=== PATIENT | female | born 1960 | race Caucasian/White ===

== ENCOUNTER 2020-07-12 08:39 | Outpatient (REF) | payer OTHER, SELFPAY | END 2020-07-12 08:40 | disposition home or self-care (01) | LOC: HO.LAB 08:39 | PROVIDERS: Visit Provider Internal Medicine | DX: Z20.828 Contact with and (suspected) exposure to other viral communicable diseases (principal) | CPT/HCPCS: 36415; C9803; U0003 ==

== ENCOUNTER 2020-08-04 13:52 | Outpatient (REF) | payer OTHER, SELFPAY ==
[2020-08-04 14:42] LABS: Creatinine Urine 87.91 mg/dL; Microalbum/Creatinine Ratio Ur 5.6 ug/mg cr
== END 2020-08-04 13:53 | disposition home or self-care (01) ==
LOC: HO.LNP 13:52
PROVIDERS: Visit Provider Family Medicine
DX: E11.9 Type 2 diabetes mellitus without complications (principal)
CPT/HCPCS: 82043

== ENCOUNTER → 2021-03-30 10:28 | Outpatient (BNVA) | payer OTHER, SELFPAY | PROVIDERS: PCP Family Medicine; Referring Provider Family Medicine; Visit Provider Internal Medicine Cardiovascular Disease | DX: I25.10 Atherosclerotic heart disease of native coronary artery without angina pectoris (principal); R07.9 Chest pain, unspecified; E11.9 Type 2 diabetes mellitus without complications | CPT/HCPCS: 93005; 99212 ==

== ENCOUNTER 2021-05-11 09:22 | Outpatient (REF) | payer OTHER, SELFPAY ==
--- NOTE | ~2021-05-11 | US_ITS ---
EXAMINATION: ANKLE-BRACHIAL INDICES. CLINICAL INFORMATION: This is a 60-year-old female with peripheral vascular disease. Type 2 diabetes without complications. COMPARISON: None. TECHNIQUE: Ankle-brachial indices were obtained. The study was performed pre-exercise. FINDINGS: RIGHT SIDE: The right ankle-brachial index is 0.98 rest. The segmental pressures demonstrate no evidence of peripheral arterial disease. LEFT SIDE: The left ankle-brachial index is 1.09 at rest. The segmental pressures demonstrate no evidence of significant peripheral arterial disease. US/US JAREK complete IMPRESSION: Unremarkable examination. INTERPRETATION CRITERIA FOR PERIPHERAL ARTERIAL DISEASE: > 0.97-1.25 = normal - no significant peripheral arterial disease. (0.95 - 0.91 may be abnormal-consider PVRs and Doppler waveforms). 0.75 - 0.96 = MILD peripheral arterial disease. 0.50 -0.74 = MODERATE peripheral arterial disease. < 0.50 = SEVERE peripheral arterial disease. < 0.30 = CRITICAL peripheral arterial disease.
== END 2021-05-11 09:23 | disposition home or self-care (01) ==
LOC: HO.US 09:22
PROVIDERS: PCP Family Medicine; Visit Provider Internal Medicine Cardiovascular Disease
DX: E11.9 Type 2 diabetes mellitus without complications (principal)
CPT/HCPCS: 93923

== ENCOUNTER → 2021-05-18 10:44 | Outpatient (REF) | payer OTHER, SELFPAY ==
--- NOTE | 2021-05-18 10:48 | CA_ITS ---
Acquisition Time: 2021-05-18 11:15:28 Total Exercise Time: 00:06:25 Test Indications: Chest Pain Medications: ASA ATORVASTATIN GLYBURIDE METFORMIN METOPROLOL Protocol: BASSAM Max HR: 179 BPM 110% of Pred: 162 BPM Max BP: 186/098 mmHG Max Work Load: 7.6 METS Exercise stress test with exercise 6 min 25 sec of Bassam protocol, without anginal symptoms, with isolated PACs and short runs of asymptomatic atrial tachycardia lasting 2-8 sec at a time ( afib not entirely ruled out), with normotensive response to exercise, with artifact at peak exercise, without EKG changes meeting criteria for ischemia at 32 sec of recovery, with downsloping STs with borderline depression inferolateral leads with slow gradual improvement in recovery. Echo images obtained by tech at rest and immediately post peak exercise. Definity contrast used. Test reviewed with Dr Swift. Will order Holter monitor for further eval of arrythmia. Referred By: Ty Farooq Overread By: SETH FLORES
== END ==
LOC: HO.CARD 10:44
PROVIDERS: Visit Provider Internal Medicine Cardiovascular Disease
DX: R07.9 Chest pain, unspecified (principal)
CPT/HCPCS: 93350; Q9957

== ENCOUNTER 2021-06-03 09:17 | Outpatient (REF) | payer OTHER, SELFPAY ==
[2021-06-03 11:12] LABS: Estimated Average Glucose 200 mg/dL; Hemoglobin A1c % 8.6 %
== END 2021-06-03 09:18 | disposition home or self-care (01) ==
LOC: HO.WFDLDS 09:17
PROVIDERS: Visit Provider Family Medicine
DX: R73.01 Impaired fasting glucose (principal)
CPT/HCPCS: 36415; 83036

== ENCOUNTER → 2021-06-11 15:28 | Outpatient (BNVA) | payer OTHER, SELFPAY | PROVIDERS: PCP Family Medicine; Referring Provider Family Medicine; Visit Provider Internal Medicine Cardiovascular Disease | DX: I25.10 Atherosclerotic heart disease of native coronary artery without angina pectoris (principal); R07.9 Chest pain, unspecified | CPT/HCPCS: 99212 ==

== ENCOUNTER → 2021-06-29 07:14 | Outpatient (REF) | payer OTHER, SELFPAY ==
--- NOTE | 2021-06-29 07:18 | HM_ITS ---
Total monitoring time 3 days 3 hours. Underlying rhythm is sinus. Minimum heart rate 46/Min. Maximum 122/Min. Average 66/Min. No atrial fibrillation or flutter or pauses or AV blocks. Rare supraventricular ectopy with minimal burden. 4 episodes, longest 5 beats. Rare ventricular ectopy with minimal burden. No clear patient symptoms documented. MTDD
== END ==
LOC: HO.CARD 07:14
PROVIDERS: Visit Provider Nurse Practitioner Family
DX: I47.1 Supraventricular tachycardia (principal); I49.1 Atrial premature depolarization
CPT/HCPCS: 93242

== ENCOUNTER → 2021-09-30 13:57 | Outpatient (BNVA) | payer OTHER, SELFPAY | PROVIDERS: PCP Family Medicine; Referring Provider Family Medicine; Visit Provider Internal Medicine Cardiovascular Disease | DX: I25.119 Atherosclerotic heart disease of native coronary artery with unspecified angina pectoris (principal) | CPT/HCPCS: 99212 ==

== ENCOUNTER 2022-03-03 08:00 | Outpatient (RCR) | payer OTHER, SELFPAY ==
[2021-11-18 13:16] VITALS: BP 120/70; BP 132/70; BMI 26.4
--- NOTE | 2021-11-18 15:20 | MHC.CR.ITI ---
[address] [phone] F: [phone] Please see additional notes from [facility] Initial Assessment/ITP Cardiac Rehab Initial Assessment/ITP Start: 11/18/21 06:55 Freq: Status: Active Protocol: Activity Type Activity Date Activity User E-Sign Co-Sign Detail Recorded Client Recorded Date Recorded By Document 11/18/21 13:16 [email or web address] [id number] 11/18/21 14:02 SARAH 11/18/21 13:16 Cardiac Rehab ITP Initial [Excercise] -Meat Processor Required No -Preferred Language Turkish -Number of sessions approved 36 -Diagnosis Current Stable Angina I20.9 -Other Diagnosis type 2 diabetes , high cholesterol, high bp [Functional Assessment] -6 Min Walk (distance in ft) 1,100 -METS Achieved 2.59 -Resting HR 80 -Resting BP 132/70 -Resting SpO2 99 -Exercise HR 60 -Exercise BP 120/70 -Exercise SpO2 99 -RPE 8 -Dyspnea No -ECG Summary NSR [Pre Rehab] -Pre Rehab Home Exercise Yes -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 Discussed RPE, stretching exercises taught to pt today and self- pulse taught. 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 pt states doesnt workout. [Nutrition] [Hyperlipidemia] -Hyperlipidemia Yes -Are lab results available No [Diabetes] -Diabetes Yes -Diabetes Type 2 -Are lab results available No -Monitors Glucose Yes -Frequency daily [Weight Management] -Height 5 ft 5 in -Weight 72.2 kg -BMI 26.4 -Recommended Diet DASH -Comments pt states she reads labels [Drug/Alchohol Use] -Drug/Alcohol Use No [Nutritional Screen (Rate Your Plate)] -Score 54 -Interpretation of Score THERE ARE SOME WAYS SHE CAN BE HEALTHIER [Nutrition Plan] [Nutrition Education] -Nutrition Education Diabetes and excercise, Hydration, Reading food labels,Signs and symptoms of Hypo/Hyper- glycemia -Date Completed 11/18/21 -Initials LICHA [Nutrition Goals] -Goals BMI < 25 -Weight goal 145 [Psycho/Social] -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 [Psycho/Social Plan] [Intervention] -Referral(s) No consult needed [Psycho/Social Education] -Psycho/Social Education Positive support system, Relaxation Techniques -Date Completed 11/18/21 -Initials LICHA -Education Summary Pts is disabled. He had a nervous breakdown 11 years ago. Per pt he is very supportive of her even with all of his emotional problems. Pt. has 8 chickens- helps keep her busy and helps her relax. [Psycho/Social Goals] -Goals Not Applicable -Comments Pt not depressed. PHQ9 score of 0. [Other Core Comp] [Risk Factors] -Risk Factors Diabetes, Dyslipidemia, Hypertension, Physical Inactivity [Hypertension] -Hypertention Yes -Resting BP: 132/70 [Tobacco Use] -Patient Tobacco Use Status Never used Tobacco -Patient Interested in Nicotine No Replacement -Exposure to secondhand smoke No [Heart Failure] -Heart Failure No -Dyspnea at Rest No -Dyspnea with Exercise No [Other Core Comp Plan] [Intervention] -Referral(s) Not Applicable [Other Core Comp Education] -Other Core Comp Education Understanding hypertension -Date Completed 11/18/21 -Initials LICHA [Other Core Comp Goals] -Goals Resting BP < 130/80 [Medication Plan] [Intervention] -Medications ASA 81 MG PO DAILY GLYBURIDE 5 MG 2 TABS METFORMIN 1OOOMG ONE TAB 2X DAILY ATORVASTATIN 80MG ONE TAB PO DAILY METOPROLOL 25 MG PO 2X DAILY -Compliance Patient reports compliance w/ prescribed meds [Medication Education] -Education Importance of medication compliance -Date Completed 11/18/21 -Initials LICHA [Medication Goals] -Goals Adherence to medication compliance [Treatment Times] -Rehab Services with ECG Monitor -Time 1300 -End Time 1500 -Visit Duration 120
[2021-12-15 07:48] VITALS: BP 112/60; BMI 26.4
--- NOTE | 2021-12-15 08:30 | MHC.CR.ITR ---
[address] [phone] F: [phone] Please see additional notes from [facility] Reassessment/ITP Cardiac Rehab Reassessment/ITP Start: 11/18/21 06:55 Freq: Status: Active Protocol: Activity Type Activity Date Activity User E-sign Co-sign Detail Recorded Client Recorded Date Recorded By Document 12/15/21 07:48 EMANUEL [id number] 12/15/21 08:29 EMANUEL 12/15/21 07:48 Cardiac Rehab Reassessment/ITP [Exercise] -Administrative Nursing Supervisor Required No -Preferred Language Nepali -Progress Note Type 30-Day Note -Total Sessions Attended 4 -Comments Collette is only able to attend CR once weekly due to work schedule but has started walking daily [Functional Assessment] -ECG Summary SR with no ectopy noted -Home-Based Rehab Pt approved for home-based exercise -Comments states walking 30+ minutes daily -Fall Risk No [Exercise Plan] [Intervention] -Exercise Prescription NuStep, Recumbent Bike, Treadmill,UBE -Duration Intensity 36 Sessions -Exercise Minutes/Day 30 -Exercise Days/Week 6 -Angina with Exercise No -Peak METs 3 [Home Exercise] -Mode walking -Frequency no rehab days -Intensity moderate [Exercise Education] -Exercise Education Exercise orientation, Exercise safety ,Home exercise, RPE,Self pulse checking,Signs and symptoms, Warmup/cooldown -Date Completed 11/18/21 -Initials licha -Education Summary Pt was here 3 years ago and was familiar with some machines. Discussed RPE, stretching exercises taught to pt today and self- pulse taught. 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 pt states doesnt workout but has started walking daily as she can only attend CR x 1 weekly [Nutrition] [Hyperlipidemia] -Are lab results available No -Hyperlipidemia Yes -Medication Changes No [Diabetes] -Diabetes Yes -Diabetes Type 2 -HbA1C 6.40 -Date 12/09/21 -Comments stated POC FBS 180 [Weight Management] -Weight 72.1 kg -BMI 26.4 -Comments pt states she reads labels weight unchanged [Drug/Alchohol Use] -Drug/Alcohol Use No -Change in Use No [Nutrition Plan] [Intervention] -Attended Not Applicable [Nutrition Education] -Nutrition Education Diabetes and excercise, Hydration, Nutrition, Reading food labels,Signs and symptoms of Hypo/Hyper- glycemia -Date Completed 11/18/21 -Initials LICHA -Education Summary given DASH diet handout. denies questions/ concerns re: nutrition [Nutrition Goals] -Goals BMI < 25, Fasting BG 80- 120 mg/dL,HDL > 40,LDL < 70, Total CHOL < 200 -Weight goal 145 [Psycho/Social] -Occupation Currently working -PHQ9 Score 1 -Interpretation of Score LOW RISK FOR DEPRESSION -Plan of Action/Follow-up will monitor -Patient Self-Reports Depression No [Psycho/Social Plan] [Intervention] -Attended No consult needed [Psycho/Social Education] -Psycho/Social Education Positive support system, Relaxation Techniques -Date Completed 11/18/21 -Initials LICHA -Education Summary is very supportive and pt has hobbies to help her relax [Psycho/Social Goals] -Goals Not Applicable -Comments Pt not depressed. PHQ9 score of 0. [Other Core Comp] [Hypertension] -Hypertention Yes -Resting BP: 112/60 -Medication Changes No [Tobacco Use] -Change in Use No -Comments does not smoke [Heart Failure] -Heart Failure No -Dyspnea at Rest No -Dyspnea with Exercise No [Other Core Comp Plan] [Intervention] -Attended Not Applicable [Other Core Comp Education] -Other Core Comp Education Medication compliance,Risk factor modifications, RPD Scale/SOB management, Understanding hypertension -Date Completed 11/18/21 -Initials LICHA -Education Summary denies sob and understands RPD scale/SOB management. states maintains medication regimen. [Other Core Comp Goals] -Goals Medication compliance, Resting BP < 130/80 -Comments remains compliant with medication regimen. [Medication Plan] [Intervention] -Medications ASA 81 MG PO DAILY GLYBURIDE 5 MG 2 TABS METFORMIN 1OOOMG ONE TAB 2X DAILY ATORVASTATIN 80MG ONE TAB PO DAILY METOPROLOL 25 MG PO 2X DAILY -Compliance Patient reports compliance w/ prescribed meds [Medication Education] -Education Importance of medication compliance -Date Completed 11/18/21 -Initials LICHA -Education Summary remains compliant with medication regimen [Medication Goals] -Goals Adherence to medication compliance
[2022-01-12 07:41] VITALS: BP 124/60; BMI 25.6
--- NOTE | 2022-01-12 07:45 | MHC.CR.ITR ---
[address] [phone] F: [phone] Please see additional notes from [facility] Reassessment/ITP Cardiac Rehab Reassessment/ITP Start: 11/18/21 06:55 Freq: Status: Active Protocol: Activity Type Activity Date Activity User E-sign Co-sign Detail Recorded Client Recorded Date Recorded By Document 01/12/22 07:41 EMANUEL [id number] 01/12/22 07:45 EMANUEL 01/12/22 07:41 Cardiac Rehab Reassessment/ITP [Exercise] -Cager Operator Required No -Preferred Language Irish -Progress Note Type 60-Day Note -Total Sessions Attended 7 -Comments Collette is only able to attend CR once weekly due to work schedule but has started walking daily [Functional Assessment] -ECG Summary SR with no ectopy noted -Home-Based Rehab Pt approved for home-based exercise -Comments states walking 30+ minutes daily -Fall Risk No [Exercise Plan] [Intervention] -Exercise Prescription NuStep, Recumbent Bike, Treadmill,UBE -Duration Intensity 36 Sessions -Exercise Minutes/Day 30 -Exercise Days/Week 6 -Angina with Exercise No -Peak METs 3 [Home Exercise] -Mode walking -Frequency no rehab days -Intensity moderate [Exercise Education] -Exercise Education Exercise orientation, Exercise safety ,Home exercise, RPE,Self pulse checking,Signs and symptoms, Warmup/cooldown -Date Completed 11/18/21 -Initials licha -Education Summary Pt was here 3 years ago and was familiar with some machines. Discussed RPE, stretching exercises taught to pt today and self- pulse taught. 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 pt states doesnt workout but has started walking daily as she can only attend CR x 1 weekly [Nutrition] [Hyperlipidemia] -Are lab results available No -Hyperlipidemia Yes -Medication Changes No [Diabetes] -Diabetes Yes -Diabetes Type 2 -HbA1C 6.40 -Date 12/09/21 -Comments stated POC FBS 180 [Weight Management] -Weight 70 kg -BMI 25.6 -Comments pt states she reads labels weight not significantly unchanged [Drug/Alchohol Use] -Drug/Alcohol Use No -Change in Use No [Nutrition Plan] [Intervention] -Attended Not Applicable [Nutrition Education] -Nutrition Education Diabetes and excercise, Hydration, Nutrition, Reading food labels,Signs and symptoms of Hypo/Hyper- glycemia -Date Completed 11/18/21 -Initials LICHA -Education Summary given DASH diet handout. denies questions/ concerns re: nutrition [Nutrition Goals] -Goals BMI < 25, Fasting BG 80- 120 mg/dL,HDL > 40,LDL < 70, Total CHOL < 200 -Weight goal 145 [Psycho/Social] -Occupation Currently working -PHQ9 Score 1 -Interpretation of Score LOW RISK FOR DEPRESSION -Plan of Action/Follow-up will monitor -Patient Self-Reports Depression No [Psycho/Social Plan] [Intervention] -Attended No consult needed [Psycho/Social Education] -Psycho/Social Education Positive support system, Relaxation Techniques -Date Completed 11/18/21 -Initials LICHA -Education Summary is very supportive and pt has hobbies to help her relax [Psycho/Social Goals] -Goals Not Applicable -Comments Pt not depressed. PHQ9 score of 0. [Other Core Comp] [Hypertension] -Hypertention Yes -Resting BP: 124/60 -Medication Changes No [Tobacco Use] -Change in Use No -Comments does not smoke [Heart Failure] -Heart Failure No -Dyspnea at Rest No -Dyspnea with Exercise No [Other Core Comp Plan] [Intervention] -Attended Not Applicable [Other Core Comp Education] -Other Core Comp Education Medication compliance,Risk factor modifications, RPD Scale/SOB management, Understanding hypertension -Date Completed 11/18/21 -Initials LICHA -Education Summary denies sob and understands RPD scale/SOB management. states maintains medication regimen. [Other Core Comp Goals] -Goals Medication compliance, Resting BP < 130/80 -Comments remains compliant with medication regimen. [Medication Plan] [Intervention] -Medications ASA 81 MG PO DAILY GLYBURIDE 5 MG 2 TABS METFORMIN 1OOOMG ONE TAB 2X DAILY ATORVASTATIN 80MG ONE TAB PO DAILY METOPROLOL 25 MG PO 2X DAILY -Compliance Patient reports compliance w/ prescribed meds [Medication Education] -Education Importance of medication compliance -Date Completed 11/18/21 -Initials LICHA -Education Summary remains compliant with medication regimen [Medication Goals] -Goals Adherence to medication compliance
[2022-02-09 12:31] VITALS: BP 118/70; BMI 25.6
--- NOTE | 2022-02-09 12:36 | MHC.CR.ITR ---
[address] [phone] F: [phone] Please see additional notes from [facility] Card[facility] Reassessment/ITP Cardiac Rehab Reassessment/ITP Start: 11/18/21 06:55 Freq: Status: Active Protocol: Activity Type Activity Date Activity User E-sign Co-sign Detail Recorded Client Recorded Date Recorded By Document 02/09/22 12:31 EMANUEL [id number] 02/09/22 12:36 EMANUEL 02/09/22 12:31 Cardiac Rehab Reassessment/ITP [Exercise] -Casino Supervisor Required No -Preferred Language Azeri -Progress Note Type 90-Day Note -Total Sessions Attended 11 -Comments Collette is only able to attend CR once weekly due to work schedule but has started walking daily [Functional Assessment] -ECG Summary SR with no ectopy noted -Home-Based Rehab Pt approved for home-based exercise -Comments states walking 30+ minutes daily -Fall Risk No [Exercise Plan] [Intervention] -Exercise Prescription NuStep, Recumbent Bike, Treadmill,UBE -Duration Intensity 36 Sessions -Exercise Minutes/Day 30 -Exercise Days/Week 6 -Angina with Exercise No -Peak METs 3 [Home Exercise] -Mode walking -Frequency no rehab days -Intensity moderate [Exercise Education] -Exercise Education Exercise orientation, Exercise safety ,Home exercise, RPE,Self pulse checking,Signs and symptoms, Warmup/cooldown -Date Completed 11/18/21 -Initials licha -Education Summary familiar with some machines and exercise safety. understands RPE , appropriate stretching exercises verified and accurately demonstrates self-pulse. 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 pt states doesnt workout but has started walking daily as she can only attend CR x 1 weekly [Nutrition] [Hyperlipidemia] -Are lab results available No -Hyperlipidemia Yes -Medication Changes No [Diabetes] -Diabetes Yes -Diabetes Type 2 -HbA1C 6.40 -Date 12/09/21 -Comments stated POC FBS 180 [Weight Management] -Weight 70 kg -BMI 25.6 -Comments pt states she reads labels weight not significantly unchanged [Drug/Alchohol Use] -Drug/Alcohol Use No -Change in Use No [Nutrition Plan] [Intervention] -Attended Not Applicable [Nutrition Education] -Nutrition Education Diabetes and excercise, Hydration, Nutrition, Reading food labels,Signs and symptoms of Hypo/Hyper- glycemia -Date Completed 11/18/21 -Initials LICHA -Education Summary given DASH diet handout. denies questions/ concerns re: nutrition [Nutrition Goals] -Goals BMI < 25, Fasting BG 80- 120 mg/dL,HDL > 40,LDL < 70, Total CHOL < 200 -Weight goal 145 [Psycho/Social] -Occupation Currently working -PHQ9 Score 1 -Interpretation of Score LOW RISK FOR DEPRESSION -Plan of Action/Follow-up will monitor -Patient Self-Reports Depression No [Psycho/Social Plan] [Intervention] -Attended No consult needed [Psycho/Social Education] -Psycho/Social Education Positive support system, Relaxation Techniques -Date Completed 11/18/21 -Initials LICHA -Education Summary is very supportive and pt has hobbies to help her relax [Psycho/Social Goals] -Goals Not Applicable -Comments Pt not depressed. PHQ9 score of 0. [Other Core Comp] [Hypertension] -Hypertention Yes -Resting BP: 118/70 -Medication Changes No [Tobacco Use] -Change in Use No -Comments does not smoke and is not exposed to second hand smoke [Heart Failure] -Heart Failure No -Dyspnea at Rest No -Dyspnea with Exercise No [Other Core Comp Plan] [Intervention] -Attended Not Applicable [Other Core Comp Education] -Other Core Comp Education Medication compliance,Risk factor modifications, RPD Scale/SOB management, Understanding hypertension -Date Completed 11/18/21 -Initials LICHA -Education Summary denies sob and understands RPD scale/SOB management. states maintains medication regimen. [Other Core Comp Goals] -Goals Medication compliance, Resting BP < 130/80 -Comments remains compliant with medication regimen. [Medication Plan] [Intervention] -Medications ASA 81 MG PO DAILY GLYBURIDE 5 MG 2 TABS METFORMIN 1OOOMG ONE TAB 2X DAILY ATORVASTATIN 80MG ONE TAB PO DAILY METOPROLOL 25 MG PO 2X DAILY -Compliance Patient reports compliance w/ prescribed meds [Medication Education] -Education Importance of medication compliance -Date Completed 11/18/21 -Initials LICHA -Education Summary remains compliant with medication regimen [Medication Goals] -Goals Adherence to medication compliance
[2022-03-09 07:41] VITALS: BP 132/80; BMI 25.2
--- NOTE | 2022-03-09 07:50 | MHC.CR.ITR ---
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 -Preferred Language Polish -Progress Note Type 120-Day Note -Total Sessions Attended 14 -Comments Collette is only able to attend CR once weekly due to work schedule but has started walking daily [Functional Assessment] -ECG Summary SR with no ectopy noted -Home-Based Rehab Pt approved for home-based exercise -Comments states walking 30+ minutes daily -Fall Risk No [Exercise Plan] [Intervention] -Exercise Prescription NuStep, Recumbent Bike, Treadmill,UBE -Duration Intensity 36 Sessions -Exercise Minutes/Day 30 -Exercise Days/Week 6 -Angina with Exercise No -Peak METs 3 [Home Exercise] -Mode walking -Frequency no rehab days -Intensity moderate [Exercise Education] -Exercise Education Exercise orientation, Exercise safety ,Home exercise, RPE,Self pulse checking,Signs and symptoms, Warmup/cooldown -Date Completed 11/18/21 -Initials licha -Education Summary familiar with some machines and exercise safety. understands RPE , appropriate stretching exercises verified and accurately demonstrates self-pulse. 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 pt states doesnt workout but has started walking daily as she can only attend CR x 1 weekly [Nutrition] [Hyperlipidemia] -Are lab results available No -Hyperlipidemia Yes -Medication Changes No [Diabetes] -Diabetes Yes -Diabetes Type 2 -HbA1C 6.40 -Date 12/09/21 -Comments stated POC FBS 180 glyburide DC'd started jardiance 10 mg daily [Weight Management] -Weight 68.9 kg -BMI 25.2 [Drug/Alchohol Use] -Drug/Alcohol Use No -Change in Use No [Nutrition Plan] [Intervention] -Attended Not Applicable [Nutrition Education] -Nutrition Education Diabetes and excercise, Hydration, Nutrition, Reading food labels,Signs and symptoms of Hypo/Hyper- glycemia -Date Completed 11/18/21 -Initials LICHA -Education Summary given DASH diet handout. denies questions/ concerns re: nutrition [Nutrition Goals] -Goals BMI < 25, Fasting BG 80- 120 mg/dL,HDL > 40,LDL < 70, Total CHOL < 200 -Weight goal 145 [Psycho/Social] -Occupation Currently working -PHQ9 Score 1 -Interpretation of Score LOW RISK FOR DEPRESSION -Plan of Action/Follow-up will monitor -Patient Self-Reports Depression No [Psycho/Social Plan] [Intervention] -Attended No consult needed [Psycho/Social Education] -Psycho/Social Education Positive support system, Relaxation Techniques -Date Completed 11/18/21 -Initials LICHA -Education Summary is very supportive and pt has hobbies to help her relax [Psycho/Social Goals] -Goals Not Applicable -Comments Pt not depressed. PHQ9 score of 0. [Other Core Comp] [Hypertension] -Hypertention Yes -Resting BP: 132/80 -Medication Changes No [Tobacco Use] -Change in Use No -Comments does not smoke and is not exposed to second hand smoke [Heart Failure] -Heart Failure No -Dyspnea at Rest No -Dyspnea with Exercise No [Other Core Comp Plan] [Intervention] -Attended Not Applicable [Other Core Comp Education] -Other Core Comp Education Medication compliance,Risk factor modifications, RPD Scale/SOB management, Understanding hypertension -Date Completed 11/18/21 -Initials LICHA -Education Summary denies sob and understands RPD scale/SOB management. states maintains medication regimen. [Other Core Comp Goals] -Goals Medication compliance, Resting BP < 130/80 -Comments remains compliant with medication regimen. [Medication Plan] [Intervention] -Medications ASA 81 MG PO DAILY METFORMIN 1OOOMG ONE TAB 2X DAILY ATORVASTATIN 80MG ONE TAB PO DAILY METOPROLOL 25 MG PO 2X DAILY jardiance 10 mg daily -Compliance Patient reports compliance w/ prescribed meds [Medication Education] -Education Importance of medication compliance -Date Completed 11/18/21 -Initials LICHA -Education Summary remains compliant with medication regimen [Medication Goals] -Goals Adherence to medication compliance
[2022-03-24 11:34] VITALS: BP 128/72; BP 136/74; BMI 24.7
--- NOTE | 2022-03-24 11:35 | MHC.CR.ITD ---
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 RESUMING CR IMMEDIATELY STARTING . [Functional Assessment] -6 Min Walk (distance in ft) 1,350 -Stress Test (Mode) walk -METS Achieved 2.96 -Resting HR 56 -Resting BP 128/72 -Resting SpO2 99 -Exercise HR 72 -Exercise BP 136/74 -RPE 9 -ECG Summary SR with no ectopy noted -Fall Risk No [Exercise Plan] [Intervention] -Exercise Prescription NuStep, Recumbent Bike, Recumbent Elliptical, Rower,Treadmill ,UBE,Upright Bike,Weights -Duration Intensity 36 Sessions -Exercise Minutes/Day 30 -Exercise Days/Week 6 -Angina with Exercise No -Peak METs 3 [Home Exercise] -Mode walking -Frequency no rehab days -Intensity moderate [Exercise Education] -Exercise Education Exercise orientation, Exercise safety ,Home exercise, RPE,Self pulse checking,Signs and symptoms, Warmup/cooldown -Date Completed 11/18/21 -Initials licha -Education Summary this is Llinda' second time through CR so is familiar with machines and exercise safety. understands RPE , appropriate stretching exercises verified and accurately demonstrates self-pulse. [Exercise Goals] -Exercise Most Days of the Week No -Exercise 30-45 mins/day No -Target HR Range +20 - +30 beats above resting -Target RPE range 11-13 -Increase METS next 30 days 0.5-1.0 METS Every two weeks -METs goal by Discharge 5 METS -Comments has started walking daily as she can only attend CR x 1 weekly [Nutrition] [Hyperlipidemia] -Are lab results available No -Hyperlipidemia Yes [Diabetes] -Diabetes Yes -Diabetes Type 2 -HbA1C 6.40 -Date 12/09/21 -Comments stated POC FBS 180 glyburide DC'd started jardiance 10 mg daily [Weight Management] -Weight 68.9 kg -BMI 24.7 [Drug/Alchohol Use] -Drug/Alcohol Use No -Change in Use No [Nutrition Plan] [Intervention] -Attended Nutrition Brochures [Nutrition Education] -Nutrition Education Diabetes and excercise, Hydration, Nutrition, Reading food labels,Signs and symptoms of Hypo/Hyper- glycemia -Date Completed 03/24/22 -Initials ja -Education Summary given DASH diet handout. denies questions/ concerns re: nutrition [Nutrition Goals] -Goals BMI < 25, Fasting BG 80- 120 mg/dL,HDL > 40,LDL < 70, Total CHOL < 200 -Weight goal 145 [Psycho/Social] -Occupation Currently working -PHQ9 Score 1 -Interpretation of Score LOW RISK FOR DEPRESSION -Plan of Action/Follow-up will monitor -Patient Self-Reports Depression No [Psycho/Social Plan] [Intervention] -Attended No consult needed [Psycho/Social Education] -Psycho/Social Education Advanced directives, Coping techniques, Depression and CAD,Positive support system, Relaxation Techniques, Reviewed PHQ9 Score w/pt, Signs and symptoms of CAD ,Stress management -Date Completed 03/24/22 -Initials ja -Education Summary uses hobbies to help her relax [Psycho/Social Goals] -Goals Not Applicable -Comments DENIES DEPRESSION [Other Core Comp] [Hypertension] -Hypertention Yes -Resting BP: 128/72 -Medication Changes No [Tobacco Use] -Change in Use No -Comments does not smoke and is not exposed to second hand smoke [Heart Failure] -Dyspnea at Rest No -Dyspnea with Exercise No [Other Core Comp Plan] [Intervention] -Attended Not Applicable [Other Core Comp Education] -Other Core Comp Education Medication compliance,Risk factor modifications, RPD Scale/SOB management, Understanding hypertension -Date Completed 03/24/22 -Initials ja -Education Summary denies sob and understands RPD scale/SOB management. states maintains medication regimen. [Other Core Comp Goals] -Goals Medication compliance, Resting BP < 130/80 -Comments remains compliant with medication regimen. [Medication Plan] [Intervention] -Medications ASA 81 MG PO DAILY METFORMIN 1OOOMG ONE TAB 2X DAILY ATORVASTATIN 80MG ONE TAB PO DAILY METOPROLOL 25 MG PO 2X DAILY jardiance 10 mg daily -Compliance Patient reports compliance w/ prescribed meds [Medication Education] -Education Importance of medication compliance -Date Completed 11/18/21 -Initials LICHA -Education Summary remains compliant with medication regimen [Medication Goals] -Goals Adherence to medication compliance
== END 2022-09-10 13:34 | disposition home or self-care (01) ==
LOC: HO.CR 08:00
PROVIDERS: Visit Provider Internal Medicine Cardiovascular Disease
DX: I20.8 Other forms of angina pectoris (principal); Z98.61 Coronary angioplasty status
CPT/HCPCS: 93798

== ENCOUNTER 2022-03-24 08:21 | Outpatient (RCR) | payer OTHER, SELFPAY ==
[2021-11-18 13:16] VITALS: BP 120/70; BP 132/70
--- NOTE | 2022-03-24 11:22 | MHC.CR.ITI ---
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 She is only able to attend CR once weekly due to work schedule but has started walking daily [Functional Assessment] -6 Min Walk (distance in ft) 1,350 -Stress Test (Mode) walk -METS Achieved 2.96 -Resting HR 56 -Resting BP 128/72 -Resting SpO2 99 -Exercise HR 72 -Exercise BP 136/74 -Exercise SpO2 99 -RPE 9 -Dyspnea No -ECG Summary SR -Comments denies sob, discomfort. gait even and steady [Pre Rehab] -Pre Rehab Home Exercise Yes -Mode walking -Exercise Minutes/Day 30 -Exercise Days/Week 5 -Intensity light -Risk Stratification: Intermediate Functional Risk Participants capacity < 5-6 METs -Fall Risk No -Assistive Devices None [Exercise Plan] [Intervention] -Exercise Prescription NuStep, Recumbent Bike, Recumbent Elliptical, Rower,Treadmill ,UBE,Upright Bike,Weights -Duration Intensity 36 Sessions -Frequency 2-3x/week -Angina with Exercise No [Exercise Education] -Exercise Education Exercise orientation, Exercise safety ,Home exercise, RPE,Self pulse checking,Signs and symptoms, Warmup/cooldown -Date Completed 11/18/21 -Initials joshua -Education Summary this is Gissell' second time through CR so is familiar with machines and exercise safety. understands RPE , appropriate stretching exercises verified and accurately demonstrates self-pulse. [Exercise Goals] -Exercise Most Days of the Week No -Exercise 30-45 mins/day No -Target HR Range +20 - +30 beats above resting -Target RPE range 11-13 -Increase METS next 30 days 0.5-1.0 METS Every two weeks -METs goal by Discharge 5 METS -Comments has started walking daily as she can only attend CR x 1 weekly [Nutrition] [Hyperlipidemia] -Hyperlipidemia Yes -Are lab results available No [Diabetes] -Diabetes Yes -Diabetes Type 2 -HbA1C 6.40 -Date 12/09/21 -Monitors Glucose Yes -Frequency daily [Weight Management] -Height 5 ft 5 in -Weight 67.6 kg -BMI 24.7 -Recommended Diet DASH [Drug/Alchohol Use] -Drug/Alcohol Use No [Nutritional Screen (Rate Your Plate)] -Score 50 -Interpretation of Score THERE ARE SOME WAYS SHE CAN BE HEALTHIER [Nutrition Plan] [Intervention] -Referral(s) Nutrition Brochures [Nutrition Education] -Nutrition Education Diabetes and excercise, Hydration, Nutrition, Reading food labels,Signs and symptoms of Hypo/Hyper- glycemia -Date Completed 03/24/22 -Initials ja -Education Summary given DASH diet handout. 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 -PHQ9 Score 1 -Interpretation of Score LOW RISK FOR DEPRESSION -Plan of Action/Follow-up will monitor -Patient Self-Reports Depression No -Family Support Lives with spouse/others [Psycho/Social Plan] [Intervention] -Referral(s) No consult needed [Psycho/Social Education] -Psycho/Social Education Advanced directives, Coping techniques, Depression and CAD,Positive support system, Relaxation Techniques, Reviewed PHQ9 Score w/pt, Signs and symptoms of CAD ,Stress management -Date Completed 03/24/22 -Initials ja -Education Summary uses hobbies to help her relax [Psycho/Social Goals] -Goals Not Applicable -Comments Pt not depressed. PHQ9 score of 0. [Other Core Comp] [Risk Factors] -Risk Factors Diabetes, Dyslipidemia, Hypertension, Physical Inactivity [Hypertension] -Hypertention Yes -Resting BP: 128/72 [Tobacco Use] -Patient Tobacco Use Status Never used Tobacco [Heart Failure] -Heart Failure No -Dyspnea at Rest No -Dyspnea with Exercise No [Other Core Comp Plan] [Intervention] -Referral(s) Not Applicable [Other Core Comp Education] -Other Core Comp Education Medication compliance,Risk factor modifications, RPD Scale/SOB management, Understanding hypertension -Date Completed 03/24/22 -Initials ja -Education Summary denies sob and understands RPD scale/SOB management. states maintains medication regimen. [Other Core Comp Goals] -Goals Medication compliance, Resting BP < 130/80 -Comments remains compliant with medication regimen. [Medication Plan] [Intervention] -Compliance Patient reports compliance w/ prescribed meds [Medication Education] -Education Importance of medication compliance, Medication purpose, Medication schedule, Medication side effects -Date Completed 03/24/22 -Initials ja -Education Summary ASA 81 MG PO DAILY Jardiance 10 mg DAILY METFORMIN 1OOOMG ONE TAB 2X DAILY ATORVASTATIN 80MG ONE TAB PO DAILY METOPROLOL 25 MG PO 2X DAILY VIT D3 DAILY VIT C DAILY [Medication Goals] -Goals Adherence to medication compliance [Treatment Times] -Rehab Services with ECG Monitor -Time 0800 -End Time 0930 -Visit Duration 90
[2022-03-24 11:24] VITALS: BP 128/72; BP 136/74; BMI 24.7
--- NOTE | 2022-03-24 11:27 | MHC.CR.ITI ---
[address] [phone] F: [phone] Please see additional notes from [facility] Card[facility] Re[facility] Initial Assessment/ITP Cardiac Rehab Initial Assessment/ITP Start: 03/23/22 07:12 Freq: Status: Active Protocol: Activity Type Activity Date Activity User E-sign Co-sign Detail Recorded Client Recorded Date Recorded By Document 03/24/22 11:24 EMANUEL [id number] 03/24/22 11:25 EMANUEL 03/24/22 11:24 Cardiac Rehab ITP Initial [Excercise] -Hvac Service Tech Required No -Preferred Language Cape Verdean -Number of sessions approved 36 -Diagnosis CHF EF < or = 35% I50.9, Coronary Stenting (PCI) Z98.61 -Comments This is Collette's second time through CR. She is only able to attend CR once weekly due to work schedule but has started walking daily [Functional Assessment] -6 Min Walk (distance in ft) 1,350 -Stress Test (Mode) walk -METS Achieved 2.96 -Resting HR 56 -Resting BP 128/72 -Resting SpO2 99 -Exercise HR 72 -Exercise BP 136/74 -Exercise SpO2 99 -RPE 9 -Dyspnea No -ECG Summary SR -Comments denies sob, discomfort. gait even and steady [Pre Rehab] -Pre Rehab Home Exercise Yes -Mode walking -Exercise Minutes/Day 30 -Exercise Days/Week 5 -Intensity light -Risk Stratification: Intermediate Functional Risk Participants capacity < 5-6 METs -Fall Risk No -Assistive Devices None [Exercise Plan] [Intervention] -Exercise Prescription NuStep, Recumbent Bike, Recumbent Elliptical, Rower,Treadmill ,UBE,Upright Bike,Weights -Duration Intensity 36 Sessions -Frequency 2-3x/week -Angina with Exercise No [Exercise Education] -Exercise Education Exercise orientation, Exercise safety ,Home exercise, RPE,Self pulse checking,Signs and symptoms, Warmup/cooldown -Date Completed 11/18/21 -Initials joshua -Education Summary this is Gissell' second time through CR so is familiar with machines and exercise safety. understands RPE , appropriate stretching exercises verified and accurately demonstrates self-pulse. [Exercise Goals] -Exercise Most Days of the Week No -Exercise 30-45 mins/day No -Target HR Range +20 - +30 beats above resting -Target RPE range 11-13 -Increase METS next 30 days 0.5-1.0 METS Every two weeks -METs goal by Discharge 5 METS -Comments has started walking daily as she can only attend CR x 1 weekly [Nutrition] [Hyperlipidemia] -Hyperlipidemia Yes -Are lab results available No [Diabetes] -Diabetes Yes -Diabetes Type 2 -HbA1C 6.40 -Date 12/09/21 -Monitors Glucose Yes -Frequency daily [Weight Management] -Height 5 ft 5 in -Weight 67.6 kg -BMI 24.7 -Recommended Diet DASH [Drug/Alchohol Use] -Drug/Alcohol Use No [Nutritional Screen (Rate Your Plate)] -Score 50 -Interpretation of Score THERE ARE SOME WAYS SHE CAN BE HEALTHIER [Nutrition Plan] [Intervention] -Referral(s) Nutrition Brochures [Nutrition Education] -Nutrition Education Diabetes and excercise, Hydration, Nutrition, Reading food labels,Signs and symptoms of Hypo/Hyper- glycemia -Date Completed 03/24/22 -Initials ja -Education Summary given DASH diet handout. 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 -PHQ9 Score 1 -Interpretation of Score LOW RISK FOR DEPRESSION -Plan of Action/Follow-up will monitor -Patient Self-Reports Depression No -Family Support Lives with spouse/others [Psycho/Social Plan] [Intervention] -Referral(s) No consult needed [Psycho/Social Education] -Psycho/Social Education Advanced directives, Coping techniques, Depression and CAD,Positive support system, Relaxation Techniques, Reviewed PHQ9 Score w/pt, Signs and symptoms of CAD ,Stress management -Date Completed 03/24/22 -Initials ja -Education Summary uses hobbies to help her relax [Psycho/Social Goals] -Goals Not Applicable -Comments DENIES DEPRESSION [Other Core Comp] [Risk Factors] -Risk Factors Diabetes, Dyslipidemia, Hypertension, Physical Inactivity [Hypertension] -Hypertention Yes -Resting BP: 128/72 [Tobacco Use] -Patient Tobacco Use Status Never used Tobacco [Heart Failure] -Heart Failure No -Dyspnea at Rest No -Dyspnea with Exercise No [Other Core Comp Plan] [Intervention] -Referral(s) Not Applicable [Other Core Comp Education] -Other Core Comp Education Medication compliance,Risk factor modifications, RPD Scale/SOB management, Understanding hypertension -Date Completed 03/24/22 -Initials ja -Education Summary denies sob and understands RPD scale/SOB management. states maintains medication regimen. [Other Core Comp Goals] -Goals Medication compliance, Resting BP < 130/80 -Comments remains compliant with medication regimen. [Medication Plan] [Intervention] -Compliance Patient reports compliance w/ prescribed meds [Medication Education] -Education Importance of medication compliance, Medication purpose, Medication schedule, Medication side effects -Date Completed 03/24/22 -Initials ja -Education Summary ASA 81 MG PO DAILY Jardiance 10 mg DAILY METFORMIN 1OOOMG ONE TAB 2X DAILY ATORVASTATIN 80MG ONE TAB PO DAILY METOPROLOL 25 MG PO 2X DAILY VIT D3 DAILY VIT C DAILY [Medication Goals] -Goals Adherence to medication compliance [Treatment Times] -Rehab Services with ECG Monitor -Time 0800 -End Time 0930 -Visit Duration 90
[2022-04-21 07:44] VITALS: BP 130/69; BMI 25.2
--- NOTE | 2022-04-21 07:52 | MHC.CR.ITR ---
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 RESUMING CR IMMEDIATELY STARTING . [Functional Assessment] -ECG Summary SR with no ectopy noted -Home-Based Rehab Pt approved for home-based exercise -Fall Risk No [Exercise Plan] [Intervention] -Exercise Prescription NuStep, Recumbent Bike, Recumbent Elliptical, Rower,Treadmill ,UBE,Upright Bike,Weights -Duration Intensity 36 Sessions -Exercise Minutes/Day 30 -Exercise Days/Week 6 -Angina with Exercise No -Peak METs 3 [Home Exercise] -Mode walking -Frequency no rehab days -Intensity moderate [Exercise Education] -Exercise Education Exercise orientation, Exercise safety ,Home exercise, RPE,Self pulse checking,Signs and symptoms, Warmup/cooldown -Date Completed 03/23/22 -Initials JA -Education Summary continuing CR/ is familiar with machines and exercise safety. understands RPE , appropriate stretching exercises verified and accurately demonstrates self-pulse. [Exercise Goals] -Exercise Most Days of the Week No -Exercise 30-45 mins/day No -Target HR Range +20 - +30 beats above resting -Target RPE range 11-13 -Increase METS next 30 days 0.5-1.0 METS Every two weeks -METs goal by Discharge 5 METS -Comments walking daily as she can only attend CR x 1 weekly [Nutrition] [Hyperlipidemia] -Are lab results available No -Hyperlipidemia Yes -Medication Changes No [Diabetes] -Diabetes Yes -Diabetes Type 2 -HbA1C 6.40 -Date 12/09/21 -Comments stated POC FBS 180 glyburide DC'd started jardiance 10 mg daily [Weight Management] -Weight 68.7 kg -BMI 25.2 [Drug/Alchohol Use] -Drug/Alcohol Use No -Change in Use No [Nutrition Plan] [Intervention] -Attended Nutrition Brochures [Nutrition Education] -Nutrition Education Diabetes and excercise, Hydration, Nutrition, Reading food labels,Signs and symptoms of Hypo/Hyper- glycemia -Date Completed 03/24/22 -Initials ja -Education Summary given DASH diet handout. denies questions/ concerns re: nutrition [Nutrition Goals] -Goals BMI < 25, Fasting BG 80- 120 mg/dL,HDL > 40,LDL < 70, Total CHOL < 200 -Weight goal 145 [Psycho/Social] -Occupation Currently working -PHQ9 Score 1 -Interpretation of Score LOW RISK FOR DEPRESSION -Plan of Action/Follow-up will monitor -Patient Self-Reports Depression No [Psycho/Social Plan] [Intervention] -Attended No consult needed [Psycho/Social Education] -Psycho/Social Education Advanced directives, Coping techniques, Depression and CAD,Positive support system, Relaxation Techniques, Reviewed PHQ9 Score w/pt, Signs and symptoms of CAD ,Stress management -Date Completed 03/24/22 -Initials ja -Education Summary uses hobbies to help her relax . denies depression and states has a good support system. denies concerns [Psycho/Social Goals] -Goals Not Applicable -Comments DENIES DEPRESSION [Other Core Comp] [Hypertension] -Hypertention Yes -Resting BP: 130/69 -Medication Changes No [Tobacco Use] -Change in Use No [Heart Failure] -Heart Failure No -Dyspnea at Rest No -Dyspnea with Exercise No [Other Core Comp Plan] [Intervention] -Attended Not Applicable [Other Core Comp Education] -Other Core Comp Education Medication compliance,Risk factor modifications, RPD Scale/SOB management, Understanding hypertension -Date Completed 03/24/22 -Initials ja -Education Summary denies sob and understands RPD scale/SOB management. states maintains medication regimen. [Other Core Comp Goals] -Goals Medication compliance, Resting BP < 130/80 -Comments remains compliant with medication regimen. [Medication Plan] [Intervention] -Medications ASA 81 MG PO DAILY Jardiance 10 mg DAILY METFORMIN 1OOOMG ONE TAB 2X DAILY ATORVASTATIN 80MG ONE TAB PO DAILY METOPROLOL 25 MG PO 2X DAILY VIT D3 DAILY VIT C DAILY -Compliance Patient reports compliance w/ prescribed meds [Medication Education] -Education Importance of medication compliance, Medication purpose, Medication schedule, Medication side effects -Date Completed 03/24/22 -Initials ja -Education Summary ASA 81 MG PO DAILY Jardiance 10 mg DAILY METFORMIN 1OOOMG ONE TAB 2X DAILY ATORVASTATIN 80MG ONE TAB PO DAILY METOPROLOL 25 MG PO 2X DAILY VIT D3 DAILY VIT C DAILY [Medication Goals] -Goals Adherence to medication compliance
[2022-05-20 08:10] VITALS: BP 118/64; BMI 24.5
--- NOTE | 2022-05-20 08:17 | MHC.CR.ITR ---
[address] [phone] F: [phone] Please see additional notes from [facility] Reassessment/ITP Cardiac Rehab Reassessment/ITP Start: 03/23/22 07:12 Freq: Status: Active Protocol: Activity Type Activity Date Activity User E-sign Co-sign Detail Recorded Client Recorded Date Recorded By Document 05/20/22 08:10 EMANUEL [id number] 05/20/22 08:16 EMANUEL 05/20/22 08:10 Cardiac Rehab Reassessment/ITP [Exercise] -Curtain Cutter Required No -Preferred Language Serbian -Progress Note Type 60-Day Note -Total Sessions Attended 5 -Comments Collette only able to attend CR 1 day week due to work schedule. On on -rehab days walks x 30 mins . Has increased duration and intensity of workout with supervision and guidance. [Functional Assessment] -ECG Summary SR with no ectopy noted -Home-Based Rehab Pt approved for home-based exercise -Fall Risk No [Exercise Plan] [Intervention] -Exercise Prescription NuStep, Recumbent Bike, Recumbent Elliptical, Rower,Treadmill ,UBE,Upright Bike,Weights -Duration Intensity 36 Sessions -Exercise Minutes/Day 30 -Exercise Days/Week 6 -Angina with Exercise No -Peak METs 3 [Home Exercise] -Mode walking -Frequency no rehab days -Intensity moderate [Exercise Education] -Exercise Education Exercise orientation, Exercise safety ,Home exercise, RPE,Self pulse checking,Signs and symptoms, Warmup/cooldown -Date Completed 03/23/22 -Initials JA -Education Summary continuing CR/ is familiar with machines and exercise safety. understands RPE , appropriate stretching exercises verified and accurately demonstrates self-pulse. [Exercise Goals] -Exercise Most Days of the Week No -Exercise 30-45 mins/day No -Target HR Range +20 - +30 beats above resting -Target RPE range 11-13 -Increase METS next 30 days 0.5-1.0 METS Every two weeks -METs goal by Discharge 5 METS -Comments walking daily as she can only attend CR x 1 weekly [Nutrition] [Hyperlipidemia] -Are lab results available No -Hyperlipidemia Yes -Medication Changes No [Diabetes] -Diabetes Yes -Diabetes Type 2 -HbA1C 6.40 -Date 12/09/21 -Comments stated POC FBS 180 glyburide DC'd started jardiance 10 mg daily [Weight Management] -Weight 67 kg -BMI 24.5 [Drug/Alchohol Use] -Drug/Alcohol Use No -Change in Use No [Nutrition Plan] [Intervention] -Attended Nutrition Brochures [Nutrition Education] -Nutrition Education Diabetes and excercise, Hydration, Nutrition, Reading food labels,Signs and symptoms of Hypo/Hyper- glycemia -Date Completed 03/24/22 -Initials ja -Education Summary given DASH diet handout. denies questions/ concerns re: nutrition [Nutrition Goals] -Goals BMI < 25, Fasting BG 80- 120 mg/dL,HDL > 40,LDL < 70, Total CHOL < 200 -Weight goal 145 [Psycho/Social] -Occupation Currently working -PHQ9 Score 1 -Interpretation of Score LOW RISK FOR DEPRESSION -Plan of Action/Follow-up will monitor -Patient Self-Reports Depression No -Comments recently hospitalized increasing her stress level. states stress lessened now that he has been discharged . [Psycho/Social Plan] [Intervention] -Attended No consult needed [Psycho/Social Education] -Psycho/Social Education Advanced directives, Coping techniques, Depression and CAD,Positive support system, Relaxation Techniques, Reviewed PHQ9 Score w/pt, Signs and symptoms of CAD ,Stress management -Date Completed 03/24/22 -Initials ja -Education Summary uses hobbies to help her relax . denies depression and states has a good support system. denies concerns [Psycho/Social Goals] -Goals Not Applicable -Comments DENIES DEPRESSION [Other Core Comp] [Hypertension] -Hypertention Yes -Resting BP: 118/64 -Medication Changes No [Tobacco Use] -Change in Use No [Heart Failure] -Heart Failure No -Dyspnea at Rest No -Dyspnea with Exercise No [Other Core Comp Plan] [Intervention] -Attended Not Applicable [Other Core Comp Education] -Other Core Comp Education Medication compliance,Risk factor modifications, RPD Scale/SOB management, Understanding hypertension -Date Completed 03/24/22 -Initials ja -Education Summary denies sob and understands RPD scale/SOB management. states maintains medication regimen. [Other Core Comp Goals] -Goals Medication compliance, Resting BP < 130/80 -Comments remains compliant with medication regimen. [Medication Plan] [Intervention] -Medications ASA 81 MG PO DAILY Jardiance 10 mg DAILY METFORMIN 1OOOMG ONE TAB 2X DAILY ATORVASTATIN 80MG ONE TAB PO DAILY METOPROLOL 25 MG PO 2X DAILY VIT D3 DAILY VIT C DAILY -Compliance Patient reports compliance w/ prescribed meds [Medication Education] -Education Importance of medication compliance, Medication purpose, Medication schedule, Medication side effects -Date Completed 03/24/22 -Initials ja -Education Summary ASA 81 MG PO DAILY Jardiance 10 mg DAILY METFORMIN 1OOOMG ONE TAB 2X DAILY ATORVASTATIN 80MG ONE TAB PO DAILY METOPROLOL 25 MG PO 2X DAILY VIT D3 DAILY VIT C DAILY [Medication Goals] -Goals Adherence to medication compliance -Comments states faithfully maintains medication regimen
[2022-06-15 08:28] VITALS: BP 122/80; BMI 24.5
--- NOTE | 2022-06-15 08:30 | MHC.CR.ITR ---
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 On on -rehab days walks x 30 mins . Has increased duration and intensity of workout with supervision and guidance. [Functional Assessment] -ECG Summary SR with no ectopy noted -Home-Based Rehab Pt approved for home-based exercise -Fall Risk No [Exercise Plan] [Intervention] -Exercise Prescription NuStep, Recumbent Bike, Recumbent Elliptical, Rower,Treadmill ,UBE,Upright Bike,Weights -Duration Intensity 36 Sessions -Exercise Minutes/Day 30 -Exercise Days/Week 6 -Angina with Exercise No -Peak METs 3 [Home Exercise] -Mode walking -Frequency no rehab days -Intensity moderate [Exercise Education] -Exercise Education Exercise orientation, Exercise safety ,Home exercise, RPE,Self pulse checking,Signs and symptoms, Warmup/cooldown -Date Completed 03/23/22 -Initials JA -Education Summary continuing CR/ is familiar with machines and exercise safety. understands RPE , appropriate stretching exercises verified and accurately demonstrates self-pulse. [Exercise Goals] -Exercise Most Days of the Week No -Exercise 30-45 mins/day No -Target HR Range +20 - +30 beats above resting -Target RPE range 11-13 -Increase METS next 30 days 0.5-1.0 METS Every two weeks -METs goal by Discharge 5 METS -Comments walking daily as she can only attend CR x 1 weekly [Nutrition] [Hyperlipidemia] -Are lab results available No -Hyperlipidemia Yes -Medication Changes No [Diabetes] -Diabetes Yes -Diabetes Type 2 -HbA1C 6.40 -Date 12/09/21 -Comments stated POC FBS 180 glyburide DC'd started jardiance 10 mg daily [Weight Management] -Weight 67 kg -BMI 24.5 -Comments unchanged [Drug/Alchohol Use] -Drug/Alcohol Use No -Change in Use No [Nutrition Plan] [Intervention] -Attended Nutrition Brochures [Nutrition Education] -Nutrition Education Diabetes and excercise, Hydration, Nutrition, Reading food labels,Signs and symptoms of Hypo/Hyper- glycemia -Date Completed 03/24/22 -Initials ja -Education Summary given DASH diet handout. denies questions/ concerns re: nutrition [Nutrition Goals] -Goals BMI < 25, Fasting BG 80- 120 mg/dL,HDL > 40,LDL < 70, Total CHOL < 200 -Weight goal 145 [Psycho/Social] -Occupation Currently working -PHQ9 Score 1 -Interpretation of Score LOW RISK FOR DEPRESSION -Plan of Action/Follow-up will monitor -Patient Self-Reports Depression No -Comments recently hospitalized increasing her stress level. states stress lessened now that he has been discharged . [Psycho/Social Plan] [Intervention] -Attended No consult needed [Psycho/Social Education] -Psycho/Social Education Advanced directives, Coping techniques, Depression and CAD,Positive support system, Relaxation Techniques, Reviewed PHQ9 Score w/pt, Signs and symptoms of CAD ,Stress management -Date Completed 03/24/22 -Initials ja -Education Summary uses hobbies to help her relax . denies depression and states has a good support system. denies concerns [Psycho/Social Goals] -Goals Not Applicable -Comments DENIES DEPRESSION [Other Core Comp] [Hypertension] -Hypertention Yes -Resting BP: 122/80 -Medication Changes No [Tobacco Use] -Change in Use No [Heart Failure] -Heart Failure No -Dyspnea at Rest No -Dyspnea with Exercise No [Other Core Comp Plan] [Intervention] -Attended Not Applicable [Other Core Comp Education] -Other Core Comp Education Medication compliance,Risk factor modifications, RPD Scale/SOB management, Understanding hypertension -Date Completed 03/24/22 -Initials ja -Education Summary denies sob and understands RPD scale/SOB management. states maintains medication regimen. [Other Core Comp Goals] -Goals Medication compliance, Resting BP < 130/80 -Comments remains compliant with medication regimen. [Medication Plan] [Intervention] -Medications ASA 81 MG PO DAILY Jardiance 10 mg DAILY METFORMIN 1OOOMG ONE TAB 2X DAILY ATORVASTATIN 80MG ONE TAB PO DAILY METOPROLOL 25 MG PO 2X DAILY VIT D3 DAILY VIT C DAILY -Compliance Patient reports compliance w/ prescribed meds [Medication Education] -Education Importance of medication compliance, Medication purpose, Medication schedule, Medication side effects -Date Completed 03/24/22 -Initials ja -Education Summary ASA 81 MG PO DAILY Jardiance 10 mg DAILY METFORMIN 1OOOMG ONE TAB 2X DAILY ATORVASTATIN 80MG ONE TAB PO DAILY METOPROLOL 25 MG PO 2X DAILY VIT D3 DAILY VIT C DAILY [Medication Goals] -Goals Adherence to medication compliance -Comments states faithfully maintains medication regimen
[2022-07-22 07:11] VITALS: BP 126/82; BMI 24.4
--- NOTE | 2022-07-22 07:21 | MHC.CR.ITR ---
[address] [phone] F: [phone] Please see additional notes from [facility] Card[facility] Rehab Reassessment/ITP Cardiac Rehab Reassessment/ITP Start: 03/23/22 07:12 Freq: Status: Active Protocol: Activity Type Activity Date Activity User E-sign Co-sign Detail Recorded Client Recorded Date Recorded By Document 07/22/22 07:11 EMANUEL [id number] 07/22/22 07:20 EMANUEL 07/22/22 07:11 Cardiac Rehab Reassessment/ITP [Exercise] -Dredge Or Barge Shore Hand Required No -Preferred Language Icelandic -Progress Note Type 120-Day Note -Total Sessions Attended 11 -Comments Collette only able to attend CR 1 day week due to work schedule. On on -rehab days walks x 30 mins . Has increased duration and intensity of workout with supervision and guidance. [facility] has had some elevated POC FBS since glyburide DC'd. Most recent states POC FBS 166 (states historically has been less than 120.) [Functional Assessment] -ECG Summary SR with no ectopy noted -Home-Based Rehab Pt approved for home-based exercise -Comments walks 30 + minutes daily weather permitting. -Fall Risk No [Exercise Plan] [Intervention] -Exercise Prescription NuStep, Recumbent Bike, Recumbent Elliptical, Rower,Treadmill ,UBE,Upright Bike,Weights -Duration Intensity 36 Sessions -Exercise Minutes/Day 30 -Exercise Days/Week 6 -Angina with Exercise No -Peak METs 3 [Home Exercise] -Mode walking -Frequency no rehab days -Intensity moderate [Exercise Education] -Exercise Education Exercise orientation, Exercise safety ,Home exercise, RPE,Self pulse checking,Signs and symptoms, Warmup/cooldown -Date Completed 03/23/22 -Initials JA -Education Summary continuing CR/ is familiar with machines and exercise safety. understands RPE , appropriate stretching exercises verified and accurately demonstrates self-pulse. [Exercise Goals] -Exercise Most Days of the Week No -Exercise 30-45 mins/day No -Target HR Range +20 - +30 beats above resting -Target RPE range 11-13 -Increase METS next 30 days 0.5-1.0 METS Every two weeks -METs goal by Discharge 5 METS -Comments walking daily as she can only attend CR x 1 weekly [Nutrition] [Hyperlipidemia] -Are lab results available No -Hyperlipidemia Yes: stated -Medication Changes No [Diabetes] -Diabetes Yes -Diabetes Type 2 -HbA1C 6.40 -Date 12/09/21 -Comments stated POC FBS 166 glyburide DC'd started jardiance 10 mg daily [Weight Management] -Weight 66.6 kg -BMI 24.43 -Comments not significantly changed [Drug/Alchohol Use] -Drug/Alcohol Use No -Change in Use No [Nutrition Plan] [Intervention] -Attended Nutrition Brochures [Nutrition Education] -Nutrition Education Diabetes and excercise, Hydration, Nutrition, Reading food labels,Signs and symptoms of Hypo/Hyper- glycemia -Date Completed 03/24/22 -Initials ja -Education Summary given DASH diet handout. denies questions/ concerns re: nutrition [Nutrition Goals] -Goals BMI < 25, Fasting BG 80- 120 mg/dL,HDL > 40,LDL < 70, Total CHOL < 200 -Weight goal 145 [Psycho/Social] -Occupation Currently working -PHQ9 Score 1 -Interpretation of Score LOW RISK FOR DEPRESSION -Plan of Action/Follow-up will monitor -Patient Self-Reports Depression No -Comments denies s/s depression. [Psycho/Social Plan] [Intervention] -Attended No consult needed [Psycho/Social Education] -Psycho/Social Education Advanced directives, Coping techniques, Depression and CAD,Positive support system, Relaxation Techniques, Reviewed PHQ9 Score w/pt, Signs and symptoms of CAD ,Stress management -Date Completed 03/24/22 -Initials ja -Education Summary uses hobbies to help her relax . denies depression and states has a good support system. denies concerns [Psycho/Social Goals] -Goals Not Applicable -Comments DENIES DEPRESSION [Other Core Comp] [Hypertension] -Hypertention Yes -Resting BP: 126/82 -Medication Changes No [Tobacco Use] -Change in Use No [Heart Failure] -Heart Failure No -Dyspnea at Rest No -Dyspnea with Exercise No [Other Core Comp Plan] [Intervention] -Attended Not Applicable [Other Core Comp Education] -Other Core Comp Education Medication compliance,Risk factor modifications, RPD Scale/SOB management, Understanding hypertension -Date Completed 03/24/22 -Initials ja -Education Summary denies SOB and understands RPD scale/SOB management. states maintains medication regimen. [Other Core Comp Goals] -Goals Manage risk factors, Medication compliance, Resting BP < 130/80 -Comments remains compliant with medication regimen. [Medication Plan] [Intervention] -Medications ASA 81 MG PO DAILY Jardiance 10 mg DAILY METFORMIN 1OOOMG ONE TAB 2X DAILY ATORVASTATIN 80MG ONE TAB PO DAILY METOPROLOL 25 MG PO 2X DAILY VIT D3 DAILY VIT C DAILY -Compliance Patient reports compliance w/ prescribed meds [Medication Education] -Education Importance of medication compliance, Medication purpose, Medication schedule, Medication side effects -Date Completed 03/24/22 -Initials ja -Education Summary ASA 81 MG PO DAILY Jardiance 10 mg DAILY METFORMIN 1OOOMG ONE TAB 2X DAILY ATORVASTATIN 80MG ONE TAB PO DAILY METOPROLOL 25 MG PO 2X DAILY VIT D3 DAILY VIT C DAILY [Medication Goals] -Goals Adherence to medication compliance -Comments states faithfully maintains medication regimen Denies questions or concerns re: medications/ monitoring
[2022-08-17 10:57] VITALS: BP 116/66; BMI 24.6
--- NOTE | 2022-08-17 11:03 | MHC.CR.ITR ---
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 On on -rehab days walks x 30 mins . Has increased duration and intensity of workout with supervision and guidance. [facility] has had some elevated POC FBS since glyburide DC'd. Most recent states POC FBS 166 (states historically has been less than 120.) [Functional Assessment] -ECG Summary SR with no ectopy noted -Home-Based Rehab Pt approved for home-based exercise -Comments walks 30 + minutes daily weather permitting. -Fall Risk No [Exercise Plan] [Intervention] -Exercise Prescription NuStep, Recumbent Bike, Recumbent Elliptical, Rower,Treadmill ,UBE,Upright Bike,Weights -Duration Intensity 36 Sessions -Exercise Minutes/Day 30 -Exercise Days/Week 6 -Angina with Exercise No -Peak METs 3 [Home Exercise] -Mode walking -Frequency no rehab days -Intensity moderate [Exercise Education] -Exercise Education Exercise orientation, Exercise safety ,Home exercise, RPE,Self pulse checking,Signs and symptoms, Warmup/cooldown -Date Completed 03/23/22 -Initials JA -Education Summary continuing CR/ is familiar with machines and exercise safety. understands RPE , appropriate stretching exercises verified and accurately demonstrates self-pulse. [Exercise Goals] -Exercise Most Days of the Week No -Exercise 30-45 mins/day No -Target HR Range +20 - +30 beats above resting -Target RPE range 11-13 -Increase METS next 30 days 0.5-1.0 METS Every two weeks -METs goal by Discharge 5 METS -Comments walking daily as she can only attend CR x 1 weekly [Nutrition] [Hyperlipidemia] -Are lab results available No -Hyperlipidemia Yes: stated -Medication Changes No [Diabetes] -Diabetes Yes -Diabetes Type 2 -HbA1C 6.40 -Date 12/09/21 -Comments stated POC FBS 166 glyburide DC'd started jardiance 10 mg daily [Weight Management] -Weight 67.8 kg -BMI 24.58 -Comments not significantly changed [Drug/Alchohol Use] -Drug/Alcohol Use No -Change in Use No [Nutrition Plan] [Intervention] -Attended Nutrition Brochures [Nutrition Education] -Nutrition Education Diabetes and excercise, Hydration, Nutrition, Reading food labels,Signs and symptoms of Hypo/Hyper- glycemia -Date Completed 03/24/22 -Initials ja -Education Summary given DASH diet handout. denies questions/ concerns re: nutrition [Nutrition Goals] -Goals BMI < 25, Fasting BG 80- 120 mg/dL,HDL > 40,LDL < 70, Total CHOL < 200 -Weight goal 145 [Psycho/Social] -Occupation Currently working -PHQ9 Score 1 -Interpretation of Score LOW RISK FOR DEPRESSION -Plan of Action/Follow-up will monitor -Patient Self-Reports Depression No -Comments denies s/s depression. [Psycho/Social Plan] [Intervention] -Attended No consult needed [Psycho/Social Education] -Psycho/Social Education Advanced directives, Coping techniques, Depression and CAD,Positive support system, Relaxation Techniques, Reviewed PHQ9 Score w/pt, Signs and symptoms of CAD ,Stress management -Date Completed 03/24/22 -Initials ja -Education Summary uses hobbies to help her relax . denies depression and states has a good support system. denies concerns [Psycho/Social Goals] -Goals Not Applicable -Comments DENIES DEPRESSION [Other Core Comp] [Hypertension] -Hypertention Yes -Resting BP: 116/66 -Medication Changes No [Tobacco Use] -Change in Use No [Heart Failure] -Heart Failure No -Dyspnea at Rest No -Dyspnea with Exercise No [Other Core Comp Plan] [Intervention] -Attended Not Applicable [Other Core Comp Education] -Other Core Comp Education Medication compliance,Risk factor modifications, RPD Scale/SOB management, Understanding hypertension -Date Completed 03/24/22 -Initials ja -Education Summary denies SOB and understands RPD scale/SOB management. states maintains medication regimen. [Other Core Comp Goals] -Goals Manage risk factors, Medication compliance, Resting BP < 130/80 -Comments remains compliant with medication regimen. [Medication Plan] [Intervention] -Medications ASA 81 MG PO DAILY Jardiance 10 mg DAILY METFORMIN 1OOOMG ONE TAB 2X DAILY ATORVASTATIN 80MG ONE TAB PO DAILY METOPROLOL 25 MG PO 2X DAILY VIT D3 DAILY VIT C DAILY -Compliance Patient reports compliance w/ prescribed meds [Medication Education] -Education Importance of medication compliance, Medication purpose, Medication schedule, Medication side effects -Date Completed 03/24/22 -Initials ja -Education Summary ASA 81 MG PO DAILY Jardiance 10 mg DAILY METFORMIN 1OOOMG ONE TAB 2X DAILY ATORVASTATIN 80MG ONE TAB PO DAILY METOPROLOL 25 MG PO 2X DAILY VIT D3 DAILY VIT C DAILY [Medication Goals] -Goals Adherence to medication compliance -Comments states faithfully maintains medication regimen Denies questions or concerns re: medications/ monitoring
[2022-09-09 08:26] VITALS: BP 112/70; BP 126/76; BMI 24.6
--- NOTE | 2022-09-09 08:32 | MHC.CR.ITD ---
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 On on -rehab days walks x 30 mins . Has increased duration and intensity of workout with supervision and guidance. [facility] has had some elevated POC FBS since glyburide DC'd. Most recent states POC FBS 166 (states historically has been less than 120.) [Functional Assessment] -6 Min Walk (distance in ft) 1,325 -Stress Test (Mode) walk -METS Achieved 2.92 -Resting HR 56 -Resting BP 112/70 -Resting SpO2 99 -Exercise HR 61 -Exercise BP 126/76 -Exercise SpO2 98 -RPE 10 -Dyspnea NO -ECG Summary SR with no ectopy noted -Fall Risk No [Exercise Plan] [Intervention] -Exercise Prescription NuStep, Recumbent Bike, Recumbent Elliptical, Rower,Treadmill ,UBE,Upright Bike,Weights -Duration Intensity 36 Sessions -Exercise Minutes/Day 30 -Exercise Days/Week 6 -Angina with Exercise No -Peak METs 3 [Home Exercise] -Mode walking -Frequency no rehab days -Intensity moderate [Exercise Education] -Exercise Education Exercise orientation, Exercise safety ,Home exercise, RPE,Self pulse checking,Signs and symptoms, Warmup/cooldown -Date Completed 03/23/22 -Initials JA -Education Summary continuing CR/ is familiar with machines and exercise safety. understands RPE , appropriate stretching exercises verified and accurately demonstrates self-pulse. [Exercise Goals] -Exercise Most Days of the Week No -Exercise 30-45 mins/day No -Target HR Range +20 - +30 beats above resting -Target RPE range 11-13 -Increase METS next 30 days 0.5-1.0 METS Every two weeks -METs goal by Discharge 5 METS -Comments walking daily as she can only attend CR x 1 weekly [Nutrition] [Hyperlipidemia] -Are lab results available No -Hyperlipidemia Yes: stated [Diabetes] -Diabetes Yes -Diabetes Type 2 -HbA1C 6.40 -Date 12/09/21 -Comments stated POC FBS 166 glyburide DC'd started jardiance 10 mg daily [Weight Management] -Weight 66.3 kg -BMI 24.58 -Comments not significantly changed [Drug/Alchohol Use] -Drug/Alcohol Use No -Change in Use No [Nutrition Plan] [Intervention] -Attended Nutrition Brochures [Nutrition Education] -Nutrition Education Diabetes and excercise, Hydration, Nutrition, Reading food labels,Signs and symptoms of Hypo/Hyper- glycemia -Date Completed 03/24/22 -Initials ja -Education Summary given DASH diet handout. denies questions/ concerns re: nutrition [Nutrition Goals] -Goals BMI < 25, Fasting BG 80- 120 mg/dL,HDL > 40,LDL < 70, Total CHOL < 200 -Weight goal 145 [Psycho/Social] -Occupation Currently working -PHQ9 Score 0 -Interpretation of Score LOW RISK FOR DEPRESSION -Plan of Action/Follow-up will monitor -Patient Self-Reports Depression No -Comments denies s/s depression. [Psycho/Social Plan] [Intervention] -Attended No consult needed [Psycho/Social Education] -Psycho/Social Education Advanced directives, Coping techniques, Depression and CAD,Positive support system, Relaxation Techniques, Reviewed PHQ9 Score w/pt, Signs and symptoms of CAD ,Stress management -Date Completed 03/24/22 -Initials ja -Education Summary uses hobbies to help her relax . denies depression and states has a good support system. denies concerns [Psycho/Social Goals] -Goals Not Applicable -Comments DENIES DEPRESSION [Other Core Comp] [Hypertension] -Hypertention Yes -Resting BP: 112/70 -Medication Changes No [Tobacco Use] -Change in Use No [Heart Failure] -Dyspnea at Rest No -Dyspnea with Exercise No [Other Core Comp Plan] [Intervention] -Attended Not Applicable [Other Core Comp Education] -Other Core Comp Education Medication compliance,Risk factor modifications, RPD Scale/SOB management, Understanding hypertension -Date Completed 03/24/22 -Initials ja -Education Summary denies SOB and understands RPD scale/SOB management. states maintains medication regimen. [Other Core Comp Goals] -Goals Manage risk factors, Medication compliance, Resting BP < 130/80 -Comments remains compliant with medication regimen. [Medication Plan] [Intervention] -Medications ASA 81 MG PO DAILY Jardiance 10 mg DAILY METFORMIN 1OOOMG ONE TAB 2X DAILY ATORVASTATIN 80MG ONE TAB PO DAILY METOPROLOL 25 MG PO 2X DAILY VIT D3 DAILY VIT C DAILY -Compliance Patient reports compliance w/ prescribed meds [Medication Education] -Education Importance of medication compliance, Medication purpose, Medication schedule, Medication side effects -Date Completed 03/24/22 -Initials ja -Education Summary ASA 81 MG PO DAILY Jardiance 10 mg DAILY METFORMIN 1OOOMG ONE TAB 2X DAILY ATORVASTATIN 80MG ONE TAB PO DAILY METOPROLOL 25 MG PO 2X DAILY VIT D3 DAILY VIT C DAILY [Medication Goals] -Goals Adherence to medication compliance -Comments states faithfully maintains medication regimen Denies questions or concerns re: medications/ monitoring
== END 2022-09-09 08:34 | disposition home or self-care (01) ==
LOC: HO.CR 08:21
PROVIDERS: Visit Provider Internal Medicine Cardiovascular Disease
DX: I20.8 Other forms of angina pectoris (principal); Z98.61 Coronary angioplasty status
CPT/HCPCS: 93798

== ENCOUNTER → 2022-06-09 15:35 | Outpatient (BNVA) | payer OTHER, SELFPAY ==
[2022-03-24 11:34] VITALS: BP 128/72; BP 136/74
[2022-05-20 08:10] VITALS: BP 118/64; BMI 24.5
== END ==
PROVIDERS: PCP Family Medicine; Referring Provider Family Medicine; Visit Provider Internal Medicine Cardiovascular Disease
DX: I25.118 Atherosclerotic heart disease of native coronary artery with other forms of angina pectoris (principal)
CPT/HCPCS: 93005; 99212

== ENCOUNTER 2022-08-25 07:50 | Outpatient (REF) | payer OTHER, SELFPAY ==
[2022-03-24 11:34] VITALS: BP 128/72; BP 136/74
[2022-08-25 12:04] LABS: Alanine Aminotransferase 27 U/L (0-31); Alkaline Phosphatase 76 U/L (39-117); Anion Gap 11 (12-20); Aspartate Amino Transferase 24 U/L (5-31); Bilirubin Total 0.8 mg/dL (0.0-1.0); Blood Urea Nitrogen 19 mg/dL (9-16); Calcium 10.6 mg/dL (8.4-10.2); Carbon Dioxide 27 mmol/L (22-29); Chloride 108 mmol/L (96-108); Cholesterol 123 mg/dL; Estimated Glomerular Filt Rate > 60; Glucose Fasting 168 mg/dL (60-99); HDL Cholesterol 35 mg/dL; LDL Cholesterol Calculated 65 mg/dl; Potassium 4.5 mmol/L (3.3-5.1); Sodium 141 mmol/L (135-145); TSH reflex Free T4 0.97 uIU/mL (0.32-4.0); Total Protein 6.1 g/dL (6.5-8.0); Triglycerides 117 mg/dL
[2022-08-25 12:40] LABS: Creatinine Urine 64.99 mg/dL; Microalbumin Urine < 5.0 mg/L
== END 2022-08-25 07:51 | disposition home or self-care (01) ==
LOC: HO.WFDLDS 07:50
PROVIDERS: Visit Provider Family Medicine
DX: Z00.00 Encounter for general adult medical examination without abnormal findings (principal); I10 Essential (primary) hypertension
CPT/HCPCS: 36415; 80053; 80061; 82043; 84443

== ENCOUNTER 2022-09-22 13:06 | Outpatient (REF) | payer OTHER, SELFPAY ==
[2022-03-24 11:34] VITALS: BP 128/72; BP 136/74
--- NOTE | ~2022-09-22 | MM_ITS ---
EXAMINATION: MM SCREENING DIGITAL BREAST TOMOSYNTHESIS, BILATERAL CLINICAL INFORMATION: Screening. Asymptomatic. History breast cancer, mother. The lifetime risk of breast cancer based on the Tyrer-Cuzick Model is 11%. COMPARISON: Mammography: 12/09/2017, 12/01/2016, 08/04/2015 TECHNIQUE: Digital breast tomosynthesis is performed in both the craniocaudal and mediolateral oblique views along with computer-aided detection (CAD). Synthesized 2D images are generated from the tomosynthesis. FINDINGS: There are scattered areas of fibroglandular density (ACR BI-RADS breast composition Category b). There are no significant masses, abnormal calcifications, or other abnormalities. No architectural abnormality or developing density or significant change from prior studies. The axilla and skin contours are unremarkable. MM/MM tomosynthesis screening BI IMPRESSION: No mammographic evidence of malignancy. ASSESSMENT: BI-RADS 1: Negative RECOMMENDATION: Routine annual mammography screening. This patient's information was entered into a reminder system with a target due date for their next mammogram.
== END 2022-09-22 13:07 | disposition home or self-care (01) ==
LOC: HO.MAMMO 13:06
PROVIDERS: PCP Family Medicine; Visit Provider Family Medicine
DX: Z12.31 Encounter for screening mammogram for malignant neoplasm of breast (principal)
CPT/HCPCS: 77063; 77067

== ENCOUNTER 2022-10-19 10:52 | Outpatient (REF) | payer OTHER, SELFPAY ==
[2022-10-20 11:01] LABS: Appearance Urine Clear; Color Urine Yellow; Glucose Urine UA >=1000 mg/dL (Negative); Leukocyte Esterase Urine Moderate (2+) (Negative); Nitrite Urine Negative (Negative); PH 5.5 (5.0-9.0); UMIC TRIGGER UA YES; Urine Blood Trace (Negative); Urine Ketones Negative (Negative); Urine Protein Negative (Neg-Trace)
[2022-10-20 11:03] LABS: Bacteria Urine None Seen (None Seen); Hyaline Casts Urine 0-2 /LPF (0-2); RBC Urine 0-2 /HPF (0-2); Squamous Epithelial Cell Urine 0-2 /HPF (0-2); WBC Urine 21-50 /HPF (0-5)
== END 2022-10-19 10:53 | disposition home or self-care (01) ==
LOC: HO.LNP 10:52
PROVIDERS: Visit Provider Family Medicine
DX: R30.0 Dysuria (principal)
CPT/HCPCS: 81001; 87086; 87147

== ENCOUNTER 2022-10-19 16:38 | Outpatient (REF) | payer OTHER, SELFPAY | END 2022-10-19 16:39 | disposition home or self-care (01) | LOC: HO.LAB 16:38 | PROVIDERS: Visit Provider Family Medicine | DX: Z13.89 Encounter for screening for other disorder (principal) ==

== ENCOUNTER 2022-10-27 11:38 | Outpatient (REF) | payer OTHER, SELFPAY | END 2022-10-27 11:39 | disposition home or self-care (01) | LOC: HO.LNP 11:38 | PROVIDERS: Visit Provider Hospitalist | DX: B37.9 Candidiasis, unspecified (principal) | CPT/HCPCS: 87086 ==

== ENCOUNTER 2022-11-03 16:29 | Outpatient (REF) | payer OTHER, SELFPAY | END 2022-11-03 16:30 | disposition home or self-care (01) | LOC: HO.LAB 16:29 | PROVIDERS: Visit Provider Nurse Practitioner Family | DX: Z13.89 Encounter for screening for other disorder (principal) ==

== ENCOUNTER 2022-11-10 11:21 | Outpatient (REF) | payer OTHER, SELFPAY ==
[2022-11-11 10:11] LABS: BV Int Neg Control Negative (Negative); BV Int Pos Control Positive (Positive)
== END 2022-11-10 11:22 | disposition home or self-care (01) ==
LOC: HO.LAB 11:21
PROVIDERS: PCP Family Medicine; Visit Provider Advanced Practice Midwife
DX: N89.8 Other specified noninflammatory disorders of vagina (principal)
CPT/HCPCS: 87480; 87510; 87660

== ENCOUNTER 2022-11-10 12:24 | Outpatient (REF) | payer OTHER, SELFPAY ==
[2022-11-13 05:53] LABS: HPV mRNA E6/E7 rflx Not Detected (Not Detected)
== END 2022-11-10 12:25 | disposition home or self-care (01) ==
LOC: HO.LNP 12:24
PROVIDERS: Visit Provider Advanced Practice Midwife
DX: Z01.419 Encounter for gynecological examination (general) (routine) without abnormal findings (principal); Z11.51 Encounter for screening for human papillomavirus (HPV)
CPT/HCPCS: 87624; 88142

== ENCOUNTER → 2022-12-16 14:43 | Outpatient (BNVA) | payer OTHER, SELFPAY | PROVIDERS: PCP Family Medicine; Referring Provider Family Medicine; Visit Provider Nurse Practitioner Family | DX: I25.10 Atherosclerotic heart disease of native coronary artery without angina pectoris (principal); Z95.5 Presence of coronary angioplasty implant and graft | CPT/HCPCS: 99212 ==

== ENCOUNTER 2023-04-28 15:31 | Outpatient (AMB) | payer OTHER, SELFPAY ==
--- NOTE | 2023-04-28 15:34 | A.OFFPC_ITS ---
Vital Signs 04/28/23 15:35 Height 5 ft 5 in Weight 153 lb BMI 25.5 BP 130/80 Blood Pressure Location Lt brachial Position Sitting Pulse 71 Pulse Source Pulse Oximeter Pulse Oximetry (%) 98 Oxygen Delivery Method Room Air Intake Visit Reasons: f/u hypercalcemia and chronic conditions Intake Note: Patient is following up on hypercalcemia and chronic conditions today. Patient would like to talk about yeast infections symptoms today including whitish discarge and blood. [employer]: Present Allergies clavulanic acid [Augmentin] Allergy (Unknown, Verified 04/28/23 15:37) hives penicillin V Allergy (Unknown, Verified 04/28/23 15:37) hives Tobacco use date assessed: 04/28/23 Dental Screening Dental Screen Date: 04/28/23 Did you have a dental visit in the last 12 months?: No Did you have a dental problem in the last 6 months where you did not have access to dental care?: No Was dental information given to patient?: No HPI f/u hypercalcemia and chronic conditions HPI Details 62 y/o female presents to f/u hypercalce marilee and chronic conditions. A1c today 04/28/23 7.1%. She is on metformin 1000mg b.i.d. and Jardiance 25mg daily. [facility] Medical History (Updated 04/28/23 @ 16:27 by Huseyin Hong) T2DM (type 2 diabetes mellitus) Surgical History (Updated 12/16/22 @ 17:02 by Lynne Almonte NP-C) History of coronary artery stent placement History of hemorrhoids History of tubal ligation History of section Family History Father No problems noted. Mother Breast cancer CVD (cardiovascular disease) Diabetes mellitus Maternal Grandmother Melanoma Sister No problems noted. Son No problems noted. Son No problems noted. Son No problems noted. Son Sleep apnea Daughter No problems noted. Daughter No problems noted. 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 Wei Smyth, Stephanie Jose, Vitaliy Cabello and colleagues, with an educational bharath from [employer]. Physical exam (Primary Care) Vital Signs: Last Vital Signs Pulse 71 04/28/23 15:35 BP 130/80 04/28/23 15:35 Pulse Ox 98 04/28/23 15:35 Oxygen Delivery Method Room Air 04/28/23 15:35 BMI result Body Mass Index 25.5 Tobacco/Smoking Status: Tobacco use Status Tobacco use date assessed 04/28/23 04/28/23 15:40 Patient Tobacco Use Status Never used Tobacco 04/28/23 15:40 e-Cigarette/Vaping Use Never Used 04/28/23 15:40 Thrive Assessment: Date of Thrive Assessment Date Thrive assessed 08/23/22 04/28/23 15:40 Results AMB Hemoglobin A1c AMB Hemoglobin A1c 7.1 % Last Edit by Mirian Rollins CMA on 04/28/23 16:01 Results Reviewed Results Reviewed: Laboratory Last Values Hgb A1c (Clinic) 7.1 % (4.0-6.0) H 04/28/23 15:56 Assessment and Plan Assessment & Plan (1) T2DM (type 2 diabetes mellitus): Code(s): E11.9 - Type 2 diabetes mellitus without complications Plan: A1c?is?down?to?7.1%.??Improving?control?and?nearly?at?goal?of?less?than?7.0% Followed?by? at?[facility]?endocrinology Will?forward?results Follow-up?with?[facility]?endocrinology?as?recommended (2) Hypercalcemia: Code(s): E83.52 - Hypercalcemia Plan: Her?wafer cutter?had?recommended?decreasing?her?vitamin-D?level?which?she?has ?done Calcium?and?parathyroid?hormone?levels?only?slightly?improved and?he?had?suspected?that?she?likely?has?a?primary?hyperparathyroidism Will?recheck?calcium?and?parathyroid?hormone?levels. Follow-up?with? (3) Yeast infection: Code(s): B37.9 - Candidiasis, unspecified Plan: Will?give?her?a?script?for?Diflucan She?is?had?numerous?yeast?infections Advise?she?contact?her?afterschool babysitter?to?discuss (4) Screening for colon cancer: Code(s): Z12.11 - Encounter for screening for malignant neoplasm of colon Plan: Positive?Cologuard?test?and?I?had?referred?her?to?GI It?appears?that?GI?did?attempt?to?contact?her?but?an?appointment?was?never?made. Had?a?long?discussion?with?the?patient?who?says?she had chickened?out and?did?not?make?an?appointment. Patient?agrees?to?have?a?discuss ion?with?gastroenterology?about?her?options.??I?have?made?a?new?referral (5) Hyperparathyroidism: Code(s): E21.3 - Hyperparathyroidism, unspecified Plan: Follow-up?with?endocrinology?as?above (6) Cerumen impaction: Code(s): H61.20 - Impacted cerumen, unspecified ear Plan: Ear?lavage Orders: Orders Comprehensive Met. Panel Today E21.3 - Hyperparathyroidism, unspecified AMB Hemoglobin A1c Today Z13.9 - Encounter for screening, unspecified PTHI Today E21.3 - Hyperparathyroidism, unspecified Medications: New fluconazole 150 mg PO Q3D 2 tabs 0RF 2 doses Changed From glyburide 5 mg PO DAILY 30 days 30 tabs 4RF To glyburide 5 mg PO DAILY 9 days 9 tabs 4RF Coding Level of Care Code Est Pt Level 4 (77011) Diagnoses T2DM (type 2 diabetes mellitus) E11.9 Hypercalcemia E83.52 Yeast infection B37.9 Screening for colon cancer Z12.11 Hyperparathyroidism E21.3 Cerumen impaction H61.20
[2023-04-28 15:35] VITALS: BP 130/80; PULSE 71; O2SAT 98; BMI 25.5
== END 2023-04-28 16:46 | disposition home or self-care (01) ==
PROVIDERS: PCP Family Medicine; Visit Provider Family Medicine
DX: E11.9 Type 2 diabetes mellitus without complications (principal); E21.3 Hyperparathyroidism, unspecified; H61.21 Impacted cerumen, right ear; B37.9 Candidiasis, unspecified
CPT/HCPCS: 83036; 99214

== ENCOUNTER 2023-06-01 07:44 | Outpatient (REF) | payer OTHER, SELFPAY ==
[2023-06-01 11:46] LABS: Appearance Urine Clear; Color Urine Yellow; Glucose Urine UA >=1000 mg/dL (Negative); Leukocyte Esterase Urine Negative (Negative); Nitrite Urine Negative (Negative); Specific Gravity - Urine >= 1.030 (1.005-1.025); UMIC TRIGGER UA YES; UMIC TRIGGER UACC YES; Urine Blood Negative (Negative); Urine Ketones Negative (Negative); Urine Protein Negative (Neg-Trace)
[2023-06-01 11:50] LABS: Bacteria Urine None Seen (None Seen); Hyaline Casts Urine 0-2 /LPF (0-2); RBC Urine 0-2 /HPF (0-2); Squamous Epithelial Cell Urine 0-2 /HPF (0-2); WBC Urine 0-5 /HPF (0-5)
[2023-06-01 12:00] LABS: Alanine Aminotransferase 27 U/L (0-31); Albumin Level 4.1 g/dL (3.5-5.0); Alkaline Phosphatase 87 U/L (39-117); Anion Gap 9 (12-20); Aspartate Amino Transferase 23 U/L (5-31); Bilirubin Total 0.4 mg/dL (0.0-1.0); Blood Urea Nitrogen 20 mg/dL (9-16); Calcium 10.5 mg/dL (8.4-10.2); Carbon Dioxide 29 mmol/L (22-29); Chloride 106 mmol/L (96-108); Cholesterol 137 mg/dL (<200); Estimated Glomerular Filt Rate > 60; Glucose Fasting 156 mg/dL (60-99); Glucose Random 155 mg/dL (60-115); HDL Cholesterol 51 mg/dL (>40); LDL Cholesterol Calculated 71 mg/dL (<100); Potassium 4.4 mmol/L (3.3-5.1); Sodium 140 mmol/L (135-145); Total Protein 6.6 g/dL (6.5-8.0); Triglycerides 79 mg/dL (<150)
[2023-06-01 12:08] LABS: Parathyroid Hormone Intact 137.8 pg/mL (8.7-77.1)
== END 2023-06-01 07:45 | disposition home or self-care (01) ==
LOC: HO.WFDLDS 07:44
PROVIDERS: Visit Provider Family Medicine
DX: Z00.00 Encounter for general adult medical examination without abnormal findings (principal); E21.3 Hyperparathyroidism, unspecified; E78.6 Lipoprotein deficiency
CPT/HCPCS: 36415; 80053; 80061; 81001; 83970

== ENCOUNTER 2023-06-01 13:20 | Outpatient (AMB) | payer OTHER, SELFPAY ==
[2023-06-01 13:27] VITALS: BP 138/78; PULSE 64; O2SAT 99; BMI 25.9
--- NOTE | 2023-06-01 13:27 | MHC.PC.OV ---
Vital Signs 06/01/23 13:27 Height 5 ft 5 in Weight 155 lb 8 oz BMI 25.9 BP 138/78 Blood Pressure Location Lt brachial Position Sitting Pulse 64 Pulse Source Pulse Oximeter Pulse Oximetry (%) 99 Oxygen Delivery Method Room Air Intake Visit Reasons: follow up results Intake Note: Patient is here to follow up on blood work results today. She feels she may be getting a yeast infection again. Allergies clavulanic acid [Augmentin] Allergy (Unknown, Verified 06/01/23 13:31) hives penicillin V Allergy (Unknown, Verified 06/01/23 13:31) hives Tobacco use date assessed: 06/01/23 HPI follow up results HPI Details Pt presents to review calcium level and parathyroid hormone level. Labs were drawn 06/01/23. Reviewed labs with pt. Elevated fasting glucose of 156 and last A1c 7.1% on 04/28/23. Calcium level mildly elevated at 10.5 mg/dL. Triglycerides 79. TC 137. LDL 71. HDL 51. PTH elevated at 137.8 pg/mL. Pt was scheduled to discuss Cologard test. Pt has concern of yeast infection. She checks her blood sugars at home - she reports morning blood sugars in the 112s-120s. [facility] Medical History T2DM (type 2 diabetes mellitus) Surgical History History of coronary artery stent placement History of hemorrhoids History of tubal ligation History of section Family History Father No problems noted. Mother Breast cancer CVD (cardiovascular disease) Diabetes mellitus Maternal Grandmother Melanoma Sister No problems noted. Son No problems noted. Son No problems noted. Son No problems noted. Son Sleep apnea Daughter No problems noted. Daughter No problems noted. 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 Wei Smyth, Stephanie Jose, Vitaliy Cabello and colleagues, with an educational bharath from [employer]. Review of Systems Const Denies chills, Denies fatigue, Denies fever(s), Denies headache(s) and Denies weakness ENT Denies dizziness and Denies headache(s) Card Denies dyspnea Resp Denies cough, Denies dyspnea, Denies wheezing and Denies other (shortness of breath) Musc Denies numbness and Denies tingling Neuro Denies dizziness, Denies headache(s), Denies numbness, Denies tingling and Denies weakness Psych Denies anxiety and Denies depression Endo Denies fatigue Aller/Immun Denies wheezing Physical exam (Primary Care) Vital Signs: Last Vital Signs Pulse 64 06/01/23 13:27 BP 138/78 06/01/23 13:27 Pulse Ox 99 06/01/23 13:27 Oxygen Delivery Method Room Air 06/01/23 13:27 BMI result Body Mass Index 25.9 Tobacco/Smoking Status: Tobacco use Status Tobacco use date assessed 06/01/23 06/01/23 13:36 Patient Tobacco Use Status Never used Tobacco 06/01/23 13:28 e-Cigarette/Vaping Use Never Used 06/01/23 13:28 Thrive Assessment: Date of Thrive Assessment Date Thrive assessed 08/23/22 06/01/23 13:28 Const General: well developed; No acute distress Nutritional Appearance: well nourished Orientation/consciousness: patient oriented x3 [facility] Head: Yes normocephalic and Yes atraumatic Eyes General: appearance normal, both eyes and all related structures Pupils: Equal, round and reactive pupils present EOM: EOMs intact bilaterally Resp Effort & Inspection: normal respiratory effort Neuro General: patient oriented x3 and gait normal Cranial nerves: Yes Equal, round and reactive pupils present Psych Affect: normal affect Assessment and Plan Assessment & Plan (1) Hyperparathyroidism: Code(s): E21.3 - Hyperparathyroidism, unspecified Plan: Her?employment counselor?had?recommended?decreasing?her?vitamin-D?level?which?she?had?done Calcium?and?parathyroid?hormone?levels?only?slightly?improved and?he?had?suspected?that?she?likely?has?a?primary?hyperparathyroidism Repeat?of?calcium?and?parathyroid?hormone?levels was?acquired?just?after?her?last?visit. Calcium?continues?to?decrease?slowly?but?is?still?mildly?elevated. Parathyroid?hormone?is?still?high. Follow-up?with? (2) Hypercalcemia: Code(s): E83.52 - Hypercalcemia Plan: As?above (3) Yeast infection: Code(s): B37.9 - Candidiasis, unspecified Plan: Will?send?Diflucan Advised?she?contact?her?chief executive or managing director?regarding?recurrent?yeast?infections. However,?advised?she?work?at?better?blood?sugar?control?as?this?is?a?common?cause. Advise?she?decrease?sugars?and?starches?in?her?diet?and?she?can?look?for?snacks?with?higher?protein?content. Follow-up?with?employment counselor (4) Positive colorectal cancer screening using Cologuard test: Code(s): R19.5 - Other fecal abnormalities Plan: Review of chart: -- 08/23/2022: Cologuard test ordered at patient's annual exam 09/07/2022: Cologuard report date. Positive 09/10/2022: (listed as completed activity log note on 10/15/2022) initial evaluation as positive and referral to GI is documented. Additional entries, document difficulty reaching patient and message left with patient's . 09/30/2022: Cologuard documented as being evaluated with patient and documenting that referral had been made. 10/28/22: Activity log shows Results Entry, which contains GI referral listed as ordered 09/10/22 09/30/2022: Patient's appointment note documents discussion that Cologuard test was positive and she is referred to Gastroenterology. 04/28/23: visit, documents: Positive Cologuard test and I had referred her to GI It appears that GI did attempt to contact her but an appointment was never made. Had a long discussion with the patient who says she had chickened out and did not make an appointment. Patient agrees to have a discussion with gastroenterology about her options. I have made a new referral Patient?has?decided?against?following?up?with?Gastroenterology?for?additional?screening?for?colon?cancer. I?did?advise?her?that this?could?result?in?adverse?outcomes, including?colon?cancer. Advised?her?that?she?can?contact?me?if?she?changes?her?mind. (5) T2DM (type 2 diabetes mellitus): Code(s): E11.9 - Type 2 diabetes mellitus without complications Plan: High?glucose?in?her?urine.??Her?last?A1c?was?7.1%?which?is?a?little?above?goal?of?less?than?7%. We?discussed?considering?increasing?her?glyburide?but?she?notes?that?she?gets?some?low?blood?sugars?or?the?feeling?of?low?blood?sugars?around?the?middle?of?her?morning. Advised?she?have?regular?meals?and?snacks?but?avoid?sugars?and?starches-consider?snacks?with?higher?protein?content. Control?blood?sugars?and?follow-up?with?endocrinology?as?recommended. Coding Level of Care Code Est Pt Level 4 (16789) Diagnoses Hyperparathyroidism E21.3 Hypercalcemia E83.52 Yeast infection B37.9 Positive colorectal cancer screening using Cologuard test R19.5 T2DM (type 2 diabetes mellitus) E11.9
== END 2023-06-01 14:17 | disposition home or self-care (01) ==
PROVIDERS: PCP Family Medicine; Visit Provider Family Medicine
DX: E11.9 Type 2 diabetes mellitus without complications (principal); E83.52 Hypercalcemia; B37.9 Candidiasis, unspecified; R19.5 Other fecal abnormalities
CPT/HCPCS: 99214

== ENCOUNTER 2023-06-20 14:52 | Outpatient (AMB) | payer OTHER, SELFPAY ==
[2023-06-20 15:11] VITALS: BP 130/60; PULSE 64; BMI 24.9
--- NOTE | 2023-06-20 15:11 | A.OFFVIS_ITS ---
Intake Vital Signs 06/20/23 15:11 Height 5 ft 5 in Weight 149 lb 7.574 oz BMI 24.9 BP 130/60 Blood Pressure Location Lt brachial Position Sitting Pulse 64 Intake Visit Reasons: 6 month follow up Intake Note: 6 mnth f/up pt its feeling fine Certified Medicine Aide Required: No Accompanied by: Self / Same As Patient Allergies clavulanic acid [Augmentin] Allergy (Unknown, Verified 06/01/23 13:31) hives penicillin V Allergy (Unknown, Verified 06/01/23 13:31) hives Medication List - Last Reconciled 06/20/23 by Ty Farooq MD ascorbic acid (vitamin C) mg PO aspirin (Adult Low Dose Aspirin) 81 mg PO DAILY 90 days atorvastatin 80 mg PO DAILY 90 days blood sugar diagnostic (FreeStyle Lite Strips) DX: E11.9, test blood sugar 3 times a day, 90 days blood-glucose meter (FreeStyle Lite Meter kit) DX: E11.9, test blood sugar 3 times a day, duration 999 days cholecalciferol (vitamin D3) 50 mcg PO DAILY 90 days empagliflozin (Jardiance) 25 mg PO DAILY fluconazole 150 mg PO Q3D 2 doses glyburide 5 mg PO DAILY 9 days lancets As directed metformin 1,000 mg PO BID metoprolol tartrate 25 mg PO BID HPI HPI Comments History of Present Illness Details 62-year-old female here follow-up. 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 She has been doing well with occasional atypical left-sided chest pain which is a poking sensation different from her central chest pressure which was the reason for PCI. Over physical activity is reasonable. She has stable angina at this point and has been doing reasonably well. She is undergoing cardiac rehab without any exertional symptoms. Blood pressure control is good. Overall clinically sta ble. 06/20/2023: She returns for follow-up. She has no chest discomfort or shortness of breath. She said recently she was caring heavy load up stairs which is unusual for her and she went upstairs she felt very tired and wiped out. She said this is way more exertion for her than her usual day-to-day activity. She did not have any chest discomfort which she was getting before we did the TAXATION ACCOUNTANT PC I. She is saying in her day-to-day life and usual activities she has no symptoms otherwise. [facility] Medical History T2DM (type 2 diabetes mellitus) Surgical History History of coronary artery stent placement History of hemorrhoids History of tubal ligation History of section Family History Father No problems noted. Mother Breast cancer CVD (cardiovascular disease) Diabetes mellitus Maternal Grandmother Melanoma Sister No problems noted. Son No problems noted. Son No problems noted. Son No problems noted. Son Sleep apnea Daughter No problems noted. Daughter No problems noted. 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 Current occupational exposures/hazards: No Sexual orientation: Straight/Heterosexual Gender identity: Female Cognitive needs: No Hearing needs: No Vision needs: Yes (Glasses) Review of Systems Const Reports chills, Reports fatigue, Reports fever(s), Reports frequent falls, Reports weakness, Reports weight gain and Reports weight loss ENT Reports dizziness Card Reports chest pain, Reports leg edema, Reports lightheadedness, Reports palpitations, Reports dyspnea and Reports dyspnea on exertion Resp Reports cough, Reports dyspnea and Reports dyspnea on exertion GI Reports hematochezia Musc Reports abnormal gait, Reports muscle weakness, Reports numbness, Reports radiating pain into limb and Reports tingling Neuro Reports abnormal gait, Reports dizziness, Reports frequent falls, Reports numbness, Reports tingling and Reports weakness Endo Reports fatigue and Reports palpitations Physical Exam Vital Signs: Last Vital Signs Pulse 64 06/20/23 15:11 BP 130/60 06/20/23 15:11 BMI result Body Mass Index 24.9 GENERAL APPEARANCE: in no acute distress, pleasant. NECK: no carotid bruit, no jugular venous distention. SKIN: no suspicious lesions, warm and dry. HEART: no murmurs, regular rate and rhythm. LUNGS: clear to auscultation bilaterally. ABDOMEN: soft, nontender. EXTREMITIES: no edema. PERIPHERAL PULSES: equal. NEUROLOGIC: No gross deficits, AAO X 3 Office Procedures EKG Details: Sinus rhythm 64 beats per minute, leftward axis, nonspecific ST changes, QTC 425 milliseconds. [id number], Complete Assessment & Plan Assessment & Plan (1) Stable angina: Code(s): I20.8 - Other forms of angina pectoris Plan Pleasant 62-year-old female with history of coronary disease with previous LAD TAXATION ACCOUNTANT PCI. She has been clinically stable. Blood pressure control is good. Tolerating medications. One episode while going up stairs with a heavy load when she felt wiped out and tired. She is saying she has not had any similar symptoms since then but has not done that level of activity 2. In her day-to-day life and usual work, she has no symptoms. I do not think she needs repeat stress testing currently. I have explained to her that if she starts feeling any symptoms in her day-to-day activities then we should pursue exercise stress test again. She will see us back in 4 months. Thank you for allowing me to participate in the care of your patient. Please feel free to contact me if you have any questions. Coding Level of Care Code Est Pt Level 4 (22342) Diagnoses Stable angina I20.8 CPT Codes EKG - CPT: 83961-[id number], Complete ([id number])
== END 2023-06-20 15:49 | disposition home or self-care (01) ==
PROVIDERS: PCP Family Medicine; Visit Provider Internal Medicine Cardiovascular Disease
DX: I20.8 Other forms of angina pectoris (principal)
CPT/HCPCS: 93010; 99214

== ENCOUNTER → 2023-06-20 14:52 | Outpatient (BNVA) | payer OTHER, SELFPAY | PROVIDERS: PCP Family Medicine; Visit Provider Internal Medicine Cardiovascular Disease | DX: I20.89 Other forms of angina pectoris (principal) | CPT/HCPCS: 93005; 99212 ==

== ENCOUNTER 2023-09-28 09:06 | Outpatient (REF) | payer OTHER, SELFPAY | END 2023-09-28 09:07 | disposition home or self-care (01) | LOC: HO.MAMMO 09:06 | PROVIDERS: PCP Family Medicine; Visit Provider Family Medicine | DX: Z12.31 Encounter for screening mammogram for malignant neoplasm of breast (principal) | CPT/HCPCS: 77063; 77067 ==

== ENCOUNTER → 2023-09-28 09:30 | Outpatient (BNV) | payer OTHER, SELFPAY | PROVIDERS: PCP Family Medicine; Visit Provider Radiology Diagnostic Radiology | DX: Z12.31 Encounter for screening mammogram for malignant neoplasm of breast (principal) | CPT/HCPCS: 77063; 77067 ==

== ENCOUNTER 2023-10-26 13:42 | Outpatient (AMB) | payer OTHER, SELFPAY ==
--- NOTE | 2023-10-26 13:44 | MHC.PC.OV ---
Vital Signs 10/26/23 13:45 Height 5 ft 5 in Weight 152 lb BMI 25.3 BP 118/66 Blood Pressure Location Lt brachial Position Sitting Pulse 65 Pulse Source Pulse Oximeter Pulse Oximetry (%) 96 Oxygen Delivery Method Room Air Intake Visit Reasons: CPE with f/u labs and health maint. Intake Note: Patient is here for physical today. She had an A1C of 7.8 last month, at her endocrinology appointment. Allergies clavulanic acid [Augmentin] Allergy (Unknown, Verified 10/26/23 13:51) hives penicillin V Allergy (Unknown, Verified 10/26/23 13:51) hives Medication List - Last Reconciled 10/26/23 by Mulugeta Bowles MD ascorbic acid (vitamin C) mg PO aspirin (Adult Low Dose Aspirin) 81 mg PO DAILY 90 days atorvastatin 80 mg PO DAILY 90 days blood sugar diagnostic (FreeStyle Lite Strips) DX: E11.9, test blood sugar 3 times a day, 90 days blood-glucose meter (FreeStyle Lite Meter kit) DX: E11.9, test blood sugar 3 times a day, duration 999 days cholecalciferol (vitamin D3) 50 mcg PO DAILY 90 days empagliflozin (Jardiance) 25 mg PO DAILY glyburide 5 mg PO DAILY 9 days lancets As directed melatonin ER 5 mg PO BEDTIME metformin 1,000 mg PO BID metoprolol tartrate 25 mg PO BID psyllium husk (Fiber-Caps (psyllium husk)) 1.04 grams PO DAILY Tobacco use date assessed: 10/26/23 Dental Screening Dental Screen Date: 10/26/23 Did you have a dental visit in the last 12 months?: Yes Did you have a dental problem in the last 6 months where you did not have access to dental care?: No Was dental information given to patient?: Patient has dentist HPI CPE with f/u labs and health maint. HPI Details 63 y/o female presents for a CPE with f/u labs and health maintenance. Labs were drawn at [facility] in September. A1c 7.8%. She is on metformin 1000mg, glyburide 5mg. She notes she had used to take glyburide twice a day but had reduced this to once a day due to low blood sugars. Calcium level mildly high. Hyperparathyroidism. [facility] Medical History T2DM (type 2 diabetes mellitus) Surgical History History of coronary artery stent placement History of hemorrhoids History of tubal ligation History of section Family History Father No problems noted. Mother Breast cancer CVD (cardiovascular disease) Diabetes mellitus Maternal Grandmother Melanoma Sister No problems noted. Son No problems noted. Son No problems noted. Son No problems noted. Son Sleep apnea Daughter No problems noted. Daughter No problems noted. 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 1. Little interest or pleasure in doing things: not at all 2. Feeling down, depressed, or hopeless: not at all 3. Trouble falling or staying asleep, or sleeping too much: not at all 4. Feeling tired or having little energy: not at all 5. Poor appetite or overeating: not at all 6. Feeling bad about yourself - or that you are a failure or have let yourself or your family down: not at all 7. Trouble concentrating on things, such as reading the newspaper or watching television: not at all 8. Moving or speaking so slowly that other people could have noticed. Or the opposite - being so fidgety or restless that you have been moving around a lot more than usual: not at all 9. Thoughts that you would be better off or of hurting yourself in some way: not at all Total score: 0 Depression Screening Interpretation: Negative Depression Screening Done: Yes 17552 - PHQ-9 Billing: Yes Source: Developed by Drs. Wei Smyth, Stephanie JoseVitaliy and colleagues, with an educational bharath from [employer]. Thrive Questionnaire Date Thrive assessed: 10/26/23 I am a: Patient What is your living situation today?: I have a steady place to live Within the past 12 months, did the food you bought not last and you didn't have the money to get more?: Never true Within the past 12 months, did you worry whether your food would run out before you got money to buy more?: Never true Do you have trouble paying for medicines?: No Do you have trouble getting transportation to medical appointments?: No Do you have trouble paying your heating and electricity bill?: No Do you have trouble taking care of your child, family member or friend?: No Do you have trouble with day-to-day activities such as bathing, preparing meals, shopping, managing finances, etc.?: No Are you currently unemployed and looking for a job?: Yes Are you interested in more education?: No THRIVE Score: 0 AUDIT C Alcohol Use Questionnaire (AUDIT-C) 1. How often do you have a drink containing alcohol?: Never 3. How often do you have six or more drinks on one occasion?: Never Total Score: 0 MILLA-7 AMB Questionnaire MILLA-7 Date MILLA - 7 assessed: 10/26/23 Feeling nervous, anxious, or on edge: 0 = Not at all Not being able to stop or control worryin = Not at all Worrying too much about different things: 0 = Not at all Trouble relaxin = Not at all Being so restless that it is hard to sit still: 0 = Not at all Becoming easily annoyed or irritable: 0 = Not at all Feeling afraid as if something awful might happen: 0 = Not at all Total MILLA-7 score (0-4 normal; 5-9 mild; 10-14 moderate; 15-21 severe): 0 Source: Developed by Drs. Wei Smyth, Vitaliy Quinonez and colleagues, with an educational bharath from [employer]. MILLA-7 Assessment Billing MILLA-7 Assessment Tool: MILLA-7 Assessment 49265 Review of Systems Const Denies chills, Denies fatigue, Denies fever(s), Denies headache(s) and Denies weakness Eyes Denies change in vision ENT Denies dizziness, Denies headache(s), Denies hearing loss, Denies nasal congestion, Denies sinus pain, Denies sinus pressure and Denies sore throat Card Denies chest pain, Denies lightheadedness, Denies dyspnea and Denies other (palpitations) Resp Denies cough, Denies dyspnea and Denies wheezing GI Denies abdominal pain, Denies melena, Denies hematochezia, Denies change in bowel habits, Denies dyspepsia and Denies nausea Denies hematuria and Denies dysuria Musc Denies abnormal gait, Denies myalgias, Denies arthralgias, Denies numbness and Denies tingling Skin/Breast Denies rash, Denies unusual bruising and Denies wounds Neuro Denies abnormal gait, Denies dizziness, Denies headache(s), Denies memory loss, Denies numbness, Denies Sensory deficit (Neuro), Denies tingling and Denies weakness Psych Denies anxiety, Denies depression and Denies memory loss Endo Denies cold intolerance, Denies fatigue, Denies heat intolerance, Denies polydipsia and Denies polyuria Mark/Lymph Denies easy bleeding and Denies easy bruising Aller/Immun Denies wheezing Physical exam (Primary Care) Vital Signs: Last Vital Signs Pulse 65 10/26/23 13:45 BP 118/66 10/26/23 13:45 Pulse Ox 96 10/26/23 13:45 Oxygen Delivery Method Room Air 10/26/23 13:45 BMI result Body Mass Index 25.3 Tobacco/Smoking Status: Tobacco use Status Tobacco use date assessed 10/26/23 10/26/23 14:02 Patient Tobacco Use Status Never used Tobacco 10/26/23 13:46 e-Cigarette/Vaping Use Never Used 10/26/23 13:46 PHQ-9: PHQ-9 Score PHQ-9: Total score 0 10/26/23 14:02 Depression Screening Interpretation: Negative Thrive Assessment: Date of Thrive Assessment Date Thrive assessed 10/26/23 10/26/23 14:02 Const General: no acute distress, well developed, alert and awake Nutritional Appearance: well nourished Orientation/consciousness: patient oriented x3 HENMT Head: Yes normocephalic and Yes atraumatic Ears: hearing grossly normal bilaterally and TM's normal bilaterally General nose exam: Normal external nose present and Normal nares present Mouth: Normal oral and palatal mucosa present and moist mucous membranes Teeth and gingiva: dentition normal Throat: Yes posterior oropharynx normal Eyes General: appearance normal, both eyes and all related structures Pupils: Equal, round and reactive pupils present and Pupil accommodation reflex normal EOM: EOMs intact bilaterally Neck Neck: Yes normal visual inspection, Yes no lymphadenopathy and Yes trachea midline Thyroid: Thyroid normal Carotids: no bruits Lymphatic: no lymphadenopathy noted Chest Chest palpation & inspection: normal inspection of the chest Resp Effort & Inspection: normal respiratory effort Auscultation: clear to auscultation bilaterally Cardio Rate: regular rate Rhythm: regular rhythm Heart sounds: S1 normal heart sound present, S2 normal heart sound present, no gallops, no murmurs and no rubs Bruits: no abdominal aortic bruits and no carotid bruits GI Palpation (GI): No Abdominal aortic bruit present, Soft to palpation, nontender, No hepatosplenomegaly present and No Rebound tenderness present Auscultation: normal bowel sounds General: Yes no CVA tenderness Back/Spine/Pelvis Back: no CVA tenderness Cervical Spine: cervical ROM normal and No Cervical spine tenderness Thoracic/Lumbar Spine: thoraco-lumbar ROM normal, No pain with thoraco-lumbar ROM, No thoracic spinal tenderness and No lumbar spinal tenderness Skin Lesions: no lesions Rashes: no rashes Trauma: no lacerations or abrasions Wounds: no wounds Nails: normal Neuro General: patient oriented x3 Cranial nerves: Yes Equal, round and reactive pupils present Cognition (Neuro): normal cognition Gait exam (Neuro): Normal gait present Motor exam (neuro): 5/5 motor strength present throughout Sensory Exam: No Sensory deficit (Neuro) Deep tendon reflexes (DTR's): Right patellar reflex intensity grade: 2+ and Left patellar reflex intensity grade: 2+ Extrem General: Yes normal to inspection and No edema Psych Appearance: grossly normal Affect: normal affect Attitude: cooperative Thought process: Normal thought process present Assessment and Plan Assessment & Plan (1) Adult general medical exam: Code(s): Z00.00 - Encounter for general adult medical examination without abnormal findings Plan: 63-year-old?female?presents?for?complete?physical?exam Encouraged?healthy?diet?with?active?lifestyle?and?plenty?of?exercise (2) T2DM (type 2 diabetes mellitus): Code(s): E11.9 - Type 2 diabetes mellitus without complications Plan: Last?A1c?was?greater?than?7 -??She?is?followed?by??Raghu[facility]at[facility]endocrinology. Some?difficulty?getting?her?blood?sugars?under?control?as?she?is?not?willing?to?use?certain?medications?including?injectables. She?is?taking?metformin,?Jardiance?and?glyburide.??She?had?decreased?glyburide?on?her?own?as?it?was?causing?some?low?blood?sugars. Discussed?trying?to?take?this?medication?with?meals?and?avoiding?taking?too?close?to?bedtime. No?medication?changes?were?made?otherwise.??Encouraged?exercise?and?diabetic?diet. (3) CAD (coronary artery disease): Code(s): I25.10 - Atherosclerotic heart disease of [place] coronary artery without angina pectoris Plan: Stable (4) Hyperparathyroidism: Code(s): E21.3 - Hyperparathyroidism, unspecified Plan: Parathyroid?hormone?and?calcium?levels?are?elevated. Patient?informs?that?her?thiokol operator?referred?her?to?a?specialist?but?I?did?not?receive?endocrinology?note?yet.??Requesting?this. (5) Screening for cervical cancer: Code(s): Z12.4 - Encounter for screening for malignant neoplasm of cervix Plan: She?has?an?appointment?coming?up?with?Regina?Terell (6) Screening for colon cancer: Code(s): Z12.11 - Encounter for screening for malignant neoplasm of colon Plan: Patient?had?a?Cologuard?test?which?was?positive. However,?patient?does?not?want?to?get?a?colonoscopy Advised?a?referral?to?gastroenterology?to?discuss?colonoscopy?verses?any?other?interventions?or?diagnostic?testing. She?wants?to?think?about?this. (7) Breast cancer screening by mammogram: Code(s): Z12.31 - Encounter for screening mammogram for malignant neoplasm of breast Plan: Recent?mammogram?was Negative?for?malignancy. Up-to-date Coding Level of Care Code Est Pt Level 3 (86115) Est Pt Prev Care 40-64y(93645) Diagnoses Adult general medical exam Z00.00 T2DM (type 2 diabetes mellitus) E11.9 CAD (coronary artery disease) I25.10 Hyperparathyroidism E21.3 Screening for cervical cancer Z12.4 Screening for colon cancer Z12.11 Breast cancer screening by mammogram Z12.31 Additional Codes MILLA-7 Assessment Billing - MILLA-7 Assessment Tool: MILLA-7 Assessment [id number] ([id number])
[2023-10-26 13:45] VITALS: BP 118/66; PULSE 65; O2SAT 96; BMI 25.3
== END 2023-10-26 15:17 | disposition home or self-care (01) ==
PROVIDERS: PCP Family Medicine; Visit Provider Family Medicine
DX: Z00.00 Encounter for general adult medical examination without abnormal findings (principal); E11.9 Type 2 diabetes mellitus without complications; E21.3 Hyperparathyroidism, unspecified; I25.10 Atherosclerotic heart disease of native coronary artery without angina pectoris; Z12.11 Encounter for screening for malignant neoplasm of colon; Z12.31 Encounter for screening mammogram for malignant neoplasm of breast
CPT/HCPCS: 99213; 99396

== ENCOUNTER 2023-11-16 11:10 | Outpatient (AMB) | payer OTHER, SELFPAY ==
--- NOTE | 2023-11-16 11:18 | MHC.OFFVIS ---
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 She is doing well with concerns: once a month bleeding and itching, feels she has yeast monthly, uses light pad. Onset of bleeding-since 2022. Attempting to eat a healthy diet, likes sweets, also has calcium and vitamin D, and stays active with exercise-walking. Currently sexually active w/. Denies any vaginal dryness or irritation. STI testing offered; she declines. Last pap smear; 2022. Last mammogram; 2023. Colonoscopy is not UTD, had history of hemorrhoid surgery, post trauma from complications. Denies any family history of breast, ovarian or colon cancer. [facility] Medical History T2DM (type 2 diabetes mellitus) Surgical History History of coronary artery stent placement History of hemorrhoids History of tubal ligation History of section Family History Father No problems noted. Mother Breast cancer CVD (cardiovascular disease) Diabetes mellitus Maternal Grandmother Melanoma Sister No problems noted. Son No problems noted. Son No problems noted. Son No problems noted. Son Sleep apnea Daughter No problems noted. Daughter No problems noted. 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 Current occupational exposures/hazards: No Sexual orientation: Straight/Heterosexual Gender identity: Female Cognitive needs: No Hearing needs: No Vision needs: Yes (Glasses) Female Reproductive History Menstrual Age of Menarche: 15 control method: permanent sterilization Total pregnancies: 8 Full term: 6 Number of Living Children: 6 Ab spontaneous: 2 Date of last pap smear: 11/11/22 (negative) History of abnormal pap smear: No Date of Mammogram: 09/28/23 Review of Systems Const All systems reviewed & are unremarkable except as noted in HPI and below Reports as per HPI Eyes Reports no additional complaints ENT Reports no additional complaints Card Reports no additional complaints Resp Reports no additional complaints GI Reports as per HPI and Reports no additional complaints Reports as per HPI Musc Reports no additional complaints Skin/Breast Reports as per HPI Neuro Reports no additional complaints Psych Reports no additional complaints Endo Reports no additional complaints Mark/Lymph Reports no additional complaints Aller/Immun Reports no additional complaints Physical Exam Vital Signs: BMI result Body Mass Index 25.3 Const General: cooperative, healthy appearing, no acute distress, well developed and alert Orientation/consciousness: patient oriented x3 HEENT Head: Yes normal to inspection Eyes General: appearance normal, both eyes and all related structures Neck Neck: Yes normal visual inspection Thyroid: Thyroid normal Chest Chest palpation & inspection: normal inspection of the chest and other (no puckering, dimpling, peau de orange, retraction, discharge, masses) Breast/axilla inspection: normal inspection of the breasts Breast/axilla palpation: normal palpation of the breasts Resp Effort & Inspection: normal respiratory effort GI Inspection: Yes normal to inspection Palpation (GI): Soft to palpation Rectal Exam - Female: deferred Other: External mild erythema and atrophic changes no lesions General: Yes bladder normal to palpation External Female Exam: normal external appearance and normal appearance of the urethra Speculum Exam - Vagina: normal appearance of the vagina, normal palpation, normal vaginal discharge and vagina atrophic Speculum Exam - Cervix: normal appearance of the cervix, normal palpation and Other cervical findings present (Atrophic changes) Bimanual exam- vagina & uterus: normal bimanual exam, normal palpation, uterine size normal, bladder normal to palpation, normal palpation and non-tender Bimanual Exam- Adnexa, other: no masses Skin General skin exam: no rashes or lesions noted Rashes: no rashes Neuro General: patient oriented x3 Cognition (Neuro): normal cognition Extrem General: Yes normal to inspection Psych Attitude: cooperative Thought process: Normal thought process present Assessment & Plan Assessment & Plan (1) Encounter for well woman exam with routine gynecological exam: Code(s): Z01.419 - Encounter for gynecological examination (general) (routine) without abnormal findings Category: Medical Plan: Discussed: Current recommendations for pap smears per ASCCP guidelines. Breast awareness, periodic self breast exams and yearly mammogram. Maintain a healthy lifestyle, well balanced diet including Calcium 1,200 mg and Vitamin D 600 IU daily, and routine exercise. Plan workup for potential postmenopausal bleeding source is not confirmed could be from hemorrhoids, fissures, scratching injury, plan pelvic ultrasound to check endometrial stripe. Return to the office for test results and plan of care. May need to consider endometrial biopsy. BV panel obtained today. Advise Replens verses coconut oil, informed of Replens lubricant as needed for intimacy. Contact the office with any postmenopausal bleeding. Patient verbalizes understanding and agrees to the plan of care. She was given opportunity to ask questions and all questions were answered to the best of my ability. RTO in 1 year for annual senior relationship manager exam. This note is constructed using voice recognition software. While every effort has been made to ensure accuracy, flower cutter errors may have been included. Orders: Orders Bacterial Vaginosis Panel Today B37.9 - Candidiasis, unspecified US pelvic and transvaginal Today N95.0 - Postmenopausal bleeding Coding Level of Care Code Est Pt Prev Care 40-64y(38558) Diagnoses Encounter for well woman exam with routine gynecological exam Z01.419
[2023-11-16 11:19] VITALS: BMI 25.3
== END 2023-11-16 12:02 | disposition home or self-care (01) ==
PROVIDERS: Visit Provider Advanced Practice Midwife
DX: Z01.419 Encounter for gynecological examination (general) (routine) without abnormal findings (principal)
CPT/HCPCS: 99396

== ENCOUNTER 2023-11-16 11:10 | Outpatient (REF) | payer OTHER, SELFPAY ==
[2023-11-16 17:29] LABS: Bacterial Vaginosis PCR NEGATIVE (Negative); Candida Group PCR NOT DETECTED (Not Detect); Candida glab krusei PCR NOT DETECTED (Not Detect); Trichomonas vaginalis PCR NOT DETECTED (Not Detect)
== END 2023-11-16 11:11 | disposition home or self-care (01) ==
LOC: HO.LNP 11:10
PROVIDERS: Visit Provider Advanced Practice Midwife
DX: Z01.419 Encounter for gynecological examination (general) (routine) without abnormal findings (principal); B37.9 Candidiasis, unspecified; N95.0 Postmenopausal bleeding
CPT/HCPCS: 0352U; 99396

== ENCOUNTER 2023-12-01 11:19 | Outpatient (REF) | payer OTHER, SELFPAY ==
--- NOTE | ~2023-12-01 | US_ITS ---
EXAMINATION: US PELVIS CLINICAL INFORMATION: Postmenopausal bleeding COMPARISON: CT scan abdomen and pelvis 05/21/2019 TECHNIQUE: Ultrasound of the pelvis is performed using both transabdominal and transvaginal transducers along with Doppler. Transvaginal imaging is performed due to inadequate visualization transabdominally. FINDINGS: Uterus: The uterus is anteverted and measures 10.1 x 2.8 x 4.5 cm. The myometrium is heterogeneous without a focal fibroid. The endometrial thickness is 0.2 cm. A small amount of fluid is seen within the endocervical canal. Adnexa: Both ovaries are visualized. There is normal color flow to the adnexa. There is no ovarian torsion. There is no pelvic ascites or fluid collection. The ovaries are normal in appearance. Right ovary measures 1.4 x 0.8 x 1.3 cm. Volume 0.8 mL. Left ovary measures 1.6 x 0.7 x 1.4 cm. Volume 0.8 mL. US/US pelvic and transvaginal IMPRESSION: 1. Heterogeneous myometrium without a focal fibroid. 2. Normal thickness of the endometrial stripe. 3. Normal ovaries.
== END 2023-12-01 11:20 | disposition home or self-care (01) ==
LOC: HO.US 11:19
PROVIDERS: PCP Family Medicine; Visit Provider Advanced Practice Midwife
DX: N95.0 Postmenopausal bleeding (principal)
CPT/HCPCS: 76830; 76856

== ENCOUNTER 2024-01-02 15:54 | Outpatient (AMB) | payer OTHER, SELFPAY ==
--- NOTE | 2024-01-02 15:58 | MHC.PC.OV ---
Vital Signs 01/02/24 15:59 Height 5 ft 5 in Weight 149 lb 3 oz BMI 24.8 BP 128/68 Blood Pressure Location Lt brachial Position Sitting Pulse 73 Pulse Source Pulse Oximeter Pulse Oximetry (%) 98 Oxygen Delivery Method Room Air Intake Visit Reasons: f/u diabetes, chronic conditions Intake Note: Patient is here to follow up on diabetes, and chronic conditions. She would like refill on the Atorvastatin and Aspirin. Patient would like to talk about eye doctor referral, states it was not put in the last time. Allergies clavulanic acid [Augmentin] Allergy (Unknown, Verified 01/02/24 16:01) hives penicillin V Allergy (Unknown, Verified 01/02/24 16:01) hives Medication List - Last Reconciled 01/02/24 by Mulugeta Bowles MD ascorbic acid (vitamin C) mg PO aspirin (Adult Low Dose Aspirin) 81 mg PO DAILY 90 days atorvastatin 80 mg PO DAILY 90 days blood sugar diagnostic (FreeStyle Lite Strips) DX: E11.9, test blood sugar 3 times a day, 90 days blood-glucose meter (FreeStyle Lite Meter kit) DX: E11.9, test blood sugar 3 times a day, duration 999 days cholecalciferol (vitamin D3) 50 mcg PO DAILY 90 days empagliflozin (Jardiance) 25 mg PO DAILY fluconazole 150 mg PO Q3D 2 doses glyburide 5 mg PO DAILY 9 days lancets As directed melatonin ER 5 mg PO BEDTIME metformin 1,000 mg PO BID metoprolol tartrate 25 mg PO BID psyllium husk (Fiber-Caps (psyllium husk)) 1.04 grams PO DAILY Tobacco use date assessed: 10/26/23 Dental Screening Dental Screen Date: 10/26/23 HPI f/u diabetes, chronic conditions HPI Details 63 y/o female presents to f/u diabetes, chronic conditions. Pt followed by Dr. Krishnamurthy at [facility] endocrinology. Had encouraged exercise and diabetic diet. A1c today 01/02/24 is 7.4%. Pt states she has been taking glyburide 1 tablet twice a day. She also takes metformin 1000mg b.i.d. [facility] Medical History T2DM (type 2 diabetes mellitus) Surgical History History of coronary artery stent placement History of hemorrhoids History of tubal ligation History of section Family History Father No problems noted. Mother Breast cancer CVD (cardiovascular disease) Diabetes mellitus Maternal Grandmother Melanoma Sister No problems noted. Son No problems noted. Son No problems noted. Son No problems noted. Son Sleep apnea Daughter No problems noted. Daughter No problems noted. 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 Wei Smyth, Stephanie Jose, Vitaliy Cabello and colleagues, with an educational bharath from [employer] Review of Systems Const Denies chills, Denies fatigue, Denies fever(s), Denies headache(s) and Denies weakness ENT Denies dizziness and Denies headache(s) Card Denies dyspnea Resp Denies cough, Denies dyspnea, Denies wheezing and Denies other (shortness of breath) Musc Denies numbness and Denies tingling Neuro Denies dizziness, Denies headache(s), Denies numbness, Denies tingling and Denies weakness Psych Denies anxiety and Denies depression Endo Denies fatigue Aller/Immun Denies wheezing Physical exam (Primary Care) Vital Signs: Last Vital Signs Pulse 73 01/02/24 15:59 BP 128/68 01/02/24 15:59 Pulse Ox 98 01/02/24 15:59 Oxygen Delivery Method Room Air 01/02/24 15:59 BMI result Body Mass Index 24.8 Tobacco/Smoking Status: Tobacco use Status Tobacco use date assessed 10/26/23 01/02/24 16:02 Patient Tobacco Use Status Never used Tobacco 01/02/24 16:02 e-Cigarette/Vaping Use Never Used 01/02/24 16:02 Thrive Assessment: Date of Thrive Assessment Date Thrive assessed 10/26/23 01/02/24 16:02 Const General: well developed; No acute distress Nutritional Appearance: well nourished Orientation/consciousness: patient oriented x3 HENMT Head: Yes normocephalic and Yes atraumatic Eyes General: appearance normal, both eyes and all related structures Pupils: Equal, round and reactive pupils present EOM: EOMs intact bilaterally Resp Effort & Inspection: normal respiratory effort Neuro General: patient oriented x3 and gait normal Cranial nerves: Yes Equal, round and reactive pupils present Psych Affect: normal affect Assessment and Plan Assessment & Plan (1) T2DM (type 2 diabetes mellitus): Code(s): E11.9 - Type 2 diabetes mellitus without complications Plan: A1c?7.4%. ?Suboptimal?control. She?notes?some?dietary?indiscretions?though?and?I?encouraged?her?to?work?on?a?diet?lower?in?sugars?and?starches. No?changes?to?her?medication?regimen?today - she?had?already?increased?her?glyburide?to?twice?a?day?again?and?is?taking?metformin?1000?mg?b.i.d.. She?will?follow-up?with?Dr. Krishnamurthy as?recommended (2) Osteoporosis: Code(s): M81.0 - Age-related osteoporosis without current pathological fracture Plan: Secondary?to?hyperparathyroidism Follow-up?with?Endocrine?as?recommended (3) Hyperparathyroidism: Code(s): E21.3 - Hyperparathyroidism, unspecified Plan: As?above,?follow-up?with?Endocrine?as?recommended.??They?are?considering?surgery?but?patient?is?currently?apprehensive?about?this. Parathyroid?scan?is?pending Orders: Referrals Ophthalmology Referral E11.9 - Type 2 diabetes mellitus without complications Medications: Changed From glyburide 5 mg PO DAILY 9 days 90 tabs 2RF E11.9 - Type 2 diabetes mellitus without complications To glyburide 5 mg PO BID 30 days 60 tabs 2RF E11.9 - Type 2 diabetes mellitus without complications Refilled aspirin (Adult Low Dose Aspirin) 81 mg PO DAILY 90 days 90 tabs 3RF atorvastatin 80 mg PO DAILY 90 days 90 tabs 3RF Coding Level of Care Code Est Pt Level 4 (46104) Diagnoses T2DM (type 2 diabetes mellitus) E11.9 Osteoporosis M81.0 Hyperparathyroidism E21.3
[2024-01-02 15:59] VITALS: BP 128/68; PULSE 73; O2SAT 98; BMI 24.8
== END 2024-01-02 16:47 | disposition home or self-care (01) ==
PROVIDERS: PCP Family Medicine; Visit Provider Family Medicine
DX: E11.9 Type 2 diabetes mellitus without complications (principal); M81.0 Age-related osteoporosis without current pathological fracture; E21.3 Hyperparathyroidism, unspecified
CPT/HCPCS: 83036; 99214

== ENCOUNTER 2024-01-31 15:33 | Outpatient (AMB) | payer OTHER, SELFPAY ==
--- NOTE | 2024-01-31 15:36 | A.OFFVIS_ITS ---
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 She seems to think it is when she seems to be itchy on the outside thinks it might be due to yeast, has a history of hemorrhoids at bleed on occasion. She is sure it's a vaginal source. She does not have any symptoms today and denies any pelvic pain. [facility] Medical History T2DM (type 2 diabetes mellitus) Surgical History History of coronary artery stent placement History of hemorrhoids History of tubal ligation History of section Family History Father No problems noted. Mother Breast cancer CVD (cardiovascular disease) Diabetes mellitus Maternal Grandmother Melanoma Sister No problems noted. Son No problems noted. Son No problems noted. Son No problems noted. Son Sleep apnea Daughter No problems noted. Daughter No problems noted. 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 Current occupational exposures/hazards: No Sexual orientation: Straight/Heterosexual Gender identity: Female Cognitive needs: No Hearing needs: No Vision needs: Yes (Glasses) Female Reproductive History Menstrual Age of Menarche: 15 Review of Systems Const All systems reviewed & are unremarkable except as noted in HPI and below Endo Reports no additional complaints Physical Exam Const General: cooperative, healthy appearing and no acute distress Psych Appearance: well kempt Attitude: cooperative Thought process: Normal thought process present Results Reviewed Results Reviewed: [address] [address] Ultrasound Report Signed Patient: Collette Thakur MR#: [id number] : 1960 Acct:[id number] Age/Sex: 63 / F ADM Date: 12/01/23 Loc: HO.US Attending Dr: Regina Figueredo CNM Ordering Physician: Regina Figueredo CNM Date of Service: 12/01/23 Procedure(s): US pelvic and transvaginal Accession Number(s): [id number] cc: Mulugeta Bowles MD; Regina Figueredo CNM~ EXAMINATION: US PELVIS CLINICAL INFORMATION: Postmenopausal bleeding COMPARISON: CT scan abdomen and pelvis 05/21/2019 TECHNIQUE: Ultrasound of the pelvis is performed using both transabdominal and transvaginal transducers along with Doppler. Transvaginal imaging is performed due to inadequate visualization transabdominally. FINDINGS: Uterus: The uterus is anteverted and measures 10.1 x 2.8 x 4.5 cm. The myometrium is heterogeneous without a focal fibroid. The endometrial thickness is 0.2 cm. A small amount of fluid is seen within the endocervical canal. Adnexa: Both ovaries are visualized. There is normal color flow to the adnexa. There is no ovarian torsion. There is no pelvic ascites or fluid collection. The ovaries are normal in appearance. Right ovary measures 1.4 x 0.8 x 1.3 cm. Volume 0.8 mL. Left ovary measures 1.6 x 0.7 x 1.4 cm. Volume 0.8 mL. US/US pelvic and transvaginal IMPRESSION: 1. Heterogeneous myometrium without a focal fibroid. 2. Normal thickness of the endometrial stripe. 3. Normal ovaries. Dictated By: Elidia Deleon MD Signed By: <Electronically signed by Elidia Deleon MD in OV> 12/27/23 0818 DD/ 1142 TD/TT: Jewel Blocker And Sawyer: Assessment & Plan Assessment & Plan (1) Postmenopausal bleeding: Code(s): N95.0 - Postmenopausal bleeding (2) Encounter to discuss test results: Code(s): Z71.2 - Person consulting for explanation of examination or test findings Plan Reviewed ultrasound findings, endometrial lining is 2 mm, with a small amount of fluid in the endometrial canal. I recommend she have an endometrial biopsy due to the ongoing bleeding to rule out any abnormal pathological findings including atypia, precancer, cancer of the endometrium. Preprocedure anticipatory guidance reviewed today. Advised her to have something to eat and drink and take 2 Tylenol before the procedure to help with her cramping. Appointment will be scheduled for the endometrial biopsy. All of her questions and concerns were addressed to the best of my ability and shared decision making. She is agreeable to the plan of care. This note is constructed using voice recognition software. While every effort has been made to ensure accuracy, price accuracy supervisor errors may have been included. Coding Level of Care Code Est Pt Level 3 (34889) Diagnoses Postmenopausal bleeding N95.0 Encounter to discuss test results Z71.2
== END 2024-01-31 16:05 | disposition home or self-care (01) ==
LOC: HO.HWS 15:34
PROVIDERS: PCP Family Medicine; Visit Provider Advanced Practice Midwife
DX: N95.0 Postmenopausal bleeding (principal); Z71.2 Person consulting for explanation of examination or test findings
CPT/HCPCS: 99213

== ENCOUNTER → 2024-01-31 15:33 | Outpatient (BNVA) | payer OTHER, SELFPAY | PROVIDERS: PCP Family Medicine; Visit Provider Advanced Practice Midwife | DX: N95.0 Postmenopausal bleeding (principal); Z98.51 Tubal ligation status; Z71.2 Person consulting for explanation of examination or test findings | CPT/HCPCS: 99212 ==

== ENCOUNTER 2024-02-14 09:56 | Outpatient (AMB) | payer OTHER, SELFPAY ==
--- NOTE | 2024-02-14 09:58 | A.OFFVIS_ITS ---
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 She reports some external irritation, admits to being prone to yeast, has a type 2 diabetes. [facility] History T2DM (type 2 diabetes mellitus) Surgical History History of coronary artery stent placement History of hemorrhoids History of tubal ligation History of section Family History Father No problems noted. Mother Breast cancer CVD (cardiovascular disease) Diabetes mellitus Maternal Grandmother Melanoma Sister No problems noted. Son No problems noted. Son No problems noted. Son No problems noted. Son Sleep apnea Daughter No problems noted. Daughter No problems noted. 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 Current occupational exposures/hazards: No Sexual orientation: Straight/Heterosexual Gender identity: Female Cognitive needs: No Hearing needs: No Vision needs: Yes (Glasses) Female Reproductive History Menstrual Age of Menarche: 15 Review of Systems Const All systems reviewed & are unremarkable except as noted in HPI and below Physical Exam Vital Signs: BMI result Body Mass Index 24.8 Const General: cooperative, healthy appearing and no acute distress Orientation/consciousness: patient oriented x3 GI Inspection: Yes normal to inspection Palpation (GI): Soft to palpation and Other GI palpation findings present (Nontender) Rectal Exam - Female: visual inspection normal Other: External erythema perineum and labia General: Yes bladder normal to palpation External Female Exam: normal appearance of the urethra Speculum Exam - Vagina: normal appearance of the vagina, normal palpation, normal vaginal discharge and vagina atrophic Speculum Exam - Cervix: normal appearance of the cervix and normal palpation Bimanual exam- vagina & uterus: normal bimanual exam, normal palpation, uterine size normal, bladder normal to palpation, normal palpation, uterine shape normal and non-tender Bimanual Exam- Adnexa, other: normal adnexae Neuro General: patient oriented x3 Office Procedures Endometrial Biopsy Details: The patient is here today for an endometrial biopsy due to PMB to rule out any pathology including atypical, hyperplasia or cancer cells of the uterus. She was counseled regarding anticipatory guidance for the procedure including the risks for pain, infection, bleeding, perforation, potential injury to the tissues may include the cervix, uterus, tubes, bladder and bowels. These injuries may include further treatment and evaluation including surgery, blood transfusions, antibiotics, hospitalizations and anesthesia. Permanent injury and scarring can occur. She was consented for the procedure, and the consent forms were signed. She is agreeable to have the procedure today. All questions were answered. Endometrial Biopsy Procedure: The patient was placed in the dorsal lithotomy position and a sterile speculum inserted. Using aseptic technique for the procedure. The cervix was cleansed with Betadine x 3 swabs. A single toothed tenaculum was placed on the cervix for stabilization and the uterus was sounded to 9 cm with a 4mm pipelle, and tissue sample obtained. Minimal bleeding was observed. The tissue sample was placed in formalin in a patient labeled container by staff assisting and sent to the pathology department for processing and interpretation. The patient tolerate the procedure well and was in good condition when leaving the department. Endometrial Biopsy Post Procedure Care: Nothing in the vagina including: tampons, douching or intimacy until all the bleeding has subsided. There may be some post procedure bleeding for several days, this bleeding is usually light and may turn to a light brown or pink color. Mild cramps may occurs. Nothing in the vaginal including: tampons, douching, or intimacy until all the bleeding has subsided. You may take an over the counter mild analgesic such as Tylenol or Advil (if no allergies) per the manufactures recommendation on dosing, frequency, and follow the directions completely. Call the office if any: fever (over 100.4), flu like symptoms, abdominal pain (worse than cramping), foul smelling, infected appearing vaginal discharge, or heavy bleeding. If indicated: Use condoms to prevent and STI's, and only after the bleeding has stopped completely. Return to the office in 2 weeks for results and plan of care. This note is constructed using voice recognition software. While every effort has been made to ensure accuracy, soap drier operator errors may have been included. [id number] Biopsy Assessment & Plan Assessment & Plan (1) Postmenopausal bleeding: Code(s): N95.0 - Postmenopausal bleeding (2) Vulvar irritation: Code(s): N90.89 - Other specified noninflammatory disorders of vulva and perineum Plan: BV culture obtained, plan treatment pending results. Discussed DM patient admits she is starting improve her diet. Plan See procedure notes. Orders: Orders Bacterial Vaginosis Panel Today N89.8 - Other specified noninflammatory disorders of vagina Surgical Today N95.0 - Postmenopausal bleeding Coding Level of Care Code Procedure Only Diagnoses Postmenopausal bleeding N95.0 Vulvar irritation N90.89 CPT Codes Endometrial Biopsy - CPT: 83335-Rmullctscss Biopsy ([id number])
[2024-02-14 10:00] VITALS: BP 120/80; BMI 24.8
== END 2024-02-14 10:33 | disposition home or self-care (01) ==
PROVIDERS: PCP Family Medicine; Visit Provider Advanced Practice Midwife
DX: N95.0 Postmenopausal bleeding (principal); N90.89 Other specified noninflammatory disorders of vulva and perineum
CPT/HCPCS: 58100

== ENCOUNTER 2024-02-14 09:56 | Outpatient (REF) | payer OTHER, SELFPAY ==
[2024-02-14 13:51] LABS: Bacterial Vaginosis PCR NEGATIVE (Negative); Candida Group PCR NOT DETECTED (Not Detect); Candida glab krusei PCR NOT DETECTED (Not Detect); Trichomonas vaginalis PCR NOT DETECTED (Not Detect)
== END 2024-02-14 09:57 | disposition home or self-care (01) ==
LOC: HO.LAB 09:56
PROVIDERS: PCP Family Medicine; Visit Provider Advanced Practice Midwife
DX: N95.0 Postmenopausal bleeding (principal); N89.8 Other specified noninflammatory disorders of vagina
CPT/HCPCS: 0352U; 58100; 88305

== ENCOUNTER 2024-02-15 15:33 | Outpatient (AMB) | payer OTHER, SELFPAY ==
[2024-02-15 15:42] VITALS: BP 110/64; PULSE 67; BMI 25.2
--- NOTE | 2024-02-15 15:42 | MHC.OFFVIS ---
Vital Signs 02/15/24 15:42 Height 5 ft 5 in Weight 151 lb 3.794 oz BMI 25.2 BP 110/64 Blood Pressure Location Lt brachial Position Sitting Pulse 67 Pulse Source Pulse Oximeter Intake Visit Reasons: r/s 10/26/23 4 mos followup Intake Note: 4 mth f/up-pt is doing fine Manager Photography Required: No Accompanied by: Self / Same As Patient Allergies clavulanic acid [Augmentin] Allergy (Unknown, Verified 02/14/24 09:59) hives penicillin V Allergy (Unknown, Verified 02/14/24 09:59) hives Medication List - Last Reconciled 02/15/24 by Ty Farooq MD ascorbic acid (vitamin C) mg PO aspirin (Adult Low Dose Aspirin) 81 mg PO DAILY 90 days atorvastatin 80 mg PO DAILY 90 days blood sugar diagnostic (FreeStyle Lite Strips) DX: E11.9, test blood sugar 3 times a day, 90 days blood-glucose meter (FreeStyle Lite Meter kit) DX: E11.9, test blood sugar 3 times a day, duration 999 days cholecalciferol (vitamin D3) 50 mcg PO DAILY 90 days empagliflozin (Jardiance) 25 mg PO DAILY glyburide 5 mg PO BID 30 days lancets As directed melatonin ER 5 mg PO BEDTIME metformin 1,000 mg PO BID metoprolol tartrate 25 mg PO BID psyllium husk (Fiber-Caps (psyllium husk)) 1.04 grams PO DAILY HPI Comments Details: 63-year-old female here follow-up. 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 She has been doing well with occasional atypical left-sided chest pain which is a poking sensation different from her central chest pressure which was the reason for PCI. Over physical activity is reasonable. She has stable angina at this point and has been doing reasonably well. She is undergoing cardiac rehab without any exertional symptoms. Blood pressure control is good. Overall clinically stable. 06/20/2023: She returns for follow-up. She has no chest discomfort or shortness of breath. She said recently she was caring heavy load up stairs which is unusual for her and she went upstairs she felt very tired and wiped out. She said this is way more exertion for her than her usual day-to-day activity. 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 She is saying in her day-to-day life and usual activities she has no symptoms otherwise. 02/15/24: She is here for follow-up. She has been doing great without any exertional symptoms. She has been physically active and has no exertional intolerance. Blood pressure is well controlled. [facility] Medical History T2DM (type 2 diabetes mellitus) Surgical History History of coronary artery stent placement History of hemorrhoids History of tubal ligation History of section Family History Father No problems noted. Mother Breast cancer CVD (cardiovascular disease) Diabetes mellitus Maternal Grandmother Melanoma Sister No problems noted. Son No problems noted. Son No problems noted. Son No problems noted. Son Sleep apnea Daughter No problems noted. Daughter No problems noted. 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 Current occupational exposures/hazards: No Sexual orientation: Straight/Heterosexual Gender identity: Female Cognitive needs: No Hearing needs: No Vision needs: Yes (Glasses) Female Reproductive History Menstrual Age of Menarche: 15 Review of Systems Const Denies chills, Denies fatigue, Denies fever(s), Denies frequent falls, Denies weakness, Denies weight gain and Denies weight loss ENT Denies dizziness Card Denies chest pain, Denies leg edema, Denies lightheadedness, Denies palpitations, Denies dyspnea and Denies dyspnea on exertion Resp Denies cough, Denies dyspnea and Denies dyspnea on exertion GI Denies hematochezia Musc Denies abnormal gait, Denies muscle weakness, Denies numbness, Denies radiating pain into limb and Denies tingling Neuro Denies abnormal gait, Denies dizziness, Denies frequent falls, Denies numbness, Denies tingling and Denies weakness Endo Denies fatigue and Denies palpitations Physical Exam Vital Signs: Last Vital Signs Pulse 67 02/15/24 15:42 BP 110/64 02/15/24 15:42 BMI result Body Mass Index 25.2 GENERAL APPEARANCE: in no acute distress, pleasant. NECK: no carotid bruit, no jugular venous distention. SKIN: no suspicious lesions, warm and dry. HEART: no murmurs, regular rate and rhythm. LUNGS: clear to auscultation bilaterally. ABDOMEN: soft, nontender. EXTREMITIES: no edema. PERIPHERAL PULSES: equal. 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 She has been clinically stable. Blood pressure control is good. Tolerating medications. Physically active and has no exertional intolerance or symptoms. She will see us back in 6 months. Thank you for allowing me to participate in the care of your patient. Please feel free to contact me if you have any questions. Coding Level of Care Code Est Pt Level 4 (23531) Diagnoses Stable angina I20.8
== END 2024-02-15 16:18 | disposition home or self-care (01) ==
PROVIDERS: PCP Family Medicine; Visit Provider Internal Medicine Cardiovascular Disease
DX: I20.89 Other forms of angina pectoris (principal)
CPT/HCPCS: 99214

== ENCOUNTER → 2024-02-15 15:33 | Outpatient (BNVA) | payer OTHER, SELFPAY | PROVIDERS: PCP Family Medicine; Visit Provider Internal Medicine Cardiovascular Disease | DX: I20.89 Other forms of angina pectoris (principal) | CPT/HCPCS: 99212 ==

== ENCOUNTER 2024-03-01 09:04 | Outpatient (AMB) | payer OTHER, SELFPAY ==
--- NOTE | 2024-03-01 09:06 | MHC.OFFVIS ---
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 She also has a history of vulvar irritation/itching worse at night, wears a daaymi pad to help prevent her from scratching. BV panel was negative. Currently using bath and body works wash, and Huggies wipes, and Dayami pad of various brands. She reports a history of sensitivity to products. [facility] Medical History T2DM (type 2 diabetes mellitus) Surgical History History of coronary artery stent placement History of hemorrhoids History of tubal ligation History of section Family History Father No problems noted. Mother Breast cancer CVD (cardiovascular disease) Diabetes mellitus Maternal Grandmother Melanoma Sister No problems noted. Son No problems noted. Son No problems noted. Son No problems noted. Son Sleep apnea Daughter No problems noted. Daughter No problems noted. 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 Current occupational exposures/hazards: No Sexual orientation: Straight/Heterosexual Gender identity: Female Cognitive needs: No Hearing needs: No Vision needs: Yes (Glasses) Female Reproductive History Menstrual Age of Menarche: 15 Review of Systems Const All systems reviewed & are unremarkable except as noted in HPI and below Endo Reports no additional complaints Physical Exam Vital Signs: Last Vital Signs BP 108/72 03/01/24 09:08 Const General: cooperative, healthy appearing and no acute distress Psych Appearance: well kempt Attitude: cooperative Thought process: Normal thought process present Results Reviewed Results Reviewed: Name: Collette Thakur Age/Sex: 63/F Attending: Regina Figueredo CNM : 1960 Submitted by: Regina Figueredo CNM Copies to: Mulugeta Bowles MD MR #: [id number] Status: DEP REF Collected: 02/14/24 Location: .LAB Received: 02/14/24 Diagnosis Endometrium, biopsy: Rare fragments of benign atrophic endometrium (see comment). Comment: The specimen is very scant and may not be canvas products sales representative of the endometrium. Clinical correlation and follow-up necessary. Clinical History PMB Microscopic Description Microscopic sections reviewed. Material Received Endometrial biopsy Gross Description Received in formalin labeled ?EMB? is a 0.8 x 0.6 x 0.2 cm aggregate of mucus, blood and multiple congested and hemorrhagic red-maroon tissue fragments, submitted in toto in a cassette labeled A. CEDS Copies To Mulugeta Bowles MD [facility] [address], [place] [id number] Regina Figueredo CNM [facility] [address] [place] [address] [place] [id number] NOTE: Unless otherwise stated, all tissue is formalin-fixed and paraffin-embedded. Some or all of the immunohistochemical tests reported herein may have been developed and their performance characteristics determined by [facility]. They have not been cleared or approved by the U.S. Food and Drug Administration (FDA). However, the FDA has determined that such clearance or approval is not necessary. This laboratory is certified under the Clinical Laboratory Improvement Amendments of Patient: Collette Thakur Age/Sex: 63/F MR#: [id number] Page 1 of 2 Surgical Pathology [id number] 1988 (CLIA) as qualified to perform high complexity clinical laboratory testing. Electronically Signed By: Sophia Ramirez 02/15/24 1114 Patient: Collette Thakur Age/Sex: 63/F MR#: [id number] Assessment & Plan Assessment & Plan (1) Encounter to discuss test results: Code(s): Z71.2 - Person consulting for explanation of examination or test findings (2) Vulvar irritation: Code(s): N90.89 - Other specified noninflammatory disorders of vulva and perineum Plan Discussed: Endometrial biopsy results are negative, sparse sample despite multiple attempts. Discuss repeating EMB, patient prefers not to have a repeat at this time. Endometrial measurement was 0.2 mm. Advised if repeat spotting to call the office and have a endometrial biopsy scheduled. Also to ascertain whether this spotting is from the vagina or other sources. Skin care: trial Rx for antifungal cream to see if there is any improvement with external irritation, avoidance of products currently used with body wash, pads, and wipes. Alternative products unscented, an all natural. Return to the office in 2 months or sooner if symptoms worsen or are unresolved. All of her questions and concerns were addressed to the best of my ability and shared decision making. She is agreeable to the plan of care. This note is constructed using voice recognition software. While every effort has been made to ensure accuracy, field sales specialist errors may have been included. Medications: New clotrimazole-betamethasone 1-0.05 % apply externally a thin coat to the area 1 appl topical BID 7 days 45 grams 0RF itching Coding Level of Care Code Est Pt Level 3 (64710) Diagnoses Encounter to discuss test results Z71.2 Vulvar irritation N90.89
[2024-03-01 09:08] VITALS: BP 108/72
== END 2024-03-01 09:34 | disposition home or self-care (01) ==
PROVIDERS: PCP Family Medicine; Visit Provider Advanced Practice Midwife
DX: Z71.2 Person consulting for explanation of examination or test findings (principal); N90.89 Other specified noninflammatory disorders of vulva and perineum
CPT/HCPCS: 99213

== ENCOUNTER → 2024-03-01 09:04 | Outpatient (BNVA) | payer OTHER, SELFPAY | PROVIDERS: PCP Family Medicine; Visit Provider Advanced Practice Midwife | DX: Z71.2 Person consulting for explanation of examination or test findings (principal); N90.89 Other specified noninflammatory disorders of vulva and perineum | CPT/HCPCS: 99212 ==

== ENCOUNTER 2024-04-30 14:53 | Outpatient (AMB) | payer OTHER, SELFPAY ==
--- NOTE | 2024-04-30 15:29 | A.OFFPC_ITS ---
Vital Signs 04/30/24 15:32 Height 5 ft 5 in Weight 151 lb 8 oz BMI 25.2 BP 112/67 Blood Pressure Location Rt brachial Position Sitting Respiration 16 Pulse 63 Pulse Source Pulse Oximeter Temp 97.5 F Temp Source Temporal Artery Scan Pulse Oximetry (%) 97 Oxygen Delivery Method Room Air Intake Visit Reasons: preop cataract right eye,no labs, no ekg Intake Note: pre-op fro cataract surgery Allergies clavulanic acid [Augmentin] Allergy (Unknown, Verified 04/30/24 15:30) hives penicillin V Allergy (Unknown, Verified 04/30/24 15:30) hives Tobacco use date assessed: 10/26/23 Dental Screening Dental Screen Date: 10/26/23 HPI preop cataract right eye,no labs, no ekg HPI Details Patient presents for preoperative clearance prior to Cataract Surgery Procedure: R Cataract Surgery Date:?May 04, 2024 Surgeon: Silvano Mcnair At [facility] Anesthesia: Local & conscious sedation. Cardiac Hx: CAD, Paroxysmal Atrial Tacycardia Pulmonary Hx: None Prior Surgical Complications:None Prior Anesthesia Complications:None Coag issues: On Aspirin Functional [place]: Cadio class, Dancing class, Balance & agilty. 45-60 min in length.. Walks 2 miles. [facility] Medical History T2DM (type 2 diabetes mellitus) Surgical History History of coronary artery stent placement History of hemorrhoids History of tubal ligation History of section Family History Father No problems noted. Mother Breast cancer CVD (cardiovascular disease) Diabetes mellitus Maternal Grandmother Melanoma Sister No problems noted. Son No problems noted. Son No problems noted. Son No problems noted. Son Sleep apnea Daughter No problems noted. Daughter No problems noted. 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 Wei Smyth, Stephanie Jose, Vitaliy Cabello and colleagues, with an educational bharath from [employer]. Review of Systems Const Denies chills, Denies fatigue, Denies fever(s), Denies headache(s) and Denies weakness ENT Denies dizziness and Denies headache(s) Card Denies chest pain, Denies lightheadedness, Denies dyspnea and Denies other (Palpitations) Resp Denies cough, Denies dyspnea, Denies wheezing and Denies other ( shortness of breath) Musc Denies numbness and Denies tingling Neuro Denies dizziness, Denies headache(s), Denies numbness, Denies tingling, Denies paresthesias and Denies weakness Psych Denies anxiety and Denies depression Endo Denies fatigue Aller/Immun Denies wheezing Physical exam (Primary Care) Vital Signs: Last Vital Signs Temp 97.5 F 04/30/24 15:32 Pulse 63 04/30/24 15:32 Resp 16 04/30/24 15:32 BP 112/67 04/30/24 15:32 Pulse Ox 97 04/30/24 15:32 Oxygen Delivery Method Room Air 04/30/24 15:32 BMI result Body Mass Index 25.2 Tobacco/Smoking Status: Tobacco use Status Tobacco use date assessed 10/26/23 04/30/24 15:34 Patient Tobacco Use Status Never used Tobacco 04/30/24 15:34 e-Cigarette/Vaping Use Never Used 04/30/24 15:34 Thrive Assessment: Date of Thrive Assessment Date Thrive assessed 10/26/23 04/30/24 15:34 Const General: no acute distress and well developed Nutritional Appearance: well nourished Orientation/consciousness: patient oriented x3 HENMT Head: Yes normocephalic and Yes atraumatic Eyes General: appearance normal, both eyes and all related structures Pupils: Equal, round and reactive pupils present EOM: EOMs intact bilaterally Resp Effort & Inspection: normal respiratory effort Auscultation: clear to auscultation bilaterally Cardio Rate: regular rate Rhythm: regular rhythm Heart sounds: S1 normal heart sound present, S2 normal heart sound present, no gallops, no murmurs and no rubs Neuro General: patient oriented x3 and gait normal Cranial nerves: Yes Equal, round and reactive pupils present Psych Affect: normal affect Coding Level of Care Code Est Pt Level 3 (92691) Diagnoses Pre-operative clearance Z01.818 Assessment & Plan Assessment & Plan (1) Pre-operative clearance: Code(s): Z01.818 - Encounter for other preprocedural examination Category: Medical Plan: 63-year-old?female?presents?for?preoperative?clearance?prior?to?catar act?surgery. History?of?coronary?artery?disease and?stent. Cardiac?exam?today?is?within?normal?limits. EKG?showed?sinus?rhythm?with?left?anterior?fascicular?block.??No?ST-T-wave?locke es. No?history?of?pulmonary?disease?and?normal?pulmonary?exam?today No?history?of?anesthesia?or?surgical?complications. She?is?on?aspirin Very?good?functional?reserve. Low?intermediate?risk?patient?for?low?risk?procedure. * No?contraindications?to?proceeding?with?proposed?procedure She?can?continue?aspirin
[2024-04-30 15:32] VITALS: BP 112/67; PULSE 63; RESP 16; TEMP 36.4; O2SAT 97; BMI 25.2
== END 2024-04-30 17:05 ==
LOC: HO.HMCFM 14:53
PROVIDERS: PCP Family Medicine; Visit Provider Family Medicine
DX: Z01.818 Encounter for other preprocedural examination (principal)

== ENCOUNTER → 2024-04-30 14:53 | Outpatient (BNVA) | payer OTHER, SELFPAY | PROVIDERS: PCP Family Medicine; Visit Provider Family Medicine | DX: Z01.818 Encounter for other preprocedural examination (principal) | CPT/HCPCS: 99212 ==

== ENCOUNTER 2024-06-07 10:37 | Outpatient (AMB) | payer OTHER, SELFPAY ==
--- NOTE | 2024-06-07 10:45 | MHC.PC.OV ---
Vital Signs 06/07/24 10:47 Height 5 ft 5 in Weight 151 lb 2 oz BMI 25.1 BP 104/60 Blood Pressure Location Rt brachial Position Sitting Respiration 16 Pulse 52 Pulse Source Pulse Oximeter Temp 98.1 F Temp Source Oral Pulse Oximetry (%) 98 Oxygen Delivery Method Room Air Intake Visit Reasons: f/u diabetes Intake Note: F/U DM Allergies clavulanic acid [Augmentin] Allergy (Unknown, Verified 06/07/24 10:46) hives penicillin V Allergy (Unknown, Verified 06/07/24 10:46) hives Tobacco use date assessed: 10/26/23 Dental Screening Dental Screen Date: 10/26/23 HPI f/u diabetes HPI Details 63 y/o female presents to f/u diabetes. Prior A1c 7.4%. A1c today 06/07/24 7.4%. She is on metformin 1000mg b.i.d, glyburide 5mg b.i.d. Follows up with opthalmology. Recent cataract surgery. Hx of CAD with stent. HPI Comments History of Present Illness Details Documentation assistance for Mulugeta Bowles MD, was provided by Huseyin Hong, [employer] on 06/07/2024 at 11:41 AM EST. I, Dr. Bowles, have read, observed, and verified documentation. [facility] Medical History T2DM (type 2 diabetes mellitus) Surgical History (Reviewed 02/15/24 @ 15:45 by Evi Perry [facility]) History of coronary artery stent placement History of hemorrhoids History of tubal ligation History of section Family History Father No problems noted. Mother Breast cancer CVD (cardiovascular disease) Diabetes mellitus Maternal Grandmother Melanoma Sister No problems noted. Son No problems noted. Son No problems noted. Son No problems noted. Son Sleep apnea Daughter No problems noted. Daughter No problems noted. 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 Wei Smyth, Stephanie Jose, Vitaliy Cabello and colleagues, with an educational bharath from [employer]. Review of Systems Const Denies chills, Denies fatigue, Denies fever(s), Denies headache(s) and Denies weakness ENT Denies dizziness and Denies headache(s) Card Denies dyspnea Resp Denies cough, Denies dyspnea, Denies wheezing and Denies other (shortness of breath) Musc Denies numbness and Denies tingling Neuro Denies dizziness, Denies headache(s), Denies numbness, Denies tingling and Denies weakness Psych Denies anxiety and Denies depression Endo Denies fatigue Aller/Immun Denies wheezing Physical exam (Primary Care) Vital Signs: Last Vital Signs Temp 98.1 F 06/07/24 10:47 Pulse 52 06/07/24 10:47 Resp 16 06/07/24 10:47 BP 104/60 06/07/24 10:47 Pulse Ox 98 06/07/24 10:47 Oxygen Delivery Method Room Air 06/07/24 10:47 BMI result Body Mass Index 25.1 Tobacco/Smoking Status: Tobacco use Status Tobacco use date assessed 10/26/23 06/07/24 10:50 Patient Tobacco Use Status Never used Tobacco 06/07/24 10:50 e-Cigarette/Vaping Use Never Used 06/07/24 10:50 Thrive Assessment: Date of Thrive Assessment Date Thrive assessed 10/26/23 06/07/24 10:50 Const General: well developed; No acute distress Nutritional Appearance: well nourished Orientation/consciousness: patient oriented x3 HENMT Head: Yes normocephalic and Yes atraumatic Eyes General: appearance normal, both eyes and all related structures Pupils: Equal, round and reactive pupils present EOM: EOMs intact bilaterally Resp Effort & Inspection: normal respiratory effort Neuro General: patient oriented x3 and gait normal Cranial nerves: Yes Equal, round and reactive pupils present Psych Affect: normal affect Coding Level of Care Code Est Pt Level 3 (06222) Diagnoses Diabetes type 2, controlled E11.9 CAD (coronary artery disease) I25.10 Assessment & Plan Assessment & Plan (1) Diabetes type 2, controlled: Code(s): E11.9 - Type 2 diabetes mellitus without complications Category: Medical Plan: Patient?with?a?history?of?coronary?artery?disease?and?stents?with?suboptimal/poorly?controlled?diabetes. Patient?has?fear?of?low?blood?sugars?has?been?a?barrier?to?changing?her?medications. A1c?7.4%?today?and?was?7.4%?at?last?visit?about?6?months?ago. She?says?that?she?gets?some?low?blood?sugars?around?70?or?very?rarely?60.??She?says?that?she?starts?feeling?low?blood?sugars?around?90. Taking?metformin,?glyburide?and?Jardiance?as?prescribed. Jardiance?is?essentially?maxed?out?and?her?metformin?is?rather?high?as?well Discussed?increasing?glyburide?but?patient?afraid?she?will?have?further?low?blood?sugars?which?is?a?possibility. We?talked?about?using?a?weekly?medication?such?as?Ozempic?or?Trulicity.??She?is?on?SGLT2?inhibitor,?Jardiance. Could?add?GLP?1?such?as?Ozempic?Trulicity. Will?try?Trulicity?as?it?is?less?likely?to?cause?weight?loss?which?she?says?she?is?concerned?about. She?will?discontinue?glyburide?just?prior?to?starting?Trulicity.??Will?hold?evening?dose?of?glyburide?the?night?before?she?starts?Trulicity. Had?been?seeing??Neck?osteo?in?the?past. She?would?like?to?be?seen?by?endocrinology?at?with[facility]Center.??I?made?the?referral (2) CAD (coronary artery disease): Code(s): I25.10 - Atherosclerotic heart disease of [place] coronary artery without angina pectoris Category: Medical Plan: Stable Orders: Referrals Endocrinology Referral E11.9 - Type 2 diabetes mellitus without complications Medications: New dulaglutide (Trulicity) 0.75 mg (0.5 mL) subcut QWEEK 28 days 2 mL 3RF E11.9 - Type 2 diabetes mellitus without complications
[2024-06-07 10:47] VITALS: BP 104/60; PULSE 52; RESP 16; TEMP 36.7; O2SAT 98; BMI 25.1
== END 2024-06-07 11:42 | disposition home or self-care (01) ==
PROVIDERS: PCP Family Medicine; Visit Provider Family Medicine
DX: E11.9 Type 2 diabetes mellitus without complications (principal); I25.10 Atherosclerotic heart disease of native coronary artery without angina pectoris

== ENCOUNTER → 2024-06-07 10:37 | Outpatient (BNVA) | payer OTHER, SELFPAY | PROVIDERS: PCP Family Medicine; Visit Provider Family Medicine | DX: E11.9 Type 2 diabetes mellitus without complications (principal); I25.10 Atherosclerotic heart disease of native coronary artery without angina pectoris | CPT/HCPCS: 99212 ==

== ENCOUNTER 2024-06-18 09:43 | Outpatient (AMB) | payer OTHER, SELFPAY ==
--- NOTE | 2024-06-18 09:58 | A.OFFVIS_ITS ---
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: No Accompanied by: Significant Other Allergies clavulanic acid [Augmentin] Allergy (Unknown, Verified 06/07/24 10:46) hives penicillin V Allergy (Unknown, Verified 06/07/24 10:46) hives Medication List - Last Reconciled 06/18/24 by Khadijah Cuadra PA-C aspirin (Adult Low Dose Aspirin) 81 mg PO DAILY 90 days atorvastatin 80 mg PO DAILY 90 days blood sugar diagnostic (FreeStyle Lite Strips) DX: E11.9, test blood sugar 3 times a day, 90 days blood-glucose meter (FreeStyle Lite Meter kit) DX: E11.9, test blood sugar 3 times a day, duration 999 days blood-glucose meter,continuous (FreeStyle Jack 3 [place]) Use daily As directed to monitor blood glucose blood-glucose sensor (FreeStyle Jack 3 Plus Sensor device) Use daily As directed to monitor glucose cholecalciferol (vitamin D3) 50 mcg PO DAILY 90 days dulaglutide (Trulicity) 0.75 mg (0.5 mL) subcut QWEEK 28 days empagliflozin (Jardiance) 25 mg PO DAILY lancets As directed melatonin ER 5 mg PO BEDTIME metformin 1,000 mg PO BID metoprolol tartrate 25 mg PO BID psyllium husk (Fiber-Caps (psyllium husk)) 1.04 grams PO DAILY HPI HPI T2DM w/o complications/ Unable to lvm: Details: Patient is a 63-year-old female with a significant past medical history type 2 diabetes, hyperparathyroidism, dyslipidemia, CAD presenting today for evaluation regarding diabetes. Endo: Dm-diagnosed with diabetes around 2003. Her most recent A1c was 7.4. She is currently on metformin 1000 mg twice a day, Jardiance 25 mg daily and Trulicity 0.75 mg every week. -Last saw Dr. Rosado 3 months ago for her hyperparathyroidism and diabetes. She states that she really just wanted a 2nd opinion diabetes. It was at her recent PCP appointment that the Trulicity was added in the glyburide was decreased. She says that the Trulicity is causing some nausea and vomiting but she wants to give it a little more time. Patient states that she does get intermittent low blood sugars and symptomatic with blood sugars 90 and under. A couple times she is had a blood sugar of 60. She corrects her blood sugars with She checks her blood sugars 2 to 3 times a day. She states that after 20 years of picking her fingers she has no sensation to her fingers and at times we will miss or have to do a more sensitive area of her finger. She states that she does not have much sensation to the fingertips at all. She states she has a fam hx of type 1 dm. Mgm, mgf, aunt and niece have t1dm. CV: Blood pressure today in the office is 112/78. She is currently taking metoprolol 25 mg twice a day. Her cholesterol is controlled with atorvastatin 80 mg. [facility] Medical History (Updated 06/18/24 @ 11:49 by Khadijah Cuadra PA-C) Hx of cataract T2DM (type 2 diabetes mellitus) Surgical History History of coronary artery stent placement History of hemorrhoids History of tubal ligation History of section Family History Father No problems noted. Mother Breast cancer CVD (cardiovascular disease) Diabetes mellitus Maternal Grandmother Melanoma Sister No problems noted. Son No problems noted. Son No problems noted. Son No problems noted. Son Sleep apnea Daughter No problems noted. Daughter No problems noted. 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 Current occupational exposures/hazards: No Sexual orientation: Straight/Heterosexual Gender identity: Female Cognitive needs: No Hearing needs: No Vision needs: Yes (Glasses) Female Reproductive History Menstrual Age of Menarche: 15 Physical Exam Vital Signs: Last Vital Signs Pulse 60 06/18/24 10:00 BP 112/78 06/18/24 10:00 BMI result Body Mass Index 24.6 Const Orientation/consciousness: patient oriented x3 Neck Neck: Yes no lymphadenopathy Thyroid: Thyroid normal Carotids: no bruits Resp Auscultation: clear to auscultation bilaterally Cardio Rate: regular rate Rhythm: regular rhythm Heart sounds: S1 normal heart sound present and S2 normal heart sound present Peripheral pulses: dorsalis pedis present Neuro General: patient oriented x3, gait normal and no focal motor deficits Extrem Other: Monofilament sensation intact bilaterally. Vibratory sensation intact bilaterally. Skin intact. General: Yes normal to inspection Results AMB Hemoglobin A1c AMB Hemoglobin A1c 7.3 % Last Edit by JEREMY Wadsworth on 06/18/24 10:22 Results Reviewed Results Reviewed: Laboratory Last Values Glucose (Clinic) 191 mg/dL (60-115) H 06/18/24 10:04 Hgb A1c (Clinic) 7.3 % (4.0-6.0) H 06/18/24 10:21 Laboratory Tests 08/25/22 06/01/23 01/02/24 07:55 07:55 17:30 Hgb A1c (Clinic) 7.2 H Triglycerides 79 Cholesterol 137 LDL Cholesterol, Calc 71 HDL Cholesterol 51 Urine Creatinine 64.99 Urine Microalbumin < 5.0 Microalb/Creat Ratio TNP Assessment & Plan Assessment & Plan (1) Diabetes type 2, uncontrolled: Code(s): E11.65 - Type 2 diabetes mellitus with hyperglycemia Category: Medical Qualifiers: Glycemic state: with hypoglycemia Plan: More than 1 hour was spent in [id number] time today discussing diabetes, the differences between type 1 and type 2 diabetes, and the complications associated with diabetes. We reviewed complications such as blindness, kidney disease, heart disease, amputations, infections, strokes etc.. Does report getting a few low blood sugars and that along with the neuropathy we will try to get a CGM. Reviewed how to treat hypoglycemic events. Has glucose tabs at home. Labs ordered today including antibodies and C-peptide. Continue current regimen. Follow up in 3-4 weeks. Sooner if needed. (2) Dyslipidemia: Code(s): E78.5 - Hyperlipidemia, unspecified Category: Medical Plan: Continue current regimen (3) Peripheral sensory neuropathy due to type 2 diabetes mellitus: Code(s): E11.42 - Type 2 diabetes mellitus with diabetic polyneuropathy Category: Medical Plan: As above Orders: Orders C Peptide Today E11.65 - Type 2 diabetes mellitus with hyperglycemia Glutamic acid decarboxylase Ab Today E11.65 - Type 2 diabetes mellitus with hyperglycemia Islet Cell Antibody Scrn/Titer Today E11.65 - Type 2 diabetes mellitus with hyperglycemia AMB Hemoglobin A1c Today E11.9 - Type 2 diabetes mellitus without complications Referrals Pouncing Lathe Operator Nutrition Referral E11.65 - Type 2 diabetes mellitus with hyperglycemia Medications: New blood-glucose sensor (FreeStyle Jack 3 Plus Sensor device) Use daily As directed to monitor glucose 2 ea 5RF E11.42 - Type 2 diabetes mellitus with diabetic polyneuropathy, E11.65 - Type 2 diabetes mellitus with hyperglycemia blood-glucose meter,continuous (FreeStyle Jack 3 [place]) Use daily As directed to monitor blood glucose 1 ea 0RF E11.42 - Type 2 diabetes mellitus with diabetic polyneuropathy, E11.65 - Type 2 diabetes mellitus with hyperglycemia Coding Level of Care Code New Pt Level 5 (93485) Complex EM visit Add On G2211 Diagnoses Diabetes type 2, uncontrolled E11.65 Glycemic state: with hypoglycemia Dyslipidemia E78.5 Peripheral sensory neuropathy due to type 2 diabetes mellitus E11.42
[2024-06-18 10:00] VITALS: BP 112/78; PULSE 60; BMI 24.6
[2024-06-18 10:09] LABS: Glucose, Whole Blood 191 mg/dL (60-115)
== END 2024-06-18 11:00 | disposition home or self-care (01) ==
PROVIDERS: PCP Family Medicine; Visit Provider Physician Assistant
DX: E11.65 Type 2 diabetes mellitus with hyperglycemia (principal); E78.5 Hyperlipidemia, unspecified; E11.42 Type 2 diabetes mellitus with diabetic polyneuropathy

== ENCOUNTER → 2024-06-18 09:43 | Outpatient (BNVA) | payer OTHER, SELFPAY | PROVIDERS: PCP Family Medicine; Visit Provider Physician Assistant | DX: E11.65 Type 2 diabetes mellitus with hyperglycemia (principal); E11.42 Type 2 diabetes mellitus with diabetic polyneuropathy; E21.3 Hyperparathyroidism, unspecified; E78.5 Hyperlipidemia, unspecified; I25.10 Atherosclerotic heart disease of native coronary artery without angina pectoris; Z79.84 Long term (current) use of oral hypoglycemic drugs; Z79.85 Long-term (current) use of injectable non-insulin antidiabetic drugs; Z79.899 Other long term (current) drug therapy | CPT/HCPCS: 82947; 83036; 99202 ==

== ENCOUNTER 2024-06-19 07:52 | Outpatient (REF) | payer OTHER, SELFPAY ==
[2024-06-20 11:03] LABS: C Peptide 1.89 ng/mL (0.80-3.85)
[2024-06-23 12:39] LABS: Glutamic acid decarboxylase Ab <5 IU/mL (<5)
[2024-06-25 00:08] LABS: Islet Cell Antibody Screen NEGATIVE (NEGATIVE)
== END 2024-06-19 07:53 | disposition home or self-care (01) ==
LOC: HO.LAB 07:52
PROVIDERS: PCP Family Medicine; Visit Provider Physician Assistant
DX: E11.65 Type 2 diabetes mellitus with hyperglycemia (principal)
CPT/HCPCS: 36415; 84681; 86341

== ENCOUNTER 2024-07-16 12:51 | Outpatient (AMB) | payer OTHER, SELFPAY ==
--- NOTE | 2024-07-16 12:54 | A.OFFVIS_ITS ---
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: No Accompanied by: Significant Other Allergies clavulanic acid [Augmentin] Allergy (Unknown, Verified 07/16/24 13:01) hives penicillin V Allergy (Unknown, Verified 07/16/24 13:01) hives Medication List - Last Reconciled 07/16/24 by Colleen Denny MD aspirin (Adult Low Dose Aspirin) 81 mg PO DAILY 90 days atorvastatin 80 mg PO DAILY 90 days blood sugar diagnostic (FreeStyle Lite Strips) DX: E11.9, test blood sugar 3 times a day, 90 days blood-glucose meter (FreeStyle Lite Meter kit) DX: E11.9, test blood sugar 3 times a day, duration 999 days blood-glucose meter,continuous (FreeStyle [place] 3 [place]) Use daily As directed to monitor blood glucose blood-glucose sensor (FreeStyle Jack 3 Plus Sensor device) Use daily As directed to monitor glucose cholecalciferol (vitamin D3) 50 mcg PO DAILY 90 days dulaglutide (Trulicity) 0.75 mg (0.5 mL) subcut QWEEK 28 days empagliflozin (Jardiance) 25 mg PO DAILY lancets As directed melatonin ER 5 mg PO BEDTIME metformin 1,000 mg PO BID metoprolol tartrate 25 mg PO BID psyllium husk (Fiber-Caps (psyllium husk)) 1.04 grams PO DAILY HPI Comments Details: 63-year-old female here today for follow up of T2DM and hyperparathyroidism. past medical history type 2 diabetes, hyperparathyroidism, dyslipidemia, CAD Type 2 diabetes mellitus diagnosed with diabetes around 2003. A1c 06/18/2024:7.3% Prior medications Glyburide discontinued late May 2024 when Ashley started Current medications metformin 1000 mg twice a day, Jardiance 25 mg daily , no yeast infections recently Trulicity 0.75 mg every week started late May 2024, GI intolerance much better now SMBGs Fasting : 179, 166, 137, mostly in 130s Post meal 160s or 200 bedtime 278, 144 7 average 155 mgdl Patient states that she does get intermittent low blood sugars and symptomatic with blood sugars 90 and under. Last hypoglycemic episode: long time ago, 2 months ago when she was on glyburide She checks her blood sugars 2 to 3 times a day. She states that after 20 years of picking her fingers she has no sensation to her fingers and at times we will miss or have to do a more sensitive area of her finger. She states that she does not have much sensation to the fingertips at all. Free style Jack 3 PA Denied. has a fam hx of type 1 dm. Mgm, mgf, aunt and niece have t1dm. Labs 06/19/2024 showed positive C-peptide of 1.89, negative islet cell and milla antibodies Weight: Lost 10 lbs in 6 weeks since April 2024 Complications Does have neuropathy Eye visit :: April 2024, no retinpathy No kidney disease CV: Blood pressure today in the office is normal.. She is currently taking metoprolol 25 mg twice a day. No stroke, has history of CAD , followed with Dr. Farooq LDL 71 mg/dL from May 2023 on atorvastatin 80 mg. Not on ALTAGRACIA/ ARB. But is on jardiance 25 mg daily Hyperparathyroidism -She was previously seeing Dr. Rosado in [facility] for her hyperparathyroidism and DM Kidney stones 5 to 7 years ago, nothing recently No hematuria No fractures Takes vitmain D 1000 units daily No calcium suppleements Milk in cereal every othr day , yogurt 4-5 times a week, cheese often She was evaluated by surgeon, not interested in surgery at the time 2023 Exercise: twice a week , weights stretchng 1 hr Diagnosed with osteoporosis, unclear history will obtain records . Physical exam General: sitting comfortably in no acute distress HEENT: normocephalic/atraumatic, Neck: supple, symmetrical Cardiac: normal heart sounds Pulm: normal breath sounds B/L, no added breath sounds Abd: not distended, no tenderness Extremities: no edema, no signs of myxedema Neuro: AAO x3, Speech: normal, no facial droop, moving all 4 extremities Laboratory Tests 07/21/18 11/22/18 03/28/19 07:35 16:45 06:57 Creatinine Estimated GFR Glucose (Clinic) Hgb A1c (Clinic) C-Peptide Calcium 10.6 H 12.0 H D 10.9 H D Albumin Triglycerides Cholesterol LDL Cholesterol, Calc TSH PTH Intact Urine Creatinine Urine Microalbumin Islet Cell Ab Screen MILLA Antibody 02/04/20 08/25/22 06/01/23 08:58 07:55 07:55 Creatinine 0.78 Estimated GFR > 60 Glucose (Clinic) Hgb A1c (Clinic) C-Peptide Calcium 10.7 H 10.6 H 10.5 H Albumin 4.0 4.1 Triglycerides 79 Cholesterol 137 LDL Cholesterol, Calc 71 TSH 0.97 PTH Intact 137.8 H Urine Creatinine 64.99 Urine Microalbumin < 5.0 Islet Cell Ab Screen MILLA Antibody 01/02/24 06/18/24 06/18/24 17:30 10:04 10:21 Creatinine Estimated GFR Glucose (Clinic) 191 H Hgb A1c (Clinic) 7.2 H 7.3 H C-Peptide Calcium Albumin Triglycerides Cholesterol LDL Cholesterol, Calc TSH PTH Intact Urine Creatinine Urine Microalbumin Islet Cell Ab Screen MILLA Antibody 06/19/24 08:07 Creatinine Estimated GFR Glucose (Clinic) Hgb A1c (Clinic) C-Peptide 1.89 Calcium Albumin Triglycerides Cholesterol LDL Cholesterol, Calc TSH PTH Intact Urine Creatinine Urine Microalbumin Islet Cell Ab Screen NEGATIVE MILLA Antibody <5 PFSH Medical History (Updated 07/16/24 @ 13:43 by Colleen Denny MD) Hx of cataract T2DM (type 2 diabetes mellitus) Surgical History History of coronary artery stent placement History of hemorrhoids History of tubal ligation History of section Family History Father No problems noted. Mother Breast cancer CVD (cardiovascular disease) Diabetes mellitus Maternal Grandmother Melanoma Sister No problems noted. Son No problems noted. Son No problems noted. Son No problems noted. Son Sleep apnea Daughter No problems noted. Daughter No problems noted. 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 Current occupational exposures/hazards: No Sexual orientation: Straight/Heterosexual Gender identity: Female Cognitive needs: No Hearing needs: No Vision needs: Yes (Glasses) Female Reproductive History Menstrual Age of Menarche: 15 Assessment & Plan Assessment & Plan (1) T2DM (type 2 diabetes mellitus): Code(s): E11.9 - Type 2 diabetes mellitus without complications Category: Medical Qualifiers: Diabetes mellitus edging catcher insulin use: without edging catcher use Diabetes mellitus complication status: with neurologic complications Diabetes mellitus complication detail: with mononeuropathy Qualified Code(s): E11.41 - Type 2 diabetes mellitus with diabetic mononeuropathy Plan: 63-year-old female here today for follow up of type 2 diabetes mellitus with complication of neuropathy, CAD, without long-term insulin use. A1c from June 2024 at 7.3%. Goal A1c less than 7%. She checks fingersticks, her prior authorization for freestyle was denied given she is not on insulin. Her fasting readings have been in the 130s and her post meals have been in the 160s to 200s, she does need better control of her blood sugars. I will increase her Trulicity today. Plan: -increase Trulicity to 1.5 mg weekly -continue Jardiance 25 mg daily -continue metformin 1000 mg b.i.d. -up-to-date on eye exam, no retinopathy -due for labs, ordered lipid panel, urine microalbumin, vitamin B12 level -start vitamin B12 1000 mcg daily (2) Hyperparathyroidism: Code(s): E21.3 - Hyperparathyroidism, unspecified Category: Medical Plan: Patient also has a history of hyperparathyroidism and osteoporosis. I do not have records of these, patient was previously seeing endocrinology at [facility]. We will obtain records. Given osteoporosis, she met surgical criteria and was even evaluated by a surgeon, she does not remember the name and was scheduled for surgery but she backed out due to fear of surgery itself. She is on vitamin D 1000 units daily, I also asked her to maintain good calcium intake with 2-3 servings of calcium rich foods daily in diet. She does get some weight-bearing exercise. I will rediscuss surgery with her but we will also repeat labs at this time. Plan: -obtain bone resorption markers -obtain endocrine records from her prior network architect at [facility] -ordered calcium, albumin, PTH, kidney function, vitamin-D level -continue vitamin-D 1000 units daily -2-3 servings of calcium rich foods in diet -continue weight-bearing exercise (3) Dyslipidemia: Code(s): E78.5 - Hyperlipidemia, unspecified Category: Medical Plan: LDL at 71 mg/dL from 2022. Goal LDL less than 50 mg/dL. On atorvastatin 80 mg daily. Plan: -ordered repeat lipid panel -continue atorvastatin 80 mg daily -we will consider adding ezetimibe if LDL remains above goal (4) Osteoporosis: Code(s): M81.0 - Age-related osteoporosis without current pathological fracture Category: Medical Qualifiers: Osteoporosis type: age-related Presence of current pathological fracture: without current pathological fracture Qualified Code(s): M81.0 - Age- related osteoporosis without current pathological fracture Plan: See above in hyperparathyroidism Plan I spent 30 minutes in reviewing the record, seeing the patient and documenting in the medical record. Orders: Orders Lipid Panel Today E11.9 - Type 2 diabetes mellitus without complications Microalbumin, Random (w Creat) Today E11.9 - Type 2 diabetes mellitus without complications Phosphorus Today E21.3 - Hyperparathyroidism, unspecified Vitamin D 25-OH Total Today E21.3 - Hyperparathyroidism, unspecified Collagen Type I C-Telopeptide Today E21.3 - Hyperparathyroidism, unspecified, M81.0 - Age-related osteoporosis without current pathological fracture Creatinine Urine Today E21.3 - Hyperparathyroidism, unspecified, M81.0 - Age- related osteoporosis without current pathological fracture Calcium, Random Urine Today E21.3 - Hyperparathyroidism, unspecified, M81.0 - Age-related osteoporosis without current pathological fracture Comprehensive Met. Panel Today E11.9 - Type 2 diabetes mellitus without complications Vitamin B12 Today E11.9 - Type 2 diabetes mellitus without complications Albumin Level Today E21.3 - Hyperparathyroidism, unspecified Calcium Today E21.3 - Hyperparathyroidism, unspecified Parathyroid Hormone Intact Today E21.3 - Hyperparathyroidism, unspecified Magnesium Today E21.3 - Hyperparathyroidism, unspecified Alkaline Phosphatase Bone Today E21.3 - Hyperparathyroidism, unspecified, M81.0 - Age-related osteoporosis without current pathological fracture Medications: New cyanocobalamin (vitamin B-12) 1,000 mcg PO DAILY 30 tabs 4RF dulaglutide (Trulicity) 1.5 mg (0.5 mL) subcut QWEEK 6 mL 3RF Discontinued dulaglutide (Trulicity) Discontinued Reason: Patient Completed Course 0.75 mg (0.5 mL) subcut QWEEK 28 days 2 mL 3RF E11.9 - Type 2 diabetes mellitus without complications Patient Instructions: Increase Trulicity to 1.5 mg weekly Continue metformin and jardiance as it is Fasting target 80 to 110 mg /dl 2 hrs post meals traget less than 140 mg/dl Always bring your meter Do fasting blood work urine test Start vitamin B 12 1000 mcg daily Coding Level of Care Code Est Pt Level 4 (77827) Complex EM visit Add On G2211 Diagnoses Type 2 diabetes mellitus with diabetic mononeuropathy, without long-term current use of insulin E11.41 Diabetes mellitus edging catcher insulin use: without [facility] use Diabetes mellitus complication status: with neurologic complications Diabetes mellitus complication detail: with mononeuropathy Hyperparathyroidism E21.3 Dyslipidemia E78.5 Age-related osteoporosis without current pathological fracture M81.0 Osteoporosis type: age-related Presence of current pathological fracture: without current pathological fracture
[2024-07-16 13:00] VITALS: BP 118/68; PULSE 60; BMI 23.5
[2024-07-16 13:08] LABS: Glucose, Whole Blood 189 mg/dL (60-115)
== END 2024-07-16 13:39 | disposition home or self-care (01) ==
PROVIDERS: PCP Family Medicine; Visit Provider Physician Assistant
DX: E11.41 Type 2 diabetes mellitus with diabetic mononeuropathy (principal); E21.3 Hyperparathyroidism, unspecified; E78.5 Hyperlipidemia, unspecified; M81.0 Age-related osteoporosis without current pathological fracture

== ENCOUNTER → 2024-07-16 12:51 | Outpatient (BNVA) | payer OTHER, SELFPAY | PROVIDERS: PCP Family Medicine; Visit Provider Physician Assistant | DX: E11.41 Type 2 diabetes mellitus with diabetic mononeuropathy (principal); E21.3 Hyperparathyroidism, unspecified; E78.5 Hyperlipidemia, unspecified; M81.0 Age-related osteoporosis without current pathological fracture | CPT/HCPCS: 82947; 99212 ==

== ENCOUNTER 2024-07-18 08:18 | Outpatient (REF) | payer OTHER, SELFPAY ==
[2024-07-18 09:34] LABS: Parathyroid Hormone Intact 156.7 pg/mL (8.7-77.1)
[2024-07-18 09:37] LABS: Alanine Aminotransferase 36 U/L (0-31); Albumin Level 4.3 g/dL (3.5-5.0); Alkaline Phosphatase 89 U/L (39-117); Anion Gap 12 (12-20); Aspartate Amino Transferase 31 U/L (5-31); Bilirubin Total 0.7 mg/dL (0.0-1.0); Blood Urea Nitrogen 13 mg/dL (9-16); Calcium 10.3 mg/dL (8.4-10.2); Carbon Dioxide 27 mmol/L (22-29); Chloride 106 mmol/L (96-108); Cholesterol 112 mg/dL (<200); Estimated Glomerular Filt Rate > 60; Glucose Random 145 mg/dL (60-115); HDL Cholesterol 39 mg/dL (>40); LDL Cholesterol Calculated 52 mg/dL (<100); Magnesium 1.9 mg/dL (1.6-2.6); Phosphorus 2.9 mg/dL (2.7-4.5); Potassium 4.5 mmol/L (3.3-5.1); Sodium 140 mmol/L (135-145); Total Protein 6.6 g/dL (6.5-8.0); Triglycerides 106 mg/dL (<150)
[2024-07-18 09:58] LABS: Vitamin B12 319 pg/mL (200-900)
[2024-07-18 10:02] LABS: Creatinine Urine 76.17 mg/dL; Microalbumin Urine < 5.0 mg/L
[2024-07-21 16:44] LABS: Alkaline Phosphatase Bone 13.1 mcg/L (5.6-29.0)
[2024-07-22 23:53] LABS: Collagen Type I C-Telopeptide 816 pg/mL (see note)
== END 2024-07-18 08:19 | disposition home or self-care (01) ==
LOC: HO.LAB 08:18
PROVIDERS: PCP Student in an Organized Health Care Education/Training Program; Visit Provider Student in an Organized Health Care Education/Training Program
DX: E11.9 Type 2 diabetes mellitus without complications (principal); E21.3 Hyperparathyroidism, unspecified; M81.0 Age-related osteoporosis without current pathological fracture
CPT/HCPCS: 36415; 80053; 80061; 82043; 82306; 82310; 82523; 82570; 82607; 83735; 83970; 84075; 84100

== ENCOUNTER 2024-07-30 11:21 | Outpatient (AMB) | payer OTHER, SELFPAY ==
[2024-07-30 11:37] VITALS: BMI 23.3
--- NOTE | 2024-07-30 11:37 | A.OFFVIS_ITS ---
VS Expanded 07/30/24 11:37 07/30/24 11:53 Height 5 ft 5 in 5 ft 5 in Weight 139 lb 12.369 oz 139 lb BMI 23.3 23.1 Intake Visit Reasons: T2DM Allergies clavulanic acid [Augmentin] Allergy (Unknown, Verified 07/30/24 13:52) hives penicillin V Allergy (Unknown, Verified 07/30/24 13:52) hives Nutrition Presentation Details: Pt presents for MNT for T2DM food frequency fruits: 0-1/d ve-3 x/wk fish not including starches >18/d dairy: 3-4 serving/d physical activyt ADL etoh/smoking: ---- Pt Reports working on reducing portions BS Monitoring Most Recent Diabetes Results: Microalb/Creat Ratio TNP 07/18/24 Cholesterol 112 mg/dL (<200) 07/18/24 HDL Cholesterol 39 mg/dL (>40) L 07/18/24 Triglycerides 106 mg/dL (<150) 07/18/24 Creatinine 0.77 mg/dL (0.5-1.4) 07/18/24 Blood Urea Nitrogen 13 mg/dL (9-16) 07/18/24 Sodium 140 mmol/L (135-145) 07/18/24 Potassium 4.5 mmol/L (3.3-5.1) 07/18/24 Chloride 106 mmol/L (96-108) 07/18/24 Carbon Dioxide 27 mmol/L (22-29) 07/18/24 Calcium 10.3 mg/dL (8.4-10.2) H 07/18/24 AST 31 U/L (5-31) 07/18/24 ALT 36 U/L (0-31) H 07/18/24 Total Protein 6.6 g/dL (6.5-8.0) 07/18/24 Albumin 4.3 g/dL (3.5-5.0) 07/18/24 MXB-Dhxzmuo-Vy.Jeor Equation Height: 5 ft 5 in Weight: 139 lb Resting Metabolic Rate: 1200.62 Calculated Activity Level: Mild Activity Calories Needed to Maintain Weight: 1650.85 Diagnosis Nutrition problem #1: food nutri know defi As related to (etiology) #1: diagnosis As evidenced by (sign/symptom) #1: elevated HgbA1c [facility] Medical History (Updated 07/30/24 @ 14:11 by Li Novak, [facility]) Hx of cataract T2DM (type 2 diabetes mellitus) Surgical History (Reviewed 02/15/24 @ 15:45 by Evi Perry [facility]) History of coronary artery stent placement History of hemorrhoids History of tubal ligation History of section Family History (Reviewed 02/15/24 @ 15:45 by Evi Perry [facility]) Father No problems noted. Mother Breast cancer CVD (cardiovascular disease) Diabetes mellitus Maternal Grandmother Melanoma Sister No problems noted. Son No problems noted. Son No problems noted. Son No problems noted. Son Sleep apnea Daughter No problems noted. Daughter No problems noted. 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 Current occupational exposures/hazards: No Sexual orientation: Straight/Heterosexual Gender identity: Female Cognitive needs: No Hearing needs: No Vision needs: Yes (Glasses) Female Reproductive History Menstrual Age of Menarche: 15 Assessment & Plan Assessment & Plan (1) T2DM (type 2 diabetes mellitus): Code(s): E11.9 - Type 2 diabetes mellitus without complications Category: Medical Qualifiers: Diabetes mellitus termite control servicer insulin use: without termite control servicer use Diabetes mellitus complication status: with neurologic complications Diabetes mellitus complication detail: with mononeuropathy Qualified Code(s): E11.41 - Type 2 diabetes mellitus with diabetic mononeuropathy Plan: Wt: 63 Kg ( 07/28 ) Est kcal needs as per MSJ: 1700 (40% carb, 30% protein/fat) Est fluid needs as per 25-30 ml/d: 1900 Est prot per day as per 1 g/kg bw: 63 Recommend fiber intake : 8-10 g per day and gradually increase to 25-28 g per day for women and 35-38 g for men or as tolerated Recommend sodium intake per day : less than 2000 mg Educated patient on: ( R = reviewed V = verbalizes understanding N/R = needs review N/A = not applicable * Food sources of carbohydrate, adequate serving sizes and its role in various health conditions: R V N/R * Differences between complex carbohydrates a simple carbohydrates, role of fiber in diet: R V N/R * Lean protein sources of foods: R * Differences between types of fats and role in diet (mono on saturated fat fatty acids, saturated fatty acids, trans fats): R V N/R * Food sources of sodium in salt and healthy modifications for heart health in kidney health: R V R/V * Vitamins and minerals: R V N/R * Healthy plate method concept: R V N/R * Physical activity: Benefits a precaution: R V N/R * Hypoglycemia protocol (rule of 15): R V N/R * Dietary prevention of Hyperglycemia: R V R/V Patient Instructions: Have fish at least twice a week (tuna sand with spinach as example Choose yogurt as bedtime snack see meal ideas consisting of 45 g carb following healthy plate method and 20 g carb as snack Coding Level of Care Code Nutr Indiv Intake (73934) Diagnoses Type 2 diabetes mellitus with diabetic mononeuropathy, without long-term current use of insulin E11.41 Diabetes mellitus termite control servicer insulin use: without jail use Diabetes mellitus complication status: with neurologic complications Diabetes mellitus complication detail: with mononeuropathy Time Spent (min) 30
--- OUTSIDE RECORDS SUMMARY | 2024-07-30 16:15 | XMS_ITS | Clinical Summary ---
Author Organization [employer] Address [address] [place] [address] Care Team Providers Care School Age Program Teacher Name Role Phone Unavailable Primary Care Provider Unavailabl e Allergies Active Allergy Reactions Criticality Noted Date Comments Amoxicillin Hives 12/09/2021 Medications Aspirin Low Dose 81 MG EC tablet Take 81 mg by mouth in the morning. 07/12/2023 Active cholecalciferol (Vitamin D-3) 50 MCG (1999) capsule Take by mouth in the morning. 07/09/2023 Active glyBURIDE (Diabeta) 5 MG tablet Take 5 mg by mouth in the morning. 07/23/2023 Active Jardiance 25 MG Take 25 mg by mouth in the morning. 06/13/2023 Active metFORMIN (Glucophage) 1000 MG tablet Take 1,000 mg by mouth 2 times daily. 07/27/2023 Active metoprolol tartrate (Lopressor) 25 MG tablet Take 25 mg by mouth 2 times daily. 07/12/2023 Active ascorbic acid (Vitamin C) 500 mg/mL oral liquid Take by mouth. Active Social History Tobacco Use Types Packs/Day Years Used Date Smoking Tobacco: Never Smokeless Tobacco: Never Tobacco Cessation:Counseling Given: Not Answered Comments Unknown Sex and Gender Information Value Date Recorded Sex Assigned at Female 07/27/2023 11:54 AM EST Legal Sex Female 11:48 AM EST Gender Identity Female 07/27/2023 11:54 AM EST Sexual Orientation Choose not to disclose 2023 11:54 AM EST Last Filed Vital Signs Vital Sign Reading Time Taken Comments Blood Pressure 140/61 08/11/2023 3:47 PM EST Pulse 70 08/11/2023 3:47 PM EST Temperature - - Respiratory Rate - - Oxygen Saturation - - Inhaled Oxygen Concentration - - Weight - - Height - - Body Mass Index - - Plan of Treatment Health Maintenance Due Date Last Done Comments CT Colonography 1962 Colonoscopy 1962 Colorectal Cancer Screening 1962 Dental Prophylaxis 1962 Dental X-Ray: Bitewings 1962 Depression Screening 1962 FIT DNA/Cologuard 1962 FIT 1962 FOBT 1962 HIV Screening 1962 Lipid Panel 1962 SDOH Screening 1962 Sigmoidoscopy 1962 Alcohol/Substance Use Screening 1974 Hepatitis C Screening 1980 DTaP/Tdap/Td Vaccines (1 - Tdap) 1981 Pap Smear 1983 Cervical Cancer Screening 1992 HPV/Cotest 1992 Mammogram 2002 Zoster Vaccines (1 of 2) 2012 Dental Oral Exam 02/10/2024 08/11/2023 COVID-19 Vaccine ( - season) 2024 Influenza Vaccine (#1) 2024 , 04/09/2019, 05/04/2018, Additional history exists Tobacco Screening 11/21/2024 11/22/2023 Dental X-Ray: Full Mouth 08/12/2026 08/11/2023 RSV Patients and Patients Aged 60 years or older (1 - 1-dose 75+ series) 2037 Pneumococcal Vaccine: Pediatrics (0 to 5 Years) and At-Risk Patients (6 to 64 Years) Aged Out 07/22/2015 No longer eligible based on patient's age to complete this topic HIB Vaccines Aged Out No longer eligi ble based on patient's age to complete this topic HPV Vaccines Aged Out No longer eligi ble based on patient's age to complete this topic Hepatitis A Vaccines Aged Out No long er eligible based on patient's age to complete this topic Hepatitis B Vaccines Aged Out No long er eligible based on patient's age to complete this topic IPV Vaccines Aged Out No longer eligi ble based on patient's age to complete this topic Meningococcal Vaccine Aged Out No juan cruz eligible based on patient's age to complete this topic RSV under 20 months Aged Out No longe r eligible based on patient's age to complete this topic Rotavirus Vaccines Aged Out No longer eligible based on patient's age to complete this topic Procedures Procedure Name Priority Date/Time Associated Diagnosis Comments PANORAMIC RADIOGRAPHIC IMAGE Routine 08/11/2023 4:00 PM EST COMPREHENSIVE ORAL EVALUATION - NEW OR ESTABLISHED PATIENT Routine 08/11/2023 4:00 PM EST from Last 3 Months or Most Recently Relevant to Health Maintenance Insurance DENTAL - HSN PARTIAL (MEDICAID)
[2024-08-01 12:44] VITALS: BMI 23.1
== END 2024-07-30 12:34 | disposition home or self-care (01) ==
PROVIDERS: PCP Family Medicine; Visit Provider Dietitian, Registered
DX: E11.41 Type 2 diabetes mellitus with diabetic mononeuropathy (principal)

== ENCOUNTER → 2024-07-30 11:21 | Outpatient (BNVA) | payer OTHER, SELFPAY | PROVIDERS: PCP Family Medicine; Visit Provider Dietitian, Registered | DX: K59.00 Constipation, unspecified (principal); M25.562 Pain in left knee; R19.5 Other fecal abnormalities; E11.41 Type 2 diabetes mellitus with diabetic mononeuropathy; Z71.3 Dietary counseling and surveillance | CPT/HCPCS: 97802; 99212 ==

== ENCOUNTER 2024-07-30 13:30 | Outpatient (AMB) | payer OTHER, SELFPAY ==
--- NOTE | 2024-07-30 13:34 | MHC.PC.OV ---
Vital Signs 07/30/24 13:39 Height 5 ft 5 in Weight 141 lb BMI 23.5 BP 118/68 Blood Pressure Location Lt brachial Position Sitting Respiration 12 Pulse 62 Pulse Source Pulse Oximeter Temp 97.6 F Temp Source Oral Pulse Oximetry (%) 98 Oxygen Delivery Method Room Air Intake Visit Reasons: knee injury and constipation Intake Note: Patient complaining of left knee pain x 2 weeks and constipation Director Of Logistics Required: No Allergies clavulanic acid [Augmentin] Allergy (Unknown, Verified 07/30/24 13:52) hives penicillin V Allergy (Unknown, Verified 07/30/24 13:52) hives Medication List - Last Reconciled 07/30/24 by Li Novak, ELECTROMECHANICAL ASSEMBLY TECHNICIAN- aspirin (Adult Low Dose Aspirin) 81 mg PO DAILY 90 days atorvastatin 80 mg PO DAILY 90 days blood sugar diagnostic (FreeStyle Lite Strips) DX: E11.9, test blood sugar 3 times a day, 90 days blood-glucose meter (FreeStyle Lite Meter kit) DX: E11.9, test blood sugar 3 times a day, duration 999 days blood-glucose meter,continuous (FreeStyle Jack 3 [place]) Use daily As directed to monitor blood glucose blood-glucose sensor (FreeStyle Jack 3 Plus Sensor device) Use daily As directed to monitor glucose cholecalciferol (vitamin D3) 50 mcg PO DAILY 90 days cyanocobalamin (vitamin B-12) 1,000 mcg PO DAILY dulaglutide (Trulicity) 1.5 mg (0.5 mL) subcut QWEEK empagliflozin (Jardiance) 25 mg PO DAILY lancets As directed melatonin ER 5 mg PO BEDTIME metformin 1,000 mg PO BID metoprolol tartrate 25 mg PO BID psyllium husk (Fiber-Caps (psyllium husk)) 1.04 grams PO DAILY Tobacco use date assessed: 10/26/23 Dental Screening Dental Screen Date: 10/26/23 HPI HPI Comments History of Present Illness Details History of Present Illness The patient is a 63-year-old female presenting with left knee pain and constipation. The left knee pain began two weeks ago following an exercise class where the patient participated in jumping exercises without a rope. She reports an audible sound during the class followed by difficulty with stair climbing, requiring her to ascend one step at a time. The knee felt weak with pressure, and initially, there was swelling which has since reduced. The knee throbs occasionally, with pain concentrated in specific areas. No injury was reported, and there has been no improvement. Regarding constipation, the patient experienced a five-day period without bowel movements, which was unusual for her. She normally experiences stool every two to three days but resorted to using a powdered cwqm-lks-qbhtqea medication suggested by her son, which eventually alleviated the symptoms after six days. The constipation was marked by passing small, hard stools. The patient has a history of hemorrhoid surgery 28 years ago. She expresses concerns due to a recent positive Cologuard test and infrequent bowel movements. She has not undergone a colonoscopy and is apprehensive about medical procedures under sedation. Social History - Exercise: Participates in an exercise class; prefers activities for osteoporosis prevention. - Technology use: Limited access to electronic communication, relies on others for tech support. Physical Exam Awake alert oriented Accompanied by Left lower extremity neurovascularly intact. L knee appears normal. No erythema, no edema, no ecchymosis. Skin is intact. Has full range of motion in all directions. Complains of pain with palpation over anterior aspect of me in multiple areas. She is able to bear weight. Able to squat reports the knee feels weak. Results - Cologuard: Positive result discussed 2022 Discussion Notes I addressed the patient's concerns regarding the knee pain and constipation. A referral to gastroenterology for further evaluation was discussed due to the positive Cologuard and constipation history. I explained the importance of follow-up with a condominium association manager and potential alternate diagnostic imaging options if she is uncomfortable with a traditional colonoscopy. We also discussed starting a daily stool softener like Colace to help maintain regular bowel movements. Did let her know that a positive Cologuard and change in stool habits could be an indication for cancer. Stressed the importance of her follow up. Regarding knee pain, I advised an x-ray to rule out underlying musculoskeletal issues. We discussed safe exercise practices and the importance of not overexerting and stopping if pain increases. The patient was informed of the outpatient facilities available for the x-ray. Refer to orthopedics for further evaluation and treatment Finally a lot of time was spent with the the patient advising she needs set up for patient portal for further communication with our office. Patient Instructions - Consider using Colace twice daily to manage bowel movements. - Schedule and attend x-ray for left knee pain at an outpatient facility. - Continue exercise class cautiously; focus on activities that do not exacerbate the knee pain. - Follow up with gastroenterology as recommended. Plan - For left knee pain, the plan includes obtaining an x-ray for further evaluation, with consideration for orthopedic follow-up based on results. - For constipation, initiate Colace to aid in stool softening and promote regularity. Follow up with gastroenterology due to the positive Cologuard and evaluate further for colorectal health. - Advise continuation of osteoporosis exercise regimen, focusing on upper body activities unless otherwise directed by orthopedics. Patient was informed and verbally consented to the use of an ambient scribe for clinic note documentation during this visit. Total time spent caring for the patient today was 45 minutes. This includes time spent before the visit reviewing the chart, time spent during the visit, and time spent after the visit on documentation, reviewing laboratory results, diagnostic imaging, medications, performing a medically necessary evaluation, counseling on diagnoses, care coordination, ordering appropriate tests, ordering appropriate medications, review of tests performed by other providers, reporting test results with the patient, communication with other healthcare providers. [facility] Medical History (Updated 07/30/24 @ 14:11 by iL Novak [facility]) Hx of cataract T2DM (type 2 diabetes mellitus) Surgical History History of coronary artery stent placement History of hemorrhoids History of tubal ligation History of section Family History Father No problems noted. Mother Breast cancer CVD (cardiovascular disease) Diabetes mellitus Maternal Grandmother Melanoma Sister No problems noted. Son No problems noted. Son No problems noted. Son No problems noted. Son Sleep apnea Daughter No problems noted. Daughter No problems noted. 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 [id number] - PHQ-9 Billing: Patient declined-do not bill Source: Developed by Drs. Wei Smyth, Stephanie Jose, Vitaliy Cabello and colleagues, with an educational bharath from [employer]. Thrive Questionnaire Date Thrive assessed: 10/26/23 MILLA-7 AMB Questionnaire MILLA-7 Date MILLA - 7 assessed: 10/26/23 Source: Developed by Drs. Wei Smyth, Stephanie Jose, Vitaliy Cabello and colleagues, with an educational bharath from [employer]. Physical exam (Primary Care) Vital Signs: Last Vital Signs Temp 97.6 F 07/30/24 13:39 Pulse 62 07/30/24 13:39 Resp 12 07/30/24 13:39 BP 118/68 07/30/24 13:39 Pulse Ox 98 07/30/24 13:39 Oxygen Delivery Method Room Air 07/30/24 13:39 BMI result Body Mass Index 23.5 Tobacco/Smoking Status: Tobacco use Status Tobacco use date assessed 10/26/23 07/30/24 13:41 Patient Tobacco Use Status Never used Tobacco 07/30/24 13:41 e-Cigarette/Vaping Use Never Used 07/30/24 13:41 Thrive Assessment: Date of Thrive Assessment Date Thrive assessed 10/26/23 07/30/24 13:41 Coding Level of Care Code Est Pt Level 5 (63210) Complex EM visit Add On G2211 Diagnoses Acute pain of left knee M25.562 Chronicity: acute Positive colorectal cancer screening using Cologuard test R19.5 Constipation, unspecified constipation type K59.00 Constipation type: unspecified constipation type Assessment & Plan Assessment & Plan (1) Left knee pain: Code(s): M25.562 - Pain in left knee Category: Medical Qualifiers: Chronicity: acute Qualified Code(s): M25.562 - Pain in left knee (2) Positive colorectal cancer screening using Cologuard test: Code(s): R19.5 - Other fecal abnormalities Category: Medical (3) Constipation: Code(s): K59.00 - Constipation, unspecified Category: Medical Qualifiers: Constipation type: unspecified constipation type Qualified Code(s): K59.00 - Constipation, unspecified Plan . Orders: Orders XR knee LT 4V Today M25.562 - Pain in left knee Referrals Orthopedics Referral M25.562 - Pain in left knee Gastroenterology Referral K59.00 - Constipation, unspecified, R19.5 - Other fecal abnormalities, Z12.11 - Encounter for screening for malignant neoplasm of colon Medications: New docusate sodium (Colace) HOLD FOR LOOSE STOOLS 100 mg PO BID 180 caps 0RF
[2024-07-30 13:39] VITALS: BP 118/68; PULSE 62; RESP 12; TEMP 36.4; O2SAT 98; BMI 23.5
== END 2024-07-30 14:15 | disposition home or self-care (01) ==
PROVIDERS: PCP Internal Medicine; Visit Provider Nurse Practitioner Family
DX: M25.562 Pain in left knee (principal); R19.5 Other fecal abnormalities; K59.00 Constipation, unspecified

== ENCOUNTER → 2024-07-30 15:12 | Outpatient (BNV) | payer OTHER, SELFPAY | PROVIDERS: PCP Family Medicine; Visit Provider Radiology Diagnostic Radiology | DX: M22.2X2 Patellofemoral disorders, left knee (principal); M77.9 Enthesopathy, unspecified | CPT/HCPCS: 73564 ==

== ENCOUNTER 2024-08-06 11:27 | Outpatient (AMB) | payer OTHER, SELFPAY ==
--- NOTE | 2024-08-06 11:30 | MHC.OFFVIS ---
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 Patient reports her pain presented about 3 weeks ago when she was doing a jump rope exercise. States she heard a crunch and followed with pain. Her pain and swelling has improved, however she has ongoing pain with a stair use. Her pain is located at the medial aspect and is described as a achy throbbing pain. She was seen by her PCP who ordered x-rays and referred to orthopedics. No other tx. Allergies clavulanic acid [Augmentin] Allergy (Unknown, Verified 08/06/24 11:37) hives penicillin V Allergy (Unknown, Verified 08/06/24 11:37) hives Medication List - Last Reconciled 08/06/24 by Nissa Ogden PA-C aspirin (Adult Low Dose Aspirin) 81 mg PO DAILY 90 days atorvastatin 80 mg PO DAILY 90 days blood sugar diagnostic (FreeStyle Lite Strips) DX: E11.9, test blood sugar 3 times a day, 90 days blood-glucose meter (FreeStyle Lite Meter kit) DX: E11.9, test blood sugar 3 times a day, duration 999 days blood-glucose meter,continuous (FreeStyle Jack 3 [place]) Use daily As directed to monitor blood glucose blood-glucose sensor (FreeStyle Jack 3 Plus Sensor device) Use daily As directed to monitor glucose cholecalciferol (vitamin D3) 50 mcg PO DAILY 90 days cyanocobalamin (vitamin B-12) 1,000 mcg PO DAILY docusate sodium (Colace) 100 mg PO BID dulaglutide (Trulicity) 1.5 mg (0.5 mL) subcut QWEEK empagliflozin (Jardiance) 25 mg PO DAILY lancets As directed melatonin ER 5 mg PO BEDTIME metformin 1,000 mg PO BID metoprolol tartrate 25 mg PO BID HPI HPI 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 She states approximately 3 weeks ago she was exercising jumping rope when she felt a pain in her left knee. She had x-rays obtained and was referred to our office for ortho eval. She states over the last few weeks she has rested the knee and avoided impact activities. There has been some improvement however she continues to use caution with stairs as this does tend to irritate the knee. [facility] Medical History (Updated 08/06/24 @ 11:53 by Nissa Ogden PA-C) Hx of cataract T2DM (type 2 diabetes mellitus) Surgical History History of coronary artery stent placement History of hemorrhoids History of tubal ligation History of section Family History Father No problems noted. Mother Breast cancer CVD (cardiovascular disease) Diabetes mellitus Maternal Grandmother Melanoma Sister No problems noted. Son No problems noted. Son No problems noted. Son No problems noted. Son Sleep apnea Daughter No problems noted. Daughter No problems noted. 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 Current occupational exposures/hazards: No Sexual orientation: Straight/Heterosexual Gender identity: Female Cognitive needs: No Hearing needs: No Vision needs: Yes (Glasses) Female Reproductive History Menstrual Age of Menarche: 15 Review of Systems Const All systems reviewed & are unremarkable except as noted in HPI and below Physical Exam Vital Signs: BMI result Body Mass Index 23.1 Const General: cooperative and no acute distress Orientation/consciousness: patient oriented x3 Resp Effort & Inspection: normal respiratory effort and able to speak in complete sentences Cardio Peripheral pulses: Peripheral pulses 2+ throughout Neuro General: patient oriented x3 Extrem Other: Left knee skin is intact normal to inspection no effusion present. Full range of motion with crepitus. Mild retropatellar tenderness present. Medial joint line tenderness present. Calf supple nontender neurovascular intact. Results Reviewed Results Reviewed: X-rays of the left knee obtained on 07/31/2024 show moderate osteoarthritis. Assessment & Plan Assessment & Plan (1) Osteoarthritis of left knee: Code(s): M17.12 - Unilateral primary osteoarthritis, left knee Category: Medical Plan: We discussed options which includes PT and injections. She would like to hold off on injections at this time. She does attend fitness classes at the [facility] and is comfortable working on her own exercises at this time if symptoms persist or worsen she will contact our office otherwise follow-up as needed. Coding Level of Care Code New Pt Level 3 (11530) Complex EM visit Add On G2211 Diagnoses Osteoarthritis of left knee M17.12
[2024-08-06 11:38] VITALS: BMI 23.1
--- OUTSIDE RECORDS SUMMARY | 2024-08-06 12:43 | XMS_ITS | Clinical Summary ---
Author Organization [employer] Address [address] [place] [address] Care Team Providers Care Caseworker Protective Services Name Role Phone Unavailable Primary Care Provider [...] 2002 Zoster Vaccines (1 of 2) 2012 Pneumococcal Vaccine: 50+ Years (2 of 2 - PCV) 07/22/2016 07/22/2015 Dental Oral Exam 02/10/2024 08/11/2023 COVID-19 Vaccine (1 - season) 2024 Influenza Vaccine (#1) 2024 , 04/09/2019, 05/04/2018, Additional history exists Tobacco Screening 11/21/2024 11/22/2023 Dental X-Ray: Full Mouth 08/12/2026 08/11/2023 RSV Patients and Patients Aged 60 years or older (1 - 1-dose 75+ series) 2037 HIB Vaccines Aged Out No longer eligi [...]
== END 2024-08-06 11:55 | disposition home or self-care (01) ==
LOC: HO.HOS 11:27
PROVIDERS: PCP Internal Medicine; Visit Provider Physician Assistant
DX: M17.12 Unilateral primary osteoarthritis, left knee (principal)
CPT/HCPCS: 99203

== ENCOUNTER → 2024-08-06 11:27 | Outpatient (BNVA) | payer OTHER, SELFPAY | PROVIDERS: PCP Internal Medicine; Visit Provider Physician Assistant | DX: M17.12 Unilateral primary osteoarthritis, left knee (principal) | CPT/HCPCS: 99202 ==

== ENCOUNTER 2024-09-03 13:02 | Outpatient (AMB) | payer OTHER, SELFPAY ==
--- NOTE | 2024-09-03 13:41 | MHC.OFFVIS ---
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 Required: No Accompanied by: Significant Other Allergies clavulanic acid [Augmentin] Allergy (Unknown, Verified 08/06/24 11:37) hives penicillin V Allergy (Unknown, Verified 08/06/24 11:37) hives Medication List - Last Reconciled 09/03/24 by Ty Farooq MD aspirin (Adult Low Dose Aspirin) 81 mg PO DAILY 90 days atorvastatin 80 mg PO DAILY 90 days blood sugar diagnostic (FreeStyle Lite Strips) DX: E11.9, test blood sugar 3 times a day, 90 days blood-glucose meter (FreeStyle Lite Meter kit) DX: E11.9, test blood sugar 3 times a day, duration 999 days blood-glucose meter,continuous (FreeStyle Jack 3 [place]) Use daily As directed to monitor blood glucose blood-glucose sensor (FreeStyle Jack 3 Plus Sensor device) Use daily As directed to monitor glucose cholecalciferol (vitamin D3) 50 mcg PO DAILY 90 days cyanocobalamin (vitamin B-12) 1,000 mcg PO DAILY docusate sodium (Colace) 100 mg PO BID dulaglutide (Trulicity) 1.5 mg (0.5 mL) subcut QWEEK empagliflozin (Jardiance) 25 mg PO DAILY lancets As directed melatonin ER 5 mg PO BEDTIME metformin 1,000 mg PO BID metoprolol tartrate 25 mg PO BID HPI Comments Details: 64-year-old female here follow-up. 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 She has been doing well with occasional atypical left-sided chest pain which is a poking sensation different from her central chest pressure which was the reason for PCI. Over physical activity is reasonable. She has stable angina at this point and has been doing reasonably well. She is undergoing cardiac rehab without any exertional symptoms. Blood pressure control is good. Overall clinically stable. 06/20/2023: She returns for follow-up. She has no chest discomfort or shortness of breath. She said recently she was caring heavy load up stairs which is unusual for her and she went upstairs she felt very tired and wiped out. She said this is way more exertion for her than her usual day-to-day activity. She did not have any chest discomfort which she was getting before we did the REGISTERED NURSES PCI. She is saying in her day-to-day life and usual activities she has no symptoms otherwise. 02/15/24: She is here for follow-up. She has been doing great without any exertional symptoms. She has been physically active and has no exertional intolerance. Blood pressure is well controlled. 09/03/2024: She is here for follow-up. Her job ended this year and she has not been working. She is spending most of her time cleaning the house. She is thinking about moving to [place] with the . No exertional symptoms. She is going to [place] in exercising there regularly. Taking medications regularly. No bleeding concerns with aspirin [facility] Medical History (Updated 08/06/24 @ 11:53 by Nissa Ogden PA-C) Hx of cataract T2DM (type 2 diabetes mellitus) Surgical History History of coronary artery stent placement History of hemorrhoids History of tubal ligation History of section Family History Father No problems noted. Mother Breast cancer CVD (cardiovascular disease) Diabetes mellitus Maternal Grandmother Melanoma Sister No problems noted. Son No problems noted. Son No problems noted. Son No problems noted. Son Sleep apnea Daughter No problems noted. Daughter No problems noted. 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 Current occupational exposures/hazards: No Sexual orientation: Straight/Heterosexual Gender identity: Female Cognitive needs: No Hearing needs: No Vision needs: Yes (Glasses) Female Reproductive History Menstrual Age of Menarche: 15 Review of Systems Const Denies chills, Denies fatigue, Denies fever(s), Denies frequent falls, Denies weakness, Denies weight gain and Denies weight loss ENT Denies dizziness Card Denies chest pain, Denies leg edema, Denies lightheadedness, Denies palpitations, Denies dyspnea and Denies dyspnea on exertion Resp Denies cough, Denies dyspnea and Denies dyspnea on exertion GI Denies hematochezia Musc Denies abnormal gait, Denies muscle weakness, Denies numbness, Denies radiating pain into limb and Denies tingling Neuro Denies abnormal gait, Denies dizziness, Denies frequent falls, Denies numbness, Denies tingling and Denies weakness Endo Denies fatigue and Denies palpitations Physical Exam Vital Signs: Last Vital Signs Pulse 70 09/03/24 13:42 BP 110/60 09/03/24 13:42 BMI result Body Mass Index 22.7 GENERAL APPEARANCE: in no acute distress, pleasant. NECK: no carotid bruit, no jugular venous distention. SKIN: no suspicious lesions, warm and dry. HEART: no murmurs, regular rate and rhythm. LUNGS: clear to auscultation bilaterally. ABDOMEN: soft, nontender. EXTREMITIES: no edema. PERIPHERAL PULSES: equal. NEUROLOGIC: No gross deficits, AAO X 3 Office Procedures EKG Details: Sinus rhythm 70 beats per minute, leftward axis, can not rule out anterior infarct, QTC 438 milliseconds. [id number], Complete Assessment & Plan Assessment & Plan (1) Stable angina: Code(s): I20.8 - Other forms of angina pectoris Category: Medical Plan Very pleasant 64 year female who is here for follow-up. She has background history of coronary disease with LAD REGISTERED NURSES PCI 6 years ago. She has done very well since then. She has been taking medications regularly. Exercising regularly and has no exertional issues. Continue aspirin and atorvastatin along with beta-blanca. Clinically stable. Her EKGs showing poor R-wave progression and I will check echocardiogram to assess LV function. She will see us back in 1 year. Thank you for allowing me to participate in the care of your patient. Please feel free to contact me if you have any questions. Orders: Orders CA echo transthorac w con Today I25.10 - Atherosclerotic heart disease of [place] coronary artery without angina pectoris Coding Level of Care Code Est Pt Level 4 (54524) Diagnoses Stable angina I20.8 CPT Codes EKG - CPT: 39494-[id number], Complete ([id number])
[2024-09-03 13:42] VITALS: BP 110/60; PULSE 70; BMI 22.7
--- OUTSIDE RECORDS SUMMARY | 2024-09-03 15:19 | XMS_ITS | Clinical Summary ---
Author Organization [employer] Address [address] [place] [address] Care Team Providers Care School Librarian Name Role Phone Unavailable Primary Care Provider [...]
== END 2024-09-03 14:06 | disposition home or self-care (01) ==
PROVIDERS: PCP Internal Medicine; Visit Provider Internal Medicine Cardiovascular Disease
DX: I20.89 Other forms of angina pectoris (principal)
CPT/HCPCS: 93010; 99214

== ENCOUNTER → 2024-09-03 13:02 | Outpatient (BNVA) | payer OTHER, SELFPAY | PROVIDERS: PCP Internal Medicine; Visit Provider Internal Medicine Cardiovascular Disease | DX: I20.89 Other forms of angina pectoris (principal); R94.31 Abnormal electrocardiogram [ECG] [EKG]; I44.4 Left anterior fascicular block | CPT/HCPCS: 93005; 99212 ==

== ENCOUNTER 2024-09-07 10:48 | Outpatient (AMB) | payer OTHER, SELFPAY ==
--- NOTE | 2024-09-07 11:17 | MHC.PC.OV ---
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 Allergies clavulanic acid [Augmentin] Allergy (Unknown, Verified 09/07/24 11:31) hives penicillin V Allergy (Unknown, Verified 09/07/24 11:31) hives Medication List - Last Reconciled 09/07/24 by Mulugeta Bowles MD aspirin (Adult Low Dose Aspirin) 81 mg PO DAILY 90 days atorvastatin 80 mg PO DAILY 90 days blood sugar diagnostic (FreeStyle Lite Strips) DX: E11.9, test blood sugar 3 times a day, 90 days blood-glucose meter (FreeStyle Lite Meter kit) DX: E11.9, test blood sugar 3 times a day, duration 999 days blood-glucose meter,continuous (FreeStyle Jack 3 [place]) Use daily As directed to monitor blood glucose blood-glucose sensor (FreeStyle Jack 3 Plus Sensor device) Use daily As directed to monitor glucose cholecalciferol (vitamin D3) 50 mcg PO DAILY 90 days cyanocobalamin (vitamin B-12) 1,000 mcg PO DAILY docusate sodium (Colace) 100 mg PO BID dulaglutide (Trulicity) 1.5 mg (0.5 mL) subcut QWEEK empagliflozin (Jardiance) 25 mg PO DAILY lancets As directed melatonin ER 5 mg PO BEDTIME metformin 1,000 mg PO BID metoprolol tartrate 25 mg PO BID Tobacco use date assessed: 10/26/23 Dental Screening Dental Screen Date: 10/26/23 HPI f/u diabetes HPI Details 64 y/o female presents to f/u diabetes. Had referred her to [facility] [place]. Suboptimal/poorly controlled diabetes for patient with coronary artery disease. She is on metformin, Jardiance, Trulicity. A1c today 7.4%. [facility] Medical History (Updated 08/06/24 @ 11:53 by Nissa Ogden PA-C) Hx of cataract T2DM (type 2 diabetes mellitus) Surgical History History of coronary artery stent placement History of hemorrhoids History of tubal ligation History of section Family History Father No problems noted. Mother Breast cancer CVD (cardiovascular disease) Diabetes mellitus Maternal Grandmother Melanoma Sister No problems noted. Son No problems noted. Son No problems noted. Son No problems noted. Son Sleep apnea Daughter No problems noted. Daughter No problems noted. Social History Housing: House Alcohol intake: never Patient Tobacco Use Status: Never used Tobacco e-Cigarette/Vaping Use: Never Used Second Hand Smoke Exposure: No service: No Current occupational status: employed Current occupation: [employer] K[employer] Current occupational exposures/hazards: No Sexual orientation: Straight/Heterosexual Gender identity: Female Cognitive needs: No Hearing needs: No Vision needs: Yes (Glasses) Female Reproductive History Menstrual Age of Menarche: 15 Questionnaire Thrive Questionnaire Date Thrive assessed: 10/26/23 MILLA-7 AMB Questionnaire MILLA-7 Date MILLA - 7 assessed: 10/26/23 Source: Developed by Drs. Wei Smyth, Stephanie Jose, Vitaliy Cabello and colleagues, with an educational bharath from [employer]. Review of Systems Const Denies chills, Denies fatigue, Denies fever(s), Denies headache(s) and Denies weakness ENT Denies dizziness and Denies headache(s) Card Denies chest pain, Denies lightheadedness, Denies dyspnea and Denies other (Palpitations) Resp Denies cough, Denies dyspnea, Denies wheezing and Denies other ( shortness of breath) Musc Denies numbness and Denies tingling Neuro Denies dizziness, Denies headache(s), Denies numbness, Denies tingling, Denies paresthesias and Denies weakness Psych Denies anxiety and Denies depression Endo Denies fatigue Aller/Immun Denies wheezing Physical exam (Primary Care) Vital Signs: Last Vital Signs Temp 98.7 F 09/07/24 11:33 Pulse 57 09/07/24 11:33 Resp 14 09/07/24 11:33 BP 100/60 09/07/24 11:33 Pulse Ox 98 09/07/24 11:33 Oxygen Delivery Method Room Air 09/07/24 11:33 BMI result Body Mass Index 22.5 Tobacco/Smoking Status: Tobacco use Status Tobacco use date assessed 10/26/23 09/07/24 11:18 Patient Tobacco Use Status Never used Tobacco 09/07/24 11:18 e-Cigarette/Vaping Use Never Used 09/07/24 11:18 Thrive Assessment: Date of Thrive Assessment Date Thrive assessed 10/26/23 09/07/24 11:18 Const General: no acute distress and well developed Nutritional Appearance: well nourished Orientation/consciousness: patient oriented x3 HENMT Head: Yes normocephalic and Yes atraumatic Eyes General: appearance normal, both eyes and all related structures Pupils: Equal, round and reactive pupils present EOM: EOMs intact bilaterally Resp Effort & Inspection: normal respiratory effort Auscultation: clear to auscultation bilaterally Cardio Rate: regular rate Rhythm: regular rhythm Heart sounds: S1 normal heart sound present, S2 normal heart sound present, no gallops, no murmurs and no rubs Neuro General: patient oriented x3 and gait normal Cranial nerves: Yes Equal, round and reactive pupils present Psych Affect: normal affect Coding Level of Care Code Est Pt Level 3 (16690) Diagnoses Type 2 diabetes mellitus with diabetic mononeuropathy, without long-term current use of insulin E11.41 Diabetes mellitus complication detail: with mononeuropathy Diabetes mellitus complication status: with neurologic complications Diabetes mellitus chcf insulin use: without termite treater helper use Assessment & Plan Assessment & Plan (1) T2DM (type 2 diabetes mellitus): Code(s): E11.9 - Type 2 diabetes mellitus without complications Category: Medical Qualifiers: Diabetes mellitus complication detail: with mononeuropathy Diabetes mellitus complication status: with neurologic complications Diabetes mellitus termite treater helper insulin use: without chcf use Qualified Code(s): E11.41 - Type 2 diabetes mellitus with diabetic mononeuropathy Plan: A1c?7.4% a?little?suboptimal.??Goal?is?less?than?7.0% She?is?taking?her?medications?as?prescribed She?does?still?have?some?glyburide?and?she?has?an?appointment?with?endocrinology?in?October. Continue?current?medications?but?add?back?morning?glyburide?dose until?you?see?endocrinology.??Check?blood?sugars. Continue?working On?diabetic?diet Orders: Orders Vitamin D 25-OH Total Today E55.9 - Vitamin D deficiency, unspecified Lipid Panel Today E78.5 - Hyperlipidemia, unspecified, Z00.00 - Encounter for general adult medical examination without abnormal findings Comprehensive Coleman. Panel Fast Today E78.5 - Hyperlipidemia, unspecified, Z00.00 - Encounter for general adult medical examination without abnormal findings
[2024-09-07 11:33] VITALS: BP 100/60; PULSE 57; RESP 14; TEMP 37.1; O2SAT 98; BMI 22.5
--- OUTSIDE RECORDS SUMMARY | 2024-09-07 12:19 | XMS_ITS | Clinical Summary ---
Author Organization [employer] Address [address] [facility] [facility] [facility] [address] [place] [address] Care Team Providers Care Pulp Mixer Name Role Phone Unavailable Primary Care Provider [...]
== END 2024-09-07 12:03 | disposition home or self-care (01) ==
PROVIDERS: PCP Family Medicine; Visit Provider Family Medicine
DX: E11.41 Type 2 diabetes mellitus with diabetic mononeuropathy (principal)

== ENCOUNTER → 2024-09-07 10:48 | Outpatient (BNVA) | payer OTHER, SELFPAY | PROVIDERS: PCP Family Medicine; Visit Provider Family Medicine | DX: E11.41 Type 2 diabetes mellitus with diabetic mononeuropathy (principal) | CPT/HCPCS: 99212 ==

== ENCOUNTER 2024-09-10 12:49 | Outpatient (AMB) | payer OTHER, SELFPAY ==
[2024-09-10 13:08] VITALS: BMI 22.4
--- NOTE | 2024-09-10 13:08 | A.OFFVIS_ITS ---
VS Expanded 09/10/24 13:08 Height 5 ft 5 in Weight 134 lb 14.766 oz BMI 22.4 Intake Visit Reasons: DM Allergies clavulanic acid [Augmentin] Allergy (Unknown, Verified 09/07/24 11:31) hives penicillin V Allergy (Unknown, Verified 09/07/24 11:31) hives Nutrition Presentation Details: Pt presents for MNT f/u for T2DM BS Monitoring Most Recent Diabetes Results: No Data to Display PFS Medical History (Updated 08/06/24 @ 11:53 by Nissa Ogden PA-C) Hx of cataract T2DM (type 2 diabetes mellitus) Surgical History History of coronary artery stent placement History of hemorrhoids History of tubal ligation History of section Family History Father No problems noted. Mother Breast cancer CVD (cardiovascular disease) Diabetes mellitus Maternal Grandmother Melanoma Sister No problems noted. Son No problems noted. Son No problems noted. Son No problems noted. Son Sleep apnea Daughter No problems noted. Daughter No problems noted. 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 Current occupational exposures/hazards: No Sexual orientation: Straight/Heterosexual Gender identity: Female Cognitive needs: No Hearing needs: No Vision needs: Yes (Glasses) Female Reproductive History Menstrual Age of Menarche: 15 Assessment & Plan Assessment & Plan (1) T2DM (type 2 diabetes mellitus): Code(s): E11.9 - Type 2 diabetes mellitus without complications Category: Medical Qualifiers: Diabetes mellitus director long term care insulin use: without director long term care use Diabetes mellitus complication status: with neurologic complications Diabetes mellitus complication detail: with mononeuropathy Qualified Code(s): E11.41 - Type 2 diabetes mellitus with diabetic mononeuropathy Plan: Wt: 63 Kg ( 07/28 ), 61 kg (09/25) Est kcal needs as per MSJ: 1700 (40% carb, 30% protein/fat) Est fluid needs as per 25-30 ml/d: 1900 Est prot per day as per 1 g/kg bw: 63 Recommend fiber intake : 8-10 g per day and gradually increase to 25-28 g per day for women and 35-38 g for men or as tolerated Recommend sodium intake per day : less than 2000 mg Educated patient on: ( R = reviewed V = verbalizes understanding N/R = needs review N/A = not applicable * Food sources of carbohydrate, adequate serving sizes and its role in various health conditions: R V * Differences between complex carbohydrates a simple carbohydrates, role of fiber in diet: R V * Lean protein sources of foods: R * Differences between types of fats and role in diet (mono on saturated fat fatty acids, saturated fatty acids, trans fats): R * Food sources of sodium in salt and healthy modifications for heart health in kidney health: R * Vitamins and minerals: R V * Healthy plate method concept: R V - AT LUNCH/DINNER THE MAJORITY OF THE TIME * Physical activity: Benefits a precaution: R V - PARTICIPATING AT [facility] EXERCISES 5 X/WK * Dietary prevention of Hyperglycemia: R V - WORKING ON WATCHING PORTIONS OF CARB AND KEEPING HYDRATED Patient Instructions: Continue as established, following healthy plate method keep hydrated , water with meals/snack and incorporating veg/fruits have fruit/p.b or yogurt as snack Coding Level of Care Code Nutr Indiv Subseq (05189) Diagnoses Type 2 diabetes mellitus with diabetic mononeuropathy, without long-term current use of insulin E11.41 Diabetes mellitus director long term care insulin use: without mcc use Diabetes mellitus complication status: with neurologic complications Diabetes mellitus complication detail: with mononeuropathy Time Spent (min) 30
--- OUTSIDE RECORDS SUMMARY | 2024-09-10 14:21 | XMS_ITS | Clinical Summary ---
Author Organization [employer] Address [address] [facility] [address] [place] [address] Care Team Providers Care Manager Welding Name Role Phone Unavailable Primary Care Provider [...]
== END 2024-09-10 14:57 | disposition home or self-care (01) ==
PROVIDERS: PCP Family Medicine; Visit Provider Dietitian, Registered
DX: E11.41 Type 2 diabetes mellitus with diabetic mononeuropathy (principal)

== ENCOUNTER → 2024-09-10 12:49 | Outpatient (BNVA) | payer OTHER, SELFPAY | PROVIDERS: PCP Family Medicine; Visit Provider Dietitian, Registered | DX: E11.41 Type 2 diabetes mellitus with diabetic mononeuropathy (principal) | CPT/HCPCS: 97803 ==

== ENCOUNTER → 2024-09-18 07:43 | Outpatient (REF) | payer OTHER, SELFPAY ==
--- NOTE | 2024-09-18 07:46 | CA_ITS ---
Transthoracic Echocardiogram Patient (Last, First, Middle): Collette Thakur M Gender: Female Date of : 1960 Age: 64 Procedure Date: 09/18/2024 Procedure Type: Transthoracic Echocardiogram Location: OP Height: 165.1 cm Weight: 60.78 kg BSA: 1.67 m2 Heart Rate: 60 bpm BP: 110 / 60 mmHg Blood Bank Coordinator: SB Referring MD: Ty Farooq MD Collections Manager: yT Farooq MD Symptoms: I25.10 - Atherosclerotic heart disease of [place] coronary artery without... Study Quality: Adequate ECG Rhythm: Sinus Conclusions: - Normal left ventricular cavity size. There is normal left ventricular wall thickness. The left ventricular systolic function is low normal. The visually estimated ejection fraction is between 50-55%. - Elevated filling pressures. - The apex, apical anterior, and apical lateral segments are hypokinetic. - The apical septum is akinetic. - Normal right ventricular cavity size and systolic function. Findings Left Ventricle Normal left ventricular cavity size. There is normal left ventricular wall thickness. The left ventricular systolic function is low normal. The visually estimated ejection fraction is between 50-55%. There is evidence of regional wall motion abnormalities. Abnormal diastolic function is noted. Spectral Doppler is indicative of a pseudonormal filling pattern. Elevated filling pressures. Wall Motion Rest Echo Findings The apex, apical anterior, and apical lateral segments are hypokinetic. The apical septum is akinetic. Right Ventricle Normal right ventricular cavity size and systolic function. Atria The left atrium is normal in size. Aortic Valve There is a normal trileaflet aortic valve. There is no aortic valve stenosis. There is trace (trivial) aortic valve regurgitation. Mitral Valve Normal mitral valve structure and function. There is no mitral valve regurgitation. There is no mitral valve stenosis. Pulmonic Valve The pulmonic valve is likely normal. Tricuspid Valve Normal tricuspid valve structure. There is trace tricuspid valve regurgitation. Normal right atrial pressure. There is no evidence of pulmonary hypertension. Great Vessels All visible segments of the aorta are normal in size. The visualized portions of the pulmonary artery and branches are normal. Venous The inferior vena cava is normal in size and collapses greater than 50% with inspiration. Pericardium/Pleural There is no evidence of pericardial effusion. Prior Study Comparison Changes noted compared to prior study dated: 10/18/2018. Low normal LVEF, RWMA in the distal LAD territory. Measurements 2D Linear Measurements IVSd: 0.91 0.6-0.9/0.6-1.0 cm LVIDd: 4.52 3.9-5.3/4.2-5.9 cm LVIDd Index: 2.71 2.4-3.2/2.2-3.1 cm/m2 LVIDs: 3.14 2.0-3.6 cm LVPWd: 0.89 0.7-1.1 cm LA Diam: 3.80 2.7-3.8/3.0-4.0 cm LAIDs Index: 2.28 1.5-2.3 cm/m2 LV Mass: 166.37 67-162/88-224 g LV Mass Index: 99.62 43-95/49-115 g/m2 LVOT Diam: 2.00 3.0+(-)1.3 cm 2D Systolic Function EF 4C: 71.40 >55% EF 2C: 69.40 >55% EF BiP: 69.60 >55% Mitral Valve MV Pk E: 0.98 MV PK A: 0.98 MV Decel Time: 227.00 E/A: 1.00 E'Lateral: 5.00 E'Medial: 4.03 E/E' Med: 24.30 E/E' Lat: 19.60 PHT: 67.00 MVA PHT: 3.28 Decel Swift: 4.32 Aortic Valve AoV Pk Micah: 1.44 AoV Pk Grad: 8.00 SHARONA: 2.54 LVOT LVOT Pk Micah: 1.25 LVOT Mn Micah: 0.87 LVOT VTI: 0.29 LVOT Pk Grad: 6.00 LVOT Mn Grad: 3.00 LVOT Diam: 2.00 LVOT Area: 3.14 Diastolic Function MV Pk E: 0.98 MV Pk A: 0.98 E/A: 1.00 E'Medial: 4.03 E/E' Med: 24.30 E' Laterial: 5.00 E/E' Lat: 19.60 Right Ventricle TAPSE (mm): 19.10 TVS' Micah: 17.50 Tricuspid Valve TR Pk Micah: 2.46 TR Pk Grad: 24.00 RA Press: 3.00 RVSP: 27.00 Great Vessels Aorta Sinus of Valsalva: 3.30 2.0-3.5 cm Ao Asc: 3.20 2.1-3.4 cm Pulmonary Veins Pulm Vein S/D 1.20 Pulmonary Valve PV Pk Micah: 0.82 Peak PV Grad: 3.00 Updated in Other Vendor System with Status of Final Ty Farooq MD electronically signed on 09/18/2024 3:40:50 PM with status of Final
--- OUTSIDE RECORDS SUMMARY | 2024-09-18 07:46 | XMS_ITS | Clinical Summary ---
Author Organization [employer] Address [address] [facility] [address] [place] [address] Care Team Providers Care Learning Engineer Name Role Phone Unavailable Primary Care Provider [...] FIT 1962 FOBT 1962 HIV Screening 1962 SDOH Screening 1962 Sigmoidoscopy 1962 Alcohol/Substance Use Screening 1974 Hepatitis C Screening 1980 DTaP/Tdap/Td Vaccines (1 - Tdap) 1981 Pap Smear 1983 Cervical Cancer Screening 1992 HPV/Cotest 1992 Mammogram 2002 Zoster Vaccines (1 of 2) 2012 Pneumococcal Vaccine: 50+ Years (2 of 2 - PCV) 07/22/2016 07/22/2015 Dental Oral Exam 02/10/2024 08/11/2023 COVID-19 Vaccine ( season) 2024 Influenza Vaccine (#1) 2024 0, 04/09/2019, 05/04/2018, Additional history exists Tobacco Screening [...]
== END ==
LOC: HO.CARD 07:43
PROVIDERS: PCP Internal Medicine; Visit Provider Internal Medicine Cardiovascular Disease
DX: I25.10 Atherosclerotic heart disease of native coronary artery without angina pectoris (principal)
CPT/HCPCS: 93306

== ENCOUNTER → 2024-09-18 07:46 | Outpatient (BNV) | payer OTHER, SELFPAY | PROVIDERS: PCP Internal Medicine; Visit Provider Internal Medicine Cardiovascular Disease | DX: I25.10 Atherosclerotic heart disease of native coronary artery without angina pectoris (principal) | CPT/HCPCS: 93306 ==

== ENCOUNTER 2024-10-29 13:58 | Outpatient (AMB) | payer OTHER, SELFPAY ==
[2024-10-29 14:00] VITALS: BP 108/64; PULSE 61; O2SAT 97; BMI 22.0
--- NOTE | 2024-10-29 14:00 | A.OFFVIS_ITS ---
Vital Signs 10/29/24 14:00 Height 5 ft 5 in Weight 132 lb 7.965 oz BMI 22.0 BP 108/64 Blood Pressure Location Lt brachial Position Sitting Pulse 61 Pulse Source Pulse Oximeter Pulse Oximetry (%) 97 Oxygen Delivery Method Room Air Intake Visit Reasons: T2DM Intake Note: Patient present today for Type 2 Diabetes Mellitus Last Diabetic eye exam: 2023 Last Podiatry Visit: Doesn't have one Random Glucose: 84 mg/dl HgA1C: 6.6% Meter Readers Supervisor Required: No Accompanied by: Spouse Allergies clavulanic acid [Augmentin] Allergy (Unknown, Verified 10/29/24 14:06) hives penicillin V Allergy (Unknown, Verified 10/29/24 14:06) hives Medication List - Last Reconciled 10/29/24 by Colleen Denny MD aspirin (Adult Low Dose Aspirin) 81 mg PO DAILY 90 days atorvastatin 80 mg PO DAILY 90 days blood sugar diagnostic (FreeStyle Lite Strips) DX: E11.9, test blood sugar 3 times a day, 90 days blood-glucose meter (FreeStyle Lite Meter kit) DX: E11.9, test blood sugar 3 times a day, duration 999 days blood-glucose sensor (FreeStyle Jack 3 Plus Sensor device) Use daily As directed to monitor glucose blood-glucose,supervisor edging,cont (FreeStyle Jack 3 [place]) Use daily As directed to monitor blood glucose cyanocobalamin (vitamin B-12) 1,000 mcg PO DAILY docusate sodium (Colace) 100 mg PO BID dulaglutide (Trulicity) 1.5 mg (0.5 mL) subcut QWEEK empagliflozin (Jardiance) 25 mg PO DAILY glyburide 5 mg PO DAILY lancets As directed melatonin ER 5 mg PO BEDTIME metformin 1,000 mg PO BID metoprolol tartrate 25 mg PO BID HPI Comments Details: 63-year-old female here today for follow up of T2DM and hyperparathyroidism. Here today with past medical history type 2 diabetes, hyperparathyroidism, dyslipidemia, CAD Type 2 diabetes mellitus diagnosed with diabetes around 2003. A1c 06/18/2024:7.3% a1c 10/29/24: POC 6.6.% Prior medications Glyburide discontinued late May 2024 when Trulicity started Current medications metformin 1000 mg twice a day, Jardiance 25 mg daily , no yeast infections recently Trulicity 0.75 mg every week started late May 2024, GI intolerance much better now SMBGs Fasting : 80s to 108 Pre meals:90s bedtime 100-160 7 average 155 mgdl Patient states that she does get intermittent low blood sugars and symptomatic with blood sugars 90 and under. Last hypoglycemic episode:49October 11 when restarted glyburide She checks her blood sugars 2 to 3 times a day. She states that after 20 years of picking her fingers she has no sensation to her fingers and at times we will miss or have to do a more sensitive area of her finger. She states that she does not have much sensation to the fingertips at all. Free style Jack 3 PA Denied. has a fam hx of type 1 dm. Mgm, mgf, aunt and niece have t1dm. Labs 06/19/2024 showed positive C-peptide of 1.89, negative islet cell and milla antibodies Weight: Lost 10 lbs since Jul 28 Complications Does have neuropathy Eye visit :: April 2024, no retinpathy No kidney disease CV: Blood pressure today in the office is normal.. She is currently taking metoprolol 25 mg twice a day. No stroke, has history of CAD , followed with Dr. Farooq LDL 52 mg/dL from July 2024, down from 71 mg/dL from May 2023 on atorvastatin 80 mg. Not on ALTAGRACIA/ ARB. But is on jardiance 25 mg daily Labs from July 2024 showed normal urine microalbumin levels. Hyperparathyroidism Osteoporosis -She was previously seeing Dr. Rosado in [facility] for her hyperparathyroidism and DM Kidney stones 5 to 7 years ago, nothing recently No hematuria No fractures Osteoporosis:DEXA scan done at [facility] on 12/15/2022: Lumbar spine T-score-1.7, right hip T-score-0.4, right femoral neck T-score-1, left hip T-score-0.6, left hip femoral neck T-score-1.2, forearm T-score-2.5 consistent with osteoporosis. No calcium suppleements Milk in cereal every othr day , yogurt 4-5 times a week, cheese often With a history of nephrolithiasis, elevated 24 hour urine calcium levels and osteoporosis. Was referred to surgery in 2022 but backed out.She was evaluated by Dr. Estefany Caban at [facility], not interested in surgery at the time 2023 Exercise: twice a week , weights stretchng 1 hr Dentist : not seen recenlty Interval history Stopped taking vitamin D July 2024 as it was elevated at 69. Continues to take good amount of calcium in her diet Does osteoporosis classes workout at the [facility]. Nontoxic multinodular goiter Mark's thyroiditis Details not present but per note she has 2 right lobe nodules that has been biopsied and were found to be benign. Serial ultrasound monitoring was being done and showed stable size of the nodules. Due for repeat ultrasound in January 2025. Physical exam General: sitting comfortably in no acute distress HEENT: normocephalic/atraumatic, Neck: supple, symmetrical Cardiac: normal heart sounds Pulm: normal breath sounds B/L, no added breath sounds Abd: not distended, no tenderness Extremities: no edema, no signs of myxedema Neuro: AAO x3, Speech: normal, no facial droop, moving all 4 extremities Foot exam: Intact sensation to monofilament, intact pulses, well-perfused. Laboratory Tests 07/21/18 11/22/18 03/28/19 07:35 16:45 06:57 Creatinine Estimated GFR Glucose (Clinic) Hgb A1c (Clinic) C-Peptide Calcium 10.6 H 12.0 H D 10.9 H D Albumin Triglycerides Cholesterol LDL Cholesterol, Calc TSH PTH Intact Urine Creatinine Urine Microalbumin Islet Cell Ab Screen MILLA Antibody 02/04/20 08/25/22 06/01/23 08:58 07:55 07:55 Creatinine 0.78 Estimated GFR > 60 Glucose (Clinic) Hgb A1c (Clinic) C-Peptide Calcium 10.7 H 10.6 H 10.5 H Albumin 4.0 4.1 Triglycerides 79 Cholesterol 137 LDL Cholesterol, Calc 71 TSH 0.97 PTH Intact 137.8 H Urine Creatinine 64.99 Urine Microalbumin < 5.0 Islet Cell Ab Screen MILLA Antibody 01/02/24 06/18/24 06/18/24 17:30 10:04 10:21 Creatinine Estimated GFR Glucose (Clinic) 191 H Hgb A1c (Clinic) 7.2 H 7.3 H C-Peptide Calcium Albumin Triglycerides Cholesterol LDL Cholesterol, Calc TSH PTH Intact Urine Creatinine Urine Microalbumin Islet Cell Ab Screen MILLA Antibody 06/19/24 08:07 Creatinine Estimated GFR Glucose (Clinic) Hgb A1c (Clinic) C-Peptide 1.89 Calcium Albumin Triglycerides Cholesterol LDL Cholesterol, Calc TSH PTH Intact Urine Creatinine Urine Microalbumin Islet Cell Ab Screen NEGATIVE MILLA Antibody <5 Laboratory Tests 06/18/24 07/16/24 07/18/24 10:21 13:04 08:52 Sodium Potassium Creatinine Estimated GFR Glucose (Clinic) 189 H Random Glucose Hgb A1c (Clinic) 7.3 H Calcium Phosphorus Magnesium Total Bilirubin AST ALT Alkaline Phosphatase Alk Phos Bone Specific Total Protein Albumin Triglycerides Cholesterol LDL Cholesterol, Calc HDL Cholesterol Collgn I C-Telopeptide Vitamin B12 25-OH Vitamin D Total PTH Intact Ur Random Calcium 20.0 Urine Creatinine 76.17 Urine Microalbumin < 5.0 07/18/24 10/29/24 08:54 14:10 Sodium 140 Potassium 4.5 Creatinine 0.77 Estimated GFR > 60 Glucose (Clinic) 84 Random Glucose 145 H Hgb A1c (Clinic) Calcium 10.3 H Phosphorus 2.9 Magnesium 1.9 Total Bilirubin 0.7 AST 31 ALT 36 H Alkaline Phosphatase 89 Alk Phos Bone Specific 13.1 Total Protein 6.6 Albumin 4.3 Triglycerides 106 Cholesterol 112 LDL Cholesterol, Calc 52 HDL Cholesterol 39 L Collgn I C-Telopeptide 816 Vitamin B12 319 25-OH Vitamin D Total 69.0 PTH Intact 156.7 H Ur Random Calcium Urine Creatinine Urine Microalbumin [facility] Medical History (Updated 10/29/24 @ 14:35 by Colleen Denny MD) Multinodular goiter Hx of cataract T2DM (type 2 diabetes mellitus) Surgical History History of coronary artery stent placement History of hemorrhoids History of tubal ligation History of section Family History Father No problems noted. Mother Breast cancer CVD (cardiovascular disease) Diabetes mellitus Maternal Grandmother Melanoma Sister No problems noted. Son No problems noted. Son No problems noted. Son No problems noted. Son Sleep apnea Daughter No problems noted. Daughter No problems noted. 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 [employer] Current occupational exposures/hazards: No Sexual orientation: Straight/Heterosexual Gender identity: Female Cognitive needs: No Hearing needs: No Vision needs: Yes (Glasses) Female Reproductive History Menstrual Age of Menarche: 15 Physical Exam Vital Signs: Last Vital Signs Pulse 61 10/29/24 14:00 BP 108/64 10/29/24 14:00 Pulse Ox 97 10/29/24 14:00 Oxygen Delivery Method Room Air 10/29/24 14:00 BMI result Body Mass Index 22.0 Results AMB Hemoglobin A1c AMB Hemoglobin A1c 6.6 % Last Edit by JEREMY Humphreys on 10/29/24 14:20 Results Reviewed Results Reviewed: Laboratory Last Values Glucose (Clinic) 84 mg/dL (60-115) 10/29/24 14:10 Assessment & Plan Assessment & Plan (1) T2DM (type 2 diabetes mellitus): Code(s): E11.9 - Type 2 diabetes mellitus without complications Category: Medical Qualifiers: Diabetes mellitus complication detail: with mononeuropathy Diabetes mellitus complication status: with neurologic complications Diabetes mellitus detention insulin use: without termite control service representative use Qualified Code(s): E11.41 - Type 2 diabetes mellitus with diabetic mononeuropathy Plan: 63-year-old female here today for follow up of type 2 diabetes mellitus with complication of neuropathy, CAD, without long-term insulin use. A1c from June 2024 at 7.3% however A1c improved to 6.6% POC today 10/29/2024.. She is at Goal A1c less than 7%. Primary care provider did resume her glyburide about 2 months ago, however I do not prefer this medication because it puts the patient at risk of hypoglycemia. She did have 1 episode of hypoglycemia with blood sugar 49 in October. I will stop this again. It is better to up titrate her Trulicity for better blood sugar control. She checks fingersticks, her prior authorization for freestyle was denied given she is not on insulin. Prior to when she restarted the glyburide blood sugars were elevated in the 130s fasting. Plan: -increase Trulicity to 3 mg weekly -continue Jardiance 25 mg daily -continue metformin 1000 mg b.i.d. -stopped glyburide -up-to-date on eye exam, no retinopathy -continue vitamin B12 1000 mcg daily (2) Hyperparathyroidism: Code(s): E21.3 - Hyperparathyroidism, unspecified Category: Medical Plan: Patient also has a history of hyperparathyroidism and osteoporosis. DEXA scan done at [facility] on 12/15/2022: Lumbar spine T-score-1.7, right hip T-score-0.4, right femoral neck T-score-1, left hip T-score-0.6, left hip femoral neck T-score-1.2, forearm T-score-2.5 consistent with osteoporosis. Given oste oporosis along with a history of nephrolithiasis and elevated 24 hour urine calcium levels, she met surgical criteria and was even evaluated by Dr. Estefany Caban at [facility] in 2022, she was on vitamin D 1000 units daily up until July 2024 when this was stopped because vitamin-D was noted to be elevated at 69. I also asked her to maintain good calcium intake with 2-3 servings of calcium rich foods daily in diet. She does get some weight-bearing exercise. Most recent labs from July showed total calcium of 10.3 with albumin of 4.3, corrected calcium would be 10, which is on the high-normal side but not very elevated. We will recheck her 24 hour urine calcium levels to see the degree of hypercalciuria. She is also due for repeat bone density, I will order this to include her wrist as well. I discussed with her that given history of osteoporosis she meets surgical criteria and to rethink about it. We will see if osteoporosis has worsened on her bone density. She would like some more time to think about it and 1st would like to get repeat bone density. Her bone resorption marker with CTX is also elevated at 800. If she decides she would not like surgery, then we should consider putting her on medication for osteoporosis. I have asked her to be up to date with her dental visit as she has not seen her dentist in a while. Plan: -ordered bone density scan to include the forearm -obtain 24 hour urine calcium/creatinine levels -2-3 servings of calcium rich foods in diet -continue weight-bearing exercise (3) Dyslipidemia: Code(s): E78.5 - Hyperlipidemia, unspecified Category: Medical Plan: LDL at 52 mg/dL from Jul 2024. On atorvastatin 80 mg daily. Plan: -continue atorvastatin 80 mg daily (4) Osteoporosis: Code(s): M81.0 - Age-related osteoporosis without current pathological fracture Category: Medical Qualifiers: Osteoporosis type: age-related Presence of current pathological fracture: without current pathological fracture Qualified Code(s): M81.0 - Age- related osteoporosis without current pathological fracture Plan: See above in hyperparathyroidism (5) Multinodular goiter: Code(s): E04.2 - Nontoxic multinodular goiter Category: Medical Plan: Details not present but per prior bobbin marker note she has 2 right lobe nodules that has been biopsied and were found to be benign. Serial ultrasound monitoring was being done and showed stable size of the nodules. Due for repeat ultrasound in 2024. No recent TFTs. We will plan to obtain TSH with the next set of labs. Plan: -ordered thyroid ultrasound -follow up in 6 weeks to discuss results Plan I spent 45 minutes in reviewing the record, seeing the patient and documenting in the medical record. Orders: Orders XR DEXA appendicular skeleton Today E21.3 - Hyperparathyroidism, unspecified, M81.0 - Age-related osteoporosis without current pathological fracture Calcium, 24 Hr Ur Today E21.3 - Hyperparathyroidism, unspecified Creatinine, 24 Hr Group Today E21.3 - Hyperparathyroidism, unspecified AMB Hemoglobin A1c Today E11.41 - Type 2 diabetes mellitus with diabetic mononeuropathy, Z13.9 - Encounter for screening, unspecified US thyroid Today E04.2 - Nontoxic multinodular goiter Medications: New dulaglutide (Trulicity) 3 mg (0.5 mL) subcut QWEEK 2 mL 7RF Patient Instructions: Increase Trulicity to 3 mg weekly Stop Glyburide Continue Jardiance 25 mg daily Continue Metformin 1000 mg twice daily Continue monitoring blood sugars Rule of 15 Treatment for Hypoglycemia (Low blood sugar) If your blood glucose is low (70 and below)*, follow the steps below to treat: Eat or drink something from the list below equal to 15 grams of carbohydrate (carb). Rest for 15 minutes Re-check your blood glucose. If it is still low, (below 70), repeat step 1 ab ove. ? If your next meal is more than an hour away, you will need to eat one carbohydrate choice as a snack to keep your blood glucose from going low again. ?If you can't figure out why you have low blood glucose, call your healthcare provider, as your medicine may need to be adjusted. ?Always carry something with you to treat an insulin reaction. Use food from the list below. ? Foods equal to One Carbohydrate Choice (15 grams of carbohydrate): 3 Glucose ?tablets or 4 Dextrose tablets 4 ounces of fruit juice 5-6 ounces (about 1/2 can) of regular soda such as Coke or Pepsi ? 7-8 gummy or regular Life Savers ? 1 Tbsp. of sugar or jelly NOTE: If your blood sugar is less than 50, double the portion above for a total of 30 gm. ?Carbohydrate. ? Follow meal plan of 45-60 g of consistent carbohydrates at 3 meals each day and 15 g of carbohydrate at 1-2 snacks each day. Incorporate 1000 mg of calcium in diet which usually amounts to 3-4 servings of calcium rich foods daily such as milk, yogurt ,cheese, broccoli, kale (go for low fat options) Get bone density ,someone will call you to schedule this Get Thyroid ultrasound done , someone will call you to schedule this See dentist Walk 30 mins 5 days a week Do 24 hr urine collection 24 hr urine collection instructions You have been asked to collect your urine for 24 hours to assess for calcium excretion. You must choose a 24 hour period of time when you will be home. The morning of the first day, DISCARD the FIRST morning void and then note the time. You will collect every single void from then on for 24 hours. For example, if you wake up at 6am and urinate, flush down that void. You will then collect every drop of urine all day and all night through 6am the following day. You will urinate one last time at 6am for the collection. The jug of urine must be kept in the refrigerator until you bring it to the lab. Coding Level of Care Code Est Pt Level 5 (56845) Complex EM visit Add On G2211 Diagnoses Type 2 diabetes mellitus with diabetic mononeuropathy, without long-term current use of insulin E11.41 Diabetes mellitus complication detail: with mononeuropathy Diabetes mellitus complication status: with neurologic complications Diabetes mellitus termite control service representative insulin use: without termite control service representative use Hyperparathyroidism E21.3 Dyslipidemia E78.5 Age-related osteoporosis without current pathological fracture M81.0 Osteoporosis type: age-related Presence of current pathological fracture: without current pathological fracture Multinodular goiter E04.2 Time Spent (min) 45
[2024-10-29 14:15] LABS: Glucose, Whole Blood 84 mg/dL (60-115)
--- OUTSIDE RECORDS SUMMARY | 2024-10-29 16:44 | XMS_ITS | Clinical Summary ---
Author Organization [employer] Address [address] [place] [address] Care Team Providers Care Hand Button Splitter Name Role Phone Unavailable Primary Care Provider [...]
== END 2024-10-29 14:48 | disposition home or self-care (01) ==
LOC: HO.ENCR 13:59
PROVIDERS: PCP Internal Medicine; Visit Provider Student in an Organized Health Care Education/Training Program
DX: E11.41 Type 2 diabetes mellitus with diabetic mononeuropathy (principal); E21.3 Hyperparathyroidism, unspecified; E78.5 Hyperlipidemia, unspecified; M81.0 Age-related osteoporosis without current pathological fracture; Z13.9 Encounter for screening, unspecified
CPT/HCPCS: 99215; G2211

== ENCOUNTER → 2024-10-29 13:58 | Outpatient (BNVA) | payer OTHER, SELFPAY | PROVIDERS: PCP Internal Medicine; Visit Provider Student in an Organized Health Care Education/Training Program | DX: E11.41 Type 2 diabetes mellitus with diabetic mononeuropathy (principal); E21.3 Hyperparathyroidism, unspecified; E04.2 Nontoxic multinodular goiter; E78.5 Hyperlipidemia, unspecified; I25.10 Atherosclerotic heart disease of native coronary artery without angina pectoris; M81.0 Age-related osteoporosis without current pathological fracture | CPT/HCPCS: 82947; 83036; 99212 ==

== ENCOUNTER 2024-11-01 08:48 | Outpatient (REF) | payer OTHER, SELFPAY ==
--- OUTSIDE RECORDS SUMMARY | 2024-11-01 09:10 | XMS_ITS | Clinical Summary ---
Author Organization [employer] Address [address] [place] [address] Care Team Providers Care Pumper Gager Name Role Phone Unavailable Primary Care Provider [...]
[2024-11-01 10:50] LABS: Creatinine, 24Hr Urine 0.8 G/Day (1.0-2.0); Total Volume 24 Hour Urine 3090 mL
[2024-11-02 18:48] LABS: Calcium, 24 Hr Urine 516 mg/24 h; Calcium/Creatinine Ratio 596 mg/g creat (30-275); Creatinine 24Hr Urine 0.87 g/24 h (0.50-2.15)
== END 2024-11-01 08:49 | disposition home or self-care (01) ==
LOC: HO.LNP 08:48
PROVIDERS: Visit Provider Student in an Organized Health Care Education/Training Program
DX: E21.3 Hyperparathyroidism, unspecified (principal)
CPT/HCPCS: 82340; 82570

== ENCOUNTER → 2024-11-12 07:38 | Outpatient (REF) | payer OTHER, SELFPAY ==
--- NOTE | ~2024-11-12 | NM_ITS ---
EXERCISE MYOCARDIAL PERFUSION STUDY INDICATION: Atherosclerotic cardiovascular disease to evaluate for myocardial ischemia TECHNIQUE: The patient was brought in for an exercise perfusion study on November 12, 2024. Patient performed exercise as per Viral protocol and was injected 25 mCi of sestamibi once target heart rate was achieved. Images were obtained using the SPECT gamma camera interlaced with the gating device. Images were obtained in supine position. Resting perfusion study was performed on November 13, 2024. Patient was administered 25 mCi of sestamibi intravenously at rest. Images were then obtained in supine position. Images obtained without without CT attenuation. Total DLP 57 mGy-c, Images were processed with the software and compared side to side in short axis, horizontal long axis and vertical long axis views. FINDINGS: Raw images were reviewed The stress perfusion study showed nonattenuated show minimally reduced uptake in the inferior wall of the LV myocardium. Remainder of the LV myocardium is normally perfused. Attenuated corrected images show normal uptake of radiotracer in all segments of the LV myocardium. The gated study shows normal LV systolic function with calculated LVEF of 74%. LV cavity is normal in size. The gated study shows normal systolic wall thickening and contraction of segments. Resting study shows attenuated corrected images show mildly increased uptake in the apex of the LV myocardium. Gating at rest reveals normal systolic wall motion with ejection fraction at 73%. The findings are consistent with likely normal myocardial perfusion. NM/NM cardiolite stress test IMPRESSION: 1. Myocardial perfusion imaging study shows likely normal myocardial perfusion. 2. Gated LVEF is 74%. 3. Transient ischemic dilatation not present. EKG revealed negative for ischemia. Electronically signed by: Adrian Munoz MD 11/13/2024 05:30 PM EDT
--- NOTE | 2024-11-12 07:41 | CA_ITS ---
Acquisition Time: 2024-11-12 08:03:32 Total Exercise Time: 00:05:41 Test Indications: STABLE ANGINA Medications: SEE H&P Protocol: JAMES Max HR: 187 BPM 118% of Pred: 158 BPM Max BP: 162/86 mmHG Max Work Load: 7.0 METS Exercise stress test with exercise 5 mins 41 secs of James Protocol, achieving 103% MPHR, with reports of SOBm no chest pain, with isolated PVCs, frequent PACs, brief episodes of SVT, peak HR 192 - asymptomatic, with normotensive response to exercise. Without EKG changes meeting criteria for ischemia, nonspecific ST- T waves at baseline. In recovery, pt's breathing returned to baseline. Will increase her Metoprolol to 50mg BID. Nuclear images pending. Test reviewed with Dr. Munoz. Referred By: Ty Farooq Electronically Signed By: Miko Russell
--- OUTSIDE RECORDS SUMMARY | 2024-11-12 07:41 | XMS_ITS | Clinical Summary ---
Author Organization [employer] Address [address] [place] [address] Care Team Providers Care College Recruiter Name Role Phone Unavailable Primary Care Provider [...]
== END ==
LOC: HO.CARD 07:38
PROVIDERS: PCP Internal Medicine; Visit Provider Internal Medicine Cardiovascular Disease
DX: I25.10 Atherosclerotic heart disease of native coronary artery without angina pectoris (principal)
CPT/HCPCS: 78452; 93017; A9500

== ENCOUNTER → 2024-11-12 07:41 | Outpatient (BNV) | payer OTHER, SELFPAY | PROVIDERS: PCP Internal Medicine | DX: R06.02 Shortness of breath (principal); I49.3 Ventricular premature depolarization | CPT/HCPCS: 78452; 93016; 93018 ==

== ENCOUNTER 2024-11-20 10:49 | Outpatient (AMB) | payer OTHER, SELFPAY ==
--- NOTE | 2024-11-20 10:51 | MHC.OFFVIS ---
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 She is doing well with no shot tube machine tender concerns. Currently sexually active. Admits to vaginal dryness and discomfort w/intimacy. Attempting to eat a healthy diet with calcium and vitamin D and stays active with exercise. Last pap smear; . Last mammogram; 2023, appt. is booked. Colonoscopy is UTD. Denies any family history of ovarian or colon cancer. FH breast cancer. [facility] Medical History Multinodular goiter Hx of cataract T2DM (type 2 diabetes mellitus) Surgical History History of coronary artery stent placement History of hemorrhoids History of tubal ligation History of section Family History Father No problems noted. Mother Breast cancer CVD (cardiovascular disease) Diabetes mellitus Maternal Grandmother Melanoma Sister No problems noted. Son No problems noted. Son No problems noted. Son No problems noted. Son Sleep apnea Daughter No problems noted. Daughter No problems noted. 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 [employer] Current occupational exposures/hazards: No Sexual orientation: Straight/Heterosexual Gender identity: Female Cognitive needs: No Hearing needs: No Vision needs: Yes (Glasses) Female Reproductive History Menstrual Age of Menarche: 15 control method: permanent sterilization Permanent Sterilization: BTL Total pregnancies: 8 Full term: 6 Number of Living Children: 6 Ab spontaneous: 2 Date of last pap smear: 11/10/22 (neg pap and hpv) Date of Mammogram: 09/28/23 (Birad 1) Review of Systems Const All systems reviewed & are unremarkable except as noted in HPI and below Reports as per HPI Eyes Reports no additional complaints ENT Reports no additional complaints Card Reports no additional complaints Resp Reports no additional complaints GI Reports as per HPI and Reports no additional complaints Reports as per HPI Musc Reports no additional complaints Skin/Breast Reports as per HPI Neuro Reports no additional complaints Psych Reports no additional complaints Endo Reports no additional complaints Mark/Lymph Reports no additional complaints Aller/Immun Reports no additional complaints Physical Exam Vital Signs: Last Vital Signs BP 110/68 11/20/24 10:56 BMI result Body Mass Index 21.3 Const General: cooperative, healthy appearing, no acute distress, well developed and alert Orientation/consciousness: patient oriented x3 HEENT Head: Yes normal to inspection Eyes General: appearance normal, both eyes and all related structures Neck Neck: Yes normal visual inspection Thyroid: Thyroid normal Chest Chest palpation & inspection: normal inspection of the chest and other (no puckering, dimpling, peau de orange, retraction, discharge, masses) Breast/axilla inspection: normal inspection of the breasts Breast/axilla palpation: normal palpation of the breasts Resp Effort & Inspection: normal respiratory effort GI Inspection: Yes normal to inspection Palpation (GI): Soft to palpation Rectal Exam - Female: deferred General: Yes bladder normal to palpation External Female Exam: normal external appearance and normal appearance of the urethra Speculum Exam - Vagina: normal appearance of the vagina, normal palpation, normal vaginal discharge and vagina atrophic Speculum Exam - Cervix: normal appearance of the cervix and normal palpation Bimanual exam- vagina & uterus: normal bimanual exam, normal palpation, uterine size normal, bladder normal to palpation, normal palpation and non-tender Bimanual Exam- Adnexa, other: no masses Skin General skin exam: no rashes or lesions noted Rashes: no rashes Neuro General: patient oriented x3 Cognition (Neuro): normal cognition Extrem General: Yes normal to inspection Psych Attitude: cooperative Thought process: Normal thought process present Assessment & Plan Assessment & Plan (1) Encounter for well woman exam with routine gynecological exam: Code(s): Z01.419 - Encounter for gynecological examination (general) (routine) without abnormal findings Category: Medical Plan Discussed: Current recommendations for pap smears per ASCCP guidelines. Breast awareness, periodic self breast exams and yearly mammogram. Maintain a healthy lifestyle, well balanced diet including Calcium 1,200 mg and Vitamin D 600 IU daily, and routine exercise. Replens moisturizer, and vaginal lubricant use. Contact the office with any postmenopausal bleeding. Patient verbalizes understanding and agrees to the plan of care. She was given opportunity to ask questions and all questions were answered to the best of my ability. RTO in 1 year for annual shot tube machine tender exam. This note is constructed using voice recognition software. While every effort has been made to ensure accuracy, bolt threader errors may have been included. Coding Level of Care Code Est Pt Prev Care 40-64y(13826) Diagnoses Encounter for well woman exam with routine gynecological exam Z01.419
[2024-11-20 10:56] VITALS: BP 110/68; BMI 21.3
--- OUTSIDE RECORDS SUMMARY | 2024-11-20 12:01 | XMS_ITS | Clinical Summary ---
Author Organization [employer] Address [address] [place] [address] Care Team Providers Care Patient Safety Manager Name Role Phone Unavailable Primary Care Provider [...] Screening 1960 SDOH Screening 1960 Sigmoidoscopy 1960 Disability Screening 1962 Alcohol/Substance Use Screening 1974 Hepatitis C [...] patient's age to complete this topic Meningococcal B Vaccine Aged Out No l onger eligible based on patient's age to complete [...]
== END 2024-11-20 11:39 | disposition home or self-care (01) ==
LOC: HO.HWS 10:49
PROVIDERS: PCP Family Medicine; Visit Provider Advanced Practice Midwife
DX: Z01.419 Encounter for gynecological examination (general) (routine) without abnormal findings (principal)
CPT/HCPCS: 99396; 99459

== ENCOUNTER → 2024-11-20 10:49 | Outpatient (BNVA) | payer OTHER, SELFPAY | PROVIDERS: PCP Family Medicine; Visit Provider Advanced Practice Midwife | DX: Z01.419 Encounter for gynecological examination (general) (routine) without abnormal findings (principal) | CPT/HCPCS: 99396; 99459 ==

== ENCOUNTER 2024-11-23 10:26 | Outpatient (REF) | payer OTHER, SELFPAY ==
--- OUTSIDE RECORDS SUMMARY | 2024-11-23 10:35 | XMS_ITS | Clinical Summary ---
Author Organization [employer] Address [address] [place] [address] Care Team Providers Care Deckhand Tuna Boat Name Role Phone Unavailable Primary Care Provider [...]
== END 2024-11-23 10:27 | disposition home or self-care (01) ==
LOC: HO.MAMMO 10:26
PROVIDERS: PCP Family Medicine; Visit Provider Student in an Organized Health Care Education/Training Program
DX: Z12.31 Encounter for screening mammogram for malignant neoplasm of breast (principal)
CPT/HCPCS: 77063; 77067

== ENCOUNTER → 2024-11-23 11:00 | Outpatient (BNV) | payer OTHER, SELFPAY | PROVIDERS: PCP Family Medicine; Visit Provider Internal Medicine | DX: Z12.31 Encounter for screening mammogram for malignant neoplasm of breast (principal) | CPT/HCPCS: 77063; 77067 ==

== ENCOUNTER 2024-11-27 14:13 | Outpatient (REF) | payer OTHER, SELFPAY ==
--- NOTE | ~2024-11-27 | US_ITS ---
EXAMINATION: US THYROID CLINICAL INFORMATION: Goiter COMPARISON: November 03, 2015. Prior biopsy, benign. TECHNIQUE: Linear transducer grayscale and color Doppler examination with attention to the region of the thyroid. FINDINGS: SIZE: Measurements of the thyroid lobes and nodules are given in sagittal, anteroposterior and transverse dimensions respectively. Right Thyroid Lobe: 5.6 x 3.1 x 3.0 cm, volume 26.5 mL. Previous: 4.9 x 3.3 x 2.9 cm, volume: 24.9 cc. Parenchyma: The gland echotexture is heterogeneous. Thyroid vascularity is increased. Left Thyroid Lobe: 4.6 x 1.9 x 1.5 cm, volume 7.2 mL. Previous: 4.2 x 1.2 x 1.6 cm, volume: 4.0 cc. Parenchyma: The gland echotexture is heterogeneous. Thyroid vascularity is increased. Isthmus: 0.2 cm in maximum AP dimension. Previous: 0.4 cm. Estimated total number of nodules greater than or equal to 1 cm: 4. Animal Control Supervisor nodules are described as follows: 1. Location: Mid, right thyroid lobe.. Size: 3.2 x 2.5 x 2.7 cm, volume 11.4 mL. Previous: 3.1 x 2.9 x 2.5 cm, volume: 11.7 cc. Nodule characteristics: Composition: Solid (2). Echogenicity: Hyperechoic (1). Shape: Not taller than wide (0). Margins: Smooth (0). Echogenic Foci: Macrocalcifications (1). ACR TI-RADS total points: 4 ACR TI-RADS category: 4 2. Location: Right side of the isthmus. Size: 1.7 x 1.2 x 1.5 cm, volume 1.6 mL. Previous: 0.9 x 1.4 x 1.8 cm, volume: 1.2 cc. Nodule characteristics: Composition: Solid/almost completely solid (2). Echogenicity: Hyperechoic (1). Shape: Not taller than wide (0). Margins: Smooth (0). Echogenic Foci: Punctate echogenic foci (3). ACR TI-RADS total points: 6 ACR TI-RADS category: 4 3. Location: Lower pole right thyroid lobe. Size: 0.7 x 0.9 x 0.9 cm, volume 0.3 mL. Nodule characteristics: Composition: Solid (2). Echogenicity: Hyperechoic (1). Shape: Not taller than wide (0). Margins: Smooth (0). Echogenic Foci: Macrocalcifications (1). ACR TI-RADS total points: 4 ACR TI-RADS category: 4 4. Location: Lower pole left thyroid lobe. Size: 1.2 x 0.7 x 0.6 cm, volume 0.3 mL. Previous: 0.8 x 0.7 x 0.6 cm, volume: 0.2 cc. Nodule characteristics: Composition: Solid/almost completely solid (2). Echogenicity: Isoechoic (1). Shape: Taller than wide (3). Margins: Smooth (0). Echogenic Foci: None (0). ACR TI-RADS total points: 6 ACR TI-RADS category: 4 5. Location: Lower pole left thyroid lobe. Size: 1.0 x 0.9 x 0.8 cm, volume 0.4 mL. Previous: 0.7 x 0.7 x 0.5 cm, volume: 0.1 cc. Nodule characteristics: Composition: Solid (2). Echogenicity: Isoechoic (1). Shape: Taller than wide (3). Margins: Smooth (0). Echogenic Foci: Punctate echogenic foci (3). ACR TI-RADS total points: 9 ACR TI-RADS category: 5 NODES: No lymphadenopathy is seen in the tissue surrounding the thyroid gland. US/US thyroid IMPRESSION: ACR TI-RADS 4 and 5. Definitive diagnosis by tissue sampling. ACR TI-RADS RECOMMENDATION REFERENCE: Ultrasound-guided fine-needle aspiration, followup ultrasound, no further follow up. * TR1 (0 point) and TR2 (2 points): No FNA or follow up. * TR3 (3 points): FNA if more than or equal to 2.5 cm in maximum dimension, followup ultrasound in 1, 3 and 5 years if 1.5 to 2.4 cm in maximum dimension. * TR4 (4-6 points): FNA if more than or equal to 1.5 cm in maximum dimension, followup ultrasound in 1, 2, 3 and 5 years if 1 to 1.4 cm in maximum dimension. * TR5 (more than or equal to 7 points): FNA if more than or equal to 1 cm in maximum dimension, followup ultrasound every year for 5 years if 0.5 to 0.9 cm in maximum dimension. * TR3, TR4 or TR5 nodules that are below the size threshold for followup receive no follow up. Electronically signed by: Noel Jose MD 11/28/2024 12:17 PM EDT
--- OUTSIDE RECORDS SUMMARY | 2024-11-27 14:23 | XMS_ITS | Clinical Summary ---
Author Organization [employer] Address [address] [place] [address] Care Team Providers Care Management Instructor Name Role Phone Unavailable Primary Care Provider [...]
== END 2024-11-27 14:14 | disposition home or self-care (01) ==
LOC: HO.US 14:13
PROVIDERS: PCP Family Medicine; Visit Provider Student in an Organized Health Care Education/Training Program
DX: E04.2 Nontoxic multinodular goiter (principal)
CPT/HCPCS: 76536

== ENCOUNTER → 2024-11-27 14:16 | Outpatient (BNV) | payer OTHER, SELFPAY | PROVIDERS: PCP Family Medicine; Visit Provider Radiology Diagnostic Radiology | DX: E04.2 Nontoxic multinodular goiter (principal) | CPT/HCPCS: 76536 ==

== ENCOUNTER 2024-12-10 11:03 | Outpatient (AMB) | payer OTHER, SELFPAY ==
[2024-12-10 12:13] VITALS: BMI 20.6
--- NOTE | 2024-12-10 12:13 | A.OFFVIS_ITS ---
VS Expanded 12/10/24 12:13 Height 5 ft 5 in Weight 124 lb BMI 20.6 Intake Visit Reasons: T2DM Allergies clavulanic acid (Augmentin) Allergy (Unknown, Verified 12/12/24 08:47) hives penicillin V Allergy (Unknown, Verified 12/12/24 08:47) hives Nutrition Presentation Details: Pt presents for MNT for type 2 diabetes Pt rreports doing well, pt herself reducing portion sizes to 2 feeling full fast - noted patient on Trulicity 3 mg per week Typical meal having 2-3 fruits/day (varies as snack) B: 1/2 bagel with cheese and v juice coffee water snack orange L: soup with cottage cheese, salad snack string cheese or fruit D :chicken instant mashed potato , nectarine snack: Dry cereal or yogurt Reports having water with meals or v8 or splash low-sodium reports walking or keeping physically active as able [facility] Medical History Multinodular goiter Hx of cataract T2DM (type 2 diabetes mellitus) Surgical History History of cataract surgery History of coronary artery stent placement History of hemorrhoids History of tubal ligation History of section Family History Father No problems noted. Mother Breast cancer CVD (cardiovascular disease) Diabetes mellitus Maternal Grandmother Melanoma Sister No problems noted. Son No problems noted. Son No problems noted. Son No problems noted. Son Sleep apnea Daughter No problems noted. Daughter No problems noted. 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 Current occupational exposures/hazards: No Sexual orientation: Straight/Heterosexual Gender identity: Female Cognitive needs: No Hearing needs: No Vision needs: Yes (Glasses) Female Reproductive History Menstrual Age of Menarche: 15 Assessment & Plan Assessment & Plan (1) T2DM (type 2 diabetes mellitus): Code(s): E11.9 - Type 2 diabetes mellitus without complications Category: Medical Qualifiers: Diabetes mellitus residential insulin use: without joint terminal attack controller use Diabetes mellitus complication status: with neurologic complications Diabetes mellitus complication detail: with mononeuropathy Qualified Code(s): E11.41 - Type 2 diabetes mellitus with diabetic mononeuropathy Plan: Wt: 63 Kg ( 07/28 ), 61 kg (09/25), 56kg(12/26) Est kcal needs as per MSJ: 1700 (40% carb, 30% protein/fat) Est fluid needs as per 25-30 ml/d: 1900 Est prot per day as per 1 g/kg bw: 63 Recommend fiber intake : 8-10 g per day and gradually increase to 25-28 g per day for women and 35-38 g for men or as tolerated Recommend sodium intake per day : less than 2000 mg Educated patient on: ( R = reviewed V = verbalizes understanding N/R = needs review N/A = not applicable * Food sources of carbohydrate, adequate serving sizes and its role in various health conditions: R V * Differences between complex carbohydrates a simple carbohydrates, role of fiber in diet: R V * Lean protein sources of foods: R * Differences between types of fats and role in diet (mono on saturated fat fatty acids, saturated fatty acids, trans fats): R -reading food label * Food sources of sodium in salt and healthy modifications for heart health in kidney health: R v reading food labes * Vitamins and minerals: R V * Healthy plate method concept: R V - AT LUNCH/DINNER THE MAJORITY OF THE TIME * Physical activity: Benefits a precaution: R V - PARTICIPATING AT [facility] EXERCISES 5 X/WK * Dietary prevention of Hyperglycemia: R V - WORKING ON WATCHING PORTIONS OF CARB AND KEEPING HYDRATED Patient Instructions: Continue having 4-5 small meals /day including lean protein foods keep hydrated by having milk/water/vsplash juice as established always carry with glucose tablets and follow rule of 15 if developing low blood sugar: have 3-4 tablets (15 g carbs) , wait 15 minutes and recheck blood sugar, repeat treatment if blood sugar continues below 70. Notify your doctor of low blood sugar episodes for further asessment. Coding Level of Care Code Nutr Indiv Subseq ([id number]) Diagnoses Type 2 diabetes mellitus with diabetic mononeuropathy, without long-term current use of insulin E11.41 Diabetes mellitus joint terminal attack controller insulin use: without joint terminal attack controller use Diabetes mellitus complication status: with neurologic complications Diabetes mellitus complication detail: with mononeuropathy Time Spent (min) 30
== END 2024-12-10 12:38 | disposition home or self-care (01) ==
LOC: HO.ENCR 11:04
PROVIDERS: PCP Family Medicine; Visit Provider Dietitian, Registered
DX: E11.41 Type 2 diabetes mellitus with diabetic mononeuropathy (principal)

== ENCOUNTER 2024-12-10 11:03 | Outpatient (AMB) | payer OTHER, SELFPAY ==
[2024-12-10 11:05] VITALS: BP 108/72; PULSE 64; O2SAT 95; BMI 20.7
--- NOTE | 2024-12-10 11:05 | MHC.OFFVIS ---
Vital Signs 12/10/24 11:05 Height 5 ft 5 in Weight 124 lb 5.451 oz BMI 20.7 BP 108/72 Blood Pressure Location Lt brachial Position Sitting Pulse 64 Pulse Source Pulse Oximeter Pulse Oximetry (%) 95 Oxygen Delivery Method Room Air Intake Visit Reasons: T2DM Intake Note: Patient present today for Type 2 Diabetes Mellitus Last Diabetic eye exam: 12/07/2024 Last Podiatry Visit: Doesn't have one Random Glucose: 119 mg/dl HgA1C: 6.6% 10/29/24 Grade Recorder Required: No Accompanied by: Spouse Allergies clavulanic acid [Augmentin] Allergy (Unknown, Verified 12/10/24 11:09) hives penicillin V Allergy (Unknown, Verified 12/10/24 11:09) hives Medication List - Last Reconciled 12/10/24 by Colleen Denny MD aspirin (Adult Low Dose Aspirin) 81 mg PO DAILY 90 days atorvastatin 80 mg PO DAILY 90 days blood sugar diagnostic (FreeStyle Lite Strips) DX: E11.9, test blood sugar 3 times a day, 90 days blood-glucose meter (FreeStyle Lite Meter kit) DX: E11.9, test blood sugar 3 times a day, duration 999 days blood-glucose sensor (FreeStyle Jack 3 Plus Sensor device) Use daily As directed to monitor glucose 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 Here today with past medical history type 2 diabetes, hyperparathyroidism, dyslipidemia, CAD Type 2 diabetes mellitus diagnosed with diabetes around 2003. A1c 06/18/2024:7.3% a1c 10/29/24: POC 6.6.% Prior medications Glyburide discontinued late May 2024 when Trulicity started Current medications metformin 1000 mg twice a day, Jardiance 25 mg daily , no yeast infections recently Trulicity 3 mg every week (started late May 2024, GI intolerance much better now a few times vomiting , increased October 2024) SMBGs Fasting : 120s to 160s Pre meals:160s post meal 190, 212 Patient states that she does get intermittent low blood sugars and symptomatic with blood sugars 90 and under. Last hypoglycemic episode:49October 11 when restarted glyburide She checks her blood sugars 2 to 3 times a day. She states that after 20 years of picking her fingers she has no sensation to her fingers and at times we will miss or have to do a more sensitive area of her finger. She states that she does not have much sensation to the fingertips at all. Free style Jack 3 PA Denied. has a fam hx of type 1 dm. Mgm, mgf, aunt and niece have t1dm. Labs 06/19/2024 showed positive C-peptide of 1.89, negative islet cell and milla antibodies Weight: Has lost around 18-20 lb since July 2024 Complications Does have neuropathy Eye visit :: 12/06/2024, no retinpathy No kidney disease CV: Blood pressure today in the office is normal.. She is currently taking metoprolol 25 mg twice a day. No stroke, has history of CAD , followed with Dr. Farooq LDL 52 mg/dL from July 2024, down from 71 mg/dL from May 2023 on atorvastatin 80 mg. Not on ALTAGRACIA/ ARB. But is on jardiance 25 mg daily Labs from July 2024 showed normal urine microalbumin levels. Hyperparathyroidism Osteoporosis -She was previously seeing Dr. Rosado in [facility] for her hyperparathyroidism and DM Kidney stones 5 to 7 years ago, nothing recently No hematuria No fractures Osteoporosis:DEXA scan done at [facility] on 12/15/2022: Lumbar spine T-score-1.7, right hip T-score-0.4, right femoral neck T-score-1, left hip T-score-0.6, left hip femoral neck T-score-1.2, forearm T-score-2.5 consistent with osteoporosis. No calcium suppleements Milk in cereal every othr day , yogurt 4-5 times a week, cheese often With a history of nephrolithiasis, elevated 24 hour urine calcium levels and osteoporosis. Was referred to surgery in 2022 but backed out.She was evaluated by Dr. Estefany Caban at [facility], not interested in surgery at the time 2023 Exercise: twice a week , weights stretchng 1 hr Dentist : not seen recenlty Interval history Has bone density scan scheduled for 12/25/2024 Stopped taking vitamin D July 2024 as it was elevated at 69. Continues to take good amount of calcium in her diet Does osteoporosis classes workout at the [facility]. Labs from November 2024 showed hypercalciuria with 24 hour urine calcium elevated at 516. Nontoxic multinodular goiter Mark's thyroiditis Details not present but per note she has 2 right lobe nodules that has been biopsied and were found to be benign. Serial ultrasound monitoring was being done and showed stable size of the nodules. Due for repeat ultrasound in January 2025. Interval history 11/27/2024: Ultrasound of the thyroid repeated I reviewed the images myself which showed stable size of the right mid lobe 3.2 cm dominant nodule, mild increase in the size of the right isthmus 1.7 cm nodule, a right lower pole subcentimeter TR 4 category nodule, a left lower pole 1.2 cm nodule which is solid, isoechoic, taller than wide TR 4 category which was also only mildly increased in size, another left lower pole 1 cm nodule which has increased significantly in size which per my assessment is solid, hypoechoic, taller than wide, and the radiologist also reports punctate echogenic foci, TR 5 category. No records of biopsies done on the left side, would recommend FNA of the left lower pole 1 cm nodule. Physical exam General: sitting comfortably in no acute distress HEENT: normocephalic/atraumatic, Neck: supple, symmetrical Cardiac: normal heart sounds Pulm: normal breath sounds B/L, no added breath sounds Abd: not distended, no tenderness Extremities: no edema, no signs of myxedema Neuro: AAO x3, Speech: normal, no facial droop, moving all 4 extremities Foot exam: Intact sensation to monofilament, intact pulses, well-perfused. Laboratory Tests 07/21/18 11/22/18 03/28/19 07:35 16:45 06:57 Creatinine Estimated GFR Glucose (Clinic) Hgb A1c (Clinic) C-Peptide Calcium 10.6 H 12.0 H D 10.9 H D Albumin Triglycerides Cholesterol LDL Cholesterol, Calc TSH PTH Intact Urine Creatinine Urine Microalbumin Islet Cell Ab Screen MILLA Antibody 02/04/20 08/25/22 06/01/23 08:58 07:55 07:55 Creatinine 0.78 Estimated GFR > 60 Glucose (Clinic) Hgb A1c (Clinic) C-Peptide Calcium 10.7 H 10.6 H 10.5 H Albumin 4.0 4.1 Triglycerides 79 Cholesterol 137 LDL Cholesterol, Calc 71 TSH 0.97 PTH Intact 137.8 H Urine Creatinine 64.99 Urine Microalbumin < 5.0 Islet Cell Ab Screen MILLA Antibody 01/02/24 06/18/24 06/18/24 17:30 10:04 10:21 Creatinine Estimated GFR Glucose (Clinic) 191 H Hgb A1c (Clinic) 7.2 H 7.3 H C-Peptide Calcium Albumin Triglycerides Cholesterol LDL Cholesterol, Calc TSH PTH Intact Urine Creatinine Urine Microalbumin Islet Cell Ab Screen MILLA Antibody 06/19/24 08:07 Creatinine Estimated GFR Glucose (Clinic) Hgb A1c (Clinic) C-Peptide 1.89 Calcium Albumin Triglycerides Cholesterol LDL Cholesterol, Calc TSH PTH Intact Urine Creatinine Urine Microalbumin Islet Cell Ab Screen NEGATIVE MILLA Antibody <5 Laboratory Tests 06/18/24 07/16/24 07/18/24 10:21 13:04 08:52 Sodium Potassium Creatinine Estimated GFR Glucose (Clinic) 189 H Random Glucose Hgb A1c (Clinic) 7.3 H Calcium Phosphorus Magnesium Total Bilirubin AST ALT Alkaline Phosphatase Alk Phos Bone Specific Total Protein Albumin Triglycerides Cholesterol LDL Cholesterol, Calc HDL Cholesterol Collgn I C-Telopeptide Vitamin B12 25-OH Vitamin D Total PTH Intact Ur Random Calcium 20.0 Urine Creatinine 76.17 Urine Microalbumin < 5.0 07/18/24 10/29/24 08:54 14:10 Sodium 140 Potassium 4.5 Creatinine 0.77 Estimated GFR > 60 Glucose (Clinic) 84 Random Glucose 145 H Hgb A1c (Clinic) Calcium 10.3 H Phosphorus 2.9 Magnesium 1.9 Total Bilirubin 0.7 AST 31 ALT 36 H Alkaline Phosphatase 89 Alk Phos Bone Specific 13.1 Total Protein 6.6 Albumin 4.3 Triglycerides 106 Cholesterol 112 LDL Cholesterol, Calc 52 HDL Cholesterol 39 L Collgn I C-Telopeptide 816 Vitamin B12 319 25-OH Vitamin D Total 69.0 PTH Intact 156.7 H Ur Random Calcium Urine Creatinine Urine Microalbumin Laboratory Tests 11/01/24 07:15 Ur 24 Hour Volume 3090 Ur Creatinine mg/dL 27.40 Ur Creatinine 24 Hour 0.8 L Ur Calcium 24 Hr 516 H Calcium/Creat 24 Hr 596 H US THYROID 11/27/24 CLINICAL INFORMATION: Goiter COMPARISON: November 03, 2015. Prior biopsy, benign. TECHNIQUE: Linear transducer grayscale and color Doppler examination with attention to the region of the thyroid. FINDINGS: SIZE: Measurements of the thyroid lobes and nodules are given in sagittal, anteroposterior and transverse dimensions respectively. Right Thyroid Lobe: 5.6 x 3.1 x 3.0 cm, volume 26.5 mL. Previous: 4.9 x 3.3 x 2.9 cm, volume: 24.9 cc. Parenchyma: The gland echotexture is heterogeneous. Thyroid vascularity is increased. Left Thyroid Lobe: 4.6 x 1.9 x 1.5 cm, volume 7.2 mL. Previous: 4.2 x 1.2 x 1.6 cm, volume: 4.0 cc. Parenchyma: The gland echotexture is heterogeneous. Thyroid vascularity is increased. Isthmus: 0.2 cm in maximum AP dimension. Previous: 0.4 cm. Estimated total number of nodules greater than or equal to 1 cm: 4. Upkeep Mechanic nodules are described as follows: 1. Location: Mid, right thyroid lobe.. Size: 3.2 x 2.5 x 2.7 cm, volume 11.4 mL. Previous: 3.1 x 2.9 x 2.5 cm, volume: 11.7 cc. Nodule characteristics: Composition: Solid (2). Echogenicity: Hyperechoic (1). Shape: Not taller than wide (0). Margins: Smooth (0). Echogenic Foci: Macrocalcifications (1). ACR TI-RADS total points: 4 ACR TI-RADS category: 4 2. Location: Right side of the isthmus. Size: 1.7 x 1.2 x 1.5 cm, volume 1.6 mL. Previous: 0.9 x 1.4 x 1.8 cm, volume: 1.2 cc. Nodule characteristics: Composition: Solid/almost completely solid (2). Echogenicity: Hyperechoic (1). Shape: Not taller than wide (0). Margins: Smooth (0). Echogenic Foci: Punctate echogenic foci (3). ACR TI-RADS total points: 6 ACR TI-RADS category: 4 3. Location: Lower pole right thyroid lobe. Size: 0.7 x 0.9 x 0.9 cm, volume 0.3 mL. Nodule characteristics: Composition: Solid (2). Echogenicity: Hyperechoic (1). Shape: Not taller than wide (0). Margins: Smooth (0). Echogenic Foci: Macrocalcifications (1). ACR TI-RADS total points: 4 ACR TI-RADS category: 4 4. Location: Lower pole left thyroid lobe. Size: 1.2 x 0.7 x 0.6 cm, volume 0.3 mL. Previous: 0.8 x 0.7 x 0.6 cm, volume: 0.2 cc. Nodule characteristics: Composition: Solid/almost completely solid (2). Echogenicity: Isoechoic (1). Shape: Taller than wide (3). Margins: Smooth (0). Echogenic Foci: None (0). ACR TI-RADS total points: 6 ACR TI-RADS category: 4 5. Location: Lower pole left thyroid lobe. Size: 1.0 x 0.9 x 0.8 cm, volume 0.4 mL. Previous: 0.7 x 0.7 x 0.5 cm, volume: 0.1 cc. Nodule characteristics: Composition: Solid (2). Echogenicity: Isoechoic (1). Shape: Taller than wide (3). Margins: Smooth (0). Echogenic Foci: Punctate echogenic foci (3). ACR TI-RADS total points: 9 ACR TI-RADS category: 5 NODES: No lymphadenopathy is seen in the tissue surrounding the thyroid gland. US/US thyroid IMPRESSION: ACR TI-RADS 4 and 5. Definitive diagnosis by tissue sampling. [facility] Medical History Multinodular goiter Hx of cataract T2DM (type 2 diabetes mellitus) Surgical History History of cataract surgery History of coronary artery stent placement History of hemorrhoids History of tubal ligation History of section Family History Father No problems noted. Mother Breast cancer CVD (cardiovascular disease) Diabetes mellitus Maternal Grandmother Melanoma Sister No problems noted. Son No problems noted. Son No problems noted. Son No problems noted. Son Sleep apnea Daughter No problems noted. Daughter No problems noted. 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 Current occupational exposures/hazards: No Sexual orientation: Straight/Heterosexual Gender identity: Female Cognitive needs: No Hearing needs: No Vision needs: Yes (Glasses) Female Reproductive History Menstrual Age of Menarche: 15 Physical Exam Vital Signs: Last Vital Signs Pulse 64 12/10/24 11:05 BP 108/72 12/10/24 11:05 Pulse Ox 95 12/10/24 11:05 Oxygen Delivery Method Room Air 12/10/24 11:05 BMI result Body Mass Index 20.7 Results Reviewed Results Reviewed: Laboratory Last Values Glucose (Clinic) 119 mg/dL (60-115) H 12/10/24 11:12 Assessment & Plan Assessment & Plan (1) T2DM (type 2 diabetes mellitus): Code(s): E11.9 - Type 2 diabetes mellitus without complications Category: Medical Qualifiers: Diabetes mellitus complication detail: with mononeuropathy Diabetes mellitus complication status: with neurologic complications 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 A1c from June 2024 at 7.3% however A1c improved to 6.6% POC 10/29/2024.. She is at Goal A1c less than 7%. While it is true that her blood sugar readings were better when she was on the glyburide early 2024, she did have an episode of hypoglycemia while on it and I would not want her on the glyburide because of risk of hypoglycemia. Plus there is no added benefit of cardiovascular comorbidity reduction. I reviewed her SMBGs, and she continues to have elevated fasting sugar readings in the 150s and 160s. We will add Actos to her regimen. Did discuss side effects of possible weight gain/leg swelling. She had an echocardiogram in September 2024 which showed normal systolic function. Plan: -continue Trulicity to 3 mg weekly -continue Jardiance 25 mg daily -continue metformin 1000 mg b.i.d. -start Actos 15 mg daily -up-to-date on eye exam, no retinopathy -continue vitamin B12 1000 mcg daily (2) Hyperparathyroidism: Code(s): E21.3 - Hyperparathyroidism, unspecified Category: Medical Plan: Patient also has a history of hyperparathyroidism and osteoporosis. DEXA scan done at [facility] on 12/15/2022: Lumbar spine T-score-1.7, right hip T-score-0.4, right femoral neck T-score-1, left hip T-score-0.6, left hip femoral neck T-score-1.2, forearm T-score-2.5 consistent with osteoporosis. Given osteoporosis along with a history of nephrolithiasis and elevated 24 hour urine calcium levels, she met surgical criteria and was even evaluated by Dr. Estefany Caban at [facility] in 2022, she was on vitamin D 1000 units daily up until July 2024 when this was stopped because vitamin-D was noted to be elevated at 69. I also asked her to maintain good calcium intake with 2-3 servings of calcium rich foods daily in diet. She does get some weight-bearing exercise. Most recent labs from July showed total calcium of 10.3 with albumin of 4.3, corrected calcium would be 10, which is on the high-normal side but not very elevated. 24 hour urine calcium levels again elevated at 516 from November 2024. She is also due for repeat bone density, scheduled for 12/25/2024. I discussed with her that given history of osteoporosis with a history of nephrolithiasis and hypercalciuria that is quite elevated she meets surgical criteria and to rethink about it. We will see if osteoporosis has worsened on her bone density. She would like some more time to think about it and 1st would like to get repeat bone density. Her bone resorption marker with CTX is also elevated at 800. If she decides she would not like surgery, then we should consider putting her on medication for osteoporosis.. I have asked her to be up to date with her dental visit as she has not seen her dentist in a while. Plan: -follow up on bone density scan results including the forearm scheduled for 12/25/2024. -2-3 servings of calcium rich foods in diet -continue weight-bearing exercise -we will revisit the idea of surgical evaluation at next follow up visit. (3) Dyslipidemia: Code(s): E78.5 - Hyperlipidemia, unspecified Category: Medical Plan: LDL at 52 mg/dL from Jul 2024. On atorvastatin 80 mg daily. 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 Serial ultrasound monitoring was being done and showed stable size of the nodules. Due for repeat ultrasound now. 11/27/2024: Ultrasound of the thyroid repeated I reviewed the images myself which showed stable size of the right mid lobe 3.2 cm dominant nodule, mild increase in the size of the right isthmus 1.7 cm nodule, a right lower pole subcentimeter TR 4 category nodule, a left lower pole 1.2 cm nodule which is solid, isoechoic, taller than wide TR 4 category which was also only mildly increased in size, another left lower pole 1 cm nodule which has increased significantly in size which per my assessment is solid, hypoechoic, taller than wide, and the radiologist also reports punctate echogenic foci, TR 5 category. No records of biopsies done on the left side, would recommend FNA of the left lower pole 1 cm nodule. I explained that it is common to have thyroid nodules. About 95% of the time these nodules are benign. However if the nodule is > 1 cm in size or suspicious on ultrasound then a fine need aspiration biopsy is recommended. We discussed that a FNAB involves 4-5 passes with a small gauge needle and material obtained is sent off for cytology.If the cytopathology is benign then the nodule will be followed annually with repeat ultrasounds. However if it is suspicious or malignant, we will need to discuss further management. Indeterminate cytology can be further investigated with repeat FNA, genetic testing or empiric lobectomy. Malignant cytology is managed with either lobectomy or total thyroidectomy. We discussed briefly that thyroid cancer is, in most patients, an indolent disease that does not affect mortality. We will arrange for FNA of the left lower 1 cm nodule at next available opening and patient will follow up with me in clinic thereafter for results and further decision making. She is traveling to [place] to see her kids and would like to postpone the biopsy to up until she comes back. We will schedule this in February once she is return. Plan: -scheduled for FNA biopsy of the left lower 1 cm nodule and a follow up 2 weeks after to discuss results Plan I spent 45 minutes in reviewing the record, seeing the patient and documenting in the medical record. Medications: New pioglitazone (Actos) 15 mg PO DAILY 90 tabs 2RF Patient Instructions: Start Actos 15 mg daily Continue Trulicty , Jardiance and Metformin as it is Continue monitoring blood sugars We will book you for a biopsy of your thyroid nodule on the leftside on February 06 and plan for follow up 2 weeks after that for both biopsy results as well as discussing your osteoporosis/ bone density results and your diabetes Coding Level of Care Code Est Pt Level 5 (24262) Complex EM visit Add On [id number] Diagnoses Type 2 diabetes mellitus with diabetic mononeuropathy, without long-term current use of insulin E11.41 Diabetes mellitus complication detail: with mononeuropathy Diabetes mellitus complication status: with neurologic complications 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
[2024-12-10 11:16] LABS: Glucose, Whole Blood 119 mg/dL (60-115)
--- OUTSIDE RECORDS SUMMARY | 2024-12-10 12:39 | XMS_ITS | Clinical Summary ---
Author Organization [employer] Address [address] [place] [address] Care Team Providers Care Hand Potter Name Role Phone Unavailable Primary Care Provider [...] 08/11/2023 COVID-19 Vaccine ( - season) 2024 Tobacco Screening 11/21/2024 11/22/2023 Influenza Vaccine (Season Ended) 2025 05/19/2020, 04/09/2019, 05/04/2018, Additional history exists Dental X-Ray: Full Mouth 08/12/2026 08/11/2023 RSV [...]
== END 2024-12-10 12:12 | disposition home or self-care (01) ==
LOC: HO.ENCR 11:04
PROVIDERS: PCP Family Medicine; Visit Provider Student in an Organized Health Care Education/Training Program
DX: E11.41 Type 2 diabetes mellitus with diabetic mononeuropathy (principal); E21.3 Hyperparathyroidism, unspecified; E78.5 Hyperlipidemia, unspecified; M81.0 Age-related osteoporosis without current pathological fracture; E04.2 Nontoxic multinodular goiter
CPT/HCPCS: 99215; G2211

== ENCOUNTER → 2024-12-10 11:03 | Outpatient (BNVA) | payer OTHER, SELFPAY | PROVIDERS: PCP Family Medicine; Visit Provider Student in an Organized Health Care Education/Training Program | DX: E11.41 Type 2 diabetes mellitus with diabetic mononeuropathy (principal) | CPT/HCPCS: 82947; 97803; 99212 ==

== ENCOUNTER 2024-12-12 08:14 | Outpatient (AMB) | payer OTHER, SELFPAY ==
--- OUTSIDE RECORDS SUMMARY | 2024-12-12 08:22 | XMS_ITS | Clinical Summary ---
Author Organization [employer] Address [address] [place] [address] Care Team Providers Care Adhesive Sprayer Name Role Phone Unavailable Primary Care Provider [...]
--- NOTE | 2024-12-12 08:46 | MHC.PC.OV ---
Vital Signs 12/12/24 08:50 Height 5 ft 5 in Weight 124 lb BMI 20.6 BP 110/60 Blood Pressure Location Rt brachial Position Sitting Respiration 12 Pulse 58 Pulse Source Pulse Oximeter Temp 97.7 F Temp Source Oral Pulse Oximetry (%) 99 Oxygen Delivery Method Room Air Intake Visit Reasons: f/u diabetes, chronic conditions Intake Note: patient is scheduled for dm and chronic conditions Binder Coverstitch Required: No Allergies clavulanic acid [Augmentin] Allergy (Unknown, Verified 12/12/24 08:47) hives penicillin V Allergy (Unknown, Verified 12/12/24 08:47) hives Tobacco use date assessed: 10/26/23 Dental Screening Dental Screen Date: 10/26/23 HPI f/u diabetes, chronic conditions HPI Details 64 y/o female presents to f/u diabetes, chronic conditions. Hx of CAD. Last A1c in October 6.6%. She is on metformin, Jardiance, Trulicity, Actos. Had been following up with endocrinology. She had been concerned about Actos and its side effects with her hx of CAD. Blood pressure today 110/60, 58p. [facility] Medical History Multinodular goiter Hx of cataract T2DM (type 2 diabetes mellitus) Surgical History History of cataract surgery History of coronary artery stent placement History of hemorrhoids History of tubal ligation History of section Family History Father No problems noted. Mother Breast cancer CVD (cardiovascular disease) Diabetes mellitus Maternal Grandmother Melanoma Sister No problems noted. Son No problems noted. Son No problems noted. Son No problems noted. Son Sleep apnea Daughter No problems noted. Daughter No problems noted. 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 Wei Smyth, Stephanie Jose, Vitaliy Cabello and colleagues, with an educational bharath from [employer]. Review of Systems Const Denies chills, Denies fatigue, Denies fever(s), Denies headache(s) and Denies weakness ENT Denies dizziness and Denies headache(s) Card Denies dyspnea Resp Denies cough, Denies dyspnea, Denies wheezing and Denies other (shortness of breath) Musc Denies numbness and Denies tingling Neuro Denies dizziness, Denies headache(s), Denies numbness, Denies tingling and Denies weakness Psych Denies anxiety and Denies depression Endo Denies fatigue Aller/Immun Denies wheezing Physical exam (Primary Care) Vital Signs: Last Vital Signs Temp 97.7 F 12/12/24 08:50 Pulse 58 12/12/24 08:50 Resp 12 12/12/24 08:50 BP 110/60 12/12/24 08:50 Pulse Ox 99 12/12/24 08:50 Oxygen Delivery Method Room Air 12/12/24 08:50 BMI result Body Mass Index 20.6 Tobacco/Smoking Status: Tobacco use Status Tobacco use date assessed 10/26/23 12/12/24 08:46 Patient Tobacco Use Status Never used Tobacco 12/12/24 08:46 e-Cigarette/Vaping Use Never Used 12/12/24 08:46 Thrive Assessment: Date of Thrive Assessment Date Thrive assessed 10/26/23 12/12/24 08:46 Const General: well developed; No acute distress Nutritional Appearance: well nourished Orientation/consciousness: patient oriented x3 HENMT Head: Yes normocephalic and Yes atraumatic Eyes General: appearance normal, both eyes and all related structures Pupils: Equal, round and reactive pupils present EOM: EOMs intact bilaterally Resp Effort & Inspection: normal respiratory effort Auscultation: clear to auscultation bilaterally Cardio Rate: regular rate Rhythm: regular rhythm Heart sounds: S1 normal heart sound present, S2 normal heart sound present, no gallops, no murmurs and no rubs Neuro General: patient oriented x3 and gait normal Cranial nerves: Yes Equal, round and reactive pupils present Psych Affect: normal affect Coding Level of Care Code Est Pt Level 3 (62588) Diagnoses Type 2 diabetes mellitus with diabetic mononeuropathy, without long-term current use of insulin E11.41 Diabetes mellitus complication detail: with mononeuropathy Diabetes mellitus complication status: with neurologic complications Diabetes mellitus [facility] insulin use: without salvage determiner use CAD (coronary artery disease) I25.10 Assessment & Plan Assessment & Plan (1) T2DM (type 2 diabetes mellitus): Code(s): E11.9 - Type 2 diabetes mellitus without complications Category: Medical Qualifiers: Diabetes mellitus complication detail: with mononeuropathy Diabetes mellitus complication status: with neurologic complications Diabetes mellitus [facility] insulin use: without salvage determiner use Qualified Code(s): E11.41 - Type 2 diabetes mellitus with diabetic mononeuropathy Plan: Patient's?most?recent?A1c?was?6.6%. Good?control.??Goal?is?less?than?7.0% However,?patient?notes?that?her?blood?sugars?have?been?higher?since?her?regimen?was?changed; glyburide?was?stopped,?her?Trulicity?was?increased?and?Actos?was?added. However,?she?has?not?started?Actos. She?was?concerned?because?she?had?read?that?Actos?can?worsen?severe?heart?failure. We?discussed?that?she?does?not?have?a?diagnosis?of?heart?failure?and?coronary?artery?disease.??Actos this?seems?to?prevent?or?decrease?progression?of?coronary?artery?disease. Discussed?with?her?that the?adverse?effects?attributed?to?Actos?do?not?apply?to?her?condition. I?do?not?anticipate?any?significant?problems?with?Actos.??Reassured?patient. She?will?start?Actos?and?continue?the?rest?of?her?diabetes?regimen?as?prescribed. Hopefully?A1c?will?reflect?good?control?at?next?visit (2) CAD (coronary artery disease): Code(s): I25.10 - Atherosclerotic heart disease of [place] coronary artery without angina pectoris Category: Medical Plan: Stable
[2024-12-12 08:50] VITALS: BP 110/60; PULSE 58; RESP 12; TEMP 36.5; O2SAT 99; BMI 20.6
== END 2024-12-12 09:26 | disposition home or self-care (01) ==
LOC: HO.HMCFM 08:15
PROVIDERS: PCP Family Medicine; Visit Provider Family Medicine
DX: E11.41 Type 2 diabetes mellitus with diabetic mononeuropathy (principal); I25.10 Atherosclerotic heart disease of native coronary artery without angina pectoris

== ENCOUNTER → 2024-12-12 08:14 | Outpatient (BNVA) | payer OTHER, SELFPAY | PROVIDERS: PCP Family Medicine; Visit Provider Family Medicine | DX: E11.41 Type 2 diabetes mellitus with diabetic mononeuropathy (principal); I25.10 Atherosclerotic heart disease of native coronary artery without angina pectoris | CPT/HCPCS: 99212 ==

== ENCOUNTER 2024-12-25 10:31 | Outpatient (REF) | payer OTHER, SELFPAY ==
--- NOTE | ~2024-12-25 | MM_ITS ---
EXAMINATION: DXA BONE DENSITY EXTREMITY HISTORY: M81.0 Age-related osteoporosis without current pathological fracture/E21.3 TECHNIQUE: Dev4X Dual energy absorptiometry (DEXA) of the lumbar spine, total left hip, femoral neck, and distal radius was performed. COMPARISON: Comparison is made with the prior examination dated 03/09/2016. FINDINGS: The bone mineral density of the lumbar spine is 0.929, corresponding to a T-score of -2.1, and a Z-score of -0.4. This is indicative of osteopenia. This represents a BMD change of -21.0% compared to the prior exam. This is statistically significant. The bone mineral density of the left total hip is 0.803, corresponding to a T-score of -1.6, and a Z-score of -0.3. This is indicative of osteopenia. This represents a BMD change of -34.4% compared to the prior exam. This is statistically significant. The bone mineral density of the left femoral neck is 0.801, corresponding to a T-score of -1.7, and a Z-score of -0.1. This is indicative of osteopenia. This represents a BMD change of -26.4% compared to the prior exam. The bone mineral density of the distal radius is 0.701, corresponding to a T-score of -2.0, and a Z-score of -0.9. This is indicative of osteopenia. This represents a BMD change of -26.1% compared to the prior exam. This is statistically significant. FRACTURE RISK: The FRAX index suggests a ten year probability of major osteoporotic fracture of 8.1%, and of hip fracture 1.0%. MM/XR DEXA appendicular skeleton IMPRESSION: Based on bone mineral density, and according to World Health Organization (WHO) criteria, the diagnosis is consistent with osteopenia. All bone density values are in grams per centimeter squared (g/cm2). Statistically, 68% of repeat scans fall within 1 SD (+/- 0.010 g/cm2 for AP spine L1-L4) and 1 SD (+/- 0.012 g/cm2 for femur total) FRAX is a trademark of the [employer]'s [place] [facility] Metabolic Bone Disease, a World Health Organization (WHO) Collaborating Center. Electronically signed by: Wei Grimes MD 12/25/2024 11:45 AM EDT
--- OUTSIDE RECORDS SUMMARY | 2024-12-25 11:47 | XMS_ITS | Clinical Summary ---
Author Organization [employer] Address [address] [place] [address] Care Team Providers Care Sales Office Administrator Name Role Phone Unavailable Primary Care Provider [...]
== END 2024-12-25 10:32 | disposition home or self-care (01) ==
LOC: HO.MAMMO 10:31
PROVIDERS: PCP Family Medicine; Visit Provider Student in an Organized Health Care Education/Training Program
DX: M81.0 Age-related osteoporosis without current pathological fracture (principal); E21.3 Hyperparathyroidism, unspecified
CPT/HCPCS: 77081

== ENCOUNTER → 2024-12-25 10:35 | Outpatient (BNV) | payer OTHER, SELFPAY | PROVIDERS: PCP Family Medicine; Visit Provider Radiology Diagnostic Radiology | DX: E28.39 Other primary ovarian failure (principal) | CPT/HCPCS: 77081 ==

== ENCOUNTER 2025-02-20 12:50 | Outpatient (AMB) | payer OTHER, SELFPAY ==
[2025-02-20 12:52] VITALS: BP 118/68; PULSE 61; O2SAT 99; BMI 19.7
--- NOTE | 2025-02-20 12:52 | A.OFFVIS_ITS ---
Vital Signs 02/20/25 12:52 Height 5 ft 5 in Weight 118 lb 9.739 oz BMI 19.7 BP 118/68 Blood Pressure Location Lt brachial Position Sitting Pulse 61 Pulse Source Pulse Oximeter Pulse Oximetry (%) 99 Oxygen Delivery Method Room Air Intake Visit Reasons: Bone density, T2DM Intake Note: Patient present today for Type 2 Diabetes Mellitus and Bone density. 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 Accompanied by: Spouse Allergies clavulanic acid (Augmentin) Allergy (Unknown, Verified 02/20/25 12:57) hives penicillin V Allergy (Unknown, Verified 02/20/25 12:57) hives Medication List - Last Reconciled 02/20/25 by Colleen Denny MD aspirin (Adult Low Dose Aspirin) 81 mg PO DAILY 90 days atorvastatin 80 mg PO DAILY 90 days blood sugar diagnostic (FreeStyle Lite Strips) DX: E11.9, test blood sugar 3 times a day, 90 days blood-glucose meter (FreeStyle Lite Meter kit) DX: E11.9, test blood sugar 3 times a day, duration 999 days blood-glucose sensor (FreeStyle Jack 3 Plus Sensor device) Use daily As directed to monitor glucose blood-glucose,manager medicare,cont (FreeStyle Jack 3 [place]) Use daily As directed to monitor blood glucose cyanocobalamin (vitamin B-12) 1,000 mcg PO DAILY docusate sodium (Colace) 100 mg PO BID dulaglutide (Trulicity) 3 mg (0.5 mL) subcut QWEEK empagliflozin (Jardiance) 25 mg PO DAILY lancets As directed melatonin ER 5 mg PO BEDTIME metformin 1,000 mg PO BID metoprolol tartrate 50 mg PO BID HPI Comments Details: 63-year-old female here today for follow up of T2DM and hyperparathyroidism and nontoxic multinodular goiter. Here today with past medical history type 2 diabetes, hyperparathyroidism, dyslipidemia, CAD Type 2 diabetes mellitus diagnosed with diabetes around 2003. A1c 06/18/2024:7.3% a1c 10/29/24: POC 6.6.% a1c POC 02/20/25 7.1% Prior medications Glyburide discontinued late May 2024 when Ashley started Actos 15 mg daily (stopped 01/10 due to ankle swelling) Current medications metformin 1000 mg twice a day, Jardiance 25 mg daily , no yeast infections recently Trulicity 3 mg every week (started late May 2024, GI intolerance much better now a few times vomiting , increased October 2024) SMBGs Fasting : 120s to 130s Pre meals:140s bedtime 170s, 180s She checks her blood sugars 2 to 3 times a day. She states that after 20 years of picking her fingers she has no sensation to her fingers and at times we will miss or have to do a more sensitive area of her finger. She states that she does not have much sensation to the fingertips at all. Free style Jack 3 PA Denied. has a fam hx of type 1 dm. Mgm, mgf, aunt and niece have t1dm. Labs 06/19/2024 showed positive C-peptide of 1.89, negative islet cell and milla antibodies Weight: Has lost around 18-20 lb since July 2024 Complications Does have neuropathy Eye visit :: 12/06/2024, no retinpathy No kidney disease CV: Blood pressure today in the office is normal.. She is currently taking metoprolol 25 mg twice a day. No stroke, has history of CAD , followed with Dr. Farooq LDL 52 mg/dL from July 2024, down from 71 mg/dL from May 2023 on atorva statin 80 mg. Not on ALTAGRACIA/ ARB. But is on jardiance 25 mg daily Labs from July 2024 showed normal urine microalbumin levels. Hyperparathyroidism Osteoporosis -She was previously seeing Dr. Rosado in [facility] for her hyperparathyroidism and DM Kidney stones 5 to 7 years ago, nothing recently No hematuria No fractures Osteoporosis:DEXA scan done at [facility] on 12/15/2022: Lumbar spine T-score-1.7, right hip T-score-0.4, right femoral neck T-score-1, left hip T-score-0.6, left hip femoral neck T-score-1.2, forearm T-score-2.5 consistent with osteoporosis. No calcium suppleements Milk in cereal every othr day , yogurt 4-5 times a week, cheese often With a history of nephrolithiasis, elevated 24 hour urine calcium levels and osteoporosis. Was referred to surgery in 2023 but backed out.She was evaluated by Dr. Estefany Caban at [facility], not interested in surgery at the time 2023 Exercise: twice a week , weights stretchng 1 hr Dentist : not seen recenlty Stopped taking vitamin D July 2024 as it was elevated at 69. Continues to take good amount of calcium in her diet Does osteoporosis classes workout at the [facility]. Labs from November 2024 showed hypercalciuria with 24 hour urine calcium elevated at 516. Interval history 12/25/2024 DEXA scan showed osteopenia of the spine with T-score of-2.1, osteo penia of the left total hip with T-score of-1.6, osteopenia of the left femoral neck with T-score of-1.7, osteopenia of the distal radius with T-score of -2. FRAX score major osteoporotic fracture 8.1%, hip fracture 1% She expresses that she doesnt want to do surgery. Nontoxic multinodular goiter Mark's thyroiditis Details not present but per note she has 2 right lobe nodules that has been biopsied and were found to be benign. Serial ultrasound monitoring was being done and showed stable size of the nodules. Due for repeat ultrasound in January 2025. 11/27/2024: Ultrasound of the thyroid repeated I reviewed the images myself which showed stable size of the right mid lobe 3.2 cm dominant nodule, mild increase in the size of the right isthmus 1.7 cm nodule, a right lower pole subcentimeter TR 4 category nodule, a left lower pole 1.2 cm nodule which is solid, isoechoic, taller than wide TR 4 category which was also only mildly increased in size, another left lower pole 1 cm nodule which has increased significantly in size which per my assessment is solid, hypoechoic, taller than wide, and the radiologist also reports punctate echogenic foci, TR 5 category. No records of biopsies done on the left side, would recommend FNA of the left lower pole 1 cm nodule. Interval history She was scheduled for FNA of the left lower pole 1 cm nodule on 02/06/2025, however she no showed to her appointment. She doesnt want to do the biopsy. Physical exam General: sitting comfortably in no acute distress HEENT: normocephalic/atraumatic, Neck: supple, symmetrical Cardiac: normal heart sounds Pulm: normal breath sounds B/L, no added breath sounds Abd: not distended, no tenderness Extremities: no edema, no signs of myxedema Neuro: AAO x3, Speech: normal, no facial droop, moving all 4 extremities Foot exam: 12/10/2024 Intact sensation to monofilament, intact pulses, well- perfused. Laboratory Tests 07/21/18 11/22/18 03/28/19 07:35 16:45 06:57 Creatinine Estimated GFR Glucose (Clinic) Hgb A1c (Clinic) C-Peptide Calcium 10.6 H 12.0 H D 10.9 H D Albumin Triglycerides Cholesterol LDL Cholesterol, Calc TSH PTH Intact Urine Creatinine Urine Microalbumin Islet Cell Ab Screen MILLA Antibody 02/04/20 08/25/22 06/01/23 08:58 07:55 07:55 Creatinine 0.78 Estimated GFR > 60 Glucose (Clinic) Hgb A1c (Clinic) C-Peptide Calcium 10.7 H 10.6 H 10.5 H Albumin 4.0 4.1 Triglycerides 79 Cholesterol 137 LDL Cholesterol, Calc 71 TSH 0.97 PTH Intact 137.8 H Urine Creatinine 64.99 Urine Microalbumin < 5.0 Islet Cell Ab Screen MILLA Antibody 01/02/24 06/18/24 06/18/24 17:30 10:04 10:21 Creatinine Estimated GFR Glucose (Clinic) 191 H Hgb A1c (Clinic) 7.2 H 7.3 H C-Peptide Calcium Albumin Triglycerides Cholesterol LDL Cholesterol, Calc TSH PTH Intact Urine Creatinine Urine Microalbumin Islet Cell Ab Screen MILLA Antibody 06/19/24 08:07 Creatinine Estimated GFR Glucose (Clinic) Hgb A1c (Clinic) C-Peptide 1.89 Calcium Albumin Triglycerides Cholesterol LDL Cholesterol, Calc TSH PTH Intact Urine Creatinine Urine Microalbumin Islet Cell Ab Screen NEGATIVE MILLA Antibody <5 Laboratory Tests 06/18/24 07/16/24 07/18/24 10:21 13:04 08:52 Sodium Potassium Creatinine Estimated GFR Glucose (Clinic) 189 H Random Glucose Hgb A1c (Clinic) 7.3 H Calcium Phosphorus Magnesium Total Bilirubin AST ALT Alkaline Phosphatase Alk Phos Bone Specific Total Protein Albumin Triglycerides Cholesterol LDL Cholesterol, Calc HDL Cholesterol Collgn I C-Telopeptide Vitamin B12 25-OH Vitamin D Total PTH Intact Ur Random Calcium 20.0 Urine Creatinine 76.17 Urine Microalbumin < 5.0 07/18/24 10/29/24 08:54 14:10 Sodium 140 Potassium 4.5 Creatinine 0.77 Estimated GFR > 60 Glucose (Clinic) 84 Random Glucose 145 H Hgb A1c (Clinic) Calcium 10.3 H Phosphorus 2.9 Magnesium 1.9 Total Bilirubin 0.7 AST 31 ALT 36 H Alkaline Phosphatase 89 Alk Phos Bone Specific 13.1 Total Protein 6.6 Albumin 4.3 Triglycerides 106 Cholesterol 112 LDL Cholesterol, Calc 52 HDL Cholesterol 39 L Collgn I C-Telopeptide 816 Vitamin B12 319 25-OH Vitamin D Total 69.0 PTH Intact 156.7 H Ur Random Calcium Urine Creatinine Urine Microalbumin Laboratory Tests 11/01/24 07:15 Ur 24 Hour Volume 3090 Ur Creatinine mg/dL 27.40 Ur Creatinine 24 Hour 0.8 L Ur Calcium 24 Hr 516 H Calcium/Creat 24 Hr 596 H EXAMINATION: DXA BONE DENSITY EXTREMITY 12/25/24 HISTORY: M81.0 Age-related osteoporosis without current pathological fracture/E21.3 TECHNIQUE: [id number] Dual energy absorptiometry (DEXA) of the lumbar spine, total left hip, femoral neck, and distal radius was performed. COMPARISON: Comparison is made with the prior examination dated 03/09/2016. FINDINGS: The bone mineral density of the lumbar spine is 0.929, corresponding to a T-score of -2.1, and a Z-score of -0.4. This is indicative of osteopenia. This represents a BMD change of -21.0% compared to the prior exam. This is statistically significant. The bone mineral density of the left total hip is 0.803, corresponding to a T-score of -1.6, and a Z-score of -0.3. This is indicative of osteopenia. This represents a BMD change of -34.4% compared to the prior exam. This is statistically significant. The bone mineral density of the left femoral neck is 0.801, corresponding to a T-score of -1.7, and a Z-score of -0.1. This is indicative of osteopenia. This represents a BMD change of -26.4% compared to the prior exam. The bone mineral density of the distal radius is 0.701, corresponding to a T-score of -2.0, and a Z-score of -0.9. This is indicative of osteopenia. This represents a BMD change of -26.1% compared to the prior exam. This is statistically significant. FRACTURE RISK: The FRAX index suggests a ten year probability of major osteoporotic fracture of 8.1%, and of hip fracture 1.0%. MM/XR DEXA appendicular skeleton IMPRESSION: Based on bone mineral density, and according to World Health Organization (WHO) criteria, the diagnosis is consistent with osteopenia. US THYROID 11/27/24 CLINICAL INFORMATION: Goiter COMPARISON: November 03, 2015. Prior biopsy, benign. TECHNIQUE: Linear transducer grayscale and color Doppler examination with attention to the region of the thyroid. FINDINGS: SIZE: Measurements of the thyroid lobes and nodules are given in sagittal, anteroposterior and transverse dimensions respectively. Right Thyroid Lobe: 5.6 x 3.1 x 3.0 cm, volume 26.5 mL. Previous: 4.9 x 3.3 x 2.9 cm, volume: 24.9 cc. Parenchyma: The gland echotexture is heterogeneous. Thyroid vascularity is increased. Left Thyroid Lobe: 4.6 x 1.9 x 1.5 cm, volume 7.2 mL. Previous: 4.2 x 1.2 x 1.6 cm, volume: 4.0 cc. Parenchyma: The gland echotexture is heterogeneous. Thyroid vascularity is increased. Isthmus: 0.2 cm in maximum AP dimension. Previous: 0.4 cm. Estimated total number of nodules greater than or equal to 1 cm: 4. Assistant Art Director nodules are described as follows: 1. Location: Mid, right thyroid lobe.. Size: 3.2 x 2.5 x 2.7 cm, volume 11.4 mL. Previous: 3.1 x 2.9 x 2.5 cm, volume: 11.7 cc. Nodule characteristics: Composition: Solid (2). Echogenicity: Hyperechoic (1). Shape: Not taller than wide (0). Margins: Smooth (0). Echogenic Foci: Macrocalcifications (1). ACR TI-RADS total points: 4 ACR TI-RADS category: 4 2. Location: Right side of the isthmus. Size: 1.7 x 1.2 x 1.5 cm, volume 1.6 mL. Previous: 0.9 x 1.4 x 1.8 cm, volume: 1.2 cc. Nodule characteristics: Composition: Solid/almost completely solid (2). Echogenicity: Hyperechoic (1). Shape: Not taller than wide (0). Margins: Smooth (0). Echogenic Foci: Punctate echogenic foci (3). ACR TI-RADS total points: 6 ACR TI-RADS category: 4 3. Location: Lower pole right thyroid lobe. Size: 0.7 x 0.9 x 0.9 cm, volume 0.3 mL. Nodule characteristics: Composition: Solid (2). Echogenicity: Hyperechoic (1). Shape: Not taller than wide (0). Margins: Smooth (0). Echogenic Foci: Macrocalcifications (1). ACR TI-RADS total points: 4 ACR TI-RADS category: 4 4. Location: Lower pole left thyroid lobe. Size: 1.2 x 0.7 x 0.6 cm, volume 0.3 mL. Previous: 0.8 x 0.7 x 0.6 cm, volume: 0.2 cc. Nodule characteristics: Composition: Solid/almost completely solid (2). Echogenicity: Isoechoic (1). Shape: Taller than wide (3). Margins: Smooth (0). Echogenic Foci: None (0). ACR TI-RADS total points: 6 ACR TI-RADS category: 4 5. Location: Lower pole left thyroid lobe. Size: 1.0 x 0.9 x 0.8 cm, volume 0.4 mL. Previous: 0.7 x 0.7 x 0.5 cm, volume: 0.1 cc. Nodule characteristics: Composition: Solid (2). Echogenicity: Isoechoic (1). Shape: Taller than wide (3). Margins: Smooth (0). Echogenic Foci: Punctate echogenic foci (3). ACR TI-RADS total points: 9 ACR TI-RADS category: 5 NODES: No lymphadenopathy is seen in the tissue surrounding the thyroid gland. US/US thyroid IMPRESSION: ACR TI-RADS 4 and 5. Definitive diagnosis by tissue sampling. [facility] Medical History Multinodular goiter Hx of cataract T2DM (type 2 diabetes mellitus) Surgical History History of cataract surgery History of coronary artery stent placement History of hemorrhoids History of tubal ligation History of section Family History Father No problems noted. Mother Breast cancer CVD (cardiovascular disease) Diabetes mellitus Maternal Grandmother Melanoma Sister No problems noted. Son No problems noted. Son No problems noted. Son No problems noted. Son Sleep apnea Daughter No problems noted. Daughter No problems noted. 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 Current occupational exposures/hazards: No Sexual orientation: Straight/Heterosexual Gender identity: Female Cognitive needs: No Hearing needs: No Vision needs: Yes (Glasses) Female Reproductive History Menstrual Age of Menarche: 15 Physical Exam Vital Signs: Last Vital Signs Pulse 61 02/20/25 12:52 BP 118/68 02/20/25 12:52 Pulse Ox 99 02/20/25 12:52 Oxygen Delivery Method Room Air 02/20/25 12:52 BMI result Body Mass Index 19.7 Results AMB Hemoglobin A1c AMB Hemoglobin A1c 7.1 % Last Edit by JEREMY Humphreys on 02/20/25 13:11 Results Reviewed Results Reviewed: Laboratory Last Values Glucose (Clinic) 114 mg/dL (60-115) 02/20/25 13:01 Assessment & Plan Assessment & Plan (1) T2DM (type 2 diabetes mellitus): Code(s): E11.9 - Type 2 diabetes mellitus without complications Category: Medical Qualifiers: Diabetes mellitus longterm insulin use: without longterm use Diabetes mellitus complication status: with neurologic complications Diabetes mellitus complication detail: with mononeuropathy Qualified Code(s): E11.41 - Type 2 diabetes mellitus with diabetic mononeuropathy Plan: 64-year-old female here today for follow up of type 2 diabetes mellitus with complication of neuropathy, CAD, without long-term insulin use. A1c POC 02/20/2025 at 7.1% which is up from 6.6% POC 10/29/2024.. Goal A1c less than 7%. While it is true that her blood sugar readings were better when she was on the glyburide early 2024, she did have an episode of hypoglycemia while on it and I would not want her on the glyburide because of risk of hypoglycemia. Plus there is no added benefit of cardiovascular comorbidity reduction. We had added Actos to her regimen in December 2024, however she complained of ankle swelling and stopped that in January 2025. Reviewed blood sugar readings which showed that she does have better sugars for fasting, she is still has a few elevated bedtime readings likely due to eating some dessert after dinner. We discussed increasing the Trulicity you versus diet control. At this time she would like to focus on dietary changes. Plan: -continue Trulicity to 3 mg weekly -continue Jardiance 25 mg daily -continue metformin 1000 mg b.i.d. -up-to-date on eye exam, no retinopathy -continue vitamin B12 1000 mcg daily (2) Hyperparathyroidism: Code(s): E21.3 - Hyperparathyroidism, unspecified Category: Medical Plan: Patient also has a history of hyperparathyroidism and osteoporosis. DEXA scan done at [facility] on 12/15/2022: Lumbar spine T-score-1.7, right hip T-score-0.4, right femoral neck T-score-1, left hip T-score-0.6, left hip femoral neck T-score-1.2, forearm T-score-2.5 consistent with osteoporosis. Given osteop orosis along with a history of nephrolithiasis and elevated 24 hour urine calcium levels, she met surgical criteria and was even evaluated by Dr. Estefany Caban at [facility] in 2022, she was on vitamin D 1000 units daily up until July 2024 when this was stopped because vitamin-D was noted to be elevated at 69. I also asked her to maintain good calcium intake with 2-3 servings of calcium rich foods daily in diet. She does get some weight-bearing exercise. Most recent labs from July showed total calcium of 10.3 with albumin of 4.3, corrected calcium would be 10, which is on the high-normal side but not very elevated. 24 hour urine calcium levels again elevated at 516 from November 2024. 12/25/2024 DEXA scan showed osteopenia of the spine with T-score of-2.1, osteopenia of the left total hip with T-score of-1.6, osteopenia of the left femoral neck with T-score of-1.7, osteopenia of the distal radius with T-score of -2. FRAX score major osteoporotic fracture 8.1%, hip fracture 1% While bone density this time did show osteopenia, it is hard to compare if there is truly been an improvement in her bone density given other bone density last done December 2022 was at an outside hospital. I discussed with her that still given the hypercalciuria technically she meets criteria for surgery. She expresses that she doesnt want to do surgery. Her bone resorption marker with CTX is also elevated at 800. Next bone density would be due December 2026. If she has a fracture, we can address this sooner. For now we will keep an eye on her blood work and plan to repeat her 24 hour urine calcium 8-12 months from the last 1 which would be in spring/summer 2025. Plan: -2-3 servings of calcium rich foods in diet -continue weight-bearing exercise -plan to repeat blood work in 24 hour urine evaluation in spring/summer 2025 along with bone resorption markers. Next bone density would be due December 2026 (3) Dyslipidemia: Code(s): E78.5 - Hyperlipidemia, unspecified Category: Medical Plan: LDL at 52 mg/dL from Jul 2024. On atorvastatin 80 mg daily. 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 Serial ultrasound monitoring was being done and showed stable size of the nodules. Due for repeat ultrasound now. 11/27/2024: Ultrasound of the thyroid repeated I reviewed the images myself which showed stable size of the right mid lobe 3.2 cm dominant nodule, mild increase in the size of the right isthmus 1.7 cm nodule, a right lower pole subcentimeter TR 4 category nodule, a left lower pole 1.2 cm nodule which is solid, isoechoic, taller than wide TR 4 category which was also only mildly increased in size, another left lower pole 1 cm nodule which has increased significantly in size which per my assessment is solid, hypoechoic, taller than wide, and the radiologist also reports punctate echogenic foci, TR 5 category. No records of biopsies done on the left side, would recommend FNA of the left lower pole 1 cm nodule. She was scheduled for FNA of the left lower 1 cm nodule on 02/06/2025 but she no showed to her appointment in today expresses that she would not like to do a biopsy. We discussed her other option would be surveillance ultrasounds. She is agreeable to that. We will plan to repeat ultrasound of the thyroid in November 2025. Plan: -plan to repeat thyroid ultrasound in November 2025 Plan I spent 30 minutes in reviewing the record, seeing the patient and documenting in the medical record. Orders: Orders AMB Hemoglobin A1c Today E11.41 - Type 2 diabetes mellitus with diabetic mononeuropathy, Z13.9 - Encounter for screening, unspecified Medications: Refilled metformin 1,000 mg PO BID 180 tabs 3RF Patient Instructions: Continue Trulicity , Metformin and JArdiance as it is Coding Level of Care Code Est Pt Level 4 (76305) Complex EM visit Add On G2211 Diagnoses Type 2 diabetes mellitus with diabetic mononeuropathy, without long-term current use of insulin E11.41 Diabetes mellitus longterm insulin use: without long term care phlebotomist use Diabetes mellitus complication status: with neurologic complications Diabetes mellitus complication detail: with mononeuropathy Hyperparathyroidism E21.3 Dyslipidemia E78.5 Multinodular goiter E04.2 Time Spent (min) 30
[2025-02-20 13:04] LABS: Glucose, Whole Blood 114 mg/dL (60-115)
--- OUTSIDE RECORDS SUMMARY | 2025-02-20 13:41 | XMS_ITS | Clinical Summary ---
Author Organization [facility] Address [address] [place] [address] Care Team Providers Care Bottle Filler Name Role Phone Unavailable Primary Care Provider [...] 08/11/2023 COVID-19 Vaccine (1 - season) 2024 Tobacco Screening 11/21/2024 11/22/2023 Influenza Vaccine (#1) 2025 , 04/09/2019, 05/04/2018, Additional history exists Dental X-Ray: [...]
--- OUTSIDE RECORDS SUMMARY | 2025-02-20 13:41 | XMS_ITS | Clinical Summary ---
Author Organization [facility] Address [address] 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 10/13/2021 Active atorvastatin (LIPITOR) 80 MG tablet Take 80 mg by mouth daily. 10/24/2021 Active FREESTYLE LITE Strp strips TEST BLOOD SUGAR 3 TIMES A DAY 10/13/2021 Active metFORMIN (GLUCOPHAGE) 1000 MG tablet Take 1,000 mg by mouth 2 (two) times a day. 10/12/2021 Active metoprolol tartrate (LOPRESSOR) 25 MG tablet Take 25 mg by mouth 2 (two) times a day. 10/12/2021 Active ASCORBIC ACID, VITAMIN C, ORAL Take by mouth. Active cholecalciferol (VITAMIN D3) 2,000 unit capsule Take 1 capsule by mouth every morning. 09/28/2022 Active melatonin 5 mg Tab Take 5 mg by mouth nightly at bedtime. Active empagliflozin (JARDIANCE) 25 mg tabletIndicatio ns:Type 2 diabetes mellitus without complication, without long-term current use of insulin Take 1 tablet (25 mg total) by mouth daily. 90 tablet 1 03/08/2024 Active glyBURIDE (DIABETA) 5 MG tabletIndicatio ns:Type 2 diabetes mellitus without complication, without long-term current use of insulin Take 2 tablets (10 mg total) by mouth daily with breakfast. 180 tablet 03/08/2024 Active Active Problems Problem Noted Date Diagnosed Date Hyperparathyroidism 07/21/2022 Assessment & Plan (03/08/2024 1:29 PM EDT): Patient with hyperparathyroidism 3 indications for surgery saw endocrine surgeon. Is in the process of being worked up further with imaging studies. It is concerning that she does not seem to have a follow-up appointment with him and it is not certain that imaging studies will be done. I asked her to please look into this so she is not lost to follow-up. Assessment & Plan (09/22/2023 2:05 PM EDT): Referred for parathyroidectomy on 02/09/2023. She states that she never got called from Dr. Caban's office. So I put in the consultation request again. I explained to her that this condition can be associated with a lot of morbidity. It can worsen her bone density study she can get fracture she can get decrease in height. If the calcium goes up high enough she could develop arrhythmias she can get abdominal pain bone pain anorexia altered mental status so it is associated with a lot of morbidity. However, she apparently did not know how serious this is and completely forgot about it. I told her that she should take this seriously and try to see to endocrine surgeon for further evaluation. If she informs me that she is not interested in having parathyroidectomy then I will be fine with that is her decision to make. Assessment & Plan (02/09/2023 11:35 AM EDT): The patient has primary hyperparathyroidism she has 3 indications for parathyroidectomy and this includes history of nephrolithiasis, elevated 24 urine calcium and osteoporosis. Serum calcium corrects to 10.7 mg/dL. I referred her for surgical evaluation for parathyroidectomy at [facility]. Assessment & Plan (10/27/2022 12:01 PM EDT): She appears to have primary hyperparathyroidism. I requested DXA scan which is scheduled for December and I will give her a follow-up appointment in 3 months. I asked her to do the lab work that I requested previously at this point she does not have to do it right away she can just wait prior to the next visit but it must be done. She did decrease the vitamin D to 2000 units and will be interesting to see if the PTH changes and the serum calcium levels change. Assessment & Plan (07/21/2022 3:40 PM EST): It appears that the patient has primary hyperparathyroidism. PTH is elevated, serum calcium corrects to 10.6. Vitamin D levels are elevated as well which can contribute to hypercalcemia. She needs to decrease her vitamin D to 2000 units. She has elevated 24-hour urine calcium also consistent with primary hyperparathyroidism at this point we will check DXA scan for evaluation of osteoporosis. She states that she has history of nephrolithiasis. At this point she has 2 indications for parathyroidectomy. Vitamin D overdose 07/21/2022 Assessment & Plan (10/27/2022 12:02 PM EDT): She was taking too much vitamin D 5000 units a day I asked her to decrease it to 2000 units daily. She did do this but has not repeated lab work. Assessment & Plan (07/21/2022 3:43 PM EST): Please decrease vitamin D to 2000 units daily and repeat vitamin D levels prior to the follow-up visit in 3 months. 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 These labs were previously done at [facility] and was found to be in the reference range. Hypercalcemia 03/24/2022 Assessment & Plan (03/24/2022 3:52 PM EDT): Patient has had hypercalcemia for a while apparently intact PTH serum protein electrophoresis when the reference range 24-hour urine calcium was elevated. She is taking vitamin D 5000 units I will repeat vitamin D just to make sure that she is not vitamin D toxic. I am repeating the 24-hour urine calcium checking 1, 25 dihydroxy vitamin D and repeating intact PTH. He should do this fasting. Type 2 diabetes mellitus wit hout complication, without long-term current use of insulin 12/09/2021 Assessment & Plan (03/08/2024 1:33 PM EDT): Improved control hemoglobin A1c 7.3%. This is considered fair control. Is not good control. But she has had a problem with pioglitazone in the past she does not really want to try a GLP-1 agonist. She is already complaining of feeling hypoglycemic symptoms with glucose of 70 mg/dL so I really do not want to increase the glipizide anymore. She is at the maximum dose of Jardiance and metformin. So unless she wants to try a GLP-1 agonist or insulin there is not much that I can do. She did lose 6 pounds so she can continue to work on diet and exercise and see if this will lower her hemoglobin A1c further. Assessment & Plan (09/22/2023 2:10 PM EDT): Uncontrolled. Hemoglobin A1c 7.8% she is at the maximum dose of metformin and Jardiance and she is on glyburide 5 mg since she is not controlling cannot take pioglitazone I will increase this to 10 mg. She asked me if there was anything else whether that is the GLP-1 agonist injectable medications but that also is associated with adverse effects such as nausea, vomiting, diarrhea, constipation. That does not mean that she is going to get the symptoms but she may. Other than the GLP-1 agonist this insulin injectable insulin. She is concerned that she may develop hypoglycemia with added glyburide. Assessment & Plan (02/09/2023 11:49 AM EDT): Uncontrolled. Hemoglobin A1c 7.3% she never tried the pioglitazone. I suggest that she try it. If she develops adverse effects to the medication cooperatives be stopped. She should continue glyburide, metformin and Jardiance. Repeat lab work fasting prior to the follow-up visit in 3 months. Assessment & Plan (10/27/2022 12:10 PM EDT): Improved control hemoglobin A1c 7.2% and she states that she has good fasting glucose levels so she must have postprandial hyperglycemia. I will add pioglitazone 15 mg daily she does not appear to have any contraindications and I do not see that she is on a diuretic so I assume her ejection fraction is good. She will continue her other medications but if she finds that she is having low blood sugars then she should stop the glyburide. I informed her that pioglitazone has cardiovascular benefits and also helps with hyperlipidemia. She should repeat a hemoglobin A1c prior to the follow-up visit in 3 months. Assessment & Plan (07/21/2022 3:41 PM EST): Uncontrolled. Hemoglobin A1c increased to 7.9%. She should continue metformin Jardiance and add 1 glyburide 5 mg daily. If on the follow-up visit is ineffective we will have to see about a different agent. She should repeat hemoglobin A1c prior to the follow-up visit in 3 months. Assessment & Plan (03/24/2022 3:49 PM EDT): Hemoglobin A1c 6.8% which seems accurate but she has elevated fasting glucose levels this may be due to late night snacking. She needs to bring in her meter on the next visit. I want to increase the Jardiance to 25 mg but she just picked up a 3- month supply of the 10 mg. She can continue Jardiance and glyburide and metformin presently as she is doing and at the 3-month time then cook pickled meat Jardiance 25 mg and stop the glipizide continue metformin. She should repeat hemoglobin A1c in approximately 4 months. Assessment & Plan (12/09/2021 2:01 PM EDT): Based on lab work hemoglobin A1c of 6.4 she would appear controlled but her glucose levels are not in control and they are elevated. So I wonder if she is anemic and her hemoglobin A1c is falsely low and checking CBC and will repeat hemoglobin A1c. I asked her to add Jardiance 10 mg to her medications that she is currently taking she will continue metformin and decrease the glyburide by half. She states that she develops hypoglycemia on occasions and this is because glyburide is a self urinary aid that releases stimulates insulin secretion whether the patient needs or not so patients are prone to develop hypoglycemia. Eventually we can discontinue this medication. I am adding Jardiance because he has cardiovascular and renal benefits. Should repeat lipid panel, and comprehensive as well as urine microalbumin prior to the follow-up visit in 3 months. Nontoxic multinodular goiter 12/09/2021 Overview (02/09/2023): Patient has known regarding nontoxic multinodular goiter since 2015 both right lobe nodules were biopsied found to be benign. She will repeat ultrasound 01/06/2025. If the is remained stable then she can repeat by 01/07/2028. At that point it would have been 11 years that she is known about this condition and if stable nodules then she does not require repeat or serial imaging after that date. Assessment & Plan (03/08/2024 1:19 PM EDT): Patient has known regarding nontoxic multinodular goiter since 2015 both right lobe nodules were biopsied found to be benign. She will repeat ultrasound 01/06/2025. If the is remained stable then she can repeat by 01/07/2028. At that point it would have been 11 years that she is known about this condition and if stable nodules then she does not require repeat or serial imaging after that date. Assessment & Plan (09/22/2023 1:40 PM EDT): Due for repeat ultrasound on 01/06/2025. Assessment & Plan (02/09/2023 11:36 AM EDT): The patient is due for repeat ultrasound 01/06/2025. Assessment & Plan (10/27/2022 12:02 PM EDT): She is due for repeat ultrasound on 01/06/2025. Assessment & Plan (07/21/2022 3:28 PM EST): Due for repeat ultrasound on 01/06/2025. Assessment & Plan (03/24/2022 3:51 PM EDT): Patient has known regarding nontoxic multinodular goiter since 2015 both right lobe nodules were biopsied found to be benign. She will repeat ultrasound 01/06/2025. If the is remained stable then she can repeat by 01/07/2028. At that point it would have been 11 years that she is known about this condition and if stable nodules then she does not require repeat or serial imaging after that date. Assessment & Plan (12/09/2021 2:01 PM EDT): The patient has an enlarged thyroid gland with nodular right lobe. Apparently the nodule has been biopsied before. Has not had any recent follow-up I requested an ultrasound of the thyroid gland we will request it from [facility] requested repeat thyroid function studies thyroid antibodies and again ultrasound of the thyroid gland. Hyperlipidemia LDL goal <70 12/09/2021 Assessment & Plan (03/08/2024 1:20 PM EDT): Controlled. LDL 85 mg/dL. Continue atorvastatin 80 mg no changes required. Assessment & Plan (09/22/2023 1:40 PM EDT): Controlled. LDL 85 mg/dL on atorvastatin 80 mg no changes required. Assessment & Plan (02/09/2023 11:35 AM EDT): Controlled. LDL 58 mg/dL on atorvastatin 80 mg no changes required Assessment & Plan (10/27/2022 12:00 PM EDT): Based on last LDL of 50 she is controlled on atorvastatin 80 mg no changes required. Assessment & Plan (07/21/2022 3:38 PM EST): Controlled. LDL 50 continue atorvastatin 80 mg no changes. Assessment & Plan (03/24/2022 3:48 PM EDT): Controlled LDL 50 mg/dL on atorvastatin 80 mg no changes. Assessment & Plan (12/09/2021 2:04 PM EDT): Requested lipid panel continue atorvastatin 20 mg. Family History Medical History Relation Comments Depression Father Cancer Mother Coronary artery disease Mother Diabetes Mother Relation Status Comments Father Mother Social History Tobacco Use Types Packs/Day Years Used Date Smoking Tobacco: Former Cigarettes 0.3 6 Smokeless Tobacco: Never Alcohol Use Standard Drinks/Week Comments Never 0 (1 standard drink = 0.6 oz pur e alcohol) Education Answer Date Recorded Are you interested in more education? Not on carlos a e 10/29/2022 Are you concerned about learning? Not on file 10/29/2022 No 10/29/2022 No 10/29/2022 Digital Access Answer Date Recorded No 11/30/2022 No 11/30/2022 Reliable internet access at home? Not on file 11/30/2022 Device with a working camera? Not on file Comments Unknown Sex and Gender Information Value Date Recorded Sex Assigned at Not on file Legal Sex Female 11:36 AM EST Gender Identity Not on file Sexual Orientation Not on file Last Filed Vital Signs Vital Sign Reading Time Taken Comments Blood Pressure 110/64 03/08/2024 1:15 PM EDT Pulse 75 03/08/2024 1:15 PM EDT Temperature 36.4 C (97.5 F) 09/22/2023 1:49 PM EDT Respiratory Rate - - Oxygen Saturation 99% 03/08/2024 1:15 PM EDT Inhaled Oxygen Concentration - - Weight 67 kg (147 lb 9.6 oz) 03/08/2024 1:15 PM EDT Height 163.5 cm (5' 4.37 ) 03/08/2024 1:15 PM ED T Body Mass Index 25.05 03/08/2024 1:15 PM EDT Plan of Treatment Health Maintenance Due Date Last Done Comments Adult Td,Tdap Booster 1962 DEPRESSION SCREENING 1974 SMOKING Hx and SMOKELESS TOBACCO SCREENING 1975 HEPATITIS C SCREENING 1980 HIV ONE-TIME SCREENING (18-65 YEARS) 1980 PAP SMEAR 1983 MAMMOGRAM 2002 COLOGUARD 2007 COLONOSCOPY 2007 COLORECTAL CANCER SCREENING 2007 FIT TEST 2007 FOBT 2007 SIGMOIDOSCOPY 2007 VIRTUAL COLONOSCOPY 2007 ZOSTER VACCINES (1 of 2) 2012 PNEUMOCOCCAL VACCINES (50+ years) (2 of 2 - PCV) 07/22/2016 07/22/2015 DIABETIC EYE EXAM 12/09/2021 RSV VACCINE (1 - Risk 60-74 years 1-dose series) 2022 COVID-19 VACCINE (1 - season) 2024 BLOOD PRESSURE 09/05/2024 03/08/2024 HEMOGLOBIN A1C 09/05/2024 03/08/2024, 09/01, 01/26/2023, Additional history exists CREATININE LEVEL 09/13/2024 09/14/2023, , 07/15/2022, Additional history exists URINE MICROALBUMIN/CREATININE RATIO 09/13/2024 09/14/2023, 03/19/2022 HEPATITIS A VACCINES Aged Out No long er eligible based on patient's age to complete this topic HIB VACCINES Aged Out No longer eligi ble based on patient's age to complete this topic MENINGOCOCCAL VACCINES (ACWY) Aged Out No longer eligible based on patient's age to complete this topic MENINGOCOCCAL VACCINES (B) Aged Out N o longer eligible based on patient's age to complete this topic Medical Devices Not on file Procedures Procedure Name Priority Date/Time Associated Diagnosis Comments POCT HEMOGLOBIN A1C Routine 03/08/2024 1 :29 PM EDT Type 2 diabetes mellitus without complication, without long-term current use of insulin MICROALBUMIN/CREATININ E RATIO, RANDOM URINE Routine 09/14/2023 8:30 AM EDT Type 2 diabetes mellitus without complication, without long-term current use of insulin COMPREHENSIVE METABOLIC PANEL Routine 09/14/2023 8:15 AM EDT Hyperparathyroidis m from Last 3 Months or Most Recently Relevant to Health Maintenance Results * (ABNORMAL) POCT Hemoglobin A1c (03/08/2024 1:29 PM EDT) Hemoglobin A1c 7.3(A) 4.2 - 5.8 % Other 03/08/2024 1:29 PM EDT us Dg Krishnamurthy DO POINT OF CARE TEST ORDERABLES Fi nal Result * Microalbumin/creatinine ratio, random urine (09/14/2023 8:30 AM EDT) URINE MICROALBUMIN <1.2 0 - 2.3 mg/dL [facility] URINE CREATININE 50 mg/dL [facility] MICROALB/CRE RATIO NOT CALCULATED 0 - 20 mg/g Cre [facility] Comment:due to Microalbumin <1.2 Urine (Urine) 09/14/2023 8:3 0 AM EDT 09/14/2023 8:39 AM EDT us Dg Krishnamurthy DO URINE ORDERABLES Final Result [address] [id number] * (ABNORMAL) Comprehensive metabolic panel (09/14/2023 8:15 AM EDT) SODIUM 140 133 - 146 mmol/L [facility] POTASSIUM 4.8 3.3 - 5.1 mmol/L [facility] CHLORIDE 105 96 - 108 mmol/L [facility] CO2 25 21 - 35 mmol/L [facility] BUN 23(H) 6 - 19 mg/dL [facility] CREATININE 0.80 0.5 - 1.5 mg/dL [facility] GLUCOSE 169(H) 70 - 99 mg/dL [facility] ALBUMIN 4.4 3.9 - 4.8 g/dL [facility] TOTAL PROTEIN 6.8 6.5 - 8.0 g/dL [facility] CALCIUM 11.3(H) 8.4 - 10.3 mg/dL [facility] ALKALINE PHOSPHATASE 114 39 - 117 U/L [facility] TOTAL BILIRUBIN 0.3 0.0 - 1.2 mg/dL [facility] AST 30 0 - 37 U/L [facility] ALT 25 0 - 40 U/L [facility] GLOBULIN 2.4 1 - 4.8 g/dL [facility] EGFR 84 >59 mL/min/1.7 3m2 [facility] Comment:Estimated glomerular filtration rate calculated using the CKD-EPI refit equation. ANION GAP 15 10 - 20 mmol/L [facility] Blood 09/14/2023 8:15 AM EDT 09/14/2023 8:18 AM EDT us Dg Presho DO LAB BLOOD ORDERABLES Final Resul t [facility] [address] [place], [place] [id number] from Last 3 Months or Most Recently Relevant to Health Maintenance Insurance WELLSENSE NON NSPG PCP [employer]CIAL [employer]LL[employer] NON NSPG PCP [employer]CIAL [employer] NON NSPG PCP [employer]CIAL WELLS[employer] NON NSPG PCP [employer] COMMERCIAL WELLSENSE NON NSPG PCP [employer]ARITY COMMERCIAL WELLSENSE NON NSPG PCP [employer]AR[employer] COMMERCIAL WELLSENSE NON NSPG PCP [employer]ERCIAL WELLSENSE NON NSPG PCP [employer]CIAL WELLS[employer] NON NSPG PCP [employer] COMMERCIAL Care 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 It is not the complete legal health record.[facility]
== END 2025-02-20 13:18 | disposition home or self-care (01) ==
LOC: HO.ENCR 12:51
PROVIDERS: PCP Family Medicine; Visit Provider Student in an Organized Health Care Education/Training Program
DX: E11.41 Type 2 diabetes mellitus with diabetic mononeuropathy (principal); E21.3 Hyperparathyroidism, unspecified; E78.5 Hyperlipidemia, unspecified; E04.2 Nontoxic multinodular goiter; Z13.9 Encounter for screening, unspecified
CPT/HCPCS: 99214

== ENCOUNTER → 2025-02-20 12:50 | Outpatient (BNVA) | payer OTHER, SELFPAY | PROVIDERS: PCP Family Medicine; Visit Provider Student in an Organized Health Care Education/Training Program | DX: E11.41 Type 2 diabetes mellitus with diabetic mononeuropathy (principal); E21.3 Hyperparathyroidism, unspecified; E04.2 Nontoxic multinodular goiter; E78.5 Hyperlipidemia, unspecified | CPT/HCPCS: 82947; 83036; 99212 ==

== ENCOUNTER 2025-02-26 11:18 | Outpatient (REF) | payer OTHER, SELFPAY ==
[2025-02-22 13:44] VITALS: BP 112/70; BP 126/76; BMI 24.6
[2025-02-26 14:22] LABS: Hematocrit 42.5 % (37.0-47.0); Hemoglobin 13.6 g/dl (12.0-16.0); Mean Corpuscular HGB Conc 32.0 g/dl (31.0-35.0); Mean Corpuscular Hemoglobin 28.8 pg (27.0-33.0); Mean Corpuscular Volume 89.9 fL (80.0-98.0); NRBC Abs Auto 0.000 X10*3/uL (0.0-0.012); NRBC Pct Auto 0.0 /100WBC (0.0-0.2); Platelet Count 241 X10*3/uL (160-400); Red Blood Count 4.73 X10*6/uL (4.20-5.50); White Blood Count 5.8 X10*3/uL (4.8-10.8)
[2025-02-26 14:59] LABS: Alanine Aminotransferase 33 U/L (0-31); Albumin Level 4.4 g/dL (3.5-5.0); Alkaline Phosphatase 88 U/L (39-117); Anion Gap 15 (12-20); Aspartate Amino Transferase 30 U/L (5-31); Blood Urea Nitrogen 17 mg/dL (9-16); Calcium 11.2 mg/dL (8.4-10.2); Carbon Dioxide 26 mmol/L (22-29); Chloride 103 mmol/L (96-108); Estimated Glomerular Filt Rate > 60; Potassium 5.1 mmol/L (3.3-5.1); Sodium 139 mmol/L (135-145); Total Protein 6.3 g/dL (6.5-8.0)
== END 2025-02-26 11:19 | disposition home or self-care (01) ==
LOC: HO.WFDLDS 11:18
PROVIDERS: PCP Family Medicine; Visit Provider Nurse Practitioner Family
DX: Z01.818 Encounter for other preprocedural examination (principal); E11.41 Type 2 diabetes mellitus with diabetic mononeuropathy; E83.52 Hypercalcemia; I25.118 Atherosclerotic heart disease of native coronary artery with other forms of angina pectoris
CPT/HCPCS: 36415; 80053; 85027; 96127; 99212

== ENCOUNTER 2025-02-26 11:18 | Outpatient (AMB) | payer OTHER, SELFPAY ==
[2025-02-22 13:44] VITALS: BP 112/70; BP 126/76; BMI 24.6
--- NOTE | 2025-02-26 11:21 | A.OFFPC_ITS ---
Vital Signs 02/26/25 11:25 Height 5 ft 5 in Weight 119 lb 2 oz BMI 19.8 BP 112/67 Blood Pressure Location Lt brachial Position Sitting Respiration 12 Pulse 61 Pulse Source Pulse Oximeter Temp 97.7 F Temp Source Oral Pulse Oximetry (%) 99 Oxygen Delivery Method Room Air Intake Visit Reasons: Fillings and Extractions Intake Note: Pre op for dental surgery Remote Sensing Scientist Required: No Allergies clavulanic acid (Augmentin) Allergy (Unknown, Verified 02/26/25 11:43) hives penicillin V Allergy (Unknown, Verified 02/26/25 11:43) hives Tobacco use date assessed: 02/26/25 Dental Screening Dental Screen Date: 02/26/25 Did you have a dental visit in the last 12 months?: Yes Did you have a dental problem in the last 6 months where you did not have access to dental care?: No Was dental information given to patient?: Patient has dentist HPI HPI Comments History of Present Illness Details 64 y/o F with DM, CAD s/p stent, Hyperca lcemia Here today for preoperative clearance. Surgery Type: Dental extractions and fillings Anesthesia Type: Local Surgeon: Aanhy Garcia Date: TBD after medical and cardiac clearance Any past surgical procedures: Y Any complications from anesthesia or in post-op period: has never had general anesthesia; no recover issues from procedures ASA or NSAID Use: ASA Yes Current smoker: Denies Alcohol use:Denies Drug use: Denies METs: > 4 climb flight of stairs, golf, walk, yardwork Medical history: Asthma No COPD No Obesity BMI 19.8 Diabetes Y Review of Systems - Cardiovascular: Reports chest tightnes s; denies current chest pain. - Respiratory: Denies asthma, COPD, coug h, or respiratory symptoms. - Neurological: Denies headaches or neur ological symptoms. - Gastrointestinal: Denies nausea or dis comfort. - Endocrinology: Reports diabetes. - General: Denies fever, chills, or emmett ise. - Social: Denies tobacco, alcohol, or il licit drug use. Physical Exam General: Well developed, well nourished, in no acute distress. Appears stated age. Head: Normocephalic, atraumatic. Eyes: Pupils are equal, round and reactive to light and accommodation. Conjunctivae are clear. Lungs: Clear to auscultation bilaterally. No rales, rhonchi or wheeze noted. Good air flow in all bryant. Heart: Regular rate and rhythm. No murmurs, click, rubs or gallops are noted. Pulses: Peripheral pulses are equal and palpable bilaterally. Extremities: No clubbing, cyanosis nor edema is noted. Psych: Mood and affect appropriate. Discussion Notes During the visit, I discussed the need for cardiac and medical clearance prior to the patient's scheduled dental surgery at [facility]. I explained that coordination with the financial foundations representative is essential to determine advisories for aspirin management pre-operatively. We agreed that I will fax notes and requisite medical clearance to the dental office to proceed once cardiology clearance is obtained. I advised the patient to inquire about prophylactic antib iotic usage related to her stent history for dental procedures. Follow-up protocols were outlined to ensure seamless completion of pre-surgical requirements. Patient was given time to ask questions. All questions were answered to their satisfaction. Assessment and Plan 1. Pre-operative clearance: Patient is m edically cleared to proceed. She still needs Cards clearance. I have sent a message to [place]. - Coordinate cardiology clearance. 2. Coronary artery stent - Possible prophylactic antibiotics; con sult with cardiology. 3. Diabetes mellitus - Blood glucose monitoring. Patient Instructions - Schedule appointment with financial foundations representative for surgery clearance. - Get lab work completed as discussed fo r surgery preparation. - Monitor blood sugar and report irregul arities. - Notify dental office once clearance no marielos are faxed. - Ask financial foundations representative about antibiotics nee ded due to a stent before dental work. Consent Patient was informed and verbally consented to the use of an ambient scribe for clinic note documentation during this visit. Total time spent caring for the patient today was 40 minutes. This includes time spent before the visit reviewing the chart, time spent during the visit, and time spent after the visit on documentation, reviewing laboratory results, diagnostic imaging, medications, performing a medically necessary evaluation, counseling on diagnoses, care coordination, ordering appropriate tests, ordering appropriate medications, review of tests performed by other providers, reporting test results with the patient, communication with other healthcare providers. [facility] Medical History (Updated 02/26/25 @ 16:06 by HUGH Loo-JESSE) Hx of cataract Multinodular goiter T2DM (type 2 diabetes mellitus) Surgical History History of cataract surgery History of coronary artery stent placement History of hemorrhoids History of tubal ligation History of section Family History Father No problems noted. Mother Breast cancer CVD (cardiovascular disease) Diabetes mellitus Maternal Grandmother Melanoma Sister No problems noted. Son No problems noted. Son No problems noted. Son No problems noted. Son Sleep apnea Daughter No problems noted. Daughter No problems noted. 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 1. Little interest or pleasure in doing things: not at all 2. Feeling down, depressed, or hopeless: not at all 3. Trouble falling or staying asleep, or sleeping too much: not at all 4. Feeling tired or having little energy: not at all 5. Poor appetite or overeating: not at all 6. Feeling bad about yourself - or that you are a failure or have let yourself or your family down: not at all 7. Trouble concentrating on things, such as reading the newspaper or watching television: not at all 8. Moving or speaking so slowly that other people could have noticed. Or the opposite - being so fidgety or restless that you have been moving around a lot more than usual: not at all 9. Thoughts that you would be better off or of hurting yourself in some way: not at all Total score: 0 Depression Screening Interpretation: Negative Depression Screening Done: Yes 00486 - PHQ-9 Billing: Yes Source: Developed by Drs. Wei Smyth, Stephanie Jose, Vitaliy Cabello and colleagues, with an educational bharath from [employer]. Thrive Questionnaire Date Thrive assessed: 02/26/25 I am a: Patient What is your living situation today?: I have a steady place to live Within the past 12 months, did the food you bought not last and you didn't have the money to get more?: Never true Within the past 12 months, did you worry whether your food would run out before you got money to buy more?: Never true Do you have trouble paying for medicines?: No Do you have trouble getting transportation to medical appointments?: No Do you have trouble paying your heating and electricity bill?: No Do you have trouble taking care of your child, family member or friend?: No Do you have trouble with day-to-day activities such as bathing, preparing meals, shopping, managing finances, etc.?: No Are you currently unemployed and looking for a job?: No Are you interested in more education?: No THRIVE Score: 0 MILLA-7 AMB Questionnaire MILLA-7 Date MILLA - 7 assessed: 02/26/25 Feeling nervous, anxious, or on edge: 0 = Not at all Not being able to stop or control worryin = Not at all Worrying too much about different things: 0 = Not at all Trouble relaxin = Not at all Being so restless that it is hard to sit still: 0 = Not at all Becoming easily annoyed or irritable: 0 = Not at all Feeling afraid as if something awful might happen: 0 = Not at all Total MILLA-7 score (0-4 normal; 5-9 mild; 10-14 moderate; 15-21 severe): 0 Source: Developed by Drs. Wei Smyth, Stephanie Jose, Vitaliy Cabello and colleagues, with an educational bharath from [employer]. MILLA-7 Assessment Billing MILLA-7 Assessment Tool: MILLA-7 Assessment 16183 Physical exam (Primary Care) Vital Signs: Last Vital Signs Temp 97.7 F 02/26/25 11:25 Pulse 61 02/26/25 11:25 Resp 12 02/26/25 11:25 BP 112/67 02/26/25 11:25 Pulse Ox 99 02/26/25 11:25 Oxygen Delivery Method Room Air 02/26/25 11:25 BMI result Body Mass Index 19.8 Tobacco/Smoking Status: Tobacco use Status Tobacco use date assessed 02/26/25 02/26/25 11:27 Patient Tobacco Use Status Never used Tobacco 02/26/25 11:27 e-Cigarette/Vaping Use Never Used 02/26/25 11:27 PHQ-9: PHQ-9 Score PHQ-9: Total score 0 02/26/25 14:35 Depression Screening Interpretation: Negative Thrive Assessment: Date of Thrive Assessment Date Thrive assessed 02/26/25 02/26/25 11:27 Results Reviewed Results Reviewed: RUN: 02/26/25 1435 PAGE 1 [facility] [address] [place] [phone] Rn Mobile: Mulugeta Lopez M.D. Specimen Inquiry Name: Collette Thakur Age/Sex: 64/F : 1960 Unit#: [id number] Attend Dr: Li Novak Re02/26/25 Status: REG REF Location: [facility] Disch: SPEC : [id number] YI: 02/26/25 STATUS: COMP REQ : [id number] RECD: 02/26/25-[address]: Li Novak COMP: 02/26/25-1212 ENTERED: 02/26/25-[address]: Mulugeta Bowles MD ORDERED: CBC No Diff Test Result Flag Reference WBC 5.8 4.8-10.8 X10*3/uL RBC 4.73 4.20-5.50 X10*6/uL HGB 13.6 12.0-16.0 g/dl HCT 42.5 37.0-47.0 % MCV 89.9 80.0-98.0 fL MCH 28.8 27.0-33.0 pg MCHC 32.0 31.0-35.0 g/dl RDW 13.3 11.0-16.0 % PLT 241 160-400 X10*3/uL MPV 9.8 9.4-12.3 fL NRBC Pct Auto 0.0 0.0-0.2 /100WBC NRBC Abs Auto 0.000 0.0-0.012 X10*3/uL RUN: 02/26/25 1600 PAGE 1 [facility] [address] [place] [phone] Rn Mobile: Mulugeta Lopez M.D. Specimen Inquiry Name: Collette Thakur Age/Sex: 64/F : 1960 Unit#: [id number] Attend Dr: Li Novak Re02/26/25 Status: REG REF Location: [facility] Disch: SPEC : [id number] YI: 02/26/25-0 STATUS: COMP REQ : [id number] RECD: 02/26/25-[address]: Li Novak COMP: 02/26/25-145 ENTERED: 02/26/25-[address] [facility] [address]: Mulugeta Bowles MD ORDERED: CMP Test Result Flag Reference Sodium 139 135-145 mmol/L Potassium 5.1 3.3-5.1 mmol/L CL 103 96-108 mmol/L CO2 26 22-29 mmol/L Gap 15 12-20 BUN 17 H 9-16 mg/dL Creat 0.70 0.5-1.4 mg/dL eGFR > 60 Chronic Kidney Disease: Estimated GFR < 60 mL/min/1.73m2 Severe Kidney Disease: Estimated GFR < 15 mL/min/1.73m2 Glucose, Random 119 H 60-115 mg/dL CA 11.2 # H 8.4-10.2 mg/dL Total Bili 0.6 0.0-1.0 mg/dL AST (GOT) 30 5-31 U/L ALT (GPT) 33 H 0-31 U/L Protein, Total 6.3 L 6.5-8.0 g/dL Alb 4.4 3.5-5.0 g/dL Alk Phos 88 39-117 U/L Coding Level of Care Code Est Pt Level 5 (98700) Complex EM visit Add On G2211 Diagnoses Pre-op exam Z01.818 Type 2 diabetes mellitus with diabetic mononeuropathy, without long-term current use of insulin 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 transplanted heart: [place] heart Associated angina: with stable angina Additional Codes MILLA-7 Assessment Billing - MILLA-7 Assessment Tool: MILLA-7 Assessment 03075 ([id number]) PHQ-9 - 27044 - PHQ-9 Billing: Yes ([id number]) Assessment & Plan Assessment & Plan (1) Pre-op exam: Comment: Medically cleared to proceed; still needs cardiac clearance. Code(s): Z01.818 - Encounter for other preprocedural examination Category: Medical (2) T2DM (type 2 diabetes mellitus): Code(s): E11.9 - Type 2 diabetes mellitus without complications Category: Medical Qualifiers: Diabetes mellitus prison insulin use: without prison use Diabetes mellitus complication status: with neurologic complications Diabetes mellitus complication detail: with mononeuropathy Qualified Code(s): E11.41 - Type 2 diabetes mellitus with diabetic mononeuropathy (3) Hypercalcemia: Code(s): E83.52 - Hypercalcemia Category: Medical (4) CAD (coronary artery disease): Code(s): I25.10 - Atherosclerotic heart disease of [place] coronary artery without angina pectoris Category: Medical Qualifiers: Coronary Disease-Associated Artery/Lesion type: [place] artery [place] vs. transplanted heart: [place] heart Associated angina: with stable angina Qualified Code(s): I25.118 - Atherosclerotic heart disease of [place] coronary artery with other forms of angina pectoris Plan . Orders: Orders Complete Blood Count no Diff Today Z01.818 - Encounter for other preprocedural examination Comprehensive Met. Panel Today Z01.818 - Encounter for other preprocedural examination
[2025-02-26 11:25] VITALS: BP 112/67; PULSE 61; RESP 12; TEMP 36.5; O2SAT 99; BMI 19.8
--- OUTSIDE RECORDS SUMMARY | 2025-02-26 12:16 | XMS_ITS | Clinical Summary ---
Author Organization [employer] Address [address] [facility] [address] [place] [address] Care Team Providers Care Breaker Hand Name Role Phone Unavailable Primary Care Provider [...]
--- OUTSIDE RECORDS SUMMARY | 2025-02-26 12:16 | XMS_ITS | Clinical Summary ---
Author Organization [facility] Address [address] [facility] [address] [place] [phone] Phone Care Team Providers Care Typing Element Machine Operator Name Role Phone Mulugeta Bowles MD [...] her for surgical evaluation for parathyroidectomy at [facility]. 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 25 mg and stop the glipizide [...] thyroid gland we will request it from [facility] requested repeat thyroid function studies thyroid antibodies [...] URINE MICROALBUMIN <1.2 0 - 2.3 mg/dL [facility] URINE CREATININE 50 mg/dL [facility] MICROALB/CRE RATIO NOT CALCULATED 0 - 20 mg/g Cre [facility] Comment:due to Microalbumin <1.2 Urine (Urine) 09/14/2023 8:3 0 AM EDT 09/14/2023 8:39 AM EDT us Dg Krishnamurthy DO URINE ORDERABLES Final Result [address] [address] * (ABNORMAL) Comprehensive metabolic panel (09/14/2023 8:15 AM EDT) SODIUM 140 133 - 146 mmol/L [facility] POTASSIUM 4.8 3.3 - 5.1 mmol/L [facility] CHLORIDE 105 96 - 108 mmol/L [facility] CO2 25 21 - 35 mmol/L [facility] BUN 23(H) 6 - 19 mg/dL [facility] CREATININE 0.80 0.5 - 1.5 mg/dL [facility] GLUCOSE 169(H) 70 - 99 mg/dL [facility] ALBUMIN 4.4 3.9 - 4.8 g/dL [facility] TOTAL PROTEIN 6.8 6.5 - 8.0 g/dL [facility] CALCIUM 11.3(H) 8.4 - 10.3 mg/dL [facility] ALKALINE PHOSPHATASE 114 39 - 117 U/L [facility] TOTAL BILIRUBIN 0.3 0.0 - 1.2 mg/dL [facility] AST 30 0 - 37 U/L [facility] ALT 25 0 - 40 U/L [facility] GLOBULIN 2.4 1 - 4.8 g/dL [facility] EGFR 84 >59 mL/min/1.7 3m2 [facility] Comment:Estimated glomerular filtration rate calculated using the CKD-EPI refit equation. ANION GAP 15 10 - 20 mmol/L [facility] Blood 09/14/2023 8:15 AM EDT 09/14/2023 8:18 AM EDT us Dg [place] DO LAB BLOOD ORDERABLES Final Resul t [facility] [address] [place], [place] [id number] from Last 3 Months or Most Recently [...] NON NSPG PCP [employer] Care Teams Typing Element Machine Operator Relationship Specialty Start Date End Date Mulugeta Bowles MD [address] [place] [address] PCP - General Family Medicine 01/06/22 Additional Source Comments The information contained in this document represents components of the legal health record. It is not the complete legal health record.[facility]
== END 2025-02-26 11:52 | disposition home or self-care (01) ==
LOC: HO.HMCFM 11:19
PROVIDERS: PCP Family Medicine; Visit Provider Nurse Practitioner Family
DX: E11.41 Type 2 diabetes mellitus with diabetic mononeuropathy (principal); Z01.818 Encounter for other preprocedural examination; E83.52 Hypercalcemia; I25.118 Atherosclerotic heart disease of native coronary artery with other forms of angina pectoris

== ENCOUNTER 2025-04-17 09:13 | Outpatient (AMB) | payer OTHER, SELFPAY ==
[2025-02-22 13:44] VITALS: BP 112/70; BP 126/76; BMI 24.6
--- NOTE | 2025-04-17 09:26 | MHC.PC.OV ---
Vital Signs 04/17/25 09:35 Height 5 ft 5 in Weight 116 lb 6 oz BMI 19.4 BP 114/60 Blood Pressure Location Rt brachial Position Sitting Respiration 12 Pulse 60 Pulse Source Pulse Oximeter Temp 97.4 F Temp Source Oral Pulse Oximetry (%) 100 Oxygen Delivery Method Room Air Intake Visit Reasons: f/u diabetes PHQ-9 needed. 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 Required: No Is last menstrual period known: No Post menopausal: No Patient : No Allergies clavulanic acid (Augmentin) Allergy (Unknown, Verified 04/17/25 09:34) hives penicillin V Allergy (Unknown, Verified 04/17/25 09:34) hives Medication List - Last Reconciled 04/17/25 by Mulugeta Bowles MD aspirin (Adult Low Dose Aspirin) 81 mg PO DAILY 90 days atorvastatin 80 mg PO DAILY 90 days blood sugar diagnostic (FreeStyle Lite Strips) DX: E11.9, test blood sugar 3 times a day, 90 days blood-glucose meter (FreeStyle Lite Meter kit) DX: E11.9, test blood sugar 3 times a day, duration 999 days blood-glucose sensor (FreeStyle Jack 3 Plus Sensor device) Use daily As directed to monitor glucose blood-glucose,keyboard instrument repairer,cont (FreeStyle Jack 3 [place]) Use daily As directed to monitor blood glucose cyanocobalamin (vitamin B-12) 1,000 mcg PO DAILY docusate sodium (Colace) 100 mg PO BID dulaglutide (Trulicity) 3 mg (0.5 mL) subcut QWEEK empagliflozin (Jardiance) 25 mg PO DAILY lancets As directed melatonin ER 5 mg PO BEDTIME metformin 1,000 mg PO BID metoprolol tartrate 50 mg PO BID Tobacco use date assessed: 04/17/25 Dental Screening Dental Screen Date: 04/17/25 Did you have a dental visit in the last 12 months?: No Did you have a dental problem in the last 6 months where you did not have access to dental care?: No Was dental information given to patient?: Patient has dentist HPI f/u diabetes PHQ-9 needed. HPI Details 64 y/o female presents to f/u diabetes. Last A1c 02/20/25 7.1%. She is on Jardiance 25mg, Trulicity mg, metformin 1000mg b.i.d Has been following up with endocrinology. Morning fasting blood sugar was in the 130s - she notes she averages around 130s. She has been questioing whether or not Trulicity has been causing too much appetite supression. Notes some nausea as well. PHQ-9 4, MILLA-7 1 today. [facility] Medical History (Updated 04/17/25 @ 10:31 by Huseyin Hong) Multinodular goiter Hx of cataract T2DM (type 2 diabetes mellitus) Surgical History History of cataract surgery History of coronary artery stent placement History of hemorrhoids History of tubal ligation History of section Family History Father No problems noted. Mother Breast cancer CVD (cardiovascular disease) Diabetes mellitus Maternal Grandmother Melanoma Sister No problems noted. Son No problems noted. Son No problems noted. Son No problems noted. Son Sleep apnea Daughter No problems noted. Daughter No problems noted. 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 1. Little interest or pleasure in doing things: not at all 2. Feeling down, depressed, or hopeless: not at all 3. Trouble falling or staying asleep, or sleeping too much: more than half the days 4. Feeling tired or having little energy: several days 5. Poor appetite or overeating: several days 6. Feeling bad about yourself - or that you are a failure or have let yourself or your family down: not at all 7. Trouble concentrating on things, such as reading the newspaper or watching television: not at all 8. Moving or speaking so slowly that other people could have noticed. Or the opposite - being so fidgety or restless that you have been moving around a lot more than usual: not at all 9. Thoughts that you would be better off or of hurting yourself in some way: not at all Total score: 4 Depression Screening Interpretation: Negative Depression Screening Done: Yes 96899 - PHQ-9 Billing: Yes Source: Developed by Drs. Wei Smyth, Vitaliy Quinonez and colleagues, with an educational bharath from [employer]. Thrive Questionnaire Date Thrive assessed: 02/26/25 MILLA-7 AMB Questionnaire MILLA-7 Date MILLA - 7 assessed: 04/17/25 Feeling nervous, anxious, or on edge: 0 = Not at all Not being able to stop or control worryin = Not at all Worrying too much about different things: 1 = Several days Trouble relaxin = Not at all Being so restless that it is hard to sit still: 0 = Not at all Becoming easily annoyed or irritable: 0 = Not at all Feeling afraid as if something awful might happen: 0 = Not at all Total MILLA-7 score (0-4 normal; 5-9 mild; 10-14 moderate; 15-21 severe): 1 Source: Developed by Drs. Wei Smyth, Stephanie Jose, Vitaliy Cabello and colleagues, with an educational bharath from [employer]. MILLA-7 Assessment Billing MILLA-7 Assessment Tool: MILLA-7 Assessment 15721 Review of Systems Const Denies chills, Denies fatigue, Denies fever(s), Denies headache(s) and Denies weakness ENT Denies dizziness and Denies headache(s) Card Denies dyspnea Resp Denies cough, Denies dyspnea, Denies wheezing and Denies other (shortness of breath) Musc Denies numbness and Denies tingling Neuro Denies dizziness, Denies headache(s), Denies numbness, Denies tingling and Denies weakness Psych Denies anxiety and Denies depression Endo Denies fatigue Aller/Immun Denies wheezing Physical exam (Primary Care) Vital Signs: Last Vital Signs Temp 97.4 F 04/17/25 09:35 Pulse 60 04/17/25 09:35 Resp 12 04/17/25 09:35 BP 114/60 04/17/25 09:35 Pulse Ox 100 04/17/25 09:35 Oxygen Delivery Method Room Air 04/17/25 09:35 BMI result Body Mass Index 19.4 Tobacco/Smoking Status: Tobacco use Status Tobacco use date assessed 04/17/25 04/17/25 09:38 Patient Tobacco Use Status Never used Tobacco 04/17/25 09:28 e-Cigarette/Vaping Use Never Used 04/17/25 09:28 PHQ-9: PHQ-9 Score PHQ-9: Total score 4 04/17/25 10:47 Depression Screening Interpretation: Negative Thrive Assessment: Date of Thrive Assessment Date Thrive assessed 02/26/25 04/17/25 09:28 Const General: well developed; No acute distress Nutritional Appearance: well nourished Orientation/consciousness: patient oriented x3 HENMT Head: Yes normocephalic and Yes atraumatic Eyes General: appearance normal, both eyes and all related structures Pupils: Equal, round and reactive pupils present EOM: EOMs intact bilaterally Resp Effort & Inspection: normal respiratory effort Auscultation: clear to auscultation bilaterally Cardio Rate: regular rate Rhythm: regular rhythm Heart sounds: S1 normal heart sound present, S2 normal heart sound present, no gallops, no murmurs and no rubs Neuro General: patient oriented x3 and gait normal Cranial nerves: Yes Equal, round and reactive pupils present Psych Affect: normal affect Office Procedures Flu Questionnaire Does the patient have a severe egg allergy?: No Does the patient have severe life threatening allergies?: No Does the patient have a fever or illness today?: No Has the patient ever had Guillain-[place] Syndrome?: No Has the patient ever had any past reaction to a flu shot?: No Immunizations Fluarix [id number] (PF) 45 mcg (15 mcg x 3)/0.5 mL IM syringe Performing Provider: Mulugeta Bowles MD Performing Location: [facility] Administered by: Dg Olivares RN on 04/17/25 10:45 Dose Route Admin Location Dispensed Lot Number Expiration Date NDC Rail Technician 0.5 mL IM Right Deltoid 0.5 mL [id number] 12/31/25 02091-642-05 [employer] VIS Given Date VIS Provided VIS Publication Date 04/17/25 Single Vaccine 24 Eligibility Eligibility Date Funding Source Not [facility] Eligible 04/17/25 Private Coding Level of Care Code Est Pt Level 4 (97832) Diagnoses Type 2 diabetes mellitus with diabetic mononeuropathy, without long-term current use of insulin E11.41 Diabetes mellitus complication detail: with mononeuropathy Diabetes mellitus complication status: with neurologic complications Diabetes mellitus superintendent terminal insulin use: without halfway use Nausea R11.0 Immunization counseling Z71.85 Additional Codes MILLA-7 Assessment Billing - MILLA-7 Assessment Tool: MILLA-7 Assessment 69732 ([id number]) PHQ-9 - 50284 - PHQ-9 Billing: Yes ([id number]) Assessment & Plan Assessment & Plan (1) T2DM (type 2 diabetes mellitus): Code(s): E11.9 - Type 2 diabetes mellitus without complications Category: Medical Qualifiers: Diabetes mellitus complication detail: with mononeuropathy Diabetes mellitus complication status: with neurologic complications Diabetes mellitus superintendent terminal insulin use: without halfway use Qualified Code(s): E11.41 - Type 2 diabetes mellitus with diabetic mononeuropathy Plan: A1c 7.1% less than 3 months ago. She is taking metformin, Jardiance and Trulicity as prescribed. Trulicity not at max dose and this was discussed at her prior visit with endocrinology. Discussed again today. She is concerned regarding potential for weight loss. Encouraged her to eat healthy foods 1st as she sometimes gets full or nauseous. Can use ensure or a protein supplement throughout her day with meals. Hydrate well - can also try minna root for nausea. No change to her of blood pressure medication regimen today. She has an upcoming appointment with endocrinology and can discuss any medication adjustments. Continue diabetic diet (2) Nausea: Code(s): R11.0 - Nausea Category: Medical Plan: As above (3) Immunization counseling: Code(s): Z71.85 - Encounter for immunization safety counseling Category: Medical Plan: Due for flu shot - she will receive this today in the office. Orders: Orders Influenza [id number] Immunization Today Z23 - Encounter for immunization
[2025-04-17 09:35] VITALS: BP 114/60; PULSE 60; RESP 12; TEMP 36.3; O2SAT 100; BMI 19.4
--- OUTSIDE RECORDS SUMMARY | 2025-04-17 10:15 | XMS_ITS | Clinical Summary ---
Author Organization [employer] Address [address] [place] [address] Care Team Providers Care Apprentice Name Role Phone Unavailable Primary Care Provider [...] 07/22/2016 07/22/2015 Dental Oral Exam 02/10/2024 08/11/2023 Tobacco Screening 11/21/2024 11/22/2023 COVID-19 Vaccine (1 - season) 2025 Influenza Vaccine (#1) 2025 0, 04/09/2019, 05/04/2018, Additional history exists Dental X-Ray: [...]
--- OUTSIDE RECORDS SUMMARY | 2025-04-17 10:15 | XMS_ITS | Clinical Summary ---
Author Organization [facility] Address [address] [place] [phone] Phone Care Team Providers Care Chief Digital Officer Name Role Phone Mulugeta Bowles MD Primary [...] her for surgical evaluation for parathyroidectomy at [facility]. Assessment & Plan (10/27/2022 12:01 PM [...] antibodies. These labs were previously done at [facility] and was found to be in the [...] doing and at the 3-month time then bead picker Jardiance 25 mg and stop the [...] thyroid gland we will request it from [facility] requested repeat thyroid function studies thyroid antibodies [...] FOBT 2007 SIGMOIDOSCOPY 2007 VIRTUAL COLONOSCOPY 2007 RSV VACCINE (1 - Risk 50-74 years 1-dose series) 2012 ZOSTER VACCINES (1 of 2) 2012 PNEUMOCOCCAL VACCINES (50+ years) (2 of 2 - PCV) 07/22/2016 07/22/2015 DIABETIC EYE EXAM 12/09/2021 BLOOD PRESSURE 09/05/2024 03/08/2024 HEMOGLOBIN A1C 09/05/2024 03/08/2024, 09/01, 01/26/2023, Additional history exists CREATININE LEVEL 09/13/2024 09/14/2023, , 07/15/2022, Additional history exists URINE MICROALBUMIN/CREATININE RATIO 09/13/2024 09/14/2023, 03/19/2022 INFLUENZA VACCINE (#1) 2025 , 04/09/2019, 05/04/2018, Additional history exists COVID-19 VACCINE (2024- season) 2025 HEPATITIS A VACCINES Aged Out No long [...] URINE MICROALBUMIN <1.2 0 - 2.3 mg/dL [facility] URINE CREATININE 50 mg/dL [facility] MICROALB/CRE RATIO NOT CALCULATED 0 - 20 mg/g Cre [facility] Comment:due to Microalbumin <1.2 Urine (Urine) 09/14/2023 8:3 0 AM EDT 09/14/2023 8:39 AM EDT Dg Vigilasio DO URINE ORDERABLES Final Result [facility] [address] [place] [address] * (ABNORMAL) Comprehensive metabolic panel (09/14/2023 8:15 AM EDT) SODIUM 140 133 - 146 mmol/L [facility] POTASSIUM 4.8 3.3 - 5.1 mmol/L [facility] CHLORIDE 105 96 - 108 mmol/L [facility] CO2 25 21 - 35 mmol/L [facility] BUN 23(H) 6 - 19 mg/dL [facility] CREATININE 0.80 0.5 - 1.5 mg/dL [facility] GLUCOSE 169(H) 70 - 99 mg/dL [facility] ALBUMIN 4.4 3.9 - 4.8 g/dL [facility] TOTAL PROTEIN 6.8 6.5 - 8.0 g/dL [facility] CALCIUM 11.3(H) 8.4 - 10.3 mg/dL [facility] ALKALINE PHOSPHATASE 114 39 - 117 U/L [facility] TOTAL BILIRUBIN 0.3 0.0 - 1.2 mg/dL [facility] AST 30 0 - 37 U/L [facility] ALT 25 0 - 40 U/L [facility] GLOBULIN 2.4 1 - 4.8 g/dL [facility] EGFR 84 >59 mL/min/1.7 3m2 [facility] Comment:Estimated glomerular filtration rate calculated using the CKD-EPI refit equation. ANION GAP 15 10 - 20 mmol/L [facility] Blood 09/14/2023 8:15 AM EDT 09/14/2023 8:18 AM EDT us Dg Hendersonkrystin COBB LAB BLOOD ORDERABLES Final Resul t [facility] [address] [place] [address] from Last 3 Months or Most Recently [...] NON NSPG PCP [employer] Care Teams Chief Digital Officer Relationship Specialty Start Date End Date Mulugeta Bowles MD [address] [place] [address] PCP - General Family Medicine 01/06/22 Additional Source Comments The information contained in this document represents components of the legal health record. It is not the complete legal health record.[facility]
== END 2025-04-17 10:42 | disposition home or self-care (01) ==
LOC: HO.HMCFM 09:13
PROVIDERS: PCP Family Medicine; Visit Provider Family Medicine
DX: E11.41 Type 2 diabetes mellitus with diabetic mononeuropathy (principal); R11.0 Nausea; Z71.85 Encounter for immunization safety counseling; Z23 Encounter for immunization

== ENCOUNTER → 2025-04-17 09:13 | Outpatient (BNVA) | payer OTHER, SELFPAY ==
[2025-02-22 13:44] VITALS: BP 112/70; BP 126/76; BMI 24.6
== END ==
PROVIDERS: PCP Family Medicine; Visit Provider Family Medicine
DX: E11.41 Type 2 diabetes mellitus with diabetic mononeuropathy (principal); R11.0 Nausea; Z23 Encounter for immunization; Z71.85 Encounter for immunization safety counseling; Z79.899 Other long term (current) drug therapy
CPT/HCPCS: 90471; 90656; 96127; 99212

== ENCOUNTER 2025-04-25 13:09 | Outpatient (REF) | payer OTHER, SELFPAY ==
[2025-02-22 13:44] VITALS: BP 112/70; BP 126/76; BMI 24.6
--- OUTSIDE RECORDS SUMMARY | 2025-04-25 18:01 | XMS_ITS | Clinical Summary ---
Author Organization [employer] Address [address] [facility] [address] [place] [address] Care Team Providers Care Development Officer Name Role Phone Unavailable Primary Care Provider [...]
== END 2025-04-25 13:10 | disposition home or self-care (01) ==
LOC: HO.LAB 13:09
PROVIDERS: PCP Family Medicine; Visit Provider Internal Medicine
DX: E11.65 Type 2 diabetes mellitus with hyperglycemia (principal); E04.2 Nontoxic multinodular goiter; R63.4 Abnormal weight loss; Z68.1 Body mass index [BMI] 19.9 or less, adult; Z79.84 Long term (current) use of oral hypoglycemic drugs; Z79.899 Other long term (current) drug therapy
CPT/HCPCS: 36415; 82947; 84443; 86376; 99212

== ENCOUNTER 2025-04-25 13:09 | Outpatient (AMB) | payer OTHER, SELFPAY ==
[2025-02-22 13:44] VITALS: BP 112/70; BP 126/76; BMI 24.6
--- NOTE | 2025-04-25 13:12 | A.OFFVIS_ITS ---
Vital Signs 04/25/25 13:13 Height 5 ft 5 in Weight 117 lb 15.157 oz BMI 19.6 BP 110/66 Blood Pressure Location Rt brachial Position Sitting Pulse 60 Pulse Source Pulse Oximeter Pulse Oximetry (%) 96 Oxygen Delivery Method Room Air Intake Visit Reasons: T2DM Intake Note: Patient present today for a follow-up on Type 2 Diabetes Mellitus Last Diabetic eye exam: 12/06/2024 Last Podiatry Visit: Patient does not see a Access Tech Most Recent HgA1C: 7.1%, 02/20/2025 Random Glucose: 163 mg/dL 1:19 PM Accompanied by: Significant Other Allergies clavulanic acid (Augmentin) Allergy (Unknown, Verified 04/25/25 13:16) hives penicillin V Allergy (Unknown, Verified 04/25/25 13:16) hives HPI Comments Details: 64-year-old female here today for follow up of T2DM and hyperparathyroidism and nontoxic multinodular goiter. Here today with Past medical history type 2 diabetes, hyperparathyroidism, dyslipidemia, CAD Type 2 diabetes mellitus diagnosed with diabetes around 2003. A1c 06/18/2024:7.3% a1c 10/29/24: POC 6.6.% a1c POC 02/20/25 7.1% Prior medications Glyburide discontinued late May 2024 when Trulicity started . She had some hypoglycemia with the medication Actos 15 mg daily (stopped 01/10 due to ankle swelling) Current medications metformin 1000 mg twice a day, Jardiance 25 mg daily , no yeast infections recently Trulicity 3 mg every week (started late May 2024, GI intolerance much better now a few times vomiting , increased October 2024) She is worried about significant weight loss since Jun 2024, 30+ pounds unintentional. She had positive cologuard and was referred to GI but didn't seem to follow up. She is overdue for TSH BG 121-156 average 139 checking 1.3 times daily. CGM for her was denied She was checking blood sugars 2 to 3 times a day. She states that after 20 years of picking her fingers she has no sensation to her fingers and at times we will miss or have to do a more sensitive area of her finger. She states that she does not have much sensation to the fingertips at all. Free style Jack 3 PA Denied. has a fam hx of type 1 dm. Mgm, mgf, aunt and niece have t1dm. Labs 06/19/2024 showed positive C-peptide of 1.89, negative islet cell and milla antibodies Complications Does have neuropathy Eye visit :: 12/06/2024, no retinpathy No kidney disease CV: Blood pressure today in the office is normal.. She is currently taking metoprolol 25 mg twice a day. No stroke, has history of CAD , followed with Dr. Farooq LDL 52 mg/dL from July 2024, down from 71 mg/dL from May 2023 on atorvastatin 80 mg. Not on ALTAGRACIA/ ARB. But is on jardiance 25 mg daily Labs from July 2024 showed normal urine microalbumin levels. Hyperparathyroidism Osteoporosis -She was previously seeing Dr. Rosado in [facility] for her hyperparathyroidism and DM Kidney stones 5 to 7 years ago, nothing recently No hematuria No fractures Osteoporosis:DEXA scan done at [facility] on 12/15/2022: Lumbar spine T-score-1.7, right hip T-score-0.4, right femoral neck T-score-1, left hip T-score-0.6, left hip femoral neck T-score-1.2, forearm T-score-2.5 consistent with osteoporosis. No calcium suppleements Milk in cereal every othr day , yogurt 4-5 times a week, cheese often With a history of nephrolithiasis, elevated 24 hour urine calcium levels and osteoporosis. Was referred to surgery in 2022 but backed out.She was evaluated by Dr. Estefany Caban at [facility], not interested in surgery at the time 2023 Exercise: twice a week , weights stretchng 1 hr Dentist : not seen recenlty Stopped taking vitamin D July 2024 as it was elevated at 69. Continues to take good amount of calcium in her diet Does osteoporosis classes workout at the [facility]. Labs from November 2024 showed hypercalciuria with 24 hour urine calcium elevated at 516. Interval history 12/25/2024 DEXA scan showed osteopenia of the spine with T-score of-2.1, osteopenia of the left total hip with T-score of-1.6, osteopenia of the left femoral neck with T-score of-1.7, osteopenia of the distal radius with T-score of -2. FRAX score major osteoporotic fracture 8.1%, hip fracture 1% She expresses that she doesnt want to do surgery. Nontoxic multinodular goiter Mark's thyroiditis Details not present but per note she has 2 right lobe nodules that has been biopsied and were found to be benign. Serial ultrasound monitoring was being done and showed stable size of the nodules. Due for repeat ultrasound in January 2025. 11/27/2024: Ultrasound of the thyroid repeated I reviewed the images myself which showed stable size of the right mid lobe 3.2 cm dominant nodule, mild increase in the size of the right isthmus 1.7 cm nodule, a right lower pole subcentimeter TR 4 category nodule, a left lower pole 1.2 cm nodule which is solid, isoechoic, taller than wide TR 4 category which was also only mildly increased in size, another left lower pole 1 cm nodule which has increased significantly in size which per my assessment is solid, hypoechoic, taller than wide, and the radiologist also reports punctate echogenic foci, TR 5 category. No records of biopsies done on the left side, would recommend FNA of the left lower pole 1 cm nodule. Interval history She was scheduled for FNA of the left lower pole 1 cm nodule on 02/06/2025, however she no showed to her appointment. She doesnt want to do the biopsy. Physical exam General: sitting comfortably in no acute distress HEENT: normocephalic/atraumatic, Neck: supple, symmetrical Cardiac: normal heart sounds Pulm: normal breath sounds B/L, no added breath sounds Abd: not distended, no tenderness Extremities: no edema, no signs of myxedema Neuro: AAO x3, Speech: normal, no facial droop, moving all 4 extremities Foot exam: 12/10/2024 Intact sensation to monofilament, intact pulses, well- perfused. Laboratory Tests 07/21/18 11/22/18 03/28/19 07:35 16:45 06:57 Creatinine Estimated GFR Glucose (Clinic) Hgb A1c (Clinic) C-Peptide Calcium 10.6 H 12.0 H D 10.9 H D Albumin Triglycerides Cholesterol LDL Cholesterol, Calc TSH PTH Intact Urine Creatinine Urine Microalbumin Islet Cell Ab Screen MILLA Antibody 02/04/20 08/25/22 06/01/23 08:58 07:55 07:55 Creatinine 0.78 Estimated GFR > 60 Glucose (Clinic) Hgb A1c (Clinic) C-Peptide Calcium 10.7 H 10.6 H 10.5 H Albumin 4.0 4.1 Triglycerides 79 Cholesterol 137 LDL Cholesterol, Calc 71 TSH 0.97 PTH Intact 137.8 H Urine Creatinine 64.99 Urine Microalbumin < 5.0 Islet Cell Ab Screen MILLA Antibody 01/02/24 06/18/24 06/18/24 17:30 10:04 10:21 Creatinine Estimated GFR Glucose (Clinic) 191 H Hgb A1c (Clinic) 7.2 H 7.3 H C-Peptide Calcium Albumin Triglycerides Cholesterol LDL Cholesterol, Calc TSH PTH Intact Urine Creatinine Urine Microalbumin Islet Cell Ab Screen MILLA Antibody 06/19/24 08:07 Creatinine Estimated GFR Glucose (Clinic) Hgb A1c (Clinic) C-Peptide 1.89 Calcium Albumin Triglycerides Cholesterol LDL Cholesterol, Calc TSH PTH Intact Urine Creatinine Urine Microalbumin Islet Cell Ab Screen NEGATIVE MILLA Antibody <5 Laboratory Tests 06/18/24 07/16/24 07/18/24 10:21 13:04 08:52 Sodium Potassium Creatinine Estimated GFR Glucose (Clinic) 189 H Random Glucose Hgb A1c (Clinic) 7.3 H Calcium Phosphorus Magnesium Total Bilirubin AST ALT Alkaline Phosphatase Alk Phos Bone Specific Total Protein Albumin Triglycerides Cholesterol LDL Cholesterol, Calc HDL Cholesterol Collgn I C-Telopeptide Vitamin B12 25-OH Vitamin D Total PTH Intact Ur Random Calcium 20.0 Urine Creatinine 76.17 Urine Microalbumin < 5.0 07/18/24 10/29/24 08:54 14:10 Sodium 140 Potassium 4.5 Creatinine 0.77 Estimated GFR > 60 Glucose (Clinic) 84 Random Glucose 145 H Hgb A1c (Clinic) Calcium 10.3 H Phosphorus 2.9 Magnesium 1.9 Total Bilirubin 0.7 AST 31 ALT 36 H Alkaline Phosphatase 89 Alk Phos Bone Specific 13.1 Total Protein 6.6 Albumin 4.3 Triglycerides 106 Cholesterol 112 LDL Cholesterol, Calc 52 HDL Cholesterol 39 L Collgn I C-Telopeptide 816 Vitamin B12 319 25-OH Vitamin D Total 69.0 PTH Intact 156.7 H Ur Random Calcium Urine Creatinine Urine Microalbumin Laboratory Tests 11/01/24 07:15 Ur 24 Hour Volume 3090 Ur Creatinine mg/dL 27.40 Ur Creatinine 24 Hour 0.8 L Ur Calcium 24 Hr 516 H Calcium/Creat 24 Hr 596 H EXAMINATION: DXA BONE DENSITY EXTREMITY 12/25/24 HISTORY: M81.0 Age-related osteoporosis without current pathological fracture/E21.3 TECHNIQUE: GCD Systeme Dual energy absorptiometry (DEXA) of the lumbar spine, total left hip, femoral neck, and distal radius was performed. COMPARISON: Comparison is made with the prior examination dated 03/09/2016. FINDINGS: The bone mineral density of the lumbar spine is 0.929, corresponding to a T-score of -2.1, and a Z-score of -0.4. This is indicative of osteopenia. This represents a BMD change of -21.0% compared to the prior exam. This is statistically significant. The bone mineral density of the left total hip is 0.803, corresponding to a T-score of -1.6, and a Z-score of -0.3. This is indicative of osteopenia. This represents a BMD change of -34.4% compared to the prior exam. This is statistically significant. The bone mineral density of the left femoral neck is 0.801, corresponding to a T-score of -1.7, and a Z-score of -0.1. This is indicative of osteopenia. This represents a BMD change of -26.4% compared to the prior exam. The bone mineral density of the distal radius is 0.701, corresponding to a T-score of -2.0, and a Z-score of -0.9. This is indicative of osteopenia. This represents a BMD change of -26.1% compared to the prior exam. This is statistically significant. FRACTURE RISK: The FRAX index suggests a ten year probability of major osteoporotic fracture of 8.1%, and of hip fracture 1.0%. MM/XR DEXA appendicular skeleton IMPRESSION: Based on bone mineral density, and according to World Health Organization (WHO) criteria, the diagnosis is consistent with osteopenia. US THYROID 11/27/24 CLINICAL INFORMATION: Goiter COMPARISON: November 03, 2015. Prior biopsy, benign. TECHNIQUE: Linear transducer grayscale and color Doppler examination with attention to the region of the thyroid. FINDINGS: SIZE: Measurements of the thyroid lobes and nodules are given in sagittal, anteroposterior and transverse dimensions respectively. Right Thyroid Lobe: 5.6 x 3.1 x 3.0 cm, volume 26.5 mL. Previous: 4.9 x 3.3 x 2.9 cm, volume: 24.9 cc. Parenchyma: The gland echotexture is heterogeneous. Thyroid vascularity is increased. Left Thyroid Lobe: 4.6 x 1.9 x 1.5 cm, volume 7.2 mL. Previous: 4.2 x 1.2 x 1.6 cm, volume: 4.0 cc. Parenchyma: The gland echotexture is heterogeneous. Thyroid vascularity is increased. Isthmus: 0.2 cm in maximum AP dimension. Previous: 0.4 cm. Estimated total number of nodules greater than or equal to 1 cm: 4. Browning [employer]or nodules are described as follows: 1. Location: Mid, right thyroid lobe.. Size: 3.2 x 2.5 x 2.7 cm, volume 11.4 mL. Previous: 3.1 x 2.9 x 2.5 cm, volume: 11.7 cc. Nodule characteristics: Composition: Solid (2). Echogenicity: Hyperechoic (1). Shape: Not taller than wide (0). Margins: Smooth (0). Echogenic Foci: Macrocalcifications (1). ACR TI-RADS total points: 4 ACR TI-RADS category: 4 2. Location: Right side of the isthmus. Size: 1.7 x 1.2 x 1.5 cm, volume 1.6 mL. Previous: 0.9 x 1.4 x 1.8 cm, volume: 1.2 cc. Nodule characteristics: Composition: Solid/almost completely solid (2). Echogenicity: Hyperechoic (1). Shape: Not taller than wide (0). Margins: Smooth (0). Echogenic Foci: Punctate echogenic foci (3). ACR TI-RADS total points: 6 ACR TI-RADS category: 4 3. Location: Lower pole right thyroid lobe. Size: 0.7 x 0.9 x 0.9 cm, volume 0.3 mL. Nodule characteristics: Composition: Solid (2). Echogenicity: Hyperechoic (1). Shape: Not taller than wide (0). Margins: Smooth (0). Echogenic Foci: Macrocalcifications (1). ACR TI-RADS total points: 4 ACR TI-RADS category: 4 4. Location: Lower pole left thyroid lobe. Size: 1.2 x 0.7 x 0.6 cm, volume 0.3 mL. Previous: 0.8 x 0.7 x 0.6 cm, volume: 0.2 cc. Nodule characteristics: Composition: Solid/almost completely solid (2). Echogenicity: Isoechoic (1). Shape: Taller than wide (3). Margins: Smooth (0). Echogenic Foci: None (0). ACR TI-RADS total points: 6 ACR TI-RADS category: 4 5. Location: Lower pole left thyroid lobe. Size: 1.0 x 0.9 x 0.8 cm, volume 0.4 mL. Previous: 0.7 x 0.7 x 0.5 cm, volume: 0.1 cc. Nodule characteristics: Composition: Solid (2). Echogenicity: Isoechoic (1). Shape: Taller than wide (3). Margins: Smooth (0). Echogenic Foci: Punctate echogenic foci (3). ACR TI-RADS total points: 9 ACR TI-RADS category: 5 NODES: No lymphadenopathy is seen in the tissue surrounding the thyroid gland. US/US thyroid IMPRESSION: ACR TI-RADS 4 and 5. Definitive diagnosis by tissue sampling. [facility], [facility] Medical History (Updated 04/25/25 @ 14:08 by Adrianne Haney MD) Multinodular goiter Hx of cataract T2DM (type 2 diabetes mellitus) Surgical History History of cataract surgery History of coronary artery stent placement History of hemorrhoids History of tubal ligation History of section Family History Father No problems noted. Mother Breast cancer CVD (cardiovascular disease) Diabetes mellitus Maternal Grandmother Melanoma Sister No problems noted. Son No problems noted. Son No problems noted. Son No problems noted. Son Sleep apnea Daughter No problems noted. Daughter No problems noted. 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 Current occupational exposures/hazards: No Sexual orientation: Straight/Heterosexual Gender identity: Female Cognitive needs: No Hearing needs: No Vision needs: Yes (Glasses) Female Reproductive History Menstrual Age of Menarche: 15 Physical Exam Vital Signs: Last Vital Signs Pulse 60 04/25/25 13:13 BP 110/66 04/25/25 13:13 Pulse Ox 96 04/25/25 13:13 Oxygen Delivery Method Room Air 04/25/25 13:13 BMI result Body Mass Index 19.6 Results Reviewed Results Reviewed: Laboratory Last Values Glucose (Clinic) 163 mg/dL (60-115) H 04/25/25 13:18 Assessment & Plan Assessment & Plan (1) Diabetes type 2, uncontrolled: Code(s): E11.65 - Type 2 diabetes mellitus with hyperglycemia Category: Medical Qualifiers: Glycemic state: with hyperglycemia Qualified Code(s): E11.65 - Type 2 diabetes mellitus with hyperglycemia Plan Type 2 diabetes, uncontrolled No interval hypoglycemia She has lost more weight. Unusual for the trulicity to result in as much weight loss, patient needs to follow up with GI for colonoscopy, have TSH checked. We will increase the trulicity today. Did discuss that potentially we might have to try off of this due to weight loss. Could consider glyburide/glipizide with acarbose or insulin therapy Treat hypoglycemia by rules of 15s She will follow up in 4-6 weeks due for A1C or sooner as needed Orders: Orders TSH reflex Free T4 Today E04.2 - Nontoxic multinodular goiter, R63.4 - Abnormal weight loss Thyroid Peroxidase Antibodies Today E04.2 - Nontoxic multinodular goiter, R63.4 - Abnormal weight loss Medications: New dulaglutide (Trulicity) 4.5 mg (0.5 mL) subcut QWEEK 2 mL 3RF Discontinued dulaglutide (Trulicity) Discontinued Reason: Doctor's Order 3 mg (0.5 mL) subcut QWEEK 2 mL 7RF Coding Level of Care Code Est Pt Level 4 (48129) Diagnoses Uncontrolled type 2 diabetes mellitus with hyperglycemia E11.65 Glycemic state: with hyperglycemia
[2025-04-25 13:13] VITALS: BP 110/66; PULSE 60; O2SAT 96; BMI 19.6
[2025-04-25 13:22] LABS: Glucose, Whole Blood 163 mg/dL (60-115)
--- OUTSIDE RECORDS SUMMARY | 2025-04-25 16:33 | XMS_ITS | Clinical Summary ---
Author Organization [facility] Address [address] [facility] [address] [place] [id number] Phone Care Team Providers Care Trip Rider Name Role Phone Mulugeta Bowles MD Primary [...] her for surgical evaluation for parathyroidectomy at [facility]. Assessment & Plan (10/27/2022 12:01 PM [...] antibodies. These labs were previously done at [facility] and was found to be in [...] doing and at the 3-month time then order picker/assembler Jardiance 25 mg and stop the glipizide [...] thyroid gland we will request it from [facility] requested repeat thyroid function studies thyroid [...] URINE MICROALBUMIN <1.2 0 - 2.3 mg/dL [facility] URINE CREATININE 50 mg/dL [facility] MICROALB/CRE RATIO NOT CALCULATED 0 - 20 mg/g Cre [facility] Comment:due to Microalbumin <1.2 Urine (Urine) 09/14/2023 8:3 0 AM EDT 09/14/2023 8:39 AM EDT Dg Vigilasio DO URINE ORDERABLES Final Result [facility] [address] [place] [address] * (ABNORMAL) Comprehensive metabolic panel (09/14/2023 8:15 AM EDT) SODIUM 140 133 - 146 mmol/L [facility] POTASSIUM 4.8 3.3 - 5.1 mmol/L [facility] CHLORIDE 105 96 - 108 mmol/L [facility] CO2 25 21 - 35 mmol/L [facility] BUN 23(H) 6 - 19 mg/dL [facility] CREATININE 0.80 0.5 - 1.5 mg/dL [facility] GLUCOSE 169(H) 70 - 99 mg/dL [facility] ALBUMIN 4.4 3.9 - 4.8 g/dL [facility] TOTAL PROTEIN 6.8 6.5 - 8.0 g/dL [facility] CALCIUM 11.3(H) 8.4 - 10.3 mg/dL [facility] ALKALINE PHOSPHATASE 114 39 - 117 U/L [facility] TOTAL BILIRUBIN 0.3 0.0 - 1.2 mg/dL [facility] AST 30 0 - 37 U/L [facility] ALT 25 0 - 40 U/L [facility] GLOBULIN 2.4 1 - 4.8 g/dL [facility] EGFR 84 >59 mL/min/1.7 3m2 [facility] Comment:Estimated glomerular filtration rate calculated using the CKD-EPI refit equation. ANION GAP 15 10 - 20 mmol/L [facility] Blood 09/14/2023 8:15 AM EDT 09/14/2023 8:18 AM EDT us Dg Hendersonkrystin COBB LAB BLOOD ORDERABLES Final Resul t [facility] [address] [place] [address] from Last 3 Months or Most Recently [...] NON NSPG PCP [employer] [employer] Care Teams Trip Rider Relationship Specialty Start Date End Date Mulugeta Bowles MD [address] [place] [address] PCP - General Family Medicine 01/06/22 Additional Source Comments The information contained in this document represents components of the legal health record. It is not the complete legal health record.[facility]
== END 2025-04-25 14:06 | disposition home or self-care (01) ==
LOC: HO.ENCR 13:10
PROVIDERS: PCP Family Medicine; Visit Provider Internal Medicine
DX: E11.65 Type 2 diabetes mellitus with hyperglycemia (principal)

== ENCOUNTER 2025-06-06 13:12 | Outpatient (AMB) | payer OTHER, SELFPAY ==
[2025-02-22 13:44] VITALS: BP 112/70; BP 126/76; BMI 24.6
--- NOTE | 2025-06-06 13:15 | A.OFFVIS_ITS ---
Vital Signs 06/06/25 13:18 Height 5 ft 5 in Weight 112 lb 6.972 oz BMI 18.7 BP 100/60 Blood Pressure Location Rt brachial Position Sitting Pulse 63 Pulse Source Pulse Oximeter Pulse Oximetry (%) 100 Oxygen Delivery Method Room Air Intake Visit Reasons: T2DM Intake Note: Patient present today for a follow-up on Type 2 Diabetes Mellitus Last Diabetic eye exam: 12/06/2024 Last Podiatry Visit: Patient does not see a Wood Last Maker Most Recent HgA1C: 6.8%, 06/06/2025 Random Glucose: 175 mg/dL Express Manager Required: No Accompanied by: Self / Same As Patient Allergies clavulanic acid (Augmentin) Allergy (Unknown, Verified 06/06/25 13:22) hives penicillin V Allergy (Unknown, Verified 06/06/25 13:22) hives HPI Comments Details: 64-year-old female here today for follow up of T2DM. She also follows with endocrine for hyperparathyroidism and nontoxic multinodular goiter. Here today with Past medical history type 2 diabetes, hyperparathyroidism, dyslipidemia, CAD Diagnosed with diabetes around 2003. A1C today 6.9% from POC 02/20/25 7.1% A1c 10/29/24: POC 6.6.% A1c 06/18/2024:7.3% Prior medications Glyburide discontinued late May 2024 when Trulicity started . She had some hypoglycemia with the medication Actos 15 mg daily (stopped 01/10 due to ankle swelling) Current medications metformin 1000 mg twice a day, Jardiance 25 mg daily , no yeast infections recently Trulicity 4.5mg every week (increased last visit. started late May 2024) She is worried about significant weight loss since Jun 2024, 30+ pounds unintentional. She had positive cologuard and was referred to GI but didn't seem to follow up though now has follow up scheduled in July. Her TSH is 0.58. With the increase of trulicity from 3 to 4.5 she lost another 5 pounds but she does tell me her weight is now stable and always 110 or above. We discussed stopping trulicity and starting glipizide ER if she loses additional weight Traditional glucometer. Checking 1.3/day. Range 93-160 with average 117 She states that after 20 years of picking her fingers she has no sensation to her fingers and at times we will miss or have to do a more sensitive area of her finger. She states that she does not have much sensation to the fingertips at all. Free style Jack 3 PA was denied. has a fam hx of type 1 dm. Mgm, mgf, aunt and niece have t1dm. Labs 06/19/2024 showed positive C-peptide of 1.89, negative islet cell and milla antibodies Complications Does have neuropathy Eye visit :: 12/06/2024, no retinpathy No kidney disease CV: Blood pressure today in the office is normal.. She is currently taking metoprolol 25 mg twice a day. No stroke, has history of CAD , followed with Dr. Farooq LDL 52 mg/dL from July 2024, down from 71 mg/dL from May 2023 on atorvastatin 80 mg. Not on ALTAGRACIA/ ARB. But is on jardiance 25 mg daily Labs from July 2024 showed normal urine microalbumin levels. Hyperparathyroidism Osteoporosis -She was previously seeing Dr. Rosado in [facility] for her hyperparathyroidism and DM Kidney stones 5 to 7 years ago, nothing recently No hematuria No fractures Osteoporosis:DEXA scan done at [facility] on 12/15/2022: Lumbar spine T-score-1.7, right hip T-score-0.4, right femoral neck T-score-1, left hip T-score-0.6, left hip femoral neck T-score-1.2, forearm T-score-2.5 consistent with osteoporosis. No calcium suppleements Milk in cereal every othr day , yogurt 4-5 times a week, cheese often With a history of nephrolithiasis, elevated 24 hour urine calcium levels and osteoporosis. Was referred to surgery in 2022 but backed out.She was evaluated by Dr. Estefany Caban at [facility], not interested in surgery at the time 2023 Exercise: twice a week , weights stretchng 1 hr Dentist : not seen recenlty Stopped taking vitamin D July 2024 as it was elevated at 69. Continues to take good amount of calcium in her diet Does osteoporosis classes workout at the [facility]. Labs from November 2024 showed hypercalciuria with 24 hour urine calcium elevated at 516. Interval history 12/25/2024 DEXA scan showed osteopenia of the spine with T-score of-2.1, osteopenia of the left total hip with T-score of-1.6, osteopenia of the left femoral neck with T-score of-1.7, osteopenia of the distal radius with T-score of -2. FRAX score major osteoporotic fracture 8.1%, hip fracture 1% She expresses that she doesnt want to do surgery. Nontoxic multinodular goiter Mark's thyroiditis Details not present but per note she has 2 right lobe nodules that has been biopsied and were found to be benign. Serial ultrasound monitoring was being done and showed stable size of the nodules. Due for repeat ultrasound in January 2025. 11/27/2024: Ultrasound of the thyroid repeated I reviewed the images myself which showed stable size of the right mid lobe 3.2 cm dominant nodule, mild increase in the size of the right isthmus 1.7 cm nodule, a right lower pole subcentimeter TR 4 category nodule, a left lower pole 1.2 cm nodule which is solid, isoechoic, taller than wide TR 4 category which was also only mildly increased in size, another left lower pole 1 cm nodule which has increased significantly in size which per my assessment is solid, hypoechoic, taller than wide, and the radiologist also reports punctate echogenic foci, TR 5 category. No records of biopsies done on the left side, would recommend FNA of the left lower pole 1 cm nodule. Interval history She was scheduled for FNA of the left lower pole 1 cm nodule on 02/06/2025, however she no showed to her appointment. She doesnt want to do the biopsy. Physical exam General: sitting comfortably in no acute distress HEENT: normocephalic/atraumatic, Neck: supple, symmetrical Cardiac: normal heart sounds Pulm: normal breath sounds B/L, no added breath sounds Abd: not distended, no tenderness Extremities: no edema, no signs of myxedema Neuro: AAO x3, Speech: normal, no facial droop, moving all 4 extremities Foot exam: 12/10/2024 Intact sensation to monofilament, intact pulses, well- perfused. Laboratory Tests 07/21/18 11/22/18 03/28/19 07:35 16:45 06:57 Creatinine Estimated GFR Glucose (Clinic) Hgb A1c (Clinic) C-Peptide Calcium 10.6 H 12.0 H D 10.9 H D Albumin Triglycerides Cholesterol LDL Cholesterol, Calc TSH PTH Intact Urine Creatinine Urine Microalbumin Islet Cell Ab Screen MILLA Antibody 02/04/20 08/25/22 06/01/23 08:58 07:55 07:55 Creatinine 0.78 Estimated GFR > 60 Glucose (Clinic) Hgb A1c (Clinic) C-Peptide Calcium 10.7 H 10.6 H 10.5 H Albumin 4.0 4.1 Triglycerides 79 Cholesterol 137 LDL Cholesterol, Calc 71 TSH 0.97 PTH Intact 137.8 H Urine Creatinine 64.99 Urine Microalbumin < 5.0 Islet Cell Ab Screen MILLA Antibody 01/02/24 06/18/24 06/18/24 17:30 10:04 10:21 Creatinine Estimated GFR Glucose (Clinic) 191 H Hgb A1c (Clinic) 7.2 H 7.3 H C-Peptide Calcium Albumin Triglycerides Cholesterol LDL Cholesterol, Calc TSH PTH Intact Urine Creatinine Urine Microalbumin Islet Cell Ab Screen MILLA Antibody 06/19/24 08:07 Creatinine Estimated GFR Glucose (Clinic) Hgb A1c (Clinic) C-Peptide 1.89 Calcium Albumin Triglycerides Cholesterol LDL Cholesterol, Calc TSH PTH Intact Urine Creatinine Urine Microalbumin Islet Cell Ab Screen NEGATIVE MILLA Antibody <5 Laboratory Tests 06/18/24 07/16/24 07/18/24 10:21 13:04 08:52 Sodium Potassium Creatinine Estimated GFR Glucose (Clinic) 189 H Random Glucose Hgb A1c (Clinic) 7.3 H Calcium Phosphorus Magnesium Total Bilirubin AST ALT Alkaline Phosphatase Alk Phos Bone Specific Total Protein Albumin Triglycerides Cholesterol LDL Cholesterol, Calc HDL Cholesterol Collgn I C-Telopeptide Vitamin B12 25-OH Vitamin D Total PTH Intact Ur Random Calcium 20.0 Urine Creatinine 76.17 Urine Microalbumin < 5.0 07/18/24 10/29/24 08:54 14:10 Sodium 140 Potassium 4.5 Creatinine 0.77 Estimated GFR > 60 Glucose (Clinic) 84 Random Glucose 145 H Hgb A1c (Clinic) Calcium 10.3 H Phosphorus 2.9 Magnesium 1.9 Total Bilirubin 0.7 AST 31 ALT 36 H Alkaline Phosphatase 89 Alk Phos Bone Specific 13.1 Total Protein 6.6 Albumin 4.3 Triglycerides 106 Cholesterol 112 LDL Cholesterol, Calc 52 HDL Cholesterol 39 L Collgn I C-Telopeptide 816 Vitamin B12 319 25-OH Vitamin D Total 69.0 PTH Intact 156.7 H Ur Random Calcium Urine Creatinine Urine Microalbumin Laboratory Tests 11/01/24 07:15 Ur 24 Hour Volume 3090 Ur Creatinine mg/dL 27.40 Ur Creatinine 24 Hour 0.8 L Ur Calcium 24 Hr 516 H Calcium/Creat 24 Hr 596 H EXAMINATION: DXA BONE DENSITY EXTREMITY 12/25/24 HISTORY: M81.0 Age-related osteoporosis without current pathological fracture/E21.3 TECHNIQUE: [place] Dual energy absorptiometry (DEXA) of the lumbar spine, total left hip, femoral neck, and distal radius was performed. COMPARISON: Comparison is made with the prior examination dated 03/09/2016. FINDINGS: The bone mineral density of the lumbar spine is 0.929, corresponding to a T-score of -2.1, and a Z-score of -0.4. This is indicative of osteopenia. This represents a BMD change of -21.0% compared to the prior exam. This is statistically significant. The bone mineral density of the left total hip is 0.803, corresponding to a T-score of -1.6, and a Z-score of -0.3. This is indicative of osteopenia. This represents a BMD change of -34.4% compared to the prior exam. This is statistically significant. The bone mineral density of the left femoral neck is 0.801, corresponding to a T-score of -1.7, and a Z-score of -0.1. This is indicative of osteopenia. This represents a BMD change of -26.4% compared to the prior exam. The bone mineral density of the distal radius is 0.701, corresponding to a T-score of -2.0, and a Z-score of -0.9. This is indicative of osteopenia. This represents a BMD change of -26.1% compared to the prior exam. This is statistically significant. FRACTURE RISK: The FRAX index suggests a ten year probability of major osteoporotic fracture of 8.1%, and of hip fracture 1.0%. MM/XR DEXA appendicular skeleton IMPRESSION: Based on bone mineral density, and according to World Health Organization (WHO) criteria, the diagnosis is consistent with osteopenia. US THYROID 11/27/24 CLINICAL INFORMATION: Goiter COMPARISON: November 03, 2015. Prior biopsy, benign. TECHNIQUE: Linear transducer grayscale and color Doppler examination with attention to the region of the thyroid. FINDINGS: SIZE: Measurements of the thyroid lobes and nodules are given in sagittal, anteroposterior and transverse dimensions respectively. Right Thyroid Lobe: 5.6 x 3.1 x 3.0 cm, volume 26.5 mL. Previous: 4.9 x 3.3 x 2.9 cm, volume: 24.9 cc. Parenchyma: The gland echotexture is heterogeneous. Thyroid vascularity is increased. Left Thyroid Lobe: 4.6 x 1.9 x 1.5 cm, volume 7.2 mL. Previous: 4.2 x 1.2 x 1.6 cm, volume: 4.0 cc. Parenchyma: The gland echotexture is heterogeneous. Thyroid vascularity is increased. Isthmus: 0.2 cm in maximum AP dimension. Previous: 0.4 cm. Estimated total number of nodules greater than or equal to 1 cm: 4. Head Animal Trainer nodules are described as follows: 1. Location: Mid, right thyroid lobe.. Size: 3.2 x 2.5 x 2.7 cm, volume 11.4 mL. Previous: 3.1 x 2.9 x 2.5 cm, volume: 11.7 cc. Nodule characteristics: Composition: Solid (2). Echogenicity: Hyperechoic (1). Shape: Not taller than wide (0). Margins: Smooth (0). Echogenic Foci: Macrocalcifications (1). ACR TI-RADS total points: 4 ACR TI-RADS category: 4 2. Location: Right side of the isthmus. Size: 1.7 x 1.2 x 1.5 cm, volume 1.6 mL. Previous: 0.9 x 1.4 x 1.8 cm, volume: 1.2 cc. Nodule characteristics: Composition: Solid/almost completely solid (2). Echogenicity: Hyperechoic (1). Shape: Not taller than wide (0). Margins: Smooth (0). Echogenic Foci: Punctate echogenic foci (3). ACR TI-RADS total points: 6 ACR TI-RADS category: 4 3. Location: Lower pole right thyroid lobe. Size: 0.7 x 0.9 x 0.9 cm, volume 0.3 mL. Nodule characteristics: Composition: Solid (2). Echogenicity: Hyperechoic (1). Shape: Not taller than wide (0). Margins: Smooth (0). Echogenic Foci: Macrocalcifications (1). ACR TI-RADS total points: 4 ACR TI-RADS category: 4 4. Location: Lower pole left thyroid lobe. Size: 1.2 x 0.7 x 0.6 cm, volume 0.3 mL. Previous: 0.8 x 0.7 x 0.6 cm, volume: 0.2 cc. Nodule characteristics: Composition: Solid/almost completely solid (2). Echogenicity: Isoechoic (1). Shape: Taller than wide (3). Margins: Smooth (0). Echogenic Foci: None (0). ACR TI-RADS total points: 6 ACR TI-RADS category: 4 5. Location: Lower pole left thyroid lobe. Size: 1.0 x 0.9 x 0.8 cm, volume 0.4 mL. Previous: 0.7 x 0.7 x 0.5 cm, volume: 0.1 cc. Nodule characteristics: Composition: Solid (2). Echogenicity: Isoechoic (1). Shape: Taller than wide (3). Margins: Smooth (0). Echogenic Foci: Punctate echogenic foci (3). ACR TI-RADS total points: 9 ACR TI-RADS category: 5 NODES: No lymphadenopathy is seen in the tissue surrounding the thyroid gland. US/US thyroid IMPRESSION: ACR TI-RADS 4 and 5. Definitive diagnosis by tissue sampling. [facility] Medical History Multinodular goiter Hx of cataract T2DM (type 2 diabetes mellitus) Surgical History (Updated 06/06/25 @ 13:25 by JEREMY Wadsworth) Hx of wisdom tooth extraction History of cataract surgery History of coronary artery stent placement History of hemorrhoids History of tubal ligation History of section Family History Father No problems noted. Mother Breast cancer CVD (cardiovascular disease) Diabetes mellitus Maternal Grandmother Melanoma Sister No problems noted. Son No problems noted. Son No problems noted. Son No problems noted. Son Sleep apnea Daughter No problems noted. Daughter No problems noted. 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 Current occupational exposures/hazards: No Sexual orientation: Straight/Heterosexual Gender identity: Female Cognitive needs: No Hearing needs: No Vision needs: Yes (Glasses) Female Reproductive History Menstrual Age of Menarche: 15 Physical Exam Vital Signs: Last Vital Signs Pulse 63 06/06/25 13:18 BP 100/60 06/06/25 13:18 Pulse Ox 100 06/06/25 13:18 Oxygen Delivery Method Room Air 06/06/25 13:18 BMI result Body Mass Index 18.7 Results AMB Hemoglobin A1c AMB Hemoglobin A1c 6.8 % Last Edit by JEREMY Wadsworth on 06/06/25 14:16 Results Reviewed Results Reviewed: Laboratory Last Values Glucose (Clinic) 175 mg/dL (60-115) H 06/06/25 13:24 Assessment & Plan Assessment & Plan (1) Diabetes type 2, uncontrolled: Code(s): E11.65 - Type 2 diabetes mellitus with hyperglycemia Category: Medical Qualifiers: Glycemic state: with hyperglycemia Qualified Code(s): E11.65 - Type 2 diabetes mellitus with hyperglycemia (2) Multinodular goiter: Code(s): E04.2 - Nontoxic multinodular goiter Category: Medical (3) Hyperparathyroidism: Code(s): E21.3 - Hyperparathyroidism, unspecified Category: Medical (4) Osteoporosis: Code(s): M81.0 - Age-related osteoporosis without current pathological fracture Category: Medical Qualifiers: Osteoporosis type: age-related Presence of current pathological fracture: without current pathological fracture Qualified Code(s): M81.0 - Age- related osteoporosis without current pathological fracture Plan Diabetes with excellent control She feels weight is now stable. If weight drops trulicity will be discontinued and will start extended release glipizide. She wants to avoid insulin Treat hypoglycemia by rules of 15s Will need follow up for thyroid, parathyroid, osteoporosis. Follow up for diabetes 3 months Orders: Orders AMB Hemoglobin A1c Today E11.65 - Type 2 diabetes mellitus with hyperglycemia Coding Level of Care Code Est Pt Level 4 (88834) Diagnoses Uncontrolled type 2 diabetes mellitus with hyperglycemia E11.65 Glycemic state: with hyperglycemia Multinodular goiter E04.2 Hyperparathyroidism E21.3 Age-related osteoporosis without current pathological fracture M81.0 Osteoporosis type: age-related Presence of current pathological fracture: without current pathological fracture
[2025-06-06 13:18] VITALS: BP 100/60; PULSE 63; O2SAT 100; BMI 18.7
[2025-06-06 13:28] LABS: Glucose, Whole Blood 175 mg/dL (60-115)
--- OUTSIDE RECORDS SUMMARY | 2025-06-06 17:54 | XMS_ITS | Clinical Summary ---
Author Organization [facility] Address [address] [facility] [address] [place] [phone] Phone Care Team Providers Care Combine Inspector Name Role Phone Mulugeta Bowles MD Primary [...] her for surgical evaluation for parathyroidectomy at [facility]. Assessment & Plan (10/27/2022 12:01 PM [...] antibodies. These labs were previously done at [facility] and was found to be in the [...] doing and at the 3-month time then cloth picker Jardiance 25 mg and stop the [...] thyroid gland we will request it from [facility] requested repeat thyroid function studies thyroid antibodies [...] current use of insulin COMPREHENSIVE METABOLIC PANEL (CMP) Routine 09/14/2023 8:15 AM EDT Hyperparathyroidis m from Last 3 Months or Most Recently Relevant to Health Maintenance Results * (ABNORMAL) POCT Hemoglobin A1c (03/08/2024 1:29 PM EDT) Hemoglobin A1c 7.3(A) 4.2 - 5.8 % Other 03/08/2024 1:29 PM EDT us Dg Krishnamurthy DO LAB POCT ENTER/EDIT ORDERABLES F inal Result * Microalbumin/creatinine ratio, random urine (09/14/2023 8:30 AM EDT) URINE MICROALBUMIN <1.2 0 - 2.3 mg/dL [facility] URINE CREATININE 50 mg/dL [employer] [facility] MICROALB/CRE RATIO NOT CALCULATED 0 - 20 mg/g Cre [facility] Comment:due to Microalbumin <1.2 Urine (Urine) 09/14/2023 8:3 0 AM EDT 09/14/2023 8:39 AM EDT us Dg Krishnamurthy DO LAB URINE ORDERABLES Final Resul t [facility] [address] [place] [address] * (ABNORMAL) Comprehensive metabolic panel (09/14/2023 8:15 AM EDT) SODIUM 140 133 - 146 mmol/L [facility] POTASSIUM 4.8 3.3 - 5.1 mmol/L [facility] CHLORIDE 105 96 - 108 mmol/L [facility] CO2 25 21 - 35 mmol/L [facility] BUN 23(H) 6 - 19 mg/dL [facility] CREATININE 0.80 0.5 - 1.5 mg/dL [facility] GLUCOSE 169(H) 70 - 99 mg/dL [facility] ALBUMIN 4.4 3.9 - 4.8 g/dL [facility] TOTAL PROTEIN 6.8 6.5 - 8.0 g/dL [facility] CALCIUM 11.3(H) 8.4 - 10.3 mg/dL [facility] ALKALINE PHOSPHATASE 114 39 - 117 U/L [facility] TOTAL BILIRUBIN 0.3 0.0 - 1.2 mg/dL [facility] AST 30 0 - 37 U/L [facility] ALT 25 0 - 40 U/L [facility] GLOBULIN 2.4 1 - 4.8 g/dL [facility] EGFR 84 >59 mL/min/1.7 3m2 [facility] Comment:Estimated glomerular filtration rate calculated using the CKD-EPI refit equation. ANION GAP 15 10 - 20 mmol/L [facility] Blood 09/14/2023 8:15 AM EDT 09/14/2023 8:18 AM EDT us Dg Krishnamurthy DO LAB BLOOD BKR ORDERABLES Final R esult [facility] [address] [place] [id number] from Last 3 Months or Most Recently [...] NON NSPG PCP [employer] Care Teams Combine Inspector Relationship Specialty Start Date End Date Mulugeta Bowles MD PCP - General Family Medicine 01/06/22 Additional Source Comments The information contained in this document represents components of the legal health record. It is not the complete legal health record.[facility]
--- OUTSIDE RECORDS SUMMARY | 2025-06-06 17:55 | XMS_ITS | Clinical Summary ---
Author Organization [employer] Address [address] [facility] [address] [place] [address] Care Team Providers Care Strand Buncher Fine Wire Name Role Phone Unavailable Primary Care Provider [...]
== END 2025-06-06 13:58 | disposition home or self-care (01) ==
LOC: HO.ENCR 13:13
PROVIDERS: PCP Family Medicine; Visit Provider Internal Medicine
DX: E11.65 Type 2 diabetes mellitus with hyperglycemia (principal); E04.2 Nontoxic multinodular goiter; E21.3 Hyperparathyroidism, unspecified; M81.0 Age-related osteoporosis without current pathological fracture

== ENCOUNTER → 2025-06-06 13:12 | Outpatient (BNVA) | payer OTHER, SELFPAY ==
[2025-02-22 13:44] VITALS: BP 112/70; BP 126/76; BMI 24.6
== END ==
PROVIDERS: PCP Family Medicine; Visit Provider Internal Medicine
DX: E11.65 Type 2 diabetes mellitus with hyperglycemia (principal); E04.2 Nontoxic multinodular goiter; E21.3 Hyperparathyroidism, unspecified; M81.0 Age-related osteoporosis without current pathological fracture
CPT/HCPCS: 82947; 83036; 99212

== ENCOUNTER 2025-06-10 11:12 | Outpatient (AMB) | payer OTHER, SELFPAY ==
[2025-02-22 13:44] VITALS: BP 112/70; BP 126/76; BMI 24.6
--- NOTE | 2025-06-10 11:42 | A.OFFVIS_ITS ---
VS Expanded 06/10/25 11:46 Height 5 ft 5 in Weight 112 lb 6 oz BMI 18.7 Intake Visit Reasons: T2DM Allergies clavulanic acid (Augmentin) Allergy (Unknown, Verified 06/06/25 13:22) hives penicillin V Allergy (Unknown, Verified 06/06/25 13:22) hives Nutrition Presentation Details: Pt presents for MNT for T2DM Pt has lost 12 lbs since last visit in December 2024. Pt reports trulicity was recently discontinued and is now on glipizide, Pt is hoping this will help increase her appetite. Pt reports having concerns about possble increase in BG with DM changes, particularly since she likes the sweets. Typical meal intake bagel cream cheese , diluted juice with water snack: granola bar, or yogurt, celery/peanut butter lunch : whole food protein shake dinner: potato, beef and broccoli, cookies, water snack on veggies and peanut butter BS Monitoring Most Recent Diabetes Results: Creatinine, (0.5-1.4) 0.70 mg/dL 02/26/25 BUN, (9-16) 17 mg/dL H 02/26/25 Sodium, (135-145) 139 mmol/L 02/26/25 Potassium, (3.3-5.1) 5.1 mmol/L 02/26/25 Chloride, (96-108) 103 mmol/L 02/26/25 Carbon Dioxide, (22-29) 26 mmol/L 02/26/25 Calcium, (8.4-10.2) 11.2 mg/dL H Δ 02/26/25 AST, (5-31) 30 U/L 02/26/25 ALT, (0-31) 33 U/L H 02/26/25 Total Protein, (6.5-8.0) 6.3 g/dL L 02/26/25 Albumin, (3.5-5.0) 4.4 g/dL 02/26/25 [facility] Medical History Multinodular goiter Hx of cataract T2DM (type 2 diabetes mellitus) Surgical History (Updated 06/06/25 @ 13:25 by JEREMY Wadsworth) Hx of wisdom tooth extraction History of cataract surgery History of coronary artery stent placement History of hemorrhoids History of tubal ligation History of section Family History Father No problems noted. Mother Breast cancer CVD (cardiovascular disease) Diabetes mellitus Maternal Grandmother Melanoma Sister No problems noted. Son No problems noted. Son No problems noted. Son No problems noted. Son Sleep apnea Daughter No problems noted. Daughter No problems noted. 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 Current occupational exposures/hazards: No Sexual orientation: Straight/Heterosexual Gender identity: Female Cognitive needs: No Hearing needs: No Vision needs: Yes (Glasses) Female Reproductive History Menstrual Age of Menarche: 15 Assessment & Plan Assessment & Plan (1) T2DM (type 2 diabetes mellitus): Code(s): E11.9 - Type 2 diabetes mellitus without complications Category: Medical Qualifiers: Diabetes mellitus bed bug exterminator insulin use: without chcf use Diabetes mellitus complication status: with neurologic complications Diabetes mellitus complication detail: with mononeuropathy Qualified Code(s): E11.41 - Type 2 diabetes mellitus with diabetic mononeuropathy Plan: Wt: 63 Kg ( 07/28 ), 61 kg (09/25), 56kg(12/26), 50 kg (06/27) Est kcal needs as per MSJ: 1700 (40% carb, 30% protein/fat) Est fluid needs as per 25-30 ml/d: 1900 Est prot per day as per 1 g/kg bw: 63 Recommend fiber intake : 8-10 g per day and gradually increase to 25-28 g per day for women and 35-38 g for men or as tolerated Recommend sodium intake per day : less than 2000 mg Educated patient on: ( R = reviewed V = verbalizes understanding N/R = needs review N/A = not applicable * Discussed Prevention of further weight loss and promoting weight gain by: - Add a protein at breakfst (use cream cheese as a spread and add egg or roast beef or a protein of choice at breakfast - HAve 1/2 sandwich with a protein shake at lunch time (do not have the protein shake by itself- include at least 20- 30 g of protein at lunch) - add 2 tsp of oil to a meal 1-2 x/day (add oil to your serving ) Coding Level of Care Code Nutr Indiv Subseq (77617) Diagnoses Type 2 diabetes mellitus with diabetic mononeuropathy, without long-term current use of insulin E11.41 Diabetes mellitus bed bug exterminator insulin use: without bed bug exterminator use Diabetes mellitus complication status: with neurologic complications Diabetes mellitus complication detail: with mononeuropathy Time Spent (min) 30
[2025-06-10 11:46] VITALS: BMI 18.7
== END 2025-06-10 12:08 | disposition home or self-care (01) ==
LOC: HO.ENCR 11:12
PROVIDERS: PCP Family Medicine; Visit Provider Dietitian, Registered
DX: E11.41 Type 2 diabetes mellitus with diabetic mononeuropathy (principal)

== ENCOUNTER → 2025-06-10 11:12 | Outpatient (BNVA) | payer OTHER, SELFPAY ==
[2025-02-22 13:44] VITALS: BP 112/70; BP 126/76; BMI 24.6
== END ==
PROVIDERS: PCP Family Medicine; Visit Provider Dietitian, Registered
DX: E11.41 Type 2 diabetes mellitus with diabetic mononeuropathy (principal); Z71.3 Dietary counseling and surveillance
CPT/HCPCS: 97803

== ENCOUNTER 2025-06-22 18:35 | Emergency (ER) | payer OTHER, SELFPAY ==
[2025-02-22 13:44] VITALS: BP 112/70; BP 126/76; BMI 24.6
--- NOTE | ~2025-06-22 | CT_ITS ---
CLINICAL HISTORY: epigastric pain, unintentional weight loss CT abdomen and pelvis with contrast Comparison: None provided Findings: Study limited due to patient body habitus. Extensive unopacified bowel limits assessment. Apparent diffuse small bowel wall thickening. Somewhat congested appearance of adjacent fat. Consider infectious or inflammatory etiologies. Acute enteritis or inflammatory bowel disease possible. No significant bowel distention identified. Lung bases are clear. No acute bony abnormalities. Hepatomegaly without significant focal abnormality. Pancreas,spleen and adrenal glands unremarkable. Gallbladder is within normal limits. No significant focal renal abnormalities. Small nonobstructing left renal stone noted. Left parapelvic cysts without hydronephrosis. Abdominal aorta is normal in caliber. No free fluid or adenopathy in the pelvis. No diverticulitis. Appendix unremarkable. Uterus normal size. No adnexal abnormality. Impression: Diffuse small bowel wall thickening as above Consider inflammatory infectious etiologies Acute enteritis and inflammatory bowel disease both possible This document has been electronically signed by: Jamin Rodriguez MD on 06/23/2025 00:42:57
--- NOTE | 2025-06-22 18:45 | ED_ITS ---
HPI - Abdominal Pain General Chief Complaint: Abdominal Pain Stated Complaint: stomach pain Time Seen by Provider: 06/22/25 21:22 Source: patient Mode of arrival: ambulatory Limitations: no limitations History of Present Illness ED Provider: Dr. Schuler HPI narrative: This is a 64-year-old female presented hospital today for nausea vomiting and intermittent abdominal pain. Patient has history of diabetes. Hyperlipidemia CAD with cardiac stent in place. Patient stated that it started this afternoon. This the pain comes and go in nature. Denies any dysuria or hematuria. Denies any diarrhea. is also sick with the abdominal symptoms and vomiting. Related Data Home Medications ?Medication ?Instructions ?Recorded ?Confirmed lancets 33 gauge #100 ea 05/19/20 04/17/25 melatonin 5 mg tablet,immediate 5 mg PO BEDTIME 04/17/25 and extended release Previous Rx's ?Medication ?Instructions ?Recorded blood-glucose meter (FreeStyle #1 ea 09/09/21 Lite Meter kit) blood-glucose sensor (FreeStyle #2 ea 06/18/24 Jack 3 Plus Sensor device) blood-glucose,windlasser,cont #1 ea 06/18/24 (FreeStyle Jack 3 [place]) empagliflozin 25 mg tablet 25 mg PO DAILY #90 tabs (Jardiance) metformin 1,000 mg tablet 1,000 mg PO BID #180 tabs aspirin 81 mg tablet,delayed 81 mg PO DAILY 90 days #9 0 tabs 03/21/25 release (Adult Low Dose Aspirin) cyanocobalamin (vitamin B-12) 1,000 mcg PO DAILY #90 t abs 03/27/25 1,000 mcg tablet blood sugar diagnostic (FreeStyle #300 ea 03/28/25 Lite Strips) atorvastatin 80 mg tablet 80 mg PO DAILY 90 days #90 t abs 04/15/25 docusate sodium 100 mg capsule 100 mg PO BID #180 caps 04/15/25 (Colace) metoprolol tartrate 50 mg tablet 50 mg PO BID 90 days #180 tabs 05/22/25 glipizide 10 mg tablet, extended 20 mg (2 x 10 mg) PO DAILY #180 06/09/25 release 24 hr tabs lactulose 10 gram/15 mL oral 20 g (30 mL) PO TID PRN l axative 06/23/25 solution effect #473 mL omeprazole 20 mg capsule,delayed 20 mg PO DAILY 14 day s #14 caps 06/23/25 release ondansetron 4 mg disintegrating 4 mg PO Q8H PRN nausea and 06/23/25 tablet vomiting #14 tabs sennosides 8.6 mg tablet (senna) 8.6 mg PO DAILY 14 da ys #14 tabs 06/23/25 Allergies Allergy/AdvReac Type Severity Reaction Status Date / Time clavulanic acid (Augmentin) Allergy Unknown hives Verified 06/22/25 18:48 penicillin V Allergy Unknown hives Verified 06/22/25 18:48 Review of Systems Review of Systems Pertinent review of systems as mentioned in HPI. All other system otherwise negative. [facility] Past Medical History [facility] Narrative: Medical history as mentioned in HPI Medical History (Updated 06/23/25 @ 01:09 by Gracie Schuler DO) Multinodular goiter Hx of cataract T2DM (type 2 diabetes mellitus) Surgical History (Updated 06/06/25 @ 13:25 by JEREMY Wadsworth) Hx of wisdom tooth extraction History of cataract surgery History of coronary artery stent placement History of hemorrhoids History of tubal ligation History of section Family History Family History Father No problems noted. Mother Breast cancer CVD (cardiovascular disease) Diabetes mellitus Maternal Grandmother Melanoma Sister No problems noted. Son No problems noted. Son No problems noted. Son No problems noted. Son Sleep apnea Daughter No problems noted. Daughter No problems noted. 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 Current occupational exposures/hazards: No Sexual orientation: Straight/Heterosexual Gender identity: Female Cognitive needs: No Hearing needs: No Vision needs: Yes (Glasses) Physical Exam ED Exam Exam: General: Pleasant, no distress, interacting appropriately Head: Normacephalic, atraumatic ENT: oral mucosa moist, neck supple, no tracheal deviation Cardiovascular: regular rate, regular rhythm, no murmurs, rubbing, gallops Respiratory: CTAB, no wheeze, rales, rhonchi Gastrointestinal: Epigastric tenderness on palpation, no Ivy's signs Neurological: Awake and alert, no facial droop noted Skin: Warm and dry Psychiatric: Appropriate mood and thoughts Vital Signs: Vital Signs - 24 hr 06/22/25 18:46 06/22/25 20:40 06/22/25 23:50 Temperature 97.8 F 98.4 F 98.1 F Pulse Rate 101 H 89 69 Respiratory Rate 16 16 16 Blood Pressure 144/88 H 116/70 100/61 Pulse Oximetry 98 96 98 Oxygen Delivery Method Room Air Room Air Room Air BMI result Body Mass Index 19.0 Course Course Course Narrative: Charlotte Tirado BYPRODUCT ENGINEER 06/22 1845 This is a rapid medical exam. Deferred additional HPI, ROS, PE to primary provider. 64 yo female with PMH of CAD, DM here with complaints of abdominal pain, nausea/vomiting since 2pm. Recent changes to diabetic medications. Will order labs, UA VSS Medical Decision Making Medical Decision Making [facility] Narrative: 64-year-old female presented hospital today for nausea vomiting and epigastric pain that is intermittent in nature. The patient has been complaining of unintentional weight loss of 40 lb this past year. We will plan to obtain a CT abdomen and pelvis to assess for any cause of her unintentional weight loss including neoplasm. Patient states she has not moved her bowel in 4 days she feels constipated. We will obtain abdominal lab work as well. Viral swab will be obtained on patient. She has flu COVID and RSV negative. CT abdomen and pelvis shows diffuse small bowel thickening consistent with enteritis. Patient stated that she is feeling better after the medication. We will plan to give patient a dose of senna and lactulose for constipation. We will plan to prescribe a short course of omeprazole to take at home. Lab work did show slight leukocytosis 11.9, elevated BUN to creatinine ratio. Likely secondary to dehydration. Agreeable to this plan. Patient will be discharged. Differential Diagnosis Differential Diagnoses: The differential diagnosis associated with the presentation includes Neoplasm of the abdomen, nausea, vomiting, gastroenteritis Lab Data [facility] Lab Attestation statement: I reviewed the patient's lab results. 06/22/25 19:01 06/22/25 19:01 Labs: Lab Results 06/22/25 06/22/25 Range/Units 19:01 22:06 WBC 11.9 H (4.8-10.8) X10*3/uL RBC 5.19 (4.20-5.50) X10*6/uL Hgb 14.9 (12.0-16.0) g/dl Hct 45.7 (37.0-47.0) % MCV 88.1 (80.0-98.0) fL MCH 28.7 (27.0-33.0) pg MCHC 32.6 (31.0-35.0) g/dl RDW 13.4 (11.0-16.0) % Plt Count 241 (160-400) X10*3/uL MPV 8.4 L (9.4-12.3) fL Immature Gran % (Auto) 0.3 (0.0-0.4) % Neut % (Auto) 89.2 H (45-73) % Lymph % (Auto) 3.4 L (20-40) % Schleicher % (Auto) 5.1 (2-11) % Eos % (Auto) 1.4 (0-4) % Baso % (Auto) 0.6 (0-2) % Lymph # (Auto) 0.4 L (1.2-4.9) X10*3/uL Schleicher # (Auto) 0.6 (0.1-1.2) X10*3/uL Eos # (Auto) 0.2 (0.0-0.4) X10*3/uL Baso # (Auto) 0.1 (0.0-0.2) X10*3/uL Abs Immat Gran (auto) 0.04 H (0.00-0.03) X10*3/uL Absolute Neuts (auto) 10.6 H (2.0-8.3) x10*3/uL Absolute Nucleated RBC 0.000 (0.0-0.012) X10*3/uL Nucleated RBC % (auto) 0.0 (0.0-0.2) /100WBC Sodium 141 (135-145) mmol/L Potassium 4.5 (3.3-5.1) mmol/L Chloride 106 (96-108) mmol/L Carbon Dioxide 24 (22-29) mmol/L Anion Gap 16 (12-20) BUN 26 H (9-16) mg/dL Creatinine 0.64 (0.5-1.4) mg/dL Estim Creat Clear Calc 74.4 Estimated GFR > 60 Random Glucose 151 H (60-115) mg/dL Calcium 11.1 H (8.4-10.2) mg/dL Total Bilirubin 0.5 (0.0-1.0) mg/dL Direct Bilirubin 0.2 (0.0-0.5) mg/dL AST 34 H (5-31) U/L ALT 50 H (0-31) U/L Alkaline Phosphatase 93 (39-117) U/L Total Protein 6.5 (6.5-8.0) g/dL Albumin 4.5 (3.5-5.0) g/dL Lipase 38 (8-78) U/L Influenza Type A (PCR) NEGATIVE (Negative) Influenza Type B (PCR) NEGATIVE (Negative) RSV RNA Qual (PCR) NEGATIVE (Negative) SARS-CoV-2 RNA (RT-PCR) NEGATIVE (Negative) Independent Interpretation I performed an independent interpretation of an: CT Scan Radiology Impression Discussion of test interpretation with radiology: I have reviewed the radiologist's reading. Medications Administered Discontinued Medications Generic Name Dose Route Start Last Admin Trade Name Freq PRN Reason Stop Dose Admin Famotidine 20 mg 06/22/25 22:20 06/22/25 22:35 Famotidine/Pf 20 Mg/2 Ml Vial IVPUSH 06/22/25 22:21 20 mg ONCE ONE Administration Sodium Chloride 1,000 mls @ 999 mls/hr 06/22/25 21:45 06/22/25 23:18 Ns IV 06/22/25 22:45 Infused .Q1H1M MILAGROS Infusion Iohexol 100 ml 06/22/25 23:06 06/22/25 23:06 Iohexol 350 Mg/Ml 100 Ml Infus..Btl IV 06/22/25 23:07 85 ml ONCE ONE Administration Ondansetron HCl 4 mg 06/22/25 21:45 06/22/25 22:03 Ondansetron Hcl 4 Mg/2 Ml Vial IVPUSH 06/22/25 21:46 4 mg ONCE ONE Administration Discharge Plan Discharge Clinical Impression: Enteritis, Constipation Patient Disposition: Home, Self-Care Instructions: Constipation (ED), Enteritis (ED) Additional Instructions: Follow up with your primary care doctor to ensure you are feeling better Prescriptions: New omeprazole 20 mg capsule,delayed release(DR/EC) 20 mg PO DAILY 14 Days Qty: 14 0RF sennosides [senna] 8.6 mg tablet 8.6 mg PO DAILY 14 Days Qty: 14 0RF lactulose 10 gram/15 mL solution 20 g PO TID PRN (Reason: laxative effect) Qty: 473 0RF No Action Jardiance 25 mg tablet 25 mg PO DAILY Qty: 90 3RF aspirin [Adult Low Dose Aspirin] 81 mg tablet,delayed release (DR/EC) 81 mg PO DAILY 90 Days Qty: 90 3RF cyanocobalamin (vitamin B-12) 1,000 mcg tablet 1,000 mcg PO DAILY Qty: 90 1RF (DME) FreeStyle Lite Strips Strip See Rx Instructions .ROUTE .MEDSUPPLY Qty: 300 4RF Rx Instructions: DX: E11.9, test blood sugar 3 times a day, 90 days docusate sodium [Colace] 100 mg capsule 100 mg PO BID Qty: 180 0RF Rx Instructions: HOLD FOR LOOSE STOOLS atorvastatin 80 mg tablet 80 mg PO DAILY 90 Days Qty: 90 3RF metoprolol tartrate 50 mg tablet 50 mg PO BID 90 Days Qty: 180 3RF glipizide 10 mg tablet extended release 24hr 20 mg PO DAILY Qty: 180 3RF (DME) lancets 33 gauge misc See Rx Instructions Not Applicable TID Qty: 100 Rx Instructions: As directed (DME) blood-glucose meter [FreeStyle Lite Meter] Kit See Rx Instructions .ROUTE .MEDSUPPLY Qty: 1 0RF Rx Instructions: DX: E11.9, test blood sugar 3 times a day, duration 999 days melatonin 5 mg tablet, IR and ER, biphasic 5 mg PO BEDTIME (DME) FreeStyle Jack 3 Plus Sensor Device See Rx Instructions .ROUTE .MEDSUPPLY Qty: 2 5RF Rx Instructions: Use daily As directed to monitor glucose (DME) FreeStyle Jack 3 [place] Misc See Rx Instructions .ROUTE .MEDSUPPLY Qty: 1 0RF Rx Instructions: Use daily As directed to monitor blood glucose metformin 1,000 mg tablet 1,000 mg PO BID Qty: 180 3RF Print Language: Marshallese
[2025-06-22 18:46] VITALS: BP 144/88; PULSE 101; RESP 16; TEMP 36.6; O2SAT 98; BMI 19.0
[2025-06-22 19:07] LABS: Hematocrit 45.7 % (37.0-47.0); Hemoglobin 14.9 g/dl (12.0-16.0); Imm Gran Abs Auto 0.04 X10*3/uL (0.00-0.03); Imm Gran Pct Auto 0.3 % (0.0-0.4); Lymphocytes Absolute Auto 0.4 X10*3/uL (1.2-4.9); MANUAL DIFF FLAG NO; Mean Corpuscular HGB Conc 32.6 g/dl (31.0-35.0); Mean Corpuscular Hemoglobin 28.7 pg (27.0-33.0); Mean Corpuscular Volume 88.1 fL (80.0-98.0); NRBC Abs Auto 0.000 X10*3/uL (0.0-0.012); NRBC Pct Auto 0.0 /100WBC (0.0-0.2); Platelet Count 241 X10*3/uL (160-400); Red Blood Count 5.19 X10*6/uL (4.20-5.50); White Blood Count 11.9 X10*3/uL (4.8-10.8)
[2025-06-22 19:19] LABS: Alanine Aminotransferase 50 U/L (0-31); Albumin Level 4.5 g/dL (3.5-5.0); Alkaline Phosphatase 93 U/L (39-117); Anion Gap 16 (12-20); Aspartate Amino Transferase 34 U/L (5-31); Blood Urea Nitrogen 26 mg/dL (9-16); Calcium 11.1 mg/dL (8.4-10.2); Carbon Dioxide 24 mmol/L (22-29); Chloride 106 mmol/L (96-108); Creatinine Clr Calc Pharmacy 74.4; Estimated Glomerular Filt Rate > 60; Potassium 4.5 mmol/L (3.3-5.1); Sodium 141 mmol/L (135-145); Total Protein 6.5 g/dL (6.5-8.0)
[2025-06-22 19:20] LABS: Lipase 38 U/L (8-78)
[2025-06-22 20:40] VITALS: BP 116/70; PULSE 89; RESP 16; TEMP 36.9; O2SAT 96
--- OUTSIDE RECORDS SUMMARY | 2025-06-22 21:33 | XMS_ITS | Clinical Summary ---
Author Organization [facility] Address [address] [facility] [address] [place] [id number] Phone Care Team Providers Care Scientific Manager Name Role Phone Mulugeta Bowles MD Primary [...] her for surgical evaluation for parathyroidectomy at [facility]. Assessment & Plan (10/27/2022 12:01 PM [...] antibodies. 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 MICROALB/CRE RATIO NOT CALCULATED 0 - 20 mg/g Cre [facility] Comment:due to Microalbumin <1.2 Urine (Urine) 09/14/2023 8:3 0 AM EDT 09/14/2023 8:39 AM EDT us Dg Krishnamurthy DO LAB URINE ORDERABLES Final Resul t [facility] [address] [place] [address] * (ABNORMAL) Comprehensive metabolic panel (09/14/2023 8:15 AM EDT) SODIUM 140 133 - 146 mmol/L [facility] POTASSIUM 4.8 3.3 - 5.1 mmol/L [facility] CHLORIDE 105 96 - 108 mmol/L [facility] CO2 25 21 - 35 mmol/L [facility] BUN 23(H) 6 - 19 mg/dL [facility] CREATININE 0.80 0.5 - 1.5 mg/dL [facility] GLUCOSE 169(H) 70 - 99 mg/dL [facility] ALBUMIN 4.4 3.9 - 4.8 g/dL [facility] TOTAL PROTEIN 6.8 6.5 - 8.0 g/dL [facility] CALCIUM 11.3(H) 8.4 - 10.3 mg/dL [facility] ALKALINE PHOSPHATASE 114 39 - 117 U/L [facility] TOTAL BILIRUBIN 0.3 0.0 - 1.2 mg/dL [facility] AST 30 0 - 37 U/L [facility] ALT 25 0 - 40 U/L [facility] GLOBULIN 2.4 1 - 4.8 g/dL [facility] EGFR 84 >59 mL/min/1.7 3m2 [facility] Comment:Estimated glomerular filtration rate calculated using the CKD-EPI refit equation. ANION GAP 15 10 - 20 mmol/L [facility] Blood 09/14/2023 8:15 AM EDT 09/14/2023 8:18 AM EDT us Dg Krishnamurthy DO LAB BLOOD BKR ORDERABLES Final R esult [facility] [address] [place] [id number] from Last 3 Months or Most Recently [...] NON [facility]SP[facility] PCP [employer] Care Teams Scientific Manager Relationship Specialty Start Date End Date Mulugeta Bowles MD PCP - General Family Medicine 01/06/22 Additional Source Comments The information contained in this document represents components of the legal health record. It is not the complete legal health record.[facility]
--- OUTSIDE RECORDS SUMMARY | 2025-06-22 21:33 | XMS_ITS | Clinical Summary ---
Author Organization [employer] Address [address] [place] [address] Care Team Providers Care Microfilm Clerk Name Role Phone Unavailable Primary Care Provider [...]
[2025-06-22 22:47] LABS: Resp Syncy Virus RNA Qual PCR NEGATIVE (Negative); SARS COV2 PCR INHOUSE NEGATIVE (Negative)
[2025-06-22] MEDS: iohexoL 350 MG/ML 100 ML INFUS..BTL IV (23:06)
[2025-06-22 23:50] VITALS: BP 100/61; PULSE 69; RESP 16; TEMP 36.7; O2SAT 98
[2025-06-23 01:20] VITALS: BP 99/60; PULSE 71; RESP 16; TEMP 36.3; O2SAT 98
[2025-06-23 01:26] VITALS: BP 99/60; PULSE 71; RESP 16; TEMP 36.3; O2SAT 98
== END 2025-06-23 01:31 | disposition home or self-care (01) ==
PROVIDERS: Nurse Practitioner Family; Emergency Provider Student in an Organized Health Care Education/Training Program; PCP Family Medicine
DX: K52.9 Noninfective gastroenteritis and colitis, unspecified (principal); K59.00 Constipation, unspecified; R10.13 Epigastric pain; R11.2 Nausea with vomiting, unspecified; R63.4 Abnormal weight loss; Z68.1 Body mass index [BMI] 19.9 or less, adult; E11.9 Type 2 diabetes mellitus without complications; E78.5 Hyperlipidemia, unspecified; I25.10 Atherosclerotic heart disease of native coronary artery without angina pectoris
CPT/HCPCS: 36415; 74177; 80048; 80076; 83690; 85025; 87637; 96361; 96374; 96375; 99284; 99285; J1308; J2405; Q9967

== ENCOUNTER → 2025-06-22 22:20 | Outpatient (BNV) | payer OTHER, SELFPAY ==
[2025-02-22 13:44] VITALS: BP 112/70; BP 126/76; BMI 24.6
== END ==
PROVIDERS: Emergency Provider Student in an Organized Health Care Education/Training Program; PCP Family Medicine; Visit Provider Radiology Diagnostic Radiology
DX: K52.9 Noninfective gastroenteritis and colitis, unspecified (principal); K63.89 Other specified diseases of intestine
CPT/HCPCS: 74177